=== PATIENT | male | born 1950 | race Caucasian/White ===

== ENCOUNTER 2020-12-22 14:47 | Outpatient (REF) | payer MEDICARE, SELFPAY ==
--- NOTE | 2020-12-22 15:03 | ECG_ITS ---
Test Reason : med monitering Blood Pressure : / mmHG Vent. Rate : 061 BPM Atrial Rate : 061 BPM P-R Int : 132 ms QRS Dur : 098 ms QT Int : 420 ms P-R-T Axes : 057 -36 060 degrees QTc Int : 422 ms Normal sinus rhythm Left anterior fascicular block Intra-ventricular conduction delay Abnormal ECG No previous EKG. Referred By: Ashley Lugo Electronically Signed By:NIDHI KRAUSE MD
[2020-12-22 15:32] LABS: Alanine Aminotransferase 26 U/L (0-40); Albumin Level 4.5 g/dL (3.5-5.0); Alkaline Phosphatase 81 U/L (39-117); Anion Gap 13 (12-20); Aspartate Amino Transferase 26 U/L (5-37); Bilirubin Total 1.2 mg/dL (0.0-1.0); Blood Urea Nitrogen 18 mg/dL (9-16); Calcium 9.7 mg/dL (8.4-10.2); Carbon Dioxide 19 mmol/L (22-29); Chloride 114 mmol/L (96-108); Estimated Glomerular Filt Rate > 60; Glucose Random 107 mg/dL (60-115); Potassium 3.9 mmol/L (3.3-5.1); Sodium 142 mmol/L (135-145); Total Protein 6.9 g/dL (6.5-8.0)
[2020-12-22 15:52] LABS: Free T4 (Free Thyroxine) 1.06 ng/dL (0.71-1.85); Thyroid Stimulating Hormone 1.31 uIU/mL (0.32-4.0)
== END 2020-12-22 14:48 | disposition home or self-care (01) ==
LOC: HO.LAB 14:47
PROVIDERS: Visit Provider Nurse Practitioner Psychiatric/Mental Health
DX: F41.1 Generalized anxiety disorder (principal); F33.2 Major depressive disorder, recurrent severe without psychotic features
CPT/HCPCS: 36415; 80053; 84439; 84443; 93005

== ENCOUNTER 2021-01-17 13:58 | Emergency (ER) | payer MEDICARE, SELFPAY ==
--- NOTE | ~2021-01-17 | XR_ITS ---
EXAMINATION: XR CHEST CLINICAL INFORMATION: Shortness of breath COMPARISON: None TECHNIQUE: 2 views of the chest were obtained. FINDINGS: No significant abnormality is noted involving the heart, lungs, mediastinum, bony thorax or soft tissues. XR/XR chest 2V IMPRESSION: Unremarkable examination.
[2021-01-17 14:45] VITALS: BP 116/52; PULSE 65; RESP 16; TEMP 36.7; O2SAT 99; BMI 27.8
--- NOTE | 2021-01-17 14:47 | ED_ITS ---
HPI - Psych General Chief Complaint: Psychiatric Symptoms Stated Complaint: crisis Time Seen by Provider: 01/17/21 14:46 Source: patient Mode of arrival: ambulatory Limitations: no limitations History of Present Illness HPI Narrative: 70-year-old male with a history of depression and anxiety currently on partial hospitalization program last seen today by Psychiatry presents to the ER for hope of getting inpatient level of care. He was recently started on olanzapine 5 mg b.i.d. for the last 1 week. He reports no improvement with this. No reviews that he was hyperventilating during interview with psych today. He is frustrated with lack of benefit on the new medication and he continues to feel tired and depressed with low motivation and hopelessness. 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 His neighbors ?put up a fight? 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 He states he is at home alone in a constant state of anxiety and panic. He says for the last 2 months he has woken up anxious and hyperventilating and his symptoms slowly improved throughout the day but he wakes up the next day feeling the exact same way. He is afraid of being a failed, alone old man with no success. He denies suicidal or homicidal thoughts. MD complaint: feels depressed and anxiety Onset (ago): unknown Duration: constant History of same: Yes Relieving factors: none Exacerbating factors: none Associated psychiatric symptoms: depression and racing thoughts Associated symptoms: denies other symptoms Treatments prior to arrival: none Related Data Home Medications Medication Instructions Recorded Confirmed aspirin 81 mg capsule 81 mg PO DAILY 12/21/20 01/17/21 atorvastatin 40 mg tablet 40 mg PO BEDTIME 12/21/20 01/17/21 cholecalciferol (vitamin D3) 50 50 mcg PO DAILY 12/21/20 01/17/21 mcg (2,000 unit) capsule (Vitamin D3) citalopram 20 mg tablet (Celexa) 30 mg PO DAILY 12/21/20 01/17/21 docusate sodium 100 mg capsule 100 mg PO BID 12/21/20 01/17/21 lorazepam 1 mg tablet 1 mg PO TID 12/21/20 01/17/21 mirtazapine 15 mg tablet (Remeron) 15 mg PO BEDTIME 12/21/20 01/17/21 betamethasone dipropionate 0.05 % 1 appl TOPICAL DAILY 01/17/21 01/17/21 topical cream gabapentin 300 mg capsule 300 mg PO BID 01/17/21 01/17/21 vitamin B complex 1 cap PO DAILY 01/17/21 01/17/21 Previous Rx's Medication Instructions Recorded olanzapine 5 mg tablet 5 mg PO BID #14 tab 01/10/21 Allergies Allergy/AdvReac Type Severity Reaction Status Date / Time No Known Allergies Allergy Verified 12/21/20 13:27 Review of Systems Review of Systems: Constitutional: No Fever, No Chills ENT/Mouth: No sore throat, No Rhinorrhea, No Swallowing Difficulty Cardiovascular: No Chest Pain, No SOB, No Orthopnea, No Edema Respiratory: No Cough, No Sputum, No Wheezing, No dyspnea Gastrointestinal: No Nausea, No Vomiting, No Diarrhea, No abdominal Pain Genitourinary: No Dysuria, No Urinary Frequency, No Hematuria Musculoskeletal: No joint pain, No Myalgias Skin: No Skin Lesions, No rash Neuro: No Weakness, No Numbness, No Dizziness, No Headache Psych: + Anxiety/Panic, + Depression, No SI, No HI Heme/Lymph: No Bruising, No Lymphadenopathy Endocrine: No Polyuria, No Polydipsia PMFSH Past Medical History Medical History History of prediabetes Hyperlipidemia Psoriasis Psoriatic arthritis Surgical History H/O cervical discectomy H/O inguinal hernia repair Social History Social History Household Members: None Patient Tobacco Use Status: Never used Tobacco Advance Directives: No Advance Directives Information Provided: No Physical Exam Vital Signs: Vital Signs: Last Vital Signs Temp 98.1 F 01/17/21 14:45 Pulse 65 01/17/21 14:45 Resp 16 01/17/21 14:45 BP 116/52 L 01/17/21 14:45 Pulse Ox 99 01/17/21 14:45 Body Mass Index 27.8 Appearance: Alert. Oriented X3. Anxious, hyperventilating, slightly disheveled. Eyes: Pupils equal, round and reactive to light. ENT: Pharynx normal. Neck: Normal inspection. Neck supple. CVS: Normal heart rate and rhythm. Pulses normal. Respiratory: No respiratory distress. Breath sounds normal. Abdomen: Soft and nontender. +BS x4 Skin: Skin warm and dry. Normal skin color. Normal skin turgor. No rashes. Extremities: No lower extremity edema. Neuro: Oriented X 3. No motor deficit. No sensory deficit. CN II-X11 intact. Anxious, well spoken with rapid speech. No SI/HI/AH/VH. Course Course Course Narrative: 70-year-old male with history of generalized anxiety disorder, major depressive disorder who is currently in the partial hospitalization program here presents to the ER for evaluation of ongoing worsening anxiety desp ite treatment with b.i.d. olanzapine. He is hyperventilating and having poor control over his anxiety attacks. He is hoping for inpatient level of care. He is not suicidal at this time. Will get labs and clear medically and have crisis team evaluate him. Reevaluation(s) Reevaluation #1: Lab workup is unremarkable. U tox is negative. Alcohol level is negative. COVID is negative. At this time is medically cleared and appropriate for N evaluation. Physician observation started at 5:21pm. Patient placed in physician observation because patient is awaiting N evaluation for the possible need of inpatient psych admission. At the time observation was started patient's vital signs were stable. Patient is alert and oriented. Neuro exam is non-focal. CV: RRR and lungs are clear with rapid resp rate intermittently. Will continue to monitor. Time: 17:22 [facility] - Psych Lab Data Result diagrams: 01/17/21 16:22 01/17/21 16:22 Labs: Lab Results 01/17/21 01/17/21 01/17/21 Range/Units 15:32 15:33 15:33 WBC (4.8-10.8) X10*3/uL RBC (4.60-5.80) X10*6/uL Hgb (14.0-18.0) g/dl Hct (42.0-52.0) % MCV (80.0-98.0) fL MCH (27.0-33.0) pg MCHC (31.0-36.0) g/dl RDW (11.0-16.0) % Plt Count (160-400) X10*3/uL MPV (9.4-12.4) fL Immature Gran % (Auto) (0.0-0.4) % Neut % (Auto) (45-73) % Lymph % (Auto) (20-40) % [place] % (Auto) (2-11) % Eos % (Auto) (0-4) % Baso % (Auto) (0-2) % Lymph # (Auto) (1.2-4.9) X10*3/uL [place] # (Auto) (0.1-1.2) X10*3/uL Eos # (Auto) (0.0-0.4) X10*3/uL Baso # (Auto) (0.0-0.2) X10*3/uL Abs Immat Gran (auto) (0.00-0.03) X10*3/uL Absolute Neuts (auto) (2.0-8.3) x10*3/uL Absolute Nucleated RBC (0.0-0.012) X10*3/uL Nucleated RBC % (auto) (0.0-0.2) /100WBC Sodium (135-145) mmol/L Potassium (3.3-5.1) mmol/L Chloride (96-108) mmol/L Carbon Dioxide (22-29) mmol/L Anion Gap (12-20) BUN (9-16) mg/dL Creatinine (0.5-1.4) mg/dL Estim Creat Clear Calc Estimated GFR Random Glucose (60-115) mg/dL Calcium (8.4-10.2) mg/dL Magnesium (1.6-2.6) mg/dL Total Bilirubin (0.0-1.0) mg/dL Direct Bilirubin (0.0-0.5) mg/dL AST (5-37) U/L ALT (0-40) U/L Alkaline Phosphatase (39-117) U/L Total Protein (6.5-8.0) g/dL Albumin (3.5-5.0) g/dL Urine Color YELLOW Urine Appearance CLEAR Urine pH 6.5 (5.0-8.0) Ur Specific [place] 1.010 (1.005-1.025) Urine Protein NEG (NEG-TRACE) MG/DL Urine Glucose (UA) NEG (NEG) MG/DL Urine Ketones NEG (NEG) MG/DL Urine Blood NEG (NEG) Urine Nitrite NEG (NEG) Ur Leukocyte Esterase NEG (NEG) Urine Opiates Screen Not Detected (Not Detect) Urine Fentanyl Screen Not Detected (Not Detect) Ur Barbiturates Screen Not Detected (Not Detect) Ur Phencyclidine Scrn Not Detected (Not Detect) Ur Amphetamines Screen Not Detected (Not Detect) U Benzodiazepines Scrn Not Detected (Not Detect) Urine Cocaine Screen Not Detected (Not Detect) U Marijuana (THC) Screen Not Detected (Not Detect) Ethyl Alcohol mg/dL COVID-19 (ANNIE) Negative (Negative) COVID-19 Clin Com See Note 01/17/21 01/17/21 01/17/21 Range/Units 16:22 16:22 16:22 WBC 9.0 (4.8-10.8) X10*3/uL RBC 4.11 L (4.60-5.80) X10*6/uL Hgb 13.2 L (14.0-18.0) g/dl Hct 38.8 L (42.0-52.0) % MCV 94.4 (80.0-98.0) fL MCH 32.1 (27.0-33.0) pg MCHC 34.0 (31.0-36.0) g/dl RDW 13.2 (11.0-16.0) % Plt Count 230 (160-400) X10*3/uL MPV 9.6 (9.4-12.4) fL Immature Gran % (Auto) 0.2 (0.0-0.4) % Neut % (Auto) 64.3 (45-73) % Lymph % (Auto) 27.3 (20-40) % [place] % (Auto) 6.5 (2-11) % Eos % (Auto) 1.4 (0-4) % Baso % (Auto) 0.3 (0-2) % Lymph # (Auto) 2.5 (1.2-4.9) X10*3/uL [place] # (Auto) 0.6 (0.1-1.2) X10*3/uL Eos # (Auto) 0.1 (0.0-0.4) X10*3/uL Baso # (Auto) 0.0 (0.0-0.2) X10*3/uL Abs Immat Gran (auto) 0.02 (0.00-0.03) X10*3/uL Absolute Neuts (auto) 5.8 (2.0-8.3) x10*3/uL Absolute Nucleated RBC 0.000 (0.0-0.012) X10*3/uL Nucleated RBC % (auto) 0.0 (0.0-0.2) /100WBC Sodium 142 (135-145) mmol/L Potassium 3.9 (3.3-5.1) mmol/L Chloride 112 H (96-108) mmol/L Carbon Dioxide 20 L (22-29) mmol/L Anion Gap 14 (12-20) BUN 16 (9-16) mg/dL Creatinine 0.94 (0.5-1.4) mg/dL Estim Creat Clear Calc 80.5 Estimated GFR > 60 Random Glucose 155 H D (60-115) mg/dL Calcium 9.3 (8.4-10.2) mg/dL Magnesium 2.0 (1.6-2.6) mg/dL Total Bilirubin 0.5 (0.0-1.0) mg/dL Direct Bilirubin 0.2 (0.0-0.5) mg/dL AST 27 (5-37) U/L ALT 21 (0-40) U/L Alkaline Phosphatase 70 (39-117) U/L Total Protein 6.6 (6.5-8.0) g/dL Albumin 4.1 (3.5-5.0) g/dL Urine Color Urine Appearance Urine pH (5.0-8.0) Ur Specific [place] (1.005-1.025) Urine Protein (NEG-TRACE) MG/DL Urine Glucose (UA) (NEG) MG/DL Urine Ketones (NEG) MG/DL Urine Blood (NEG) Urine Nitrite (NEG) Ur Leukocyte Esterase (NEG) Urine Opiates Screen (Not Detect) Urine Fentanyl Screen (Not Detect) Ur Barbiturates Screen (Not Detect) Ur Phencyclidine Scrn (Not Detect) Ur Amphetamines Screen (Not Detect) U Benzodiazepines Scrn (Not Detect) Urine Cocaine Screen (Not Detect) U Marijuana (THC) Screen (Not Detect) Ethyl Alcohol < 10 mg/dL COVID-19 (ANNIE) (Negative) COVID-19 Clin Com Discharge Plan Discharge Clinical Impression: SHAI (generalized anxiety disorder), Major depressive disorder, recurrent severe without psychotic features Prescriptions: No Action gabapentin 300 mg Capsule 300 mg PO BID RF: 0 vitamin B complex [B Complex] Capsule 1 cap PO DAILY RF: 0 betamethasone dipropionate 0.05 % Cream 1 appl TOPICAL DAILY RF: 0 atorvastatin 40 mg Tablet 40 mg PO BEDTIME RF: 0 citalopram [Celexa] 20 mg Tablet 30 mg PO DAILY RF: 0 docusate sodium 100 mg Capsule 100 mg PO BID RF: 0 mirtazapine [Remeron] 15 mg Tablet 15 mg PO BEDTIME RF: 0 lorazepam 1 mg Tablet 1 mg PO TID RF: 0 cholecalciferol (vitamin D3) [Vitamin D3] 50 mcg (2,000 unit) Capsule 50 mcg PO DAILY RF: 0 aspirin 81 mg Capsule 81 mg PO DAILY RF: 0 olanzapine 5 mg tablet 5 mg PO BID Qty: 14 RF: 0
--- NOTE | 2021-01-17 15:19 | PHA.MEDREC ---
MED REC COMPLETE, NO ISSUES Pharmacy Consult ? Medication Reconciliation Pharmacy has completed the medication reconciliation.
[2021-01-17 15:40] LABS: Appearance Urine CLEAR; Color Urine YELLOW; Glucose Urine UA NEG (NEG); Leukocyte Esterase Urine NEG (NEG); Nitrite Urine NEG (NEG); PH 6.5 (5.0-8.0); Urine Blood NEG (NEG); Urine Ketones NEG (NEG); Urine Protein NEG (NEG-TRACE)
[2021-01-17 15:54] LABS: Amphetamine Screen Urine Not Detected (Not Detect); Barbiturates, Urine Not Detected (Not Detect); Benzodiazepines Screen Urine Not Detected (Not Detect); Cannabinoid Screen Urine Not Detected (Not Detect); Cocaine Screen Urine Not Detected (Not Detect); Fentanyl, urine Not Detected (Not Detect); Opiate Screen Urine Not Detected (Not Detect); Phencyclidine Screen Urine Not Detected (Not Detect)
[2021-01-17 15:54] LABS: COVID-19 Test Negative (Negative)
[2021-01-17 16:27] LABS: MANUAL DIFF FLAG NO
[2021-01-17 16:28] LABS: Basophils Percent Auto 0.3 % (0-2); Eosinophils Absolute Auto 0.1 X10*3/uL (0.0-0.4); Eosinophils Percent Auto 1.4 % (0-4); Hematocrit 38.8 % (42.0-52.0); Hemoglobin 13.2 g/dl (14.0-18.0); Imm Gran Abs Auto 0.02 X10*3/uL (0.00-0.03); Imm Gran Pct Auto 0.2 % (0.0-0.4); Lymphocytes Absolute Auto 2.5 X10*3/uL (1.2-4.9); Lymphocytes Percent Auto 27.3 % (20-40); Mean Corpuscular Hemoglobin 32.1 pg (27.0-33.0); Mean Corpuscular Volume 94.4 fL (80.0-98.0); Mean Platelet Volume 9.6 fL (9.4-12.4); Monocytes Absolute Auto 0.6 X10*3/uL (0.1-1.2); Monocytes Percent Auto 6.5 % (2-11); Neutrophils Absolute Auto 5.8 x10*3/uL (2.0-8.3); Neutrophils Percent Auto 64.3 % (45-73); Platelet Count 230 X10*3/uL (160-400); Red Blood Count 4.11 X10*6/uL (4.60-5.80); Red Cell Distribution Width 13.2 % (11.0-16.0)
[2021-01-17 16:49] LABS: Ethanol < 10 mg/dL
[2021-01-17 16:51] LABS: Alanine Aminotransferase 21 U/L (0-40); Albumin Level 4.1 g/dL (3.5-5.0); Alkaline Phosphatase 70 U/L (39-117); Anion Gap 14 (12-20); Aspartate Amino Transferase 27 U/L (5-37); Bilirubin Direct 0.2 mg/dL (0.0-0.5); Bilirubin Total 0.5 mg/dL (0.0-1.0); Blood Urea Nitrogen 16 mg/dL (9-16); Calcium 9.3 mg/dL (8.4-10.2); Carbon Dioxide 20 mmol/L (22-29); Chloride 112 mmol/L (96-108); Creatinine Clr Calc Pharmacy 80.5; Estimated Glomerular Filt Rate > 60; Glucose Random 155 mg/dL (60-115); Potassium 3.9 mmol/L (3.3-5.1); Sodium 142 mmol/L (135-145); Total Protein 6.6 g/dL (6.5-8.0)
[2021-01-17] MEDS: LORazepam 1 MG TABLET PO (17:37)
== END 2021-01-17 18:54 | disposition home or self-care (01) ==
PROVIDERS: Physician Assistant; Emergency Provider Emergency Medicine Emergency Medical Services; PCP Internal Medicine
DX: F41.1 Generalized anxiety disorder (principal); F33.2 Major depressive disorder, recurrent severe without psychotic features; Z20.822 Contact with and (suspected) exposure to COVID-19; R45.851 Suicidal ideations; Z72.89 Other problems related to lifestyle; Z60.2 Problems related to living alone
CPT/HCPCS: 36415; 71046; 80048; 80076; 80307; 81003; 82077; 83735; 85025; 87635; 99283; 99284

== ENCOUNTER 2021-01-19 11:00 | Outpatient (RCR) | payer MEDICARE, OTHER, SELFPAY ==
[2020-12-21 13:05] VITALS: BMI 25.1
--- NOTE | 2020-12-21 13:21 | PC.ADMIT ---
Patient is a 70 year old male who was referred to [place] [facility] by his therapist d/t increased depression with passive SI, no plan or intent, and severe anxiety sxs. Patient reports he is not able to function as a result. 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 He stated there was a lot of unethical things done and many lies surrounding patient regarding the attempt of implementing a [employer] business. Patient reports when he found out he was not going to be able to have a AVOB business he initially was in a constant state of rage which presently changed to severe anxiety. During the admission assessment patient was visibly anxious as his breathing was increased and fast. Patient is alert and oriented x4. Presents with depressed mood, severe anxious affect with heavy breathing at a fast rate. Educated patient on calm breathing technique to reduce anxiety with good effect. Will email patient a written copy of calm breathing exercises. Patient reports passive SI having thoughts at times to take his seat belt off while driving and krystle into a tree. Stated he would not do it because of his family. Patient gave verbal permission to email him a copy of his safety plan. Medications reconciled with patient and patient's pharmacy. Patient reports taking medications as prescribed.
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
--- NOTE | 2020-12-22 10:44 | P.EN_ITS ---
Event Note Date of Service: 12/22/20 Event Note: Called client, was given verbal permission for release of info req uest for [facility]. Also informed client of lab and EKG order, to be completed at [facility].
--- NOTE | 2020-12-22 10:44 | PM.EVENT ---
Event Note Date of Service: 12/22/20 Event Note: Called client, was given verbal permission for release of info request for [facility]. Also informed client of lab and EKG order, [place] [facility]
--- NOTE | 2020-12-22 14:44 | PC.NURSE ---
Case opened in treatment team
--- NOTE | 2020-12-23 13:26 | P.PNPSP_ITS ---
Subjective Subjective Date of Service: 12/23/20 Reason For Visit: Anxiety, Depression Guardianship: No Medical Problems Affecting Mental Status: No Interim History: Robert continues with high and sense of anxiety, hyperventilating at times. He expressed concern that [facility] staff was not in communication with his outpatient providers. He was assured that we are. Medication Compliance: Yes Side effects from medications: No Attending Groups: Yes Review of Systems Acute medical concerns: No Medical Review of Systems: unchanged Review of Systems Review of Systems Yes all other systems are reviewed and are negative Constitutional: Reports no additional constitutional complaints Eyes: Reports no additional eye complaints Reports Normal hearing present Cardiovascular: Reports no additional cardiovascular complaints Respiratory: Reports no additional respiratory complaints Gastrointestinal: Reports no additional gastrointestinal complaints Genitourinary: Reports no additional male genitourinary complaints Musculoskeletal: Reports no additional musculoskeletal complaints Skin/Breast: Reports system reviewed and no additional complaints, except as docu Reports system reviewed and no additional complaints, except as documented and Reports Normal hearing present Psychiatric: Reports no additional psychiatric complaints Endocrine: Reports no additional endocrine complaints Hematologic/Lymphatic: Reports no additional hematologic/lymphatic complaints Allergic/Immunologic: Reports no additional allergic/immunologic complaints Mental Status Exam Mental Status Exam Narrative: Well-developed, well-nourished male, in NAD. Continues with extreme anxiety. Eye contact within normal limits. Alert and oriented x4. No involuntary movements noted, motor activity calm, posture within normal limits. [place] in behavior were anxious, cooperative. Speech was fluent, unimpaired. Attention and cognition grossly intact. Mood described as anxious, affect congruent. Thought process and associations goal directed. Thought content was normal, future oriented. No evidence of any type of delusional thoughts or hallucinations, did not appear to be responding to any type of internal stimuli. No reports of SI, HI. Appears to be reliable historian. Judgment and insight continue fair at this time. Ambulation not observed. Diagnostics Vital Signs (24Hr): Body Mass Index 25.1 Labs Labs: Labs reviewed from PCP and [facility]. EKG EKG: reviewed EKG Comment: EKGs from PCP office reviewed, and EKG obtained here at [facility] yesterday reviewed. Assessment & Plan Assessment & Plan (1) Major depressive disorder, recurrent severe without psychotic features: Status: Acute Code(s): F33.2 - Major depressive disorder, recurrent severe without psychotic features Assessment and Plan: Client continues with depressive symptoms, dysphoric mood. Denies any type of thought of harm to self or others, no safety concern at this time. (2) SHAI (generalized anxiety disorder): Status: Acute Code(s): F41.1 - Generalized anxiety disorder Assessment and Plan: Client continues with highly anxious state. Reviewed deep breathing, anxiety reduction techniques, practiced with client. Printed materials sent via e-mail. Discussed adding low-dose risperidone to help with agitation/anxiety. Discuss risks, benefits, side effects, alternatives. Client willing to try low-dose. Assessment and Plan: 1. Start risperidone 0.25 b.i.d. x7 days. To be revaluated next week. 2. Follow-up as per protocol. Patient educated on: diagnosis, medication risk/benefits and therapeutic strategies Informed Consent: understands Reason for contiued partial hosp. stay Substantial Risk for: inability to function, rapid decompensation and med/psych decompensation Certification I certify that partial hospital treatment is medically necessary due to the symptoms and problems resulting from the patient's mental illness and the martita lure to treat the patient at the partial hospital level of care would likely result in the patient requiring inpatient psychiatric care which could not be prevented at a less intensive level of care. I spent minutes with the patient and/or on the patient floor today, greater than?50% of which was spent counseling/coordinating care. Discharge Plan Discharge Attending provider: Donta Campbell Primary Care Provider: Calderon Parks Medications: New risperidone [Risperdal] 0.5 mg tablet 0.25 mg PO BID 7 Days Qty: 7 RF: 0 No Action atorvastatin 40 mg Tablet 40 mg PO BEDTIME RF: 0 citalopram [Celexa] 20 mg Tablet 30 mg PO DAILY RF: 0 docusate sodium 100 mg Capsule 100 mg PO DAILY RF: 0 mirtazapine [Remeron] 15 mg Tablet 15 mg PO BEDTIME RF: 0 lorazepam 1 mg Tablet 1 mg PO TID RF: 0 gabapentin 100 mg Tablet 100 mg PO TID RF: 0 gabapentin 300 mg Tablet 300 mg PO TID RF: 0 cholecalciferol (vitamin D3) [Vitamin D3] 50 mcg (2,000 unit) Capsule 50 mcg PO DAILY RF: 0 aspirin 81 mg Capsule 81 mg PO DAILY RF: 0 Referrals: Calderon Parks MD [Primary Care Provider] - 1 Week Telehealth Telehealth Location of provider rendering services: practice address Location of patient: address on file Patient Identification confirmed using: Name, : Yes Telehealth method: video Patient verbally consented to treatment: Yes Patient verbally consented to billing insurance company: Yes Patient informed of any privacy concerns related to visit: Yes Time spent with patient (mins): 15
--- NOTE | 2020-12-26 15:21 | HO.PHPPROGNO ---
Subjective Subjective Date of Service: 12/26/20 Reason For Visit: Anxiety, Depression Healthcare Proxy: Yes Guardianship: No Medical Problems Affecting Mental Status: No Interim History: Robert reports that he continues to feel ?pretty lousy ?. He reports that his breathing is still difficult at times and he finds himself hyperventilating. He does say that he has been utilizing the deep breathing exercises he received on Saturday. He states that when he does these exercises he feels less anxiety, but then sometimes he forgets to do them. Risperdal was started Saturday, he reports no real difference in his anxiety level at this time. He reports feeling weak at times, believes it is due to his increased dose of gabapentin. He also reports that he has been taking 2-300 mg of Colace daily due to difficulties with stools. 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 He then has an appointment with his outpatient therapist. He is ruminating on his day schedule tomorrow, and states he does not know if he will be able to function, and that he may need to stop mid day and go home. Medication Compliance: Yes Side effects from medications: No Review of Systems Acute medical concerns: No Medical Review of Systems: unchanged Review of Systems Review of Systems Client continues with anxiety,constipation, denies any other issues at this time. Yes all other systems are reviewed and are negative Mental Status Exam Mental Status Exam Narrative: Well-developed male, in NAD. Patient Appearance: Well Grooomed and Fatigued Patient Orientation: Person, Place and Time Level of Consciousness: Appropriate and Alert Patient Behavior: Appropriate, Cooperative, Anxious and Good Eye Contact Mood Description: Anxious Affect Description: Appropriate, Anxious and Nervous Patient Cognition Impaired: No Ability to Follow Directions: Excellent Speech Pattern: Clear, Appropriate, Spontaneous Speech and Coherent Memory Description: Intact Delusions: Not Present Thought Process: Rumination, Goal Oriented and Linear Thought Content: positive for Goal Oriented, positive for Perseveration and positive for Preoccupation Depressive Symptoms: Increased Anxiety and Diff. Making Decisions Judgement: Fair Diagnostics Vital Signs (24Hr): Body Mass Index 25.1 Assessment & Plan Assessment & Plan (1) SHAI (generalized anxiety disorder): Status: Acute Code(s): F41.1 - Generalized anxiety disorder Assessment and Plan: Client continues with excessive anxiety symptoms, including hyperventilation, rumination, excessive worry, difficulty relaxing, fatigue, restlessness. We reviewed deep breathing exercises, client was encouraged to utilize them. We reviewed his day tomorrow, and his projection that he will have too much anxiety and will need to go home. Reframing, plan for break during busy schedule tomorrow, to take a brisk walk and eat. He stated that he will try this. He does say that he does not notice a substantial difference with the Risperdal, but will give it a few more days to try. He requests refill of gabapentin 100 mg, 50 tabs, as he has 50 of the gabapentin 300s but is out of the 100s. (2) Major depressive disorder, recurrent severe without psychotic features: Status: Acute Code(s): F33.2 - Major depressive disorder, recurrent severe without psychotic features Assessment and Plan: 1. Refill of gabapentin 100 sent into pharmacy. 2. Continue medications as prescribed. 3. Follow-up as per protocol. Reason for contiued partial hosp. stay Substantial Risk for: inability to function and med/psych decompensation Certification I certify that partial hospital treatment is medically necessary due to the symptoms and problems resulting from the patient's mental illness and the failure to treat the patient at the partial hospital level of care would likely result in the patient requiring inpatient psychiatric care which could not be prevented at a less intensive level of care. I spent minutes with the patient and/or on the patient floor today, greater than?50% of which was spent counseling/coordinating care. Discharge Plan Discharge Attending provider: Donta Campbell Primary Care Provider: Calderon Parks Medications: New risperidone [Risperdal] 0.5 mg tablet 0.25 mg PO BID 7 Days Qty: 7 RF: 0 gabapentin 100 mg capsule 100 mg PO TID Qty: 50 RF: 0 Discontinued gabapentin 100 mg Tablet 100 mg PO TID RF: 0 No Action atorvastatin 40 mg Tablet 40 mg PO BEDTIME RF: 0 citalopram [Celexa] 20 mg Tablet 30 mg PO DAILY RF: 0 docusate sodium 100 mg Capsule 100 mg PO DAILY RF: 0 mirtazapine [Remeron] 15 mg Tablet 15 mg PO BEDTIME RF: 0 lorazepam 1 mg Tablet 1 mg PO TID RF: 0 gabapentin 300 mg Tablet 300 mg PO TID RF: 0 cholecalciferol (vitamin D3) [Vitamin D3] 50 mcg (2,000 unit) Capsule 50 mcg PO DAILY RF: 0 aspirin 81 mg Capsule 81 mg PO DAILY RF: 0 Referrals: Calderon Parks MD [Primary Care Provider] - 1 Week Telehealth Telehealth Location of provider rendering services: practice address Location of patient: address on file Patient Identification confirmed using: Name, : Yes Telehealth method: video Patient verbally consented to treatment: Yes Patient verbally consented to billing insurance company: Yes Patient informed of any privacy concerns related to visit: Yes Time spent with patient (mins): 15
--- NOTE | 2020-12-27 14:15 | PC.NURSE ---
Faxed abnormal lab and EKG results to Dr Parks's office patient's PCP on 12/26/20. Called and left message to f/u. Awaiting a call back.
--- NOTE | 2020-12-28 17:55 | HO.PHPPROGNO ---
Subjective Subjective Date of Service: 12/28/20 Reason For Visit: Anxiety, Depression Guardianship: No Medical Problems Affecting Mental Status: No Interim History: Robert reports feeling the same, states ?I feel like I am spinning my wheels ?. 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 He states that he saw his therapist yesterday, and that she informed him he needs to be assertive regarding his medical care and his medications. He states that he believes none of his providers, including this provider, are in contact with his medical providers and psychiatry providers. 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 He states he is periodically doing the deep breathing exercises and walking, but not consistently. He states that he feels he is not getting any relief. He states feeling weak. He denies any thoughts of harm to self or others, no SI, feels safe. No safety concern at this time. He states no relief from the Risperdal. He is questioning whether the 400 mg gabapentin q.i.d. is causing him to feel tired and weak. Medication Compliance: Yes Side effects from medications: No Attending Groups: Yes Review of Systems Acute medical concerns: No Medical Review of Systems: unchanged Mental Status Exam Mental Status Exam Narrative: Well-developed, well-nourished male, in NAD. Hyperventilating at times, extremely anxious mood and affect. No involuntary movements noted, motor activity calm. Posture within normal limits. Ambulation not observed. Patient Appearance: Well Grooomed, Fatigued and Appropriate Patient Orientation: Person, Place, Time and Situation Level of Consciousness: Awake, Appropriate and Alert Patient Behavior: Appropriate, Cooperative, Anxious and Good Eye Contact Mood Description: Appropriate and Anxious Affect Description: Anxious Patient Cognition Impaired: No Ability to Follow Directions: Excellent Speech Pattern: Clear, Perseverating, Spontaneous Speech and Coherent Memory Description: Intact Hallucinations: None Delusions: Not Present Thought Process: Intact and Rumination Thought Content: positive for Intact, positive for Obsessional Thoughts and positive for Preoccupation Depressive Symptoms: Increased Anxiety and Increased Fatigue Judgement: Fair Diagnostics Vital Signs (24Hr): Body Mass Index 25.1 Assessment & Plan Assessment & Plan (1) SHAI (generalized anxiety disorder): Status: Acute Code(s): F41.1 - Generalized anxiety disorder Assessment and Plan: Client continues with extremely anxious mood and affect, hyperventilating at times during encounter. States concerns that none of his providers are talking to each other. Discussed medications. Reports no help at all with gabapentin 400 t.i.d., and believes it is causing his symptoms to worsen, and causing fatigue. (2) Major depressive disorder, recurrent severe without psychotic features: Status: Acute Code(s): F33.2 - Major depressive disorder, recurrent severe without psychotic features Assessment and Plan: Client continues with dysphoric mood. No thoughts of harm to self or others, no safety concern at this time. Reports no positive affect with Risperdal. Discussed medication changes, also discussed possibility of evaluation for inpatient level of care. Client reports he would like to try decreasing gabapentin and stopping Risperdal 1st, and then will come in to ED for evaluation for inpatient level of care if continues with no improvement. Assessment and Plan: 1. Stop Risperdal. 2. Decrease gabapentin to 300 mg t.i.d.. 3. Client encouraged to continue deep breathing exercises, and walking for 10 minutes 2-3 times daily to help relieve stress. 4. Follow-up as per protocol. Patient educated on: diagnosis, medication risk/benefits and therapeutic strategies Informed Consent: understands Reason for contiued partial hosp. stay Substantial Risk for: inability to function, rapid decompensation and med/psych decompensation Certification I certify that partial hospital treatment is medically necessary due to the symptoms and problems resulting from the patient's mental illness and the failure to treat the patient at the partial hospital level of care would likely result in the patient requiring inpatient psychiatric care which could not be prevented at a less intensive level of care. I spent minutes with the patient and/or on the patient floor today, greater than?50% of which was spent counseling/coordinating care. Discharge Plan Discharge Attending provider: Donta Campbell Primary Care Provider: Calderon Parks Medications: Discontinued gabapentin 100 mg Tablet 100 mg PO TID RF: 0 No Action atorvastatin 40 mg Tablet 40 mg PO BEDTIME RF: 0 citalopram [Celexa] 20 mg Tablet 30 mg PO DAILY RF: 0 docusate sodium 100 mg Capsule 100 mg PO DAILY RF: 0 mirtazapine [Remeron] 15 mg Tablet 15 mg PO BEDTIME RF: 0 lorazepam 1 mg Tablet 1 mg PO TID RF: 0 gabapentin 300 mg Tablet 300 mg PO TID RF: 0 cholecalciferol (vitamin D3) [Vitamin D3] 50 mcg (2,000 unit) Capsule 50 mcg PO DAILY RF: 0 aspirin 81 mg Capsule 81 mg PO DAILY RF: 0 Referrals: Calderon Parks MD [Primary Care Provider] - 1 Week Telehealth Telehealth Location of provider rendering services: practice address Location of patient: address on file Patient Identification confirmed using: Name, : Yes Telehealth method: video Patient verbally consented to treatment: Yes Patient verbally consented to billing insurance company: Yes Patient informed of any privacy concerns related to visit: Yes Time spent with patient (mins): 15
--- NOTE | 2020-12-29 11:25 | PC.NURSE ---
Spoke to nurse Kareen at Dr Parks's office who stated that Dr Parks reviewed the Labs and EKG results that were faxed to his office on 12/26/20. Stated EKG was similar to last one that was done and labs are minor no need for urgent f/u. Kareen stated she spoke to the patient and the plan is for the patient to call Dr Parks's office once discharged from the program to make a f/u appointment.
--- NOTE | 2021-01-03 14:18 | HO.PHPPROGNO ---
Subjective Subjective Date of Service: 01/04/21 Reason For Visit: Anxiety, Depression Interim History: Patient seen and discussed with team. Patient evaluated this morning and upon interview he states the risperdal 0.25 mg didnt make any difference being on or off it and that he is still having trouble with constipation. Says he feels the same as I was when I started the program, feels quivering in my body, and he cant control my breathing. Pt said a non-professional friend of his suggested luvox or anafranil, however he would like to defer to providers for this decision. Says he is anxious and his appetite is diminished. Says he feels safe. Medication Compliance: Yes Side effects from medications: No Attending Groups: Yes Review of Systems Acute medical concerns: No Medical Review of Systems: unchanged Mental Status Exam Mental Status Exam Narrative: Well-developed, well-nourished male, in NAD.? Hyperventilating at times, extremely anxious mood and affect.? No involuntary movements noted, motor activity calm.? Posture within normal limits.? Ambulation not observed. Patient Appearance:?Well Grooomed, Fatigued and Appropriate Patient Orientation:?Person, Place, Time and Situation Level of Consciousness:?Awake, Appropriate and Alert Patient Behavior:?Appropriate, Cooperative, Anxious and Good Eye Contact Mood Description:?Appropriate and Anxious Affect Description:?Anxious Patient Cognition Impaired:?No Ability to Follow Directions:?Excellent Speech Pattern:?Clear, Perseverating, Spontaneous Speech and Coherent Memory Description:?Intact Hallucinations:?None Delusions:?Not Present Thought Process:?Intact and Rumination Thought Content:?positive for Intact, positive for Obsessional Thoughts and positive for Preoccupation Depressive Symptoms:?Increased Anxiety and Increased Fatigue Judgement:?Fair Diagnostics Vital Signs (24Hr): Body Mass Index 25.1 Assessment & Plan Assessment & Plan (1) Major depressive disorder, recurrent severe without psychotic features: Status: Acute Code(s): F33.2 - Major depressive disorder, recurrent severe without psychotic features Assessment and Plan: Client continues with dysphoric mood.? No thoughts of harm to self or others, no safety concern at this time.? Will re-trial Risperdal for mood stability. Discussed medication changes. Pt declined IPLOC and is not currently endorsing criteria that more restrictive level of care. (2) SHAI (generalized anxiety disorder): Status: Acute Code(s): F41.1 - Generalized anxiety disorder Assessment and Plan: Client continues with extremely anxious mood and affect, hyperventilating at times during encounter.? Discussed medications.? Denies benefit on current med regimen. Still feels fatigued even on lower gabapentin dose, however pt is also placing overall strain on himself with psychomotor agitation. Discussed optimizing dose of risperdal, as he did not have a proper trial on this medication and continues with perseverative, obsessive thoughts and intractable anxiety. Will trial 0.5 mg QAM and Qnoon, 1 mg QHS for 14 days. If this does not help, may recommend trial of luvox or anafranil in place of celexa to target obsessive thoughts and anxiety. Assessment and Plan: 1. Re-start Risperdal 0.5 mg QAM and Qnoon and 1 mg QHS. 2. Continue gabapentin 300 mg t.i.d.. 3. Client encouraged to continue deep breathing exercises, and walking for 10 minutes 2-3 times daily to help relieve stress. 4. Follow-up as per protocol. Patient educated on: medication risk/benefits and therapeutic strategies Certification I certify that partial hospital treatment is medically necessary due to the symptoms and problems resulting from the patient's mental illness and the failure to treat the patient at the partial hospital level of care would likely result in the patient requiring inpatient psychiatric care which could not be prevented at a less intensive level of care. I spent minutes with the patient and/or on the patient floor today, greater than?50% of which was spent counseling/coordinating care. Discharge Plan Discharge Attending provider: Donta Campbell Primary Care Provider: Calderon Parks Medications: New risperidone [Risperdal] 1 mg tablet See Rx Instructions .ROUTE .COMPLEX Qty: 14 RF: 0 Discontinued gabapentin 100 mg Tablet 100 mg PO TID RF: 0 No Action atorvastatin 40 mg Tablet 40 mg PO BEDTIME RF: 0 citalopram [Celexa] 20 mg Tablet 30 mg PO DAILY RF: 0 docusate sodium 100 mg Capsule 100 mg PO DAILY RF: 0 mirtazapine [Remeron] 15 mg Tablet 15 mg PO BEDTIME RF: 0 lorazepam 1 mg Tablet 1 mg PO TID RF: 0 gabapentin 300 mg Tablet 300 mg PO TID RF: 0 cholecalciferol (vitamin D3) [Vitamin D3] 50 mcg (2,000 unit) Capsule 50 mcg PO DAILY RF: 0 aspirin 81 mg Capsule 81 mg PO DAILY RF: 0 Referrals: Calderon Parks MD [Primary Care Provider] - 1 Week
--- NOTE | 2021-01-10 13:34 | P.PNPSP_ITS ---
Subjective Subjective Date of Service: 01/10/21 Reason For Visit: Anxiety, Depression Interim History: I evaluated the pt this morning and upon inquiry he reports he feels the same, continues to endorse sx of hyperarousal, anxiety, states im hyperventilating, says this starts in the morning, subsides later in the day. Reports Im fatigued. Denies benefit on increased risperdal, nothing seems to be working. Discussed accessing higher level of care but pt declines, as he has plans to visit a friend over the holidays. Discussed trial of zyprexa to target agitated anxiety and mood lability. Discussed self care/ life skills. Medication Compliance: Yes Side effects from medications: No Attending Groups: Yes Review of Systems Acute medical concerns: No Medical Review of Systems: unchanged Mental Status Exam Mental Status Exam Narrative: Well-developed, well-nourished male, in NAD.? Hyperventilating at times, extremely anxious mood and affect.? No involuntary movements noted, motor activity calm.? Posture within normal limits.? Ambulation not observed. Patient Appearance:?Well Grooomed, Fatigued and Appropriate Patient Orientation:?Person, Place, Time and Situation Level of Consciousness:?Awake, Appropriate and Alert Patient Behavior:?Appropriate, Cooperative, Anxious and Good Eye Contact Mood Description:?Appropriate and Anxious Affect Description:?Anxious Patient Cognition Impaired:?No Ability to Follow Directions:?Excellent Speech Pattern:?Clear, Perseverating, Spontaneous Speech and Coherent Memory Description:?Intact Hallucinations:?None Delusions:?Not Present Thought Process:?Intact and Rumination Thought Content:?positive for Intact, positive for Obsessional Thoughts and positive for Preoccupation Depressive Symptoms:?Increased Anxiety and Increased Fatigue Judgment:?Fair Diagnostics Vital Signs (24Hr): Body Mass Index 25.1 Assessment & Plan Assessment & Plan (1) Major depressive disorder, recurrent severe without psychotic features: Status: Acute Code(s): F33.2 - Major depressive disorder, recurrent severe without psychotic features Assessment and Plan: Client continues with dysphoric mood.? No thoughts of harm to self or others, no safety concern at this time.? Discussed switching to olanzapine, as this may be more helpful for mood sx and anxiety. Discussed medication changes. Pt declined IPLOC and is not currently endorsing criteria that more restrictive level of care. (2) SHAI (generalized anxiety disorder): Status: Acute Code(s): F41.1 - Generalized anxiety disorder Assessment and Plan: Client continues with extremely anxious mood and affect, hyperventilating at times during encounter.? Discussed medications.? Denies benefit on increased risperdal dose. Still feels fatigued, continues placing overall strain on himself with psychomotor agitation. Will discontinue risperdal. Consulted with medical and scientific illustrator, Dr. Cardenas, on the case. Will trial olanzapine 5 mg BID to target mood instability, anxious agitation. Reviewed risks and benefits. Assessment and Plan: 1. Discontinue Risperdal 0.5 mg QAM and Qnoon and 1 mg QHS. Start olanzapine 5 mg BID. 2. Continue gabapentin 300 mg t.i.d.. 3. Client encouraged to continue deep breathing exercises, and walking for 10 minutes 2-3 times daily to help relieve stress. 4. Follow-up as per protocol. Certification I certify that partial hospital treatment is medically necessary due to the symptoms and problems resulting from the patient's mental illness and the failure to treat the patient at the partial hospital level of care would likely result in the patient requiring inpatient psychiatric care which could not be prevented at a less intensive level of care. I spent minutes with the patient and/or on the patient floor today, greater than?50% of which was spent counseling/coordinating care. Discharge Plan Discharge Attending provider: Donta Campbell Primary Care Provider: Calderon Parks Medications: New olanzapine 5 mg tablet 5 mg PO BID Qty: 14 RF: 0 Discontinued gabapentin 100 mg Tablet 100 mg PO TID RF: 0 No Action atorvastatin 40 mg Tablet 40 mg PO BEDTIME RF: 0 citalopram [Celexa] 20 mg Tablet 30 mg PO DAILY RF: 0 docusate sodium 100 mg Capsule 100 mg PO DAILY RF: 0 mirtazapine [Remeron] 15 mg Tablet 15 mg PO BEDTIME RF: 0 lorazepam 1 mg Tablet 1 mg PO TID RF: 0 gabapentin 300 mg Tablet 300 mg PO TID RF: 0 cholecalciferol (vitamin D3) [Vitamin D3] 50 mcg (2,000 unit) Capsule 50 mcg PO DAILY RF: 0 aspirin 81 mg Capsule 81 mg PO DAILY RF: 0 Referrals: Calderon Parks MD [Primary Care Provider] - 1 Week
--- NOTE | 2021-01-17 11:49 | P.PNPSP_ITS ---
Subjective Subjective Date of Service: 01/16/21 Reason For Visit: Anxiety, Depression Interim History: Pt reports his Holiday was so, so, it was okay. He denies benefit on olanzapine 5 mg BID after taking it x 1 week, I feel the same way now, finished it today, it seemed to be the same. He is advocating for IPLOC, as he does not feel PHP has been helpful in stabilizing his anxiety, continues to hyperventilate during interview. Says he is frustrated with lack of benefit on medication trials and continues to feel fatigued, has sx of depression including low motivation and hopelessness. Denies SI/SIB/HI and says he feels safe. Medication Compliance: Yes Side effects from medications: No Attending Groups: Yes Review of Systems Acute medical concerns: No Medical Review of Systems: unchanged Mental Status Exam Mental Status Exam Narrative: Well-developed, well-nourished male, in NAD.? Hyperventilating at times, extremely anxious mood and affect.? No involuntary movements noted, motor activity calm.? Posture within normal limits.? Ambulation not observed. Patient Appearance:?Well Grooomed, Fatigued and Appropriate Patient Orientation:?Person, Place, Time and Situation Level of Consciousness:?Awake, Appropriate and Alert Patient Behavior:?Appropriate, Cooperative, Anxious and Good Eye Contact Mood Description:?Appropriate and Anxious Affect Description:?Anxious Patient Cognition Impaired:?No Ability to Follow Directions:?Excellent Speech Pattern:?Clear, Perseverating, Spontaneous Speech and Coherent Memory Description:?Intact Hallucinations:?None Delusions:?Not Present Thought Process:?Intact and Rumination Thought Content:?positive for Intact, positive for Obsessional Thoughts and positive for Preoccupation Depressive Symptoms:?Increased Anxiety and Increased Fatigue Judgment:?Fair Diagnostics Vital Signs (24Hr): Body Mass Index 25.1 Assessment & Plan Assessment & Plan (1) Major depressive disorder, recurrent severe without psychotic features: Status: Acute Code(s): F33.2 - Major depressive disorder, recurrent severe without psychotic features Assessment and Plan: Client continues with dysphoric mood.? No thoughts of harm to self or others, no safety concern at this time.? Pt trialed olanzapine and denies any benefit or improvement in mood or anxiety sx, he is now advocating for IPLOC as he does not feel that PHP level of care has met his needs. (2) SHAI (generalized anxiety disorder): Status: Acute Code(s): F41.1 - Generalized anxiety disorder Assessment and Plan: Client continues with extremely anxious mood and affect, hyperventilating at times during encounter.? He denied benefit on olanzapine 5 mg BID. Assessment and Plan: 1. Continue olanzapine 5 mg BID. Pt is going to [facility] to pursue IPLOC and will be assessed by crisis services. Reviewed process with him and called CARE team to inform them of pt's impending arrival. 2. Continue gabapentin 300 mg t.i.d.. 3. Follow-up as per protocol. Certification I certify that partial hospital treatment is medically necessary due to the symptoms and problems resulting from the patient's mental illness and the failure to treat the patient at the partial hospital level of care would likely result in the patient requiring inpatient psychiatric care which could not be prevented at a less intensive level of care. I spent minutes with the patient and/or on the patient floor today, greater than?50% of which was spent counseling/coordinating care. Discharge Plan Discharge Attending provider: Donta Campbell Primary Care Provider: Calderon Parks Medications: New olanzapine 5 mg tablet 5 mg PO BID Qty: 14 RF: 0 Discontinued gabapentin 100 mg Tablet 100 mg PO TID RF: 0 No Action atorvastatin 40 mg Tablet 40 mg PO BEDTIME RF: 0 citalopram [Celexa] 20 mg Tablet 30 mg PO DAILY RF: 0 docusate sodium 100 mg Capsule 100 mg PO DAILY RF: 0 mirtazapine [Remeron] 15 mg Tablet 15 mg PO BEDTIME RF: 0 lorazepam 1 mg Tablet 1 mg PO TID RF: 0 gabapentin 300 mg Tablet 300 mg PO TID RF: 0 cholecalciferol (vitamin D3) [Vitamin D3] 50 mcg (2,000 unit) Capsule 50 mcg PO DAILY RF: 0 aspirin 81 mg Capsule 81 mg PO DAILY RF: 0 Referrals: Calderon Parks MD [Primary Care Provider] - 1 Week
--- NOTE | 2021-01-17 14:54 | PC.NURSE ---
I spoke with the clients therapist Krystle Garcia about client level of distress and plan to go inpatient.
--- NOTE | 2021-01-19 12:31 | PC.NURSE ---
Patient reports no improvement of symptoms. Stated he is feeling hopeless, highly anxious, and not feeling well. Reports depression with SI stating he is having thoughts to drive his car into a tree or take all of his medications all at once. Patient denied plan or intent to follow through at this time. He is help seeking. Stated he could drive himself to the ER Safely. He is looking for inpatient level of care as he is struggling with depressive and anxiety sxs. Patient reports, This life is hardly worth living, what's the point, it never ends . Patient could benefit from inpatient level of care for safety and containment and stabilization of mental health sxs. Patient was evaluated in the ER 2 days ago and was told to come back if symptoms worsened. Spoke to Parrish from the care Team and reviewed aforementioned information. Nurse to Nurse done with Sendy MONAHAN. [facility] team is aware including Karina Trujillo Cheri L. and Gloria Bui. I called Robert at 12:08 to check in with him and he stated he was driving and is on his way to the hospital. Faxed above information to the Care Team.
--- NOTE | 2021-01-19 13:03 | PC.NURSE ---
I asked Robert to call me when he was in the Emergency room. Robert called me at 1:00 and notified me he is in the ER currently.
== END 2021-01-20 07:12 | disposition home or self-care (01) ==
LOC: HO.PHPA 11:00
PROVIDERS: PCP Internal Medicine; Visit Provider Psychiatry & Neurology Psychiatry
DX: F41.1 Generalized anxiety disorder (principal); F33.2 Major depressive disorder, recurrent severe without psychotic features; Z79.899 Other long term (current) drug therapy
CPT/HCPCS: 90791; 90853

== ENCOUNTER 2021-01-19 12:54 | Inpatient (IN) | payer MEDICARE, OTHER, SELFPAY ==
--- NOTE | 2021-01-19 | ECG_ITS ---
Test Reason : MED CLEARANCE Blood Pressure : / mmHG Vent. Rate : 057 BPM Atrial Rate : 057 BPM P-R Int : 158 ms QRS Dur : 102 ms QT Int : 438 ms P-R-T Axes : 080 -19 056 degrees QTc Int : 426 ms Artifact in tracing Sinus bradycardia Possible Left atrial enlargement Borderline ECG When compared with ECG of 22-DEC-2020 15:11, No significant change was found Referred By: Enmanuel Rhodes Electronically Signed By:TRINY PUENTES
--- NOTE | 2021-01-19 13:45 | ED_ITS ---
HPI - Psych General Chief Complaint: Psychiatric Symptoms Stated Complaint: crisis Time Seen by Provider: 01/19/21 13:45 Source: patient Mode of arrival: ambulatory Limitations: no limitations History of Present Illness HPI Narrative: 70-year-old male past medical history significant for anxiety, major depression presents to the emergency department with increasing anxiety, depression and suicidal ideation x2 months. Patient tells me that he has been having a lot of stresses in his life including some zoning fights with neighbors, he tells me he feels ?defeated ?, ?hopeless?. He also tells me that every time he becomes anxious he starts hyperventilating and this is really scaring him. He has been in a partial stay program for 1 month, however if he feels as though this is not helping. He tells me that the reason he is here today is because he made comments to somebody at the partial program, which had him come to the emergency department to be evaluated. He denies visual, auditory and tactile hallucinations. He denies drugs, alcohol, tobacco. He is currently followed by a psychiatrist Dr. Hoskins out of service [facility] and this therapist named Krystle Garcia. He tells me that he has been feeling suicidal with a plan of driving his car into a tree to . No recent med changes. He denies all medical complaints at this time no chest pain, shortness of breath, fevers, chills, nausea, vomiting, weakness, headache, dizziness MD complaint: suicidal ideation, feels depressed and anxiety Onset (ago): month(s) (2) Duration: constant History of same: Yes Relieving factors: none Exacerbating factors: none Associated psychiatric symptoms: depression and suicidal ideation Associated symptoms: denies other symptoms Treatments prior to arrival: none If self harm: admits thoughts of self harm and has plan (Drive car into a tree) Related Data Home Medications Medication Instructions Recorded Confirmed aspirin 81 mg capsule 81 mg PO DAILY 12/21/20 01/17/21 atorvastatin 40 mg tablet 40 mg PO BEDTIME 12/21/20 01/17/21 cholecalciferol (vitamin D3) 50 50 mcg PO DAILY 12/21/20 01/17/21 mcg (2,000 unit) capsule (Vitamin D3) citalopram 20 mg tablet (Celexa) 30 mg PO DAILY 12/21/20 01/17/21 docusate sodium 100 mg capsule 100 mg PO BID 12/21/20 01/17/21 lorazepam 1 mg tablet 1 mg PO TID 12/21/20 01/17/21 mirtazapine 15 mg tablet (Remeron) 15 mg PO BEDTIME 12/21/20 01/17/21 betamethasone dipropionate 0.05 % 1 appl TOPICAL DAILY 01/17/21 01/17/21 topical cream gabapentin 300 mg capsule 300 mg PO BID 01/17/21 01/17/21 vitamin B complex 1 cap PO DAILY 01/17/21 01/17/21 Previous Rx's Medication Instructions Recorded olanzapine 5 mg tablet 5 mg PO BID #14 tab 01/10/21 Allergies Allergy/AdvReac Type Severity Reaction Status Date / Time No Known Allergies Allergy Verified 12/21/20 13:27 Review of Systems Review of Systems: Constitutional : No Fever, No Chills ENT/Mouth : No Ear Pain, No Nasal Congestion, No sore throat Eyes: No Eye Pain, No Swelling, No Redness Cardiovascular : No Chest Pain, No SOB Respiratory : No Cough, No Sputum, No Dyspnea Gastrointestinal : No Nausea, No Vomiting, No Diarrhea, No Hematochezia, No Melena Genitourinary : No Dysuria, No Urinary Frequency, No Hematuria Musculoskeletal : No Myalgias Skin : No Skin Lesions, No rash Neuro : No Weakness, No Numbness, No Paresthesias, No Dizziness, No Headache Psych : positive Anxiety, positive Depression, positive SI, No HI All other systems reviewed and are negative PMFSH Past Medical History Attestation statement: The following information was validated with the patient. Source: old records reviewed and nursing notes reviewed Medical History History of prediabetes Hyperlipidemia Psoriasis Psoriatic arthritis Surgical History H/O cervical discectomy H/O inguinal hernia repair Social History Social History Household Members: None Patient Tobacco Use Status: Never used Tobacco Advance Directives: Yes Advance Directives Information Provided: Yes Advance Directives on File: No Physical Exam Vital Signs: Vital Signs: Last Vital Signs Temp 98.5 F 01/19/21 14:06 Pulse 68 01/19/21 14:06 Resp 16 01/19/21 14:06 BP 128/71 01/19/21 14:06 Pulse Ox 97 01/19/21 14:06 BMI result Body Mass Index 28.4 Appearance: Alert.? Oriented X3.? No acute distress.? Head: Normocephalic, atraumatic, no step-offs or deformities Eyes: Pupils equal, round and reactive to light.? ENT: Pharynx normal.? Neck: Normal inspection.? Neck supple.? CVS: Normal heart rate and rhythm.? Pulses normal.? Respiratory: No respiratory distress.? Breath sounds normal.? Abdomen: Soft and nontender.? Skin: Skin warm and dry.? Normal skin color.? Normal skin turgor.? Extremities: No lower extremity edema.? No calf ttp. 5/5 strength to bilateral upper and lower extremities Back: No midline tenderness, no C-spine tenderness, full range of motion, no CVA tenderness bilaterally Neuro: Oriented X 3.? No motor deficit.? No sensory deficit. CN 2-12 intact Course Reevaluation(s) Reevaluation #1: No leukocytosis, baseline anemia. BUN noted to be slightly elevated, however appears as though it is always elevated. No other electrolyte abnormalities noted. Urine toxicology negative ETOH negative. COVID negative. At this time patient will be placed in physician observation to allow more time to be evaluated by N, and determine the need for inpatient placement. Time that physician observation was initiated patient's vital signs were stable. Patient was, cooperative. Lungs are clear, S1-S2 appreciated free of murmurs. Abdomen soft nontender nondistended. Neuro exam intact. Time: 14:59 MDM - Psych MDM Narrative Medical decision making narrative: 2350 70-year-old male past medical history significant for anxiety, depression presenting to the emergency department with concerns of increasing anxiety, depression and suicidal ideation with plan to drive car into a tree x2 months progressively worsening. Patient is currently in a partial program and does not feel like this is helping. Based off of patient's history and physical examination I will have one of the doctors sign a Section 12. Upon physical examination patient appears well, no acute distress. Alert and oriented x3. S1-S2 appreciated free of murmurs. Lungs are clear. Abdomen soft nontender nondistended. Neuro exam nonfocal. Cranial nerves 2-12 intact. Plan at this time is to obtain basic labs, COVID, drug screen, ethanol, he will be placed on safety checks. An a N consult has been put in at this time Lab Data Result diagrams: 01/19/21 14:16 01/19/21 14:16 Labs: Lab Results 01/19/21 01/19/21 01/19/21 Range/Units 14:09 14:16 14:16 WBC 8.4 (4.8-10.8) X10*3/uL RBC 4.16 L (4.60-5.80) X10*6/uL Hgb 13.3 L (14.0-18.0) g/dl Hct 39.3 L (42.0-52.0) % MCV 94.5 (80.0-98.0) fL MCH 32.0 (27.0-33.0) pg MCHC 33.8 (31.0-36.0) g/dl RDW 13.0 (11.0-16.0) % Plt Count 217 (160-400) X10*3/uL MPV 9.1 L (9.4-12.4) fL Immature Gran % (Auto) 0.2 (0.0-0.4) % Neut % (Auto) 59.0 (45-73) % Lymph % (Auto) 30.7 (20-40) % [place] % (Auto) 8.8 (2-11) % Eos % (Auto) 1.1 (0-4) % Baso % (Auto) 0.2 (0-2) % Lymph # (Auto) 2.6 (1.2-4.9) X10*3/uL [place] # (Auto) 0.7 (0.1-1.2) X10*3/uL Eos # (Auto) 0.1 (0.0-0.4) X10*3/uL Baso # (Auto) 0.0 (0.0-0.2) X10*3/uL Abs Immat Gran (auto) 0.02 (0.00-0.03) X10*3/uL Absolute Neuts (auto) 5.0 (2.0-8.3) x10*3/uL Absolute Nucleated RBC 0.000 (0.0-0.012) X10*3/uL Nucleated RBC % (auto) 0.0 (0.0-0.2) /100WBC Sodium 141 (135-145) mmol/L Potassium 3.8 (3.3-5.1) mmol/L Chloride 111 H (96-108) mmol/L Carbon Dioxide 24 (22-29) mmol/L Anion Gap 10 L (12-20) BUN 19 H (9-16) mg/dL Creatinine 1.17 (0.5-1.4) mg/dL Estim Creat Clear Calc 65.3 Estimated GFR > 60 Random Glucose 125 H (60-115) mg/dL Calcium 9.4 (8.4-10.2) mg/dL Total Bilirubin 0.9 (0.0-1.0) mg/dL AST 26 (5-37) U/L ALT 21 (0-40) U/L Alkaline Phosphatase 70 (39-117) U/L Total Protein 6.5 (6.5-8.0) g/dL Albumin 4.1 (3.5-5.0) g/dL Urine Opiates Screen Not Detected (Not Detect) Urine Fentanyl Screen Not Detected (Not Detect) Ur Barbiturates Screen Not Detected (Not Detect) Ur Phencyclidine Scrn Not Detected (Not Detect) Ur Amphetamines Screen Not Detected (Not Detect) U Benzodiazepines Scrn Not Detected (Not Detect) Urine Cocaine Screen Not Detected (Not Detect) U Marijuana (THC) Screen Not Detected (Not Detect) Ethyl Alcohol mg/dL COVID-19 (ANNIE) (Negative) COVID-19 Clin Com 01/19/21 01/19/21 Range/Units 14:16 14:16 WBC (4.8-10.8) X10*3/uL RBC (4.60-5.80) X10*6/uL Hgb (14.0-18.0) g/dl Hct (42.0-52.0) % MCV (80.0-98.0) fL MCH (27.0-33.0) pg MCHC (31.0-36.0) g/dl RDW (11.0-16.0) % Plt Count (160-400) X10*3/uL MPV (9.4-12.4) fL Immature Gran % (Auto) (0.0-0.4) % Neut % (Auto) (45-73) % Lymph % (Auto) (20-40) % [place] % (Auto) (2-11) % Eos % (Auto) (0-4) % Baso % (Auto) (0-2) % Lymph # (Auto) (1.2-4.9) X10*3/uL [place] # (Auto) (0.1-1.2) X10*3/uL Eos # (Auto) (0.0-0.4) X10*3/uL Baso # (Auto) (0.0-0.2) X10*3/uL Abs Immat Gran (auto) (0.00-0.03) X10*3/uL Absolute Neuts (auto) (2.0-8.3) x10*3/uL Absolute Nucleated RBC (0.0-0.012) X10*3/uL Nucleated RBC % (auto) (0.0-0.2) /100WBC Sodium (135-145) mmol/L Potassium (3.3-5.1) mmol/L Chloride (96-108) mmol/L Carbon Dioxide (22-29) mmol/L Anion Gap (12-20) BUN (9-16) mg/dL Creatinine (0.5-1.4) mg/dL Estim Creat Clear Calc Estimated GFR Random Glucose (60-115) mg/dL Calcium (8.4-10.2) mg/dL Total Bilirubin (0.0-1.0) mg/dL AST (5-37) U/L ALT (0-40) U/L Alkaline Phosphatase (39-117) U/L Total Protein (6.5-8.0) g/dL Albumin (3.5-5.0) g/dL Urine Opiates Screen (Not Detect) Urine Fentanyl Screen (Not Detect) Ur Barbiturates Screen (Not Detect) Ur Phencyclidine Scrn (Not Detect) Ur Amphetamines Screen (Not Detect) U Benzodiazepines Scrn (Not Detect) Urine Cocaine Screen (Not Detect) U Marijuana (THC) Screen (Not Detect) Ethyl Alcohol < 10 mg/dL COVID-19 (ANNIE) Negative (Negative) COVID-19 Clin Com See Note Critical Care Time Critical Care Time Critical Care Time: No Discharge Plan Discharge Clinical Impression: Major depressive disorder, recurrent severe without psychotic features, SHAI (generalized anxiety disorder) Patient Disposition: Still a Patient Prescriptions: No Action gabapentin 300 mg Capsule 300 mg PO BID RF: 0 vitamin B complex [B Complex] Capsule 1 cap PO DAILY RF: 0 betamethasone dipropionate 0.05 % Cream 1 appl TOPICAL DAILY RF: 0 atorvastatin 40 mg Tablet 40 mg PO BEDTIME RF: 0 citalopram [Celexa] 20 mg Tablet 30 mg PO DAILY RF: 0 docusate sodium 100 mg Capsule 100 mg PO BID RF: 0 mirtazapine [Remeron] 15 mg Tablet 15 mg PO BEDTIME RF: 0 lorazepam 1 mg Tablet 1 mg PO TID RF: 0 cholecalciferol (vitamin D3) [Vitamin D3] 50 mcg (2,000 unit) Capsule 50 mcg PO DAILY RF: 0 aspirin 81 mg Capsule 81 mg PO DAILY RF: 0 olanzapine 5 mg tablet 5 mg PO BID Qty: 14 RF: 0
[2021-01-19 14:06] VITALS: BP 128/71; PULSE 68; RESP 16; TEMP 36.9; O2SAT 97; BMI 28.4
[2021-01-19] MEDS: LORazepam 0.5 MG TABLET PO (14:22)
[2021-01-19 14:23] LABS: Basophils Percent Auto 0.2 % (0-2); Eosinophils Absolute Auto 0.1 X10*3/uL (0.0-0.4); Eosinophils Percent Auto 1.1 % (0-4); Hematocrit 39.3 % (42.0-52.0); Hemoglobin 13.3 g/dl (14.0-18.0); Imm Gran Abs Auto 0.02 X10*3/uL (0.00-0.03); Imm Gran Pct Auto 0.2 % (0.0-0.4); Lymphocytes Absolute Auto 2.6 X10*3/uL (1.2-4.9); Lymphocytes Percent Auto 30.7 % (20-40); MANUAL DIFF FLAG NO; Mean Corpuscular HGB Conc 33.8 g/dl (31.0-36.0); Mean Corpuscular Volume 94.5 fL (80.0-98.0); Mean Platelet Volume 9.1 fL (9.4-12.4); Monocytes Absolute Auto 0.7 X10*3/uL (0.1-1.2); Monocytes Percent Auto 8.8 % (2-11); Platelet Count 217 X10*3/uL (160-400); Red Blood Count 4.16 X10*6/uL (4.60-5.80); White Blood Count 8.4 X10*3/uL (4.8-10.8)
[2021-01-19 14:39] LABS: Ethanol < 10 mg/dL
[2021-01-19 14:41] LABS: Amphetamine Screen Urine Not Detected (Not Detect); Barbiturates, Urine Not Detected (Not Detect); Benzodiazepines Screen Urine Not Detected (Not Detect); Cannabinoid Screen Urine Not Detected (Not Detect); Cocaine Screen Urine Not Detected (Not Detect); Fentanyl, urine Not Detected (Not Detect); Opiate Screen Urine Not Detected (Not Detect); Phencyclidine Screen Urine Not Detected (Not Detect)
[2021-01-19 14:42] LABS: Alanine Aminotransferase 21 U/L (0-40); Albumin Level 4.1 g/dL (3.5-5.0); Alkaline Phosphatase 70 U/L (39-117); Anion Gap 10 (12-20); Aspartate Amino Transferase 26 U/L (5-37); Bilirubin Total 0.9 mg/dL (0.0-1.0); Blood Urea Nitrogen 19 mg/dL (9-16); Calcium 9.4 mg/dL (8.4-10.2); Carbon Dioxide 24 mmol/L (22-29); Chloride 111 mmol/L (96-108); Creatinine Clr Calc Pharmacy 65.3; Estimated Glomerular Filt Rate > 60; Glucose Random 125 mg/dL (60-115); Potassium 3.8 mmol/L (3.3-5.1); Sodium 141 mmol/L (135-145); Total Protein 6.5 g/dL (6.5-8.0)
[2021-01-19 14:47] LABS: COVID-19 Test Negative (Negative)
[2021-01-19 15:23] VITALS: BP 107/62; PULSE 62; TEMP 36.8; O2SAT 97
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
[2021-01-19] MEDS: Melatonin 3 MG TABLET PO (22:00)
[2021-01-19] MEDS: OLANZapine 5 MG TABLET PO (22:00)
[2021-01-19] MEDS: LORazepam 1 MG TABLET PO (22:00)
[2021-01-19] MEDS: Mirtazapine 15 MG TABLET PO (22:00)
[2021-01-19] MEDS: Docusate Sodium 100 MG CAPSULE PO (22:00)
[2021-01-19] MEDS: Atorvastatin Calcium 40 MG TABLET PO (22:00)
--- NOTE | 2021-01-19 22:04 | PC.ADMIT ---
Pt is a single 70 year old male who presents to [place] [facility] at approx 2011 on a cv status. Pt is covid - Utox - Pt reported that his anxiety was a 3/10. Pt reported that he hyperventilates when his anxiety is high, usually during the morning hours. Pt did not rate his depression, denied SI/HI/AH/VH and pain. Pt was alert and oriented. Pt mentioned that he reported that he had SI with plan to drive into tree, or gobble up medications , but mentioned he did not have those thoughts during his admit. Pt reported that he sleeps with a Cpap machine at night. Respiratory therapy was notified and will make sure Cpap settings at accurate. Per pt chart, Pt was assessed by CARE Team at [facility], after self-presenting at the suggestion of his outpatient providers. Pt has been dealing with increased anxiety and depression for the past two months and was assessed several days ago with a disposition to continue treatment in [facility]. Provider called for orders and notified of admission. Pt on 5min safety checks. Start treatment plan and monitor for safety.
--- NOTE | 2021-01-20 00:39 | PC.RT ---
Home CPAP unit setup and in good condition. Sterile water provided for humidifier. Sitter in room, patient placed nasal mask on and unit is running.
[2021-01-20 06:05] VITALS: BP 128/68; PULSE 50; RESP 17; TEMP 36.1; O2SAT 99
[2021-01-20 08:23] LABS: Estimated Average Glucose 117 mg/dL; Hemoglobin A1c % 5.7 %
[2021-01-20 08:30] LABS: Cholesterol 140 mg/dL; HDL Cholesterol 48 mg/dL; LDL Cholesterol Calculated 63 mg/dl; Magnesium 2.1 mg/dL (1.6-2.6); Triglycerides 146 mg/dL
[2021-01-20] MEDS: Docusate Sodium 100 MG CAPSULE PO ×2 (08:37→20:17)
[2021-01-20] MEDS: LORazepam 1 MG TABLET PO ×3 (08:37→20:17)
[2021-01-20] MEDS: Gabapentin 100 MG CAPSULE PO ×2 (08:37→20:17)
[2021-01-20] MEDS: Multivitamin TABLET 1 TAB PO (08:38)
[2021-01-20] MEDS: OLANZapine 5 MG TABLET PO ×2 (08:38→20:17)
[2021-01-20] MEDS: Aspirin Enteric Coated 81 MG TABLET.DR PO (08:38)
[2021-01-20] MEDS: Cholecalciferol (Vitamin D3) 25 MCG TABLET 50 MCG PO (08:38)
[2021-01-20] MEDS: Escitalopram Oxalate 10 MG TABLET 15 MG PO (08:38)
[2021-01-20 08:52] LABS: Free T4 (Free Thyroxine) 0.87 ng/dL (0.71-1.85)
[2021-01-20 09:11] LABS: Folate 18.9 ng/mL (> or = 4.0); Vitamin B12 387 pg/mL (200-900)
[2021-01-20] MEDS: hydrOXYzine HCL 25 MG TABLET PO (11:45)
--- NOTE | 2021-01-20 17:48 | HO.PSYCHPN ---
Subjective Subjective Date of Service: 01/20/21 Reason For Visit: Depression, SI Subjective Notes: Conditional Voluntary Healthcare Proxy: No Guardianship: No Medical Problems Affecting Mental Status: No Interim History: Pt reviewed symptoms and precipitants to admission. 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 Review of medications and their purpose for target symptoms along with new medication initiation. Review of his work with [facility] team and just needing more at this time I guess . Medication Compliance: Yes Side effects from medications: No Attending Groups: Yes Review of Systems Acute medical concerns: No Medical Review of Systems: unchanged Review of Systems Reports behavioral changes Psychiatric: Reports anxiety, Reports behavioral changes, Reports depression, Reports difficulty concentrating, Reports hopelessness, Reports irritability, Reports anhedonia, Reports mood swings, Reports panic attacks and Reports suicidal ideation Mental Status Exam Mental Status Exam Patient Appearance: Appropriate Patient Orientation: Person, Place, Time and Situation Level of Consciousness: Alert Patient Behavior: Appropriate, Talkative, Cooperative, Anxious, Fatigued and Good Eye Contact Mood Description: Depressed and Anxious Affect Description: Flat Patient Cognition Impaired: No Ability to Follow Directions: Good Speech Pattern: Clear, Perseverating, Appropriate, Spontaneous Speech, Coherent and Soft-Spoken Memory Description: Intact Hallucinations: None Delusions: Not Present Perceptual Disturbances: Depersonalization and Derealization Thought Process: Rumination Thought Content: positive for Perseveration and positive for Suicidal Ideation Depressive Symptoms: Increased Anxiety, Difficulty Sleeping, Changes in Appetite, Loss of Int. in Activity, Hopelessness, Unhappiness, Thoughts of /Suicide, Loss of Energy and Difficulty Concentrating Judgement: Fair Diagnostics Vital Signs (24Hr): Vital Signs - 24 hr 01/20/21 06:05 Temperature 97 F Pulse Rate 50 Respiratory Rate 17 Blood Pressure 128/68 Pulse Oximetry 99 BMI result Body Mass Index 28.4 Labs Results: 01/19/21 14:16 01/19/21 14:16 Labs: Laboratory Results - last 48 hr 01/19/21 01/19/21 01/19/21 14:09 14:16 14:16 WBC 8.4 RBC 4.16 L Hgb 13.3 L Hct 39.3 L MCV 94.5 MCH 32.0 MCHC 33.8 RDW 13.0 Plt Count 217 MPV 9.1 L Immature Gran % (Auto) 0.2 Neut % (Auto) 59.0 Lymph % (Auto) 30.7 [place] % (Auto) 8.8 Eos % (Auto) 1.1 Baso % (Auto) 0.2 Lymph # (Auto) 2.6 [place] # (Auto) 0.7 Eos # (Auto) 0.1 Baso # (Auto) 0.0 Abs Immat Gran (auto) 0.02 Absolute Neuts (auto) 5.0 Absolute Nucleated RBC 0.000 Nucleated RBC % (auto) 0.0 Sodium 141 Potassium 3.8 Chloride 111 H Carbon Dioxide 24 Anion Gap 10 L BUN 19 H Creatinine 1.17 Estim Creat Clear Calc 65.3 Estimated GFR > 60 Random Glucose 125 H Estimat Average Glucose Hemoglobin A1c % Calcium 9.4 Magnesium Total Bilirubin 0.9 AST 26 ALT 21 Alkaline Phosphatase 70 Total Protein 6.5 Albumin 4.1 Triglycerides Cholesterol LDL Cholesterol, Calc HDL Cholesterol Vitamin B12 Folate TSH Free T4 Urine Opiates Screen Not Detected Urine Fentanyl Screen Not Detected Ur Barbiturates Screen Not Detected Ur Phencyclidine Scrn Not Detected Ur Amphetamines Screen Not Detected U Benzodiazepines Scrn Not Detected Urine Cocaine Screen Not Detected U Marijuana (THC) Screen Not Detected Ethyl Alcohol COVID-19 (ANNIE) [employer] 01/19/21 01/19/21 01/20/21 14:16 14:16 07:55 WBC RBC Hgb Hct MCV MCH MCHC RDW Plt Count MPV Immature Gran % (Auto) Neut % (Auto) Lymph % (Auto) [place] % (Auto) Eos % (Auto) Baso % (Auto) Lymph # (Auto) [place] # (Auto) Eos # (Auto) Baso # (Auto) Abs Immat Gran (auto) Absolute Neuts (auto) Absolute Nucleated RBC Nucleated RBC % (auto) Sodium Potassium Chloride Carbon Dioxide Anion Gap BUN Creatinine Estim Creat Clear Calc Estimated GFR Random Glucose Estimat Average Glucose 117 Hemoglobin A1c % 5.7 Calcium Magnesium Total Bilirubin AST ALT Alkaline Phosphatase Total Protein Albumin Triglycerides Cholesterol LDL Cholesterol, Calc HDL Cholesterol Vitamin B12 Folate TSH Free T4 Urine Opiates Screen Urine Fentanyl Screen Ur Barbiturates Screen Ur Phencyclidine Scrn Ur Amphetamines Screen U Benzodiazepines Scrn Urine Cocaine Screen U Marijuana (THC) Screen Ethyl Alcohol < 10 COVID-19 (ANNIE) Negative [employer] See Note 01/20/21 01/20/21 07:55 07:55 WBC RBC Hgb Hct MCV MCH MCHC RDW Plt Count MPV Immature Gran % (Auto) Neut % (Auto) Lymph % (Auto) [place] % (Auto) Eos % (Auto) Baso % (Auto) Lymph # (Auto) [place] # (Auto) Eos # (Auto) Baso # (Auto) Abs Immat Gran (auto) Absolute Neuts (auto) Absolute Nucleated RBC Nucleated RBC % (auto) Sodium Potassium Chloride Carbon Dioxide Anion Gap BUN Creatinine Estim Creat Clear Calc Estimated GFR Random Glucose Estimat Average Glucose Hemoglobin A1c % Calcium Magnesium 2.1 Total Bilirubin AST ALT Alkaline Phosphatase Total Protein Albumin Triglycerides 146 Cholesterol 140 LDL Cholesterol, Calc 63 HDL Cholesterol 48 Vitamin B12 387 Folate 18.9 TSH 1.50 Free T4 0.87 Urine Opiates Screen Urine Fentanyl Screen Ur Barbiturates Screen Ur Phencyclidine Scrn Ur Amphetamines Screen U Benzodiazepines Scrn Urine Cocaine Screen U Marijuana (THC) Screen Ethyl Alcohol COVID-19 (ANNIE) COVID-19 Clin Com Medications Medications Current Medications Acetaminophen (Acetaminophen 325 Mg Tablet) 650 mg PO Q6H PRN PRN Reason: Headache/Pain Mild Scale (1-3) Al Hydroxide/Mg Hydroxide (Magnesium Hydrox/Alum Hydrox 30 Ml Oral.Susp) 30 ml PO Q6H PRN PRN Reason: Heartburn/Nausea Aspirin (Aspirin Enteric Coated 81 Mg Tablet.) [address] [facility] Last Admin: 01/20/21 08:38 Dose: 81 mg Documented by: Atorvastatin Calcium (Atorvastatin Calcium 40 Mg Tablet) [address] [facility] Last Admin: 01/19/21 22:00 Dose: 40 mg Documented by: Docusate Sodium (Docusate Sodium 100 Mg Capsule) [address] [facility] Last Admin: 01/20/21 08:37 Dose: 100 mg Documented by: Escitalopram Oxalate (Escitalopram Oxalate 10 Mg Tablet) [address] [facility] Last Admin: 01/20/21 08:38 Dose: 15 mg Documented by: Gabapentin (Gabapentin 100 Mg Capsule) [address] [facility] Last Admin: 01/20/21 08:37 Dose: 100 mg Documented by: Hydroxyzine HCl (Hydroxyzine Hcl 25 Mg Tablet) 25 mg PO Q6H PRN PRN Reason: Anxiety Last Admin: 01/20/21 11:45 Dose: 25 mg Documented by: Lorazepam (Lorazepam 1 Mg Tablet) [address] [facility] Last Admin: 01/20/21 14:30 Dose: 1 mg Documented by: Lorazepam (Lorazepam 1 Mg Tablet) 1 mg PO DAILY PRN PRN Reason: severe anxiety Magnesium Hydroxide (Milk Of Magnesia 30 Ml Oral.Susp) 30 ml PO DAILY PRN PRN Reason: Constipation Melatonin (Melatonin 3 Mg Tablet) [address] [facility] Last Admin: 01/19/21 22:00 Dose: 3 mg Documented by: Mirtazapine (Mirtazapine 15 Mg Tablet) [address] [facility] Last Admin: 01/19/21 22:00 Dose: 15 mg Documented by: Multivitamins/Vitamin C (Multivitamin Tablet) [address] [facility] Last Admin: 01/20/21 08:38 Dose: 1 tab Documented by: Olanzapine (Olanzapine 5 Mg Tablet) [address] [facility] Last Admin: 01/20/21 08:38 Dose: 5 mg Documented by: Pseudoephedrine HCl (Pseudoephedrine Hcl 30 Mg Tablet) 30 mg PO Q6H PRN PRN Reason: Congestion Trazodone HCl (Trazodone Hcl 50 Mg Tablet) 50 mg PO BEDTIME PRN PRN Reason: Insomnia Triamcinolone Acetonide (Triamcinolone Acet 0.5 % Cream 15 Gm Tube) 1 appl TOPICAL DAILY PRN PRN Reason: AFTER SHOWERS Vitamin D (Cholecalciferol (Vitamin D3) 25 Mcg Tablet) [address] [facility] Last Admin: 01/20/21 08:38 Dose: 50 mcg Documented by: Allergies Allergies Allergy/AdvReac Type Severity Reaction Status Date / Time No Known Allergies Allergy Verified 12/21/20 13:27 Assessment & Plan Assessment & Plan (1) SHAI (generalized anxiety disorder): Status: Acute Code(s): F41.1 - Generalized anxiety disorder (2) Major depressive disorder, recurrent severe without psychotic features: Status: Acute Code(s): F33.2 - Major depressive disorder, recurrent severe without psychotic features (3) Panic disorder without agoraphobia: Status: Acute Code(s): F41.0 - Panic disorder [episodic paroxysmal anxiety] Assessment and Plan: Pt is high functioning and appears to be struggling with adjustment to current life circumstances, as he put a lot of time, energy, and finances into purchasing a house in order to open a [employer] and this 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 He has had sx of hyperarousal, hyperventilating, panic, and hopelessness. Sleep is mostly good. He struggles with feeling alone, prefers to be around people. Has friend supports and has OP psych services. Remote hx of [facility] for depression. Currently denies SI and says he feels safe. Plan: Will continue olanzapine 5 mg BID to target anxious distress and perseverative thoughts. Will continue to decrease gabapentin, as this was being titrated down at [facility] due to c/o fatigue. Will decrease from 300 mg BID to 100 mg BID (pharmacy did not have 150 mg on formulary). Will start melatonin 3 mg QHS due to reported difficulty falling asleep. Pt was put on lexapro 15 mg in the ED due to celexa not being on formulary. Had been on celexa 30 mg, recommended trialing lexapro as this may be more effective for sx of anxiety. Will continue on ativan 1 mg TID, which was started by OP psychiatrist for anxiety and panic sx. No other med changes. May benefit from therapeutic interventions such as biofeedback or EMDR due to somatic sx. Monitor response to medications. Monitor for safety in the milieu. Discharge on stabilization. Patient seen. Chart reviewed. Discussed with team. Obtain collateral contact info?as needed 01/20/21 Continue medication changes from 01/19. Lexapro may be more effective with current target sx than Citalopram. Pt tolerating this. Titrate if tolerance continues. Sudafed prn for congestion (pt uses this at home). Continue Gabapentin tapering, Melatonin, Lorazepam. I spent 40 minutes with the patient and/or on the patient floor today, greater than?50% of which was spent counseling/coordinating care. Patient educated on: medication risk/benefits and therapeutic strategies Informed Consent: understands and further education needed Reason for contiued inpatient stay Substantial Risk for: harm to self, inability to function and rapid decompensation
[2021-01-20 18:00] VITALS: BP 95/52; PULSE 56; TEMP 36.9
[2021-01-20] MEDS: Melatonin 3 MG TABLET PO (20:17)
[2021-01-20] MEDS: Mirtazapine 15 MG TABLET PO (20:17)
[2021-01-20] MEDS: Atorvastatin Calcium 40 MG TABLET PO (20:17)
[2021-01-21 06:00] VITALS: BP 153/84; PULSE 46; RESP 18; TEMP 36.3; O2SAT 99
[2021-01-21] MEDS: Escitalopram Oxalate 10 MG TABLET 15 MG PO (08:16)
[2021-01-21] MEDS: Multivitamin TABLET 1 TAB PO (08:16)
[2021-01-21] MEDS: Docusate Sodium 100 MG CAPSULE PO ×2 (08:16→21:05)
[2021-01-21] MEDS: Aspirin Enteric Coated 81 MG TABLET.DR PO (08:16)
[2021-01-21] MEDS: OLANZapine 5 MG TABLET PO (08:16)
[2021-01-21] MEDS: LORazepam 1 MG TABLET PO ×3 (08:16→21:06)
[2021-01-21] MEDS: Gabapentin 100 MG CAPSULE PO (08:16)
[2021-01-21] MEDS: Cholecalciferol (Vitamin D3) 25 MCG TABLET 50 MCG PO (08:16)
[2021-01-21] MEDS: OLANZapine 7.5 MG TABLET PO (21:06)
[2021-01-21] MEDS: Atorvastatin Calcium 40 MG TABLET PO (21:06)
[2021-01-21] MEDS: Melatonin 3 MG TABLET PO (21:06)
[2021-01-21] MEDS: Mirtazapine 15 MG TABLET PO (21:06)
[2021-01-21 21:19] VITALS: BP 121/62; PULSE 52; TEMP 36.3; O2SAT 96
[2021-01-22 06:00] VITALS: BP 131/67; PULSE 46; RESP 18; TEMP 37.2; O2SAT 99
[2021-01-22] MEDS: Docusate Sodium 100 MG CAPSULE PO ×2 (08:11→21:05)
[2021-01-22] MEDS: Cholecalciferol (Vitamin D3) 25 MCG TABLET 50 MCG PO (08:11)
[2021-01-22] MEDS: LORazepam 1 MG TABLET PO ×3 (08:11→21:05)
[2021-01-22] MEDS: OLANZapine 7.5 MG TABLET PO ×2 (08:11→21:05)
[2021-01-22] MEDS: Escitalopram Oxalate 20 MG TABLET PO (08:12)
[2021-01-22] MEDS: Multivitamin TABLET 1 TAB PO (08:12)
[2021-01-22] MEDS: Aspirin Enteric Coated 81 MG TABLET.DR PO (08:12)
--- NOTE | 2021-01-22 08:33 | P.PNPSI_ITS ---
Subjective Subjective Date of Service: 01/21/21 Reason For Visit: Depression, SI Interim History: Patient seen and discussed with team. Patient evaluated this morning and upon interview he reports I was okay for a while but then i got nervous again, attributes this to doing a jigsaw puzzle and it was too stressful. Says his sleep was poor due to roommate snoring, but upon room change he says I was okay. Continues to endorse anxiety, feels pretty antsy. Has had difficulty adjusting to the milieu, says he feels bored, unsure what to do with himself, has been ambulating in the hallway, reading. Denies adverse effects on lower gabapentin dose, will discontinue due to apparent lack of benefit. Appetite continues to be low. Says he feels in limbo as he does not want to be in the hospital but also does not want to be home. In the milieu, patient is safe and appropriate in behavior. Denies SI/SIB/HI upon inquiry. Denies irritability or assaultive ideation. Says he feels safe. Medication Compliance: Yes Side effects from medications: No Attending Groups: Yes Review of Systems Acute medical concerns: No Medical Review of Systems: unchanged Mental Status Exam Mental Status Exam Narrative: Patient Appearance:?Appropriate Patient Orientation:?Person, Place, Time and Situation Level of Consciousness:?Alert Patient Behavior:?Appropriate, Talkative, Cooperative, Anxious, Fatigued and Good Eye Contact Mood Description:?Depressed and Anxious Affect Description:?Flat Patient Cognition Impaired:?No Ability to Follow Directions:?Good Speech Pattern:?Clear, Perseverating, Appropriate, Spontaneous Speech, Coherent and Soft-Spoken Memory Description:?Intact Hallucinations:?None Delusions:?Not Present Perceptual Disturbances:?Depersonalization and Derealization Thought Process:?Rumination Thought Content:?positive for Perseveration and positive for Suicidal Ideation Depressive Symptoms:?Increased Anxiety, Difficulty Sleeping, Changes in Appetite, Loss of Int. in Activity, Hopelessness, Unhappiness, Thoughts of /Suicide, Loss of Energy and Difficulty Concentrating Judgement:?Fair Diagnostics Vital Signs (24Hr): Vital Signs - 24 hr 01/21/21 21:19 01/22/21 06:00 Temperature 97.4 F 98.9 F Pulse Rate 52 46 L Respiratory Rate 18 Blood Pressure 121/62 131/67 Pulse Oximetry 96 99 BMI result Body Mass Index 28.4 Labs Results: 01/19/21 14:16 01/19/21 14:16 Labs: Laboratory Results - last 48 hr 01/20/21 01/20/21 07:55 07:55 Vitamin B12 387 Folate 18.9 TSH 1.50 Free T4 0.87 Medications Medications Current Medications Acetaminophen (Acetaminophen 325 Mg Tablet) 650 mg PO Q6H PRN PRN Reason: Headache/Pain Mild Scale (1-3) Al Hydroxide/Mg Hydroxide (Magnesium Hydrox/Alum Hydrox 30 Ml Oral.Susp) 30 ml PO Q6H PRN PRN Reason: Heartburn/Nausea Aspirin (Aspirin Enteric Coated 81 Mg Tablet.) 81 mg PO DAILY [facility] Last Admin: 01/22/21 08:12 Dose: 81 mg Documented by: Atorvastatin Calcium (Atorvastatin Calcium 40 Mg Tablet) 40 mg PO BEDTIME [facility] Last Admin: 01/21/21 21:06 Dose: 40 mg Documented by: Docusate Sodium (Docusate Sodium 100 Mg Capsule) 100 mg PO BID [facility] Last Admin: 01/22/21 08:11 Dose: 100 mg Documented by: Escitalopram Oxalate (Escitalopram Oxalate 20 Mg Tablet) 20 mg PO DAILY [facility] Last Admin: 01/22/21 08:12 Dose: 20 mg Documented by: Hydroxyzine HCl (Hydroxyzine Hcl 25 Mg Tablet) 25 mg PO Q6H PRN PRN Reason: Anxiety Last Admin: 01/20/21 11:45 Dose: 25 mg Documented by: Lorazepam (Lorazepam 1 Mg Tablet) 1 mg PO TID [facility] Last Admin: 01/22/21 08:11 Dose: 1 mg Documented by: Lorazepam (Lorazepam 1 Mg Tablet) 1 mg PO DAILY PRN PRN Reason: severe anxiety Magnesium Hydroxide (Milk Of Magnesia 30 Ml Oral.Susp) 30 ml PO DAILY PRN PRN Reason: Constipation Melatonin (Melatonin 3 Mg Tablet) 3 mg PO BEDTIME [facility] Last Admin: 01/21/21 21:06 Dose: 3 mg Documented by: Mirtazapine (Mirtazapine 15 Mg Tablet) 15 mg PO BEDTIME [facility] Last Admin: 01/21/21 21:06 Dose: 15 mg Documented by: Multivitamins/Vitamin C (Multivitamin Tablet) 1 tab PO DAILY [facility] Last Admin: 01/22/21 08:12 Dose: 1 tab Documented by: Olanzapine (Olanzapine 7.5 Mg Tablet) 7.5 mg PO BID [facility] Last Admin: 01/22/21 08:11 Dose: 7.5 mg Documented by: Pseudoephedrine HCl (Pseudoephedrine Hcl 30 Mg Tablet) 30 mg PO Q6H PRN PRN Reason: Congestion Trazodone HCl (Trazodone Hcl 50 Mg Tablet) 50 mg PO BEDTIME PRN PRN Reason: Insomnia Triamcinolone Acetonide (Triamcinolone Acet 0.5 % Cream 15 Gm Tube) 1 appl TOPICAL DAILY PRN PRN Reason: AFTER SHOWERS Vitamin D (Cholecalciferol (Vitamin D3) 25 Mcg Tablet) 50 mcg PO DAILY [facility] Last Admin: 01/22/21 08:11 Dose: 50 mcg Documented by: Allergies Allergies Allergy/AdvReac Type Severity Reaction Status Date / Time No Known Allergies Allergy Verified 12/21/20 13:27 Assessment & Plan Assessment & Plan (1) SHAI (generalized anxiety disorder): Status: Acute Code(s): F41.1 - Generalized anxiety disorder (2) Major depressive disorder, recurrent severe without psychotic features: Status: Acute Code(s): F33.2 - Major depressive disorder, recurrent severe without psychotic features (3) Panic disorder without agoraphobia: Status: Acute Code(s): F41.0 - Panic disorder [episodic paroxysmal anxiety] Assessment and Plan: Pt is high functioning and appears to be struggling with adjustment to current life circumstances, as he put a lot of time, energy, and finances into 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 He has had sx of hyperarousal, hyperventilating, panic, and hopelessness. Sleep is mostly good. He struggles with feeling alone, prefers to be around people. Has friend supports and has OP psych services. Remote hx of [facility] for depression. Currently denies SI and says he feels safe. Plan: Will continue olanzapine 5 mg BID to target anxious distress and persever ative thoughts. Will continue to decrease gabapentin, as this was being titrated down at [facility] due to c/o fatigue. Will decrease from 300 mg BID to 100 mg BID (pharmacy did not have 150 mg on formulary). Will start melatonin 3 mg QHS due to reported difficulty falling asleep. Pt was put on lexapro 15 mg in the ED due to celexa not being on formulary. Had been on celexa 30 mg, recommended trialing lexapro as this may be more effective for sx of anxiety. Will continue on ativan 1 mg TID, which was started by OP psychiatrist for anxiety and panic sx. No other med changes. May benefit from therapeutic interventions such as biofeedback or EMDR due to somatic sx. Monitor response to medications. Monitor for safety in the milieu. Discharge on stabilization. Patient seen. Chart reviewed. Discussed with team. Obtain collateral contact info?as needed 01/20/21 Continue medication changes from 01/19. Lexapro may be more effective with current target sx than Citalopram. Pt tolerating this. Titrate if tolerance continues. Sudafed prn for congestion (pt uses this at home). Continue Gabapentin tapering, Melatonin, Lorazepam. Weekend coverage: 01/21- Will discontinue gabapentin due to apparent lack of benefit. Discussed optimizing doses of medication to target pt's refractory anxiety and distress, continues to have hyperventilating episodes in the morning, however not observed during interview and pt is redirectable. Will increase lexapro to 20 mg and increase olanzapine to 7.5 mg BID, as pt denies noticing benefit on medication thus far. Reviewed risks and benefits. Pt reports sleep is good and daytime energy is low, however this may be a function of pt's anxiety and hyperventilating episodes rather than med SE. I spent minutes with the patient and/or on the patient floor today, greater than?50% of which was spent counseling/coordinating care. Reason for contiued inpatient stay Substantial Risk for: med/psych decompensation
--- NOTE | 2021-01-22 14:36 | P.PNPSI_ITS ---
Subjective Subjective Date of Service: 01/22/21 Reason For Visit: Depression, SI Interim History: Patient seen and discussed with team. Patient evaluated this morning and upon interview he reports he does not feel worse but also feels the same. Says im hyperventilating, this is observed during interview, however lessens as interview goes on, redirectable. Pt reports Im stir crazy here. He has reached out to some friends and sister via phone, ambulates, and reads. Continues to endorse anxiety, says Im just so anxious because i dont wanna be here and i dont wanna go home, says he feels like [place]. Asks about a transfer to the [facility], explained that there are no beds currently. Slept well last night.?Energy and appetite continue to be low. In the milieu, patient is safe and appropriate in behavior. Denies SI/SIB/HI upon inquiry. Denies irritability or assaultive ideation. Says he feels safe. Medication Compliance: Yes Side effects from medications: No Attending Groups: Yes Review of Systems Acute medical concerns: No Medical Review of Systems: unchanged Mental Status Exam Mental Status Exam Narrative: Patient Appearance:?Appropriate Patient Orientation:?Person, Place, Time and Situation Level of Consciousness:?Alert Patient Behavior:?Appropriate, Talkative, Cooperative, Anxious, Fatigued and Good Eye Contact Mood Description:?Depressed and Anxious Affect Description:?Flat Patient Cognition Impaired:?No Ability to Follow Directions:?Good Speech Pattern:?Clear, Perseverating, Appropriate, Spontaneous Speech, Coherent and Soft-Spoken Memory Description:?Intact Hallucinations:?None Delusions:?Not Present Perceptual Disturbances:?Depersonalization and Derealization Thought Process:?Rumination Thought Content:?positive for Perseveration and positive for Suicidal Ideation Depressive Symptoms:?Increased Anxiety, Difficulty Sleeping, Changes in Appetite, Loss of Int. in Activity, Hopelessness, Unhappiness, Thoughts of /Suicide, Loss of Energy and Difficulty Concentrating Judgement:?Fair Diagnostics Vital Signs (24Hr): Vital Signs - 24 hr 01/21/21 21:19 01/22/21 06:00 Temperature 97.4 F 98.9 F Pulse Rate 52 46 L Respiratory Rate 18 Blood Pressure 121/62 131/67 Pulse Oximetry 96 99 BMI result Body Mass Index 28.4 Labs Results: 01/19/21 14:16 01/19/21 14:16 Medications Medications Current Medications Acetaminophen (Acetaminophen 325 Mg Tablet) 650 mg PO Q6H PRN PRN Reason: Headache/Pain Mild Scale (1-3) Al Hydroxide/Mg Hydroxide (Magnesium Hydrox/Alum Hydrox 30 Ml Oral.Susp) 30 ml PO Q6H PRN PRN Reason: Heartburn/Nausea Aspirin (Aspirin Enteric Coated 81 Mg Tablet.Dr) 81 mg PO DAILY [facility] Last Admin: 01/22/21 08:12 Dose: 81 mg Documented by: Atorvastatin Calcium (Atorvastatin Calcium 40 Mg Tablet) 40 mg PO BEDTIME [facility] Last Admin: 01/21/21 21:06 Dose: 40 mg Documented by: Docusate Sodium (Docusate Sodium 100 Mg Capsule) 100 mg PO BID [facility] Last Admin: 01/22/21 08:11 Dose: 100 mg Documented by: Escitalopram Oxalate (Escitalopram Oxalate 20 Mg Tablet) 20 mg PO DAILY [facility] Last Admin: 01/22/21 08:12 Dose: 20 mg Documented by: Hydroxyzine HCl (Hydroxyzine Hcl 25 Mg Tablet) 25 mg PO Q6H PRN PRN Reason: Anxiety Last Admin: 01/20/21 11:45 Dose: 25 mg Documented by: Lorazepam (Lorazepam 1 Mg Tablet) 1 mg PO TID [facility] Last Admin: 01/22/21 14:23 Dose: 1 mg Documented by: Lorazepam (Lorazepam 1 Mg Tablet) 1 mg PO DAILY PRN PRN Reason: severe anxiety Magnesium Hydroxide (Milk Of Magnesia 30 Ml Oral.Susp) 30 ml PO DAILY PRN PRN Reason: Constipation Melatonin (Melatonin 3 Mg Tablet) 3 mg PO BEDTIME [facility] Last Admin: 01/21/21 21:06 Dose: 3 mg Documented by: Mirtazapine (Mirtazapine 15 Mg Tablet) 15 mg PO BEDTIME [facility] Last Admin: 01/21/21 21:06 Dose: 15 mg Documented by: Multivitamins/Vitamin C (Multivitamin Tablet) 1 tab PO DAILY [facility] Last Admin: 01/22/21 08:12 Dose: 1 tab Documented by: Olanzapine (Olanzapine 7.5 Mg Tablet) 7.5 mg PO BID [facility] Last Admin: 01/22/21 08:11 Dose: 7.5 mg Documented by: Pseudoephedrine HCl (Pseudoephedrine Hcl 30 Mg Tablet) 30 mg PO Q6H PRN PRN Reason: Congestion Trazodone HCl (Trazodone Hcl 50 Mg Tablet) 50 mg PO BEDTIME PRN PRN Reason: Insomnia Triamcinolone Acetonide (Triamcinolone Acet 0.5 % Cream 15 Gm Tube) 1 appl TOPICAL DAILY PRN PRN Reason: AFTER SHOWERS Vitamin D (Cholecalciferol (Vitamin D3) 25 Mcg Tablet) 50 mcg PO DAILY [facility] Last Admin: 01/22/21 08:11 Dose: 50 mcg Documented by: Allergies Allergies Allergy/AdvReac Type Severity Reaction Status Date / Time No Known Allergies Allergy Verified 12/21/20 13:27 Assessment & Plan Assessment & Plan (1) SHAI (generalized anxiety disorder): Status: Acute Code(s): F41.1 - Generalized anxiety disorder (2) Major depressive disorder, recurrent severe without psychotic features: Status: Acute Code(s): F33.2 - Major depressive disorder, recurrent severe without psychotic features (3) Panic disorder without agoraphobia: Status: Acute Code(s): F41.0 - Panic disorder [episodic paroxysmal anxiety] Assessment and Plan: Pt is high functioning and appears to be struggling with adjustment to current life circumstances, as he put a lot of time, energy, and finances into 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 He has had sx of hyperarousal, hyperventilating, panic, and hopelessness. Sleep is mostly good. He struggles with feeling alone, prefers to be around people. Has friend supports and has OP psych services. Remote hx of [facility] for depression. Currently denies SI and says he feels safe. Plan: Will continue olanzapine 5 mg BID to target anxious distress and perseverative thoughts. Will continue to decrease gabapentin, as this was being titrated down at [facility] due to c/o fatigue. Will decrease from 300 mg BID to 100 mg BID (pharmacy did not have 150 mg on formulary). Will start melatonin 3 mg QHS due to reported difficulty falling asleep. Pt was put on lexapro 15 mg in the ED due to celexa not being on formulary. Had been on celexa 30 mg, recommended trialing lexapro as this may be more effective for sx of anxiety. Will continue on ativan 1 mg TID, which was started by OP psychiatrist for anxiety and panic sx. No other med changes. May benefit from therapeutic interventions such as biofeedback or EMDR due to somatic sx. Monitor response to medications. Monitor for safety in the milieu. Discharge on stabilization. Patient seen. Chart reviewed. Discussed with team. Obtain collateral contact info?as needed 01/20/21 Continue medication changes from 01/19. Lexapro may be more effective with current target sx than Citalopram. Pt tolerating this. Titrate if tolerance continues. Sudafed prn for congestion (pt uses this at home). Continue Gabapentin tapering, Melatonin, Lorazepam. Weekend coverage: 01/21- Will discontinue gabapentin due to apparent lack of benefit. Discussed optimizing doses of medication to target pt's refractory anxiety and distress, continues to have hyperventilating episodes in the m orning, however not observed during interview and pt is redirectable. Will increase lexapro to 20 mg and increase olanzapine to 7.5 mg BID, as pt denies noticing benefit on medication thus far. Reviewed risks and benefits. Pt reports sleep is good and daytime energy is low, however this may be a function of pt's anxiety and hyperventilating episodes rather than med SE. 01/22- will continue with olanzapine 7.5 mg BID and lexapro 20 mg QD to target sx of tx refractory anxiety. Pt has denied benefit from med management but will continue to monitor for benefit, as these were just increased on 01/21. No safety concerns. Pt's anxiety appears existential in nature, may be function of integrity vs despair stage of development. Would benefit on continued psychotherapy. I spent minutes with the patient and/or on the patient floor today, greater than?50% of which was spent counseling/coordinating care. Reason for contiued inpatient stay Substantial Risk for: med/psych decompensation
[2021-01-22] MEDS: hydrOXYzine HCL 25 MG TABLET PO (14:46)
[2021-01-22 18:00] VITALS: BP 110/56; PULSE 56; RESP 16; TEMP 36.3; O2SAT 96
[2021-01-22] MEDS: Melatonin 3 MG TABLET PO (21:05)
[2021-01-22] MEDS: Mirtazapine 15 MG TABLET PO (21:05)
[2021-01-22] MEDS: Atorvastatin Calcium 40 MG TABLET PO (21:05)
[2021-01-23] MEDS: Multivitamin TABLET 1 TAB PO (08:29)
[2021-01-23] MEDS: OLANZapine 7.5 MG TABLET PO ×2 (08:29→21:05)
[2021-01-23] MEDS: Escitalopram Oxalate 20 MG TABLET PO (08:29)
[2021-01-23] MEDS: Cholecalciferol (Vitamin D3) 25 MCG TABLET 50 MCG PO (08:29)
[2021-01-23] MEDS: Aspirin Enteric Coated 81 MG TABLET.DR PO (08:29)
[2021-01-23] MEDS: LORazepam 1 MG TABLET PO ×3 (08:29→21:05)
[2021-01-23] MEDS: Docusate Sodium 100 MG CAPSULE PO ×2 (08:29→21:05)
--- NOTE | 2021-01-23 17:24 | P.PNPSI_ITS ---
Subjective Subjective Date of Service: 01/23/21 Reason For Visit: Depression, SI Subjective Notes: Conditional Voluntary Healthcare Proxy: No Guardianship: No Medical Problems Affecting Mental Status: No Interim History: No, no change in symptoms. Pt reports tolerating Lexapro at 20 mg, gabapentin discontinuation and increase in olanzapine. Reports anxiety persists. Reports he is using walking, reading, puzzles to assist in sx mgt. He is not wanting to be in hospital, but not feeling ready to go home. Discussed worry about not being productive at work when he leaves hospital. Medication Compliance: Yes Side effects from medications: No Attending Groups: Intermittent Review of Systems Acute medical concerns: No Medical Review of Systems: unchanged Review of Systems Reports behavioral changes Psychiatric: Reports abnormal sleep pattern, Reports anxiety, Reports behavioral changes, Reports depression, Reports difficulty concentrating, Reports hopelessness, Reports anhedonia and Reports suicidal ideation (denies) Mental Status Exam Mental Status Exam Patient Appearance: Appropriate Patient Orientation: Person, Place, Time and Situation Level of Consciousness: Alert Patient Behavior: Appropriate, Talkative, Cooperative, Anxious and Good Eye Contact Mood Description: Depressed and Anxious Affect Description: Flat Patient Cognition Impaired: No Ability to Follow Directions: Good Speech Pattern: Perseverating and Spontaneous Speech Memory Description: Intact Hallucinations: None Delusions: Not Present Thought Process: Rumination Thought Content: positive for [place], positive for Circumstantial and positive for Perseveration Depressive Symptoms: Increased Anxiety, Diff. Making Decisions, Difficulty Sleeping, Loss of Int. in Activity, Feelings of Worthlessness, Hopelessness, Unhappiness, Increased Fatigue, Low Self Esteem, Loss of Energy and Difficulty Concentrating Abnormal Motor Activity Signs and Symptoms: Restlessness Judgement: Fair Diagnostics Vital Signs (24Hr): Vital Signs - 24 hr 01/22/21 18:00 Temperature 97.4 F Pulse Rate 56 Respiratory Rate 16 Blood Pressure 110/56 L Pulse Oximetry 96 BMI result Body Mass Index 28.4 Labs Results: 01/19/21 14:16 01/19/21 14:16 Labs: sl anemia EKG EKG: reviewed EKG Comment: No change since 12/22/20. QTc 426 Medications Medications Current Medications Acetaminophen (Acetaminophen 325 Mg Tablet) 650 mg PO Q6H PRN PRN Reason: Headache/Pain Mild Scale (1-3) Al Hydroxide/Mg Hydroxide (Magnesium Hydrox/Alum Hydrox 30 Ml Oral.Susp) 30 ml PO Q6H PRN PRN Reason: Heartburn/Nausea Aspirin (Aspirin Enteric Coated 81 Mg Tablet.) 81 mg PO DAILY [facility] Last Admin: 01/23/21 08:29 Dose: 81 mg Documented by: Atorvastatin Calcium (Atorvastatin Calcium 40 Mg Tablet) 40 mg PO BEDTIME [facility] Last Admin: 01/22/21 21:05 Dose: 40 mg Documented by: Docusate Sodium (Docusate Sodium 100 Mg Capsule) 100 mg PO BID [facility] Last Admin: 01/23/21 08:29 Dose: 100 mg Documented by: Escitalopram Oxalate (Escitalopram Oxalate 20 Mg Tablet) 20 mg PO DAILY [facility] Last Admin: 01/23/21 08:29 Dose: 20 mg Documented by: Hydroxyzine HCl (Hydroxyzine Hcl 25 Mg Tablet) 25 mg PO Q6H PRN PRN Reason: Anxiety Last Admin: 01/22/21 14:46 Dose: 25 mg Documented by: Lorazepam (Lorazepam 1 Mg Tablet) 1 mg PO TID [facility] Last Admin: 01/23/21 15:10 Dose: 1 mg Documented by: Lorazepam (Lorazepam 1 Mg Tablet) 1 mg PO DAILY PRN PRN Reason: severe anxiety Magnesium Hydroxide (Milk Of Magnesia 30 Ml Oral.Susp) 30 ml PO DAILY PRN PRN Reason: Constipation Melatonin (Melatonin 3 Mg Tablet) 3 mg PO BEDTIME [facility] Last Admin: 01/22/21 21:05 Dose: 3 mg Documented by: Mirtazapine (Mirtazapine 15 Mg Tablet) 15 mg PO BEDTIME [facility] Last Admin: 01/22/21 21:05 Dose: 15 mg Documented by: Multivitamins/Vitamin C (Multivitamin Tablet) 1 tab PO DAILY [facility] Last Admin: 01/23/21 08:29 Dose: 1 tab Documented by: Olanzapine (Olanzapine 7.5 Mg Tablet) 7.5 mg PO BID [facility] Last Admin: 01/23/21 08:29 Dose: 7.5 mg Documented by: Pseudoephedrine HCl (Pseudoephedrine Hcl 30 Mg Tablet) 30 mg PO Q6H PRN PRN Reason: Congestion Trazodone HCl (Trazodone Hcl 50 Mg Tablet) 50 mg PO BEDTIME PRN PRN Reason: Insomnia Triamcinolone Acetonide (Triamcinolone Acet 0.5 % Cream 15 Gm Tube) 1 appl TOPICAL DAILY PRN PRN Reason: AFTER SHOWERS Vitamin D (Cholecalciferol (Vitamin D3) 25 Mcg Tablet) 50 mcg PO DAILY [facility] Last Admin: 01/23/21 08:29 Dose: 50 mcg Documented by: Allergies Allergies Allergy/AdvReac Type Severity Reaction Status Date / Time No Known Allergies Allergy Verified 12/21/20 13:27 Assessment & Plan Assessment & Plan (1) SHAI (generalized anxiety disorder): Status: Acute Code(s): F41.1 - Generalized anxiety disorder (2) Major depressive disorder, recurrent severe without psychotic features: Status: Acute Code(s): F33.2 - Major depressive disorder, recurrent severe without psychotic features (3) Panic disorder without agoraphobia: Status: Acute Code(s): F41.0 - Panic disorder [episodic paroxysmal anxiety] Assessment and Plan: Pt is high functioning and appears to be struggling with adjustment to current life circumstances, as he put a lot of time, energy, and finances into 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 He has had sx of hyperarousal, hyperventilating, panic, and hopelessness. Sleep is mostly good. He struggles with feeling alone, prefers to be around people. Has friend supports and has OP psych services. Remote hx of [facility] for depression. Currently denies SI and says he feels safe. Plan: Will continue olanzapine 5 mg BID to target anxious distress and perseverative thoughts. Will continue to decrease gabapentin, as this was being titrated down at [facility] due to c/o fatigue. Will decrease from 300 mg BID to 100 mg BID (pharmacy did not have 150 mg on formulary). Will start melatonin 3 mg QHS due to reported difficulty falling asleep. Pt was put on lexapro 15 mg in the ED due to celexa not being on formulary. Had been on celexa 30 mg, recommended trialing lexapro as this may be more effective for sx of anxiety. Will continue on ativan 1 mg TID, which was started by OP psychiatrist for anxiety and panic sx. No other med changes. May benefit from therapeutic interventions such as biofeedback or EMDR due to somatic sx. Monitor response to medications. Monitor for safety in the milieu. Discharge on stabilization. Patient seen. Chart reviewed. Discussed with team. Obtain collateral contact info?as needed 01/20/21 Continue medication changes from 01/19. Lexapro may be more effective with current target sx than Citalopram. Pt tolerating this. Titrate if tolerance continues. Sudafed prn for congestion (pt uses this at home). Continue Gabapentin tapering, Melatonin, Lorazepam. Weekend coverage: 01/21- Will discontinue gabapentin due to apparent lack of benefit. Discussed optimizing doses of medication to target pt's refractory anxiety and distress, continues to have hyperventilating episodes in the m orning, however not observed during interview and pt is redirectable. Will increase lexapro to 20 mg and increase olanzapine to 7.5 mg BID, as pt denies noticing benefit on medication thus far. Reviewed risks and benefits. Pt reports sleep is good and daytime energy is low, however this may be a function of pt's anxiety and hyperventilating episodes rather than med SE. 01/22- will continue with olanzapine 7.5 mg BID and lexapro 20 mg QD to target sx of tx refractory anxiety. Pt has denied benefit from med management but will continue to monitor for benefit, as these were just increased on 01/21. No safety concerns. Pt's anxiety appears existential in nature, may be function of integrity vs despair stage of development. Would benefit on continued psychotherapy. 01/23/21: Lexapro, Olanzapine titration over the weekend tolerated. Gabapentin discontinued. Diagnostics reviewed, sl anemia which should will continue to follow. Informed by Dr. Cardenas that pt will need transfer to [facility] as his OP team has made a complaint while pt was in [facility] that he was not seen by [facility]. Consider possible low dose tricyclic trial if sx do not improve. I spent 25 minutes with the patient and/or on the patient floor today, greater than?50% of which was spent counseling/coordinating care. Patient educated on: medication risk/benefits and therapeutic strategies Informed Consent: further education needed Reason for contiued inpatient stay Substantial Risk for: inability to function and rapid decompensation
[2021-01-23 18:00] VITALS: BP 116/64; PULSE 58; TEMP 37; O2SAT 96
[2021-01-23] MEDS: Melatonin 3 MG TABLET PO (21:05)
[2021-01-23] MEDS: Mirtazapine 15 MG TABLET PO (21:05)
[2021-01-23] MEDS: Atorvastatin Calcium 40 MG TABLET PO (21:05)
[2021-01-24 05:58] VITALS: BP 132/67; PULSE 60; RESP 16; TEMP 36.4; O2SAT 96
[2021-01-24] MEDS: Docusate Sodium 100 MG CAPSULE PO ×2 (08:31→20:32)
[2021-01-24] MEDS: Pseudoephedrine HCL 30 MG TABLET PO (08:31)
[2021-01-24] MEDS: LORazepam 1 MG TABLET PO ×3 (08:31→20:32)
[2021-01-24] MEDS: OLANZapine 7.5 MG TABLET PO ×2 (08:31→20:32)
[2021-01-24] MEDS: Cholecalciferol (Vitamin D3) 25 MCG TABLET 50 MCG PO (08:31)
[2021-01-24] MEDS: Escitalopram Oxalate 20 MG TABLET PO (08:31)
[2021-01-24] MEDS: Aspirin Enteric Coated 81 MG TABLET.DR PO (08:31)
[2021-01-24] MEDS: Multivitamin TABLET 1 TAB PO (08:31)
[2021-01-24 19:21] VITALS: BP 117/64; PULSE 60; RESP 18; TEMP 36.9; O2SAT 97
[2021-01-24] MEDS: Mirtazapine 15 MG TABLET PO (20:32)
[2021-01-24] MEDS: Atorvastatin Calcium 40 MG TABLET PO (20:32)
[2021-01-24] MEDS: Melatonin 3 MG TABLET PO (20:32)
--- NOTE | 2021-01-24 21:00 | PC.NURSE ---
Pt. put in a three day notice on Saturday01/24/21, up on Saturday01/27/21
[2021-01-25] MEDS: Cholecalciferol (Vitamin D3) 25 MCG TABLET 50 MCG PO (08:39)
[2021-01-25] MEDS: Docusate Sodium 100 MG CAPSULE PO ×2 (08:39→20:21)
[2021-01-25] MEDS: Multivitamin TABLET 1 TAB PO (08:39)
[2021-01-25] MEDS: Aspirin Enteric Coated 81 MG TABLET.DR PO (08:39)
[2021-01-25] MEDS: Escitalopram Oxalate 20 MG TABLET PO (08:39)
[2021-01-25] MEDS: OLANZapine 7.5 MG TABLET PO ×2 (08:39→20:21)
[2021-01-25 09:00] VITALS: BP 133/70; PULSE 59; RESP 20; TEMP 36.2; O2SAT 99
[2021-01-25] MEDS: LORazepam 1 MG TABLET PO (09:07)
--- NOTE | 2021-01-25 10:26 | HO.PSYCHPN ---
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 He says between 2011 and 2015 he had a prolonged depressive episode, sometimes severe which he feels was primarily triggered rebound the struggles of owning a property that included business is and had challenging tenants. As the depression increased in severity he was psychiatrically hospitalized March 2015 for 2 weeks and then attended [facility]. Patient's older property and afterwards said he did fine for about 4 years. He was taking Celexa 30 mg and Wellbutrin. 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 Patient said he still had the back of his mind open up his own property. This past 2019 he purchased a property with the intention of opening up his own studio. However the neighbor strongly objected and a long legal crowe and pseudo over the next years resulting in disappointment for both sides. A few months ago patient received to the court ruling that he would only be allowed to have people and his studio by appointment. This restarted it depression but also triggered his anxiety. Patient reports that for the past 2 months he has been very anxious and operating at a near panic level for most of the day, hyperventilating, feeling shaky with palpitations. 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 Patient denies any SI. He said that he had some thoughts about killing himself but they were just thoughts and he denies any moment where he had intentions or plans; he denies any history of suicide attempts. Patient is angry at his neighbor's but denies any plans or intention to harm. 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 He said this connection has recently donned on him. Patient has an outpatient therapist Krystle Garcia whom he has been seen for 6 years however less than once a month. He agrees that this needs to be stepped up to once a week. Spot Billing Clerk discussed with patient that this seems to be an issue best worked out therapy as it involves processing his feelings about his parents, and whether he has had a meaningful life. Patient agrees Generativity vs. Stagnation. Mental Status Exam Mental Status Exam Narrative: Patient Appearance:?Appropriate Patient Orientation:?Person, Place, Time and Situation Level of Consciousness:?Alert Patient Behavior:?Appropriate, Talkative, Cooperative, Anxious and Good Eye Contact Mood Description:?Depressed and Anxious Affect Description:?anxious Patient Cognition Impaired:?No Ability to Follow Directions:?Good Speech Pattern: Spontaneous Speech Memory Description:?Intact Hallucinations:?None Delusions:?Not Present Thought Process:?linear, logical, goal oriented Thought Content:? Has he lead a meaningful life: Denies SI/HI Abnormal Motor Activity Signs and Symptoms:? None Judgement:?Fair Diagnostics Vital Signs (24Hr): Vital Signs - 24 hr 01/24/21 19:21 Temperature 98.4 F Pulse Rate 60 Respiratory Rate 18 Blood Pressure 117/64 Pulse Oximetry 97 BMI result Body Mass Index 28.4 Labs Results: 01/19/21 14:16 01/19/21 14:16 Medications Medications Current Medications Acetaminophen (Acetaminophen 325 Mg Tablet) 650 mg PO Q6H PRN PRN Reason: Headache/Pain Mild Scale (1-3) Al Hydroxide/Mg Hydroxide (Magnesium Hydrox/Alum Hydrox 30 Ml Oral.Susp) 30 ml PO Q6H PRN PRN Reason: Heartburn/Nausea Aspirin (Aspirin Enteric Coated 81 Mg Tablet.) 81 mg PO DAILY [facility] Last Admin: 01/25/21 08:39 Dose: 81 mg Documented by: Atorvastatin Calcium (Atorvastatin Calcium 40 Mg Tablet) 40 mg PO BEDTIME [facility] Last Admin: 01/24/21 20:32 Dose: 40 mg Documented by: Docusate Sodium (Docusate Sodium 100 Mg Capsule) 100 mg PO BID [facility] Last Admin: 01/25/21 08:39 Dose: 100 mg Documented by: Escitalopram Oxalate (Escitalopram Oxalate 20 Mg Tablet) 20 mg PO DAILY [facility] Last Admin: 01/25/21 08:39 Dose: 20 mg Documented by: Hydroxyzine HCl (Hydroxyzine Hcl 25 Mg Tablet) 25 mg PO Q6H PRN PRN Reason: Anxiety Last Admin: 01/22/21 14:46 Dose: 25 mg Documented by: Lorazepam (Lorazepam 1 Mg Tablet) 1 mg PO DAILY PRN PRN Reason: severe anxiety Last Admin: 01/25/21 09:07 Dose: 1 mg Documented by: Magnesium Hydroxide (Milk Of Magnesia 30 Ml Oral.Susp) 30 ml PO DAILY PRN PRN Reason: Constipation Melatonin (Melatonin 3 Mg Tablet) 3 mg PO BEDTIME [facility] Last Admin: 01/24/21 20:32 Dose: 3 mg Documented by: Mirtazapine (Mirtazapine 15 Mg Tablet) 15 mg PO BEDTIME [facility] Last Admin: 01/24/21 20:32 Dose: 15 mg Documented by: Multivitamins/Vitamin C (Multivitamin Tablet) 1 tab PO DAILY [facility] Last Admin: 01/25/21 08:39 Dose: 1 tab Documented by: Olanzapine (Olanzapine 7.5 Mg Tablet) 7.5 mg PO BID [facility] Last Admin: 01/25/21 08:39 Dose: 7.5 mg Documented by: Pseudoephedrine HCl (Pseudoephedrine Hcl 30 Mg Tablet) 30 mg PO Q6H PRN PRN Reason: Congestion Last Admin: 01/24/21 08:31 Dose: 30 mg Documented by: Trazodone HCl (Trazodone Hcl 50 Mg Tablet) 50 mg PO BEDTIME PRN PRN Reason: Insomnia Triamcinolone Acetonide (Triamcinolone Acet 0.5 % Cream 15 Gm Tube) 1 appl TOPICAL DAILY PRN PRN Reason: AFTER SHOWERS Vitamin D (Cholecalciferol (Vitamin D3) 25 Mcg Tablet) 50 mcg PO DAILY [facility] Last Admin: 01/25/21 08:39 Dose: 50 mcg Documented by: Allergies Allergies Allergy/AdvReac Type Severity Reaction Status Date / Time No Known Allergies Allergy Verified 12/21/20 13:27 Assessment & Plan Assessment & Plan (1) SHAI (generalized anxiety disorder): Status: Acute Code(s): F41.1 - Generalized anxiety disorder (2) Major depressive disorder, recurrent severe without psychotic features: Status: Acute Code(s): F33.2 - Major depressive disorder, recurrent severe without psychotic features (3) Panic disorder without agoraphobia: Status: Acute Code(s): F41.0 - Panic disorder [episodic paroxysmal anxiety] Assessment and Plan: 01/25 Spot Billing Clerk taking over case Patient denies any SI or HI. He remains anxious and ruminates on his life's choices, whether his life has held of meaning and what kind of decisions he should make going forward. A patient has done well on Celexa and Wellbutrin in the past. Currently, patients anxiety seems to be related to avoiding processing his feelings about his parents disapproval of his career choice and his own reflections on his life. He has a therapist and securities underwriter is wondering if this increase in anxiety would be best worked out in therapy rather than with medication management. So far none of the medications including Ativan have made much difference in reducing his anxiety. Will discuss case with former providers. IMPRESSION: Pt is high functioning and appears to be struggling with adjustment to current life circumstances, as he put a lot of time, energy, and finances into purchasing a house in order to open a [employer] studio and this 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 He has had sx of hyperarousal, hyperventilating, panic, and hopelessness. Sleep is mostly good. He struggles with feeling alone, prefers to be around people. Has friend supports and has OP psych services. Remote hx of [facility] for depression. Currently denies SI and says he feels safe. Plan: Will continue olanzapine 5 mg BID to target anxious distress and perseverative thoughts. Will continue to decrease gabapentin, as this was being titrated down at [facility] due to c/o fatigue. Will decrease from 300 mg BID to 100 mg BID (pharmacy did not have 150 mg on formulary). Will start melatonin 3 mg QHS due to reported difficulty falling asleep. Pt was put on lexapro 15 mg in the ED due to celexa not being on formulary. Had been on celexa 30 mg, recommended trialing lexapro as this may be more effective for sx of anxiety. Will continue on ativan 1 mg TID, which was started by OP psychiatrist for anxiety and panic sx. No other med changes. May benefit from therapeutic interventions such as biofeedback or EMDR due to somatic sx. Monitor response to medications. Monitor for safety in the milieu. Discharge on stabilization. Patient seen. Chart reviewed. Discussed with team. Obtain collateral contact info?as needed 01/20/21 Continue medication changes from 01/19. Lexapro may be more effective with current target sx than Citalopram. Pt tolerating this. Titrate if tolerance continues. Sudafed prn for congestion (pt uses this at home). Continue Gabapentin tapering, Melatonin, Lorazepam. Weekend coverage: 01/21- Will discontinue gabapentin due to apparent lack of benefit. Discussed optimizing doses of medication to target pt's refractory anxiety and distress, continues to have hyperventilating episodes in the morning, however not observed during interview and pt is redirectable. Will increase lexapro to 20 mg and increase olanzapine to 7.5 mg BID, as pt denies noticing benefit on medication thus far. Reviewed risks and benefits. Pt reports sleep is good and daytime energy is low, however this may be a function of pt's anxiety and hyperventilating episodes rather than med SE. 01/22- will continue with olanzapine 7.5 mg BID and lexapro 20 mg QD to target sx of tx refractory anxiety. Pt has denied benefit from med management but will continue to monitor for benefit, as these were just increased on 01/21. No safety concerns. Pt's anxiety appears existential in nature, may be function of integrity vs despair stage of development. Would benefit on continued psychotherapy. 01/23/21: Lexapro, Olanzapine titration over the weekend tolerated. Gabapentin discontinued. Diagnostics reviewed, sl anemia which should will continue to follow. Informed by Dr. Cardenas that pt will need transfer to MD as his OP team has made a complaint while pt was in PHP that he was not seen by [facility]. Consider possible low dose tricyclic trial if sx do not improve. I spent minutes with the patient and/or on the patient floor today, greater than?50% of which was spent counseling/coordinating care. Reason for contiued inpatient stay Substantial Risk for: stable for discharge
[2021-01-25] MEDS: hydrOXYzine HCL 25 MG TABLET PO (14:23)
[2021-01-25 17:51] VITALS: BP 118/67; PULSE 52; RESP 16; TEMP 36.5; O2SAT 98
[2021-01-25] MEDS: Melatonin 3 MG TABLET PO (20:21)
[2021-01-25] MEDS: Mirtazapine 15 MG TABLET PO (20:21)
[2021-01-25] MEDS: Atorvastatin Calcium 40 MG TABLET PO (20:21)
[2021-01-26 06:27] VITALS: BP 142/59; PULSE 44; RESP 17; TEMP 36.3; O2SAT 100
[2021-01-26 07:00] VITALS: BMI 26.3
[2021-01-26] MEDS: Escitalopram Oxalate 20 MG TABLET PO (08:27)
[2021-01-26] MEDS: Aspirin Enteric Coated 81 MG TABLET.DR PO (08:28)
[2021-01-26] MEDS: Docusate Sodium 100 MG CAPSULE PO ×2 (08:28→21:15)
[2021-01-26] MEDS: Multivitamin TABLET 1 TAB PO (08:28)
[2021-01-26] MEDS: Cholecalciferol (Vitamin D3) 25 MCG TABLET 50 MCG PO (08:28)
[2021-01-26] MEDS: OLANZapine 7.5 MG TABLET PO (08:29)
[2021-01-26] MEDS: Pseudoephedrine HCL 30 MG TABLET PO (09:28)
--- NOTE | 2021-01-26 10:15 | HO.PSYCHPN ---
Subjective Subjective Date of Service: 01/26/21 Reason For Visit: Depression, SI Interim History: Patient remains anxious but with some depression however he feels ready for discharge and ready to face [his] life. He says he is anxious to go home knowing that he will struggle with loneliness but says I need to resume my life. .. 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 He does not feel a need to remain on the unit any longer prefers to continue treatment with his outpatient providers with whom he has a good rapport. Patient denies SI or HI. Discussed patient's hyperventilation and he says that it has become a habit. He is able to stop it when he focuses on breathing in more control and says he will continue to do so. Installation Drafter reviewed medication history and current regimen. Patient agrees that olanzapine has not helped at all and he would like to discontinue it to which music writer fully agrees. He also agrees to increasing mirtazapine to 30 mg q.h.s.; otherwise he does not want any further medication management but will work with his outpatient provider post discharge. Patient expressed thanks for help received during this admission. He has an appointment next week with his therapist whom he has known for years. spring floor service worker discussed case with his sister who agrees the patient is not at risk for harm. Mental Status Exam Mental Status Exam Narrative: Patient Appearance:?Appropriate Patient Orientation:?Person, Place, Time and Situation Level of Consciousness:?Alert Patient Behavior:?Appropriate, Cooperative, Anxious and Good Eye Contact Mood Description:?Depressed and Anxious Affect Description:?anxious Patient Cognition Impaired:?No Ability to Follow Directions:?Good Speech Pattern: Spontaneous Speech Memory Description:?Intact Hallucinations:?None Delusions:?Not Present Thought Process:?linear, logical, goal oriented Thought Content:?his accomplishments vs regrets;? Denies SI/HI Abnormal Motor Activity Signs and Symptoms:? None Judgement:?Fair Diagnostics Vital Signs (24Hr): Vital Signs - 24 hr 01/25/21 17:51 01/26/21 06:27 Temperature 97.7 F 97.3 F Pulse Rate 52 44 L Respiratory Rate 16 17 Blood Pressure 118/67 142/59 H Pulse Oximetry 98 100 BMI result Body Mass Index 26.3 Labs Results: 01/19/21 14:16 01/19/21 14:16 Medications Medications Current Medications Acetaminophen (Acetaminophen 325 Mg Tablet) 650 mg PO Q6H PRN PRN Reason: Headache/Pain Mild Scale (1-3) Al Hydroxide/Mg Hydroxide (Magnesium Hydrox/Alum Hydrox 30 Ml Oral.Susp) 30 ml PO Q6H PRN PRN Reason: Heartburn/Nausea Aspirin (Aspirin Enteric Coated 81 Mg Tablet.Dr) 81 mg PO DAILY [facility] Last Admin: 01/26/21 08:28 Dose: 81 mg Documented by: Atorvastatin Calcium (Atorvastatin Calcium 40 Mg Tablet) 40 mg PO BEDTIME [facility] Last Admin: 01/25/21 20:21 Dose: 40 mg Documented by: Docusate Sodium (Docusate Sodium 100 Mg Capsule) 100 mg PO BID [facility] Last Admin: 01/26/21 08:28 Dose: 100 mg Documented by: Escitalopram Oxalate (Escitalopram Oxalate 20 Mg Tablet) 20 mg PO DAILY [facility] Last Admin: 01/26/21 08:27 Dose: 20 mg Documented by: Hydroxyzine HCl (Hydroxyzine Hcl 25 Mg Tablet) 25 mg PO Q6H PRN PRN Reason: Anxiety Last Admin: 01/25/21 14:23 Dose: 25 mg Documented by: Lorazepam (Lorazepam 1 Mg Tablet) 1 mg PO DAILY PRN PRN Reason: severe anxiety Last Admin: 01/25/21 09:07 Dose: 1 mg Documented by: Magnesium Hydroxide (Milk Of Magnesia 30 Ml Oral.Susp) 30 ml PO DAILY PRN PRN Reason: Constipation Melatonin (Melatonin 3 Mg Tablet) 3 mg PO BEDTIME [facility] Last Admin: 01/25/21 20:21 Dose: 3 mg Documented by: Mirtazapine (Mirtazapine 15 Mg Tablet) 15 mg PO BEDTIME [facility] Last Admin: 01/25/21 20:21 Dose: 15 mg Documented by: Multivitamins/Vitamin C (Multivitamin Tablet) 1 tab PO DAILY [facility] Last Admin: 01/26/21 08:28 Dose: 1 tab Documented by: Olanzapine (Olanzapine 7.5 Mg Tablet) 7.5 mg PO BID [facility] Last Admin: 01/26/21 08:29 Dose: 7.5 mg Documented by: Pseudoephedrine HCl (Pseudoephedrine Hcl 30 Mg Tablet) 30 mg PO Q6H PRN PRN Reason: Congestion Last Admin: 01/26/21 09:28 Dose: 30 mg Documented by: Trazodone HCl (Trazodone Hcl 50 Mg Tablet) 50 mg PO BEDTIME PRN PRN Reason: Insomnia Triamcinolone Acetonide (Triamcinolone Acet 0.5 % Cream 15 Gm Tube) 1 appl TOPICAL DAILY PRN PRN Reason: AFTER SHOWERS Vitamin D (Cholecalciferol (Vitamin D3) 25 Mcg Tablet) 50 mcg PO DAILY [facility] Last Admin: 01/26/21 08:28 Dose: 50 mcg Documented by: Allergies Allergies Allergy/AdvReac Type Severity Reaction Status Date / Time No Known Allergies Allergy Verified 12/21/20 13:27 Assessment & Plan Assessment & Plan (1) SHAI (generalized anxiety disorder): Status: Acute Code(s): F41.1 - Generalized anxiety disorder (2) Major depressive disorder, recurrent severe without psychotic features: Status: Acute Code(s): F33.2 - Major depressive disorder, recurrent severe without psychotic features (3) Panic disorder without agoraphobia: Status: Acute Code(s): F41.0 - Panic disorder [episodic paroxysmal anxiety] Assessment and Plan: IMPRESSION: Pt is high functioning and appears to be struggling with adjustment to current life circumstances, as he put a lot of time, energy, and finances into purchasing a house 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 He has had sx of hyperarousal, hyperventilating, panic, and hopelessness. Sleep is mostly good. He struggles with feeling alone, prefers to be around people. Has friend supports and has OP psych services. Remote hx of [facility] for depression. Currently denies SI and says he feels safe. 01/25 Installation Drafter taking over case Patient denies any SI or HI. He remains anxious and ruminates on his life's choices, whether his life has held of meaning and what kind of decisions he should make going forward. A patient has done well on Celexa and Wellbutrin in the past. Currently, patients anxiety seems to be related to avoiding processing his feelings about his parents disapproval of his career choice and his own reflections on his life. He has a therapist and music writer is wondering if this increase in anxiety would be best worked out in therapy rather than with medication management. So far none of the medications including Ativan have made much difference in reducing his anxiety. Will discuss case with former providers. 01/26 Patient remains anxious and depressed but feels safe and denies any SI or HI; he continues to intermittently hyperventilate however says it has become a habit and that he is able to stop it and breathe normally when he focuses on it which he said he has been increasingly able to do. Patient's 3 day notice is due on 01/27 and he would like to discharge, feeling that he does not need a locked inpatient unit and that he would like to continue treatment as an outpatient with both his prescriber and therapist with whom he has a strong rapport. Patient is working on being hopeful; he is future oriented with plans to re-engage with friends and with work. Patient is not in imminent risk for harm to self or others and his request for discharge honored. PLAN Discontinue olanzapine; leave is p.r.n. but patient does not want to take it anymore, reports it has not helped and does not like side effect profile Increase mirtazapine to 30 mg q.h.s. for continued anxiety Continue Lexapro; patient will resume Celexa upon discharge I spent minutes with the patient and/or on the patient floor today, greater than?50% of which was spent counseling/coordinating care. Reason for contiued inpatient stay Substantial Risk for: stable for discharge
[2021-01-26] MEDS: LORazepam 1 MG TABLET PO (10:30)
[2021-01-26 11:02] VITALS: BP 121/65; PULSE 62; RESP 24; O2SAT 97
[2021-01-26] MEDS: hydrOXYzine HCL 25 MG TABLET PO (17:20)
[2021-01-26 18:00] VITALS: BP 120/63; PULSE 69; TEMP 36.6
[2021-01-26] MEDS: Magnesium Hydrox/Alum Hydrox 30 ML ORAL.SUSP PO (19:45)
[2021-01-26] MEDS: Atorvastatin Calcium 40 MG TABLET PO (21:17)
[2021-01-26] MEDS: Mirtazapine 30 MG TABLET PO (21:17)
[2021-01-26] MEDS: Melatonin 3 MG TABLET PO (21:18)
[2021-01-27 08:27] VITALS: BP 115/70; PULSE 61; RESP 18; TEMP 36.3; O2SAT 98
[2021-01-27] MEDS: Cholecalciferol (Vitamin D3) 25 MCG TABLET 50 MCG PO (09:02)
[2021-01-27] MEDS: Escitalopram Oxalate 20 MG TABLET PO (09:02)
[2021-01-27] MEDS: LORazepam 1 MG TABLET PO (09:02)
[2021-01-27] MEDS: Docusate Sodium 100 MG CAPSULE PO (09:03)
[2021-01-27] MEDS: Aspirin Enteric Coated 81 MG TABLET.DR PO (09:03)
[2021-01-27] MEDS: Multivitamin TABLET 1 TAB PO (09:03)
--- NOTE | 2021-01-27 11:38 | P.DS_ITS ---
DS: Providers Provider Date of Service: 01/27/21 Date of admission: 01/19/21 19:53 Date of discharge: 01/27/21 Primary care physician: Calderon Parks MD Admitting clinician: Kate Vance Attending physician on discharge: Martín Ramirez DS: Diagnosis Discharge Diagnosis (1) SHAI (generalized anxiety disorder): Status: Acute (2) Major depressive disorder, recurrent severe without psychotic features: Status: Acute (3) Panic disorder without agoraphobia: Status: Acute DS: Medications Discharge Medications Home Medications: Home Medications Medication Instructions Recorded Confirmed aspirin 81 mg capsule 81 mg PO DAILY 12/21/20 01/19/21 cholecalciferol (vitamin D3) 50 50 mcg PO DAILY 12/21/20 01/19/21 mcg (2,000 unit) capsule (Vitamin D3) docusate sodium 100 mg capsule 100 mg PO BID 12/21/20 01/19/21 lorazepam 1 mg tablet 1 mg PO TID 12/21/20 01/19/21 betamethasone dipropionate 0.05 % 1 appl TOPICAL DAILY 01/17/21 01/19/21 topical cream vitamin B complex 1 cap PO DAILY 01/17/21 01/19/21 Previous Rx's Medication Instructions Recorded atorvastatin 40 mg tablet 40 mg PO BEDTIME 30 Days #30 tab 01/27/21 escitalopram oxalate 20 mg tablet 20 mg PO DAILY 30 Days #30 tab 01/27/21 melatonin 3 mg tablet 3 mg PO BEDTIME 30 Days #30 tab 01/27/21 mirtazapine 30 mg tablet 30 mg PO BEDTIME 30 Days #30 tab 01/27/21 Mental Status Exam Mental Status Exam Narrative: Patient Appearance:?Appropriate Patient Orientation:?Person, Place, Time and Situation Level of Consciousness:?Alert Patient Behavior:?Appropriate, Cooperative, Anxious and Good Eye Contact Mood Description:?Depressed and Anxious Affect Description:?anxious Patient Cognition Impaired:?No Ability to Follow Directions:?Good Speech Pattern: Spontaneous Speech Memory Description:?Intact Hallucinations:?None Delusions:?Not Present Thought Process:?linear, logical, goal oriented Thought Content:?his accomplishments vs regrets;? Denies SI/HI Abnormal Motor Activity Signs and Symptoms:? 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 He has had sx of hyperarousal, hyperventilating, panic, and hopelessness. Sleep is mostly good. He struggles with feeling alone, prefers to be around people. Has friend supports and has OP psych services. Remote hx of [facility] for depression. Currently denies SI and says he feels safe. on 01/25 [employer] took over case. Patient had signed a 3 day notice due 01/27. Initially he had been started on Risperdal which was discontinued and then started on Zyprexa 7.5 mg b.i.d. for an anxious depression however upon meeting with patient he reported that this medication has not helped at all and he was not fond of the side effect profile and wanted to discontinue it. [employer] agreed with this plan. Patient agreed to increase mirtazapine to 30 mg. He also said he would remain on Lexapro for now and then discuss whether not to switch back to Celexa with his outpatient provider. Although patient continued to feel anxiety, he said that he did not need to be on a locked unit and felt that being on the unit was more triggering then helpful and he preferred to resume his treatment as an outpatient. He continued to deny any SI or HI and was appropriate with peers and staff on the unit in good behavioral and impulse control. Patient was able to discuss his hyperventilating which he said had become a habit and that he was practicing slowing his breathing down which was effective he focused on it. He continued to ruminate on whether his life has held of meaning and what kind of decisions he should make going forward, he agreed that the majority of his progress will be obtained through therapy and that medication management can be continued as an outpatient. Patient had made the connection that his current anxiety and struggles with his neighbors are directly related to unprocessed feelings about his parents disapproval of his career choice. Patient's 3 day notice was coming due. [employer]er offered for patient to remain on the unit further for more medication management however patient continued to feel ready for discharge andreiterated in his desire to continue treatment as an outpatient with both his prescriber and therapist with whom he has a strong rapport.? Patient is working on being hopeful, focusing on positive aspects of of his life rather than the negative; is future oriented with plans to re-engage with friends and with work.? Patient is not in imminent risk for harm to self or others and his request for discharge honored. Time spent discussing smoking cessation with patient: 3 to 10 minutes Status at Discharge Functional status at discharge: independent ambulation Overall status at discharge: patient is progressing back to baseline Time Spent with Patient Time attestation: Total time spent providing and/or coordinating discharge services: Time spent: Less than 30 minutes Discharge Plan Discharge Patient Disposition: Home, Self-Care Discharge Diagnosis: MDD, recurrent, severe w/out psychotic features, in partial remission Referrals: Krystle Garcia [Other] - 02/01/21 4:50 am (Outpatient therapist Appointment in Office Appointment) Dr. Hoskins [Other] - 02/02/21 11:15 am (Outpatient psychiatry appointment following discharge from [facility] In person appointment at [facility]) Calderon Parks MD [Primary Care Provider] - 01/31/21 1:00 pm (in office) Discharge Medications: New mirtazapine 30 mg Tablet 30 mg PO BEDTIME 30 Days Qty: 30 RF: 0 escitalopram oxalate 20 mg Tablet 20 mg PO DAILY 30 Days Qty: 30 RF: 0 melatonin 3 mg Tablet 3 mg PO BEDTIME 30 Days Qty: 30 RF: 0 Continued vitamin B complex Capsule 1 cap PO DAILY RF: 0 betamethasone dipropionate 0.05 % Cream 1 appl TOPICAL DAILY RF: 0 atorvastatin 40 mg Tablet 40 mg PO BEDTIME 30 Days Qty: 30 RF: 0 docusate sodium 100 mg Capsule 100 mg PO BID RF: 0 lorazepam 1 mg Tablet 1 mg PO TID RF: 0 cholecalciferol (vitamin D3) [Vitamin D3] 50 mcg (2,000 unit) Capsule 50 mcg PO DAILY RF: 0 aspirin 81 mg Capsule 81 mg PO DAILY RF: 0 Discontinued gabapentin 300 mg Capsule 300 mg PO BID RF: 0 citalopram [Celexa] 20 mg Tablet 30 mg PO DAILY RF: 0 mirtazapine [Remeron] 15 mg Tablet 15 mg PO BEDTIME RF: 0 olanzapine 5 mg tablet 5 mg PO BID Qty: 14 RF: 0 Discharge Orders: Discharge Order (Routine); Ordered 01/27/21 Ordered By: Martín Ramirez Diet: regular diet Activity on Discharge: As tolerated Stand Alone Forms: Patient Portal Discharge page, Community Support Care Plan Goals: Maintain mood and safe behaviors Take medications as prescribed Practice coping skills Continue with outpatient providers and reach out to them as needed Health Concerns: Mood stability and behaviors Plan of Treatment: Follow up with your PCP, psychiatric provider and other outpatient providers regarding above concerns Take medications as prescribed Assessment: Risk assessment at time of discharge:? Patient was interviewed prior to discharge and found to be fully oriented and without any SI or HI. Patient has insight and demonstrates good judgment in terms of wanting to pursue treatment. Patient is not in imminent risk of harm to self or others and has a safety plan that includes presenting to the closest ER or calling 911 if feeling unsafe.? Patient has been observed closely by nursing and unit staff throughout admission; patient has not engaged in any behaviors that suggest dangerousness to self or others and has demonstrated appropriate behaviors and impulse control Discharge Date/Time: 01/27/21 13:55
[2021-01-27] MEDS: hydrOXYzine HCL 25 MG TABLET PO (11:39)
== END 2021-01-27 13:55 | disposition home or self-care (01) | DRG 885 ==
LOC: HO.ED 15:01 → HO.PM5 20:18
PROVIDERS: Physician Assistant; Admitting Provider Registered Nurse; Emergency Provider Emergency Medicine; PCP Internal Medicine; Visit Provider Psychiatry & Neurology Psychiatry
DX: F33.2 Major depressive disorder, recurrent severe without psychotic features (principal); R45.851 Suicidal ideations; F41.1 Generalized anxiety disorder; F41.0 Panic disorder [episodic paroxysmal anxiety]; E78.5 Hyperlipidemia, unspecified; Z20.822 Contact with and (suspected) exposure to COVID-19; Z79.82 Long term (current) use of aspirin; Z79.899 Other long term (current) drug therapy
CPT/HCPCS: 36415; 80053; 80061; 80307; 82077; 82607; 82746; 83036; 83735; 84439; 84443; 85025; 87635; 93005; 99285

== ENCOUNTER 2023-06-15 00:18 | Outpatient (BNV) | payer MEDICARE, SELFPAY | END 2023-06-17 13:30 | PROVIDERS: Admitting Provider Psychiatry & Neurology Psychiatry; Responsible Provider Registered Nurse; Visit Provider Internal Medicine | DX: I44.4 Left anterior fascicular block (principal) | CPT/HCPCS: 93010 ==

== ENCOUNTER 2023-06-15 00:18 | Inpatient (IN) | payer MEDICARE, SELFPAY ==
[2023-06-15 01:14] VITALS: BP 116/68; PULSE 58; RESP 18; TEMP 36.5; O2SAT 97; BMI 22.9
--- NOTE | 2023-06-15 01:47 | PC.ADMIT ---
Robert is admitted from [facility] on a CV for suicidal ideation without a plan. He denies any medical conditions other then psoriatic arthritis. he states feeling very overwhelmed and feels that his medications need to be adjusted. Robert is alert and oriented X's 4, pleasant and cooperative, with a flat andd guarded affect. He denies auditory/visual hallucinations and homicidal ideation, he endorses depression/anxiety and suicidal ideation without a plan. treatment plan initiated, monitor for safety
[2023-06-15 07:55] VITALS: BP 124/58; PULSE 51; RESP 14; TEMP 36.4; O2SAT 99
--- NOTE | 2023-06-15 09:23 | P.CONHOSP_ITS ---
History of Present Illness Data of Consult Service Date: 06/15/23 Requesting physician: Ed Morrison Primary Care Provider: Unknown Physician HPI Reason for consult: medical H&P 72-year-old male with history of BPH with LUTS, cervical stenosis, chronic low back pain, hypertension, irritable bowel syndrome, hyperlipidemia, psoriatic arthritis, prediabetes, MADELINE noncompliant with CPAP, and history of C diff admitted to adult Psychiatry with consult placed to hospitalist service for medical H&P. While at [facility] ED, hematology studies unremarkable. Renal function normal, electrolyte levels normal, glucose 103. EKG showed normal sinus rhythm, rate 63 with incomplete right bundle branch block but no acute ST/T-wave abnormalities. Vitals were noted to be stable. He has chronic psoriatic plaques on the elbows, knees and new lesions on the face and does not use any steroid creams. He is reporting loose stool occasionally but no watery diarrhea. Otherwise has no complaints. Review of Systems Review of Systems: General: No fevers, malaise, unintentional weight loss HEENT: No blurred vision, diplopia. No sore throat, nasal congestion, rhinorrhea, sinus pain, ear pain Cardiovascular: No chest pain, palpitations, or leg edema Respiratory: No shortness of breath, wheezing, cough GI: +loose stool. No abdominal pain, nausea, vomiting, watery diarrhea, constipation, melena, hematochezia : No dysuria, hematuria, increased urinary frequency, decreased urinary output MSK: No myalgia, back pain Neuro: No headaches, weakness, paresthesias Skin: No rashes or lesions [facility] Medical History IBS (irritable bowel syndrome) Hypertension Chronic low back pain BPH w urinary obs/LUTS Obstructive sleep apnea Cervical stenosis of spine Hyperlipidemia History of prediabetes Psoriatic arthritis Psoriasis Surgical History H/O cervical discectomy H/O inguinal hernia repair Social History Household Members: None Housing: Apartment Do you presently have visiting nurse or other home services: Yes (they come once a month) Patient Tobacco Use Status: Never used Tobacco Second Hand Smoke Exposure: Yes Use of substances other than those prescribed or required for medical reasons: No Have you been hit, kicked, punched, or otherwise hurt by someone within the past year? If so, by whom?: No Do you feel safe in your current relationship?: Yes Is there a partner from a previous relationship who is making you feel unsafe now?: No Are you made to feel afraid or neglected: No Advance Directives: No Advance Directives Information Provided: Yes Do you have a plan to hurt others: No Plan Recently lost weight without trying: No Nutrition Risks: No Nutritional Risk Poor oral hygiene: No service: No Sexual orientation: Straight/Heterosexual Meds Allergies Allergy/AdvReac Type Severity Reaction Status Date / Time No Known Allergies Allergy Verified 12/21/20 13:27 Active Medications: Current Medications Acetaminophen (Acetaminophen 325 Mg Tablet) 650 mg PO Q6H PRN PRN Reason: Headache/Pain Mild Scale (1-3) Al Hydroxide/Mg Hydroxide (Magnesium Hydrox/Alum Hydrox 30 Ml Oral.Susp) 30 ml PO Q6H PRN PRN Reason: Heartburn/Nausea Hydroxyzine HCl (Hydroxyzine Hcl 25 Mg Tablet) 25 mg PO Q6H PRN PRN Reason: Anxiety Magnesium Hydroxide (Milk Of Magnesia 30 Ml Oral.Susp) 30 ml PO DAILY PRN PRN Reason: Constipation Trazodone HCl (Trazodone Hcl 50 Mg Tablet) 50 mg PO BEDTIME MRX1 PRN PRN Reason: Insomnia Home Medications ?Medication ?Instructions ?Recorded ?Confirmed ?Last Taken ?Type aspirin 81 mg capsule 81 mg PO DAILY 12/21/20 01/19/21 01/19/21 08:00 History cholecalciferol (vitamin D3) 50 50 mcg PO DAILY 12/21/20 01/19/21 01/19/21 08:00 History mcg (2,000 unit) capsule (Vitamin D3) docusate sodium 100 mg capsule 100 mg PO BID 12/21/20 01/19/21 01/19/21 08:00 History lorazepam 1 mg tablet 1 mg PO TID 12/21/20 01/19/21 01/19/21 14:00 History betamethasone dipropionate 0.05 % 1 appl topical DAILY 01/17/21 01/19/21 01/18/21 20:00 History topical cream vitamin B complex 1 cap PO DAILY 01/17/21 01/19/2121 08:00 History Physical Exam Vital Signs and Narrative: Vital Signs: Last Vital Signs Temp 97.5 F 06/15/23 07:55 Pulse 51 06/15/23 07:55 Resp 14 06/15/23 07:55 BP 124/58 L 06/15/23 07:55 Pulse Ox 99 06/15/23 07:55 O2 Del Method Room Air 06/15/23 07:55 BMI result Body Mass Index 22.9 Constitutional - Awake and Alert, No apparent distress Eyes - PERRLA, EOMI Cardiovascular - S1S2, RRR, No edema Respiratory - Normal lung expansion, Normal respiratory effort, No respiratory distress, CTA bilaterally Gastrointestinal - NT / ND; +BS; No rebound or guarding Extremities - no calf tenderness bilaterally, no swelling Musculoskeletal - Normal inspection, normal ROM Skin - Warm/Dry. Dry flaking plaques elbows and knees bilaterally with faint erythematous base. Fainlyt erythematous maculopapular lesions forehead Neurological - Alert & oriented x3, CN II-XII in tact, 5/5 strength BUE and BLE Psychological - Appropriate affect Assessment and Plan (1) Routine medical exam: Status: Acute Plan 72-year-old male with history of BPH with LUTS, cervical stenosis, chronic low back pain, hypertension, irritable bowel syndrome, hyperlipidemia, psoriatic arthritis, prediabetes, MADELINE noncompliant with CPAP, and history of C diff admitted to adult Psychiatry with consult placed to hospitalist service for medical H&P. #Mood disorder -plan per psychiatry #Psoriasis/psoriatic arthritis -currently untreated -add triamcinolone oint bid to elbows and knees -Hydrocortisone 1% bid prn for facial lesions- avoid orbits -outpt follow up to consider suppressive therapy #IBS -reports loose stool most mornings -add metamucil # history of HTN -BP controlled, not on antihypertensives # history of prediabetes -glucose levels controlled # HLD -statin # MADELINE -noncompliant with CPAP, discussed the importance of CPAP use # BPH with LUTS -not overly bothered by symptoms. Would hold off on medications unless symptoms become bothersome Thank you for allowing me to participate in this consult. Signing off at this time. Please do not hesitate to call for further questions or for any acute medical issues
[2023-06-15] MEDS: Triamcinolone Acet 0.5 % Oint 15 GM TUBE 1 APPL TOPICAL (14:02)
[2023-06-15] MEDS: Hydrocortisone 1 % Cream 28.35 GM TUBE 1 APPL TOPICAL ×2 (14:07→22:07)
[2023-06-15] MEDS: hydrOXYzine HCL 25 MG TABLET PO (15:20)
[2023-06-15] MEDS: FLUoxetine HCl 20 MG CAPSULE PO (15:22)
--- NOTE | 2023-06-15 15:56 | PC.NURSE ---
RN spoke to Dr. Luis on this date regarding order for Liothyronine 5mcg PO BID. Pt takes this medication at home and was verified with both patient and [facility] by TW. Medication is not included in formulary for [facility]. After discussion with Dr. Luis, he believes that the patient takes said medication for depression, not due to thyroid disorder. Patient reported that he does not believe he has a friend or family able to bring the medication from home at this time. Patient encouraged to reach out to contacts to bring medication to hospital, if able.
[2023-06-15 20:00] VITALS: BP 127/74; PULSE 56; RESP 18; TEMP 36.5; O2SAT 99
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
[2023-06-15] MEDS: Psyllium seed 3.7 GM PACKET PO (22:04)
[2023-06-15] MEDS: Mirtazapine 30 MG TABLET PO (22:04)
[2023-06-15] MEDS: Atorvastatin Calcium 10 MG TABLET PO (22:05)
[2023-06-15] MEDS: clonazePAM 1 MG TABLET PO (22:05)
[2023-06-16 07:29] LABS: Estimated Average Glucose 111 mg/dL; Hemoglobin A1c % 5.5 % (<6.0)
[2023-06-16 07:43] LABS: Alanine Aminotransferase 21 U/L (0-40); Albumin Level 3.8 g/dL (3.5-5.0); Alkaline Phosphatase 73 U/L (39-117); Anion Gap 14 (12-20); Aspartate Amino Transferase 18 U/L (5-37); Bilirubin Total 0.5 mg/dL (0.0-1.0); Blood Urea Nitrogen 22 mg/dL (9-16); Calcium 9.5 mg/dL (8.4-10.2); Carbon Dioxide 26 mmol/L (22-29); Chloride 109 mmol/L (96-108); Cholesterol 188 mg/dL (<200); Creatinine Clr Calc Pharmacy 63.6; Estimated Glomerular Filt Rate > 60; Glucose Fasting 94 mg/dL (60-99); HDL Cholesterol 51 mg/dL (>40); LDL Cholesterol Calculated 120 mg/dL (<100); Potassium 4.5 mmol/L (3.3-5.1); Sodium 144 mmol/L (135-145); Total Protein 6.5 g/dL (6.5-8.0); Triglycerides 89 mg/dL (<150)
[2023-06-16 07:59] LABS: Thyroid Stimulating Hormone 1.44 uIU/mL (0.32-4.0)
[2023-06-16 08:12] LABS: Folate 6.4 ng/mL (> or = 4.0); Vitamin B12 300 pg/mL (200-900)
[2023-06-16 08:20] VITALS: BP 117/63; PULSE 44; RESP 14; TEMP 36.7; O2SAT 98
[2023-06-16 09:04] VITALS: BP 138/63; PULSE 58; RESP 16
[2023-06-16] MEDS: FLUoxetine HCl 20 MG CAPSULE 40 MG PO (09:05)
[2023-06-16] MEDS: FLUoxetine HCl 20 MG CAPSULE PO (09:05)
[2023-06-16] MEDS: Multivitamin TABLET 1 TAB PO (09:06)
[2023-06-16] MEDS: ARIPiprazole 5 MG TABLET PO (09:07)
[2023-06-16] MEDS: Tamsulosin HCL 0.4 MG CAPSULE PO (09:07)
[2023-06-16] MEDS: Aspirin Enteric Coated 81 MG TABLET.DR PO (09:07)
--- NOTE | 2023-06-16 09:26 | HO.PSYCHPN ---
Subjective Subjective Date of Service: 06/16/23 Reason For Visit: Unspecified anxiety, unspecified depression Interim History: Seen on the unit. He walks up and down the block. He reports ongoing anxiety. Says he was at PCP who recommended he go to the ED at [facility] and then inpatient was recommended. 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 His friend had suggested he get Ketamine treatment for his depression. Medication Compliance: Yes Review of Systems Review of Systems General: No fevers, malaise, unintentional weight loss HEENT: No blurred vision, diplopia. No sore throat, nasal congestion, rhinorrhea, sinus pain, ear pain Cardiovascular: No chest pain, palpitations, or leg edema Respiratory: No shortness of breath, wheezing, cough GI: +loose stool. No abdominal pain, nausea, vomiting, watery diarrhea, constipation, melena, hematochezia : No dysuria, hematuria, increased urinary frequency, decreased urinary output MSK: No myalgia, back pain Neuro: No headaches, weakness, paresthesias Skin: No rashes or lesions Mental Status Exam Mental Status Exam Patient Appearance: Fatigued and Appropriate Level of Consciousness: Awake Patient Behavior: Dependent, Timid, Restless, Anxious and Fearful Mood Description: Withdrawn, Fearful, Anxious, Sad and Nervous Affect Description: Anxious, Sad and Nervous Ability to Follow Directions: Good Speech Pattern: Clear, Spontaneous Speech and Soft-Spoken Memory Description: Intact Hallucinations: None Thought Process: Rumination Depressive Symptoms: Increased Anxiety, Diff. Making Decisions, Muscle Tension, Loss of Int. in Activity, Feelings of Worthlessness, Unhappiness and Thoughts of /Suicide Judgement: Good Diagnostics Vital Signs (24Hr): Vital Signs - 24 hr 06/15/23 20:00 06/16/23 08:20 06/16/23 09:04 Temperature 97.7 F 98.0 F Pulse Rate 56 44 L 58 Respiratory Rate 18 14 16 Blood Pressure 127/74 117/63 138/63 Pulse Oximetry 99 98 Oxygen Delivery Method Room Air Room Air BMI result Body Mass Index 22.9 Labs 06/16/23 07:04 Labs: Laboratory Results - last 48 hr 06/16/23 07:04 Sodium 144 Potassium 4.5 Chloride 109 H Carbon Dioxide 26 Anion Gap 14 BUN 22 H Creatinine 1.06 Estim Creat Clear Calc 63.6 Estimated GFR > 60 Fasting Glucose 94 Estimat Average Glucose 111 Hemoglobin A1c % 5.5 Calcium 9.5 Total Bilirubin 0.5 AST 18 ALT 21 Alkaline Phosphatase 73 Total Protein 6.5 Albumin 3.8 Triglycerides 89 Cholesterol 188 LDL Cholesterol, Calc 120 H HDL Cholesterol 51 Vitamin B12 300 Folate 6.4 TSH 1.44 Medications Medications Current Medications Acetaminophen (Acetaminophen 325 Mg Tablet) 650 mg PO Q6H PRN PRN Reason: Headache/Pain Mild Scale (1-3) Al Hydroxide/Mg Hydroxide (Magnesium Hydrox/Alum Hydrox 30 Ml Oral.Susp) 30 ml PO Q6H PRN PRN Reason: Heartburn/Nausea Aripiprazole (Aripiprazole 5 Mg Tablet) 5 mg PO DAILY [facility] Last Admin: 06/16/23 09:07 Dose: 5 mg Aspirin (Aspirin Enteric Coated 81 Mg Tablet.Dr) 81 mg PO DAILY [facility] Last Admin: 06/16/23 09:07 Dose: 81 mg Atorvastatin Calcium (Atorvastatin Calcium 10 Mg Tablet) 10 mg PO BEDTIME [facility] Last Admin: 06/15/23 22:05 Dose: 10 mg Clonazepam (Clonazepam 1 Mg Tablet) 1 mg PO BEDTIME [facility] Last Admin: 06/15/23 22:05 Dose: 1 mg Fluoxetine HCl (Fluoxetine Hcl 20 Mg Capsule) 20 mg PO DAILY [facility] Last Admin: 06/16/23 09:05 Dose: 20 mg Fluoxetine HCl (Fluoxetine Hcl 20 Mg Capsule) 40 mg PO DAILY [facility] Last Admin: 06/16/23 09:05 Dose: 40 mg Hydrocortisone (Hydrocortisone 1 % Cream 28.35 Gm Tube) 1 appl TOPICAL BID PRN; Protocol PRN Reason: facial psoriasis Last Admin: 06/15/23 22:07 Dose: 1 appl Hydroxyzine HCl (Hydroxyzine Hcl 25 Mg Tablet) 25 mg PO Q6H PRN PRN Reason: Anxiety Last Admin: 06/15/23 15:20 Dose: 25 mg Magnesium Hydroxide (Milk Of Magnesia 30 Ml Oral.Susp) 30 ml PO DAILY PRN PRN Reason: Constipation Mirtazapine (Mirtazapine 30 Mg Tablet) 30 mg PO BEDTIME [facility] Last Admin: 06/15/23 22:04 Dose: 30 mg Multivitamins/Vitamin C (Multivitamin Tablet) 1 tab PO DAILY [facility] Last Admin: 06/16/23 09:06 Dose: 1 tab Non-Formulary Medication (Liothyronine) 5 mcg PO BID [facility] Psyllium Hydrophilic Mucilloid (Psyllium Seed 3.7 Gm Packet) 3.7 gm PO BEDTIME [facility] Last Admin: 06/15/23 22:04 Dose: 3.7 gm Tamsulosin HCl (Tamsulosin Hcl 0.4 Mg Capsule) 0.4 mg PO DAILY [facility] Last Admin: 06/16/23 09:07 Dose: 0.4 mg Trazodone HCl (Trazodone Hcl 50 Mg Tablet) 50 mg PO BEDTIME MRX1 PRN PRN Reason: Insomnia Triamcinolone Acetonide (Triamcinolone Acet 0.5 % Oint 15 Gm Tube) 1 appl TOPICAL BID [facility] Last Admin: 06/15/23 22:07 Dose: Not Given Allergies Allergies Allergy/AdvReac Type Severity Reaction Status Date / Time No Known Allergies Allergy Verified 12/21/20 13:27 Assessment & Plan Assessment & Plan (1) Major depressive disorder, recurrent episode, severe with anxious distress: Status: Acute Code(s): F33.2 - Major depressive disorder, recurrent severe without psychotic features (2) Panic disorder without agoraphobia: Status: Acute Code(s): F41.0 - Panic disorder [episodic paroxysmal anxiety] (3) SHAI (generalized anxiety disorder): Status: Acute Code(s): F41.1 - Generalized anxiety disorder Assessment and Plan: - Admit to inpatient psychiatry - CV - Collateral information from family and providers. - Milieu treatment and group therapy. - Medications:continue same. Consider an ECT series. - Social work evaluation. - Disposition planning. 06/15: Consider an ECT series. Otherwise continue current management and treatment plan. Reason for continued inpatient stay Substantial Risk for: inability to function and rapid decompensation Time Spent With Patient Time: Total time managing care of this patient today ____ minutes.
--- NOTE | 2023-06-16 11:22 | HE.PHANOTE ---
SPOKE TO NURSE ON FLOOR ABOUT HOME LIOTHYRONINE. APPARENTLY THE PATIENT DOESN'T TAKE FOR THYROID BUT FOR ANTIDEPRESSANT AUGMENTATION. HE CANNOT GET IT BROUGHT FROM HOME AND PROVIDER IS AWARE THAT HE WON'T BE TAKING WHILE HERE.
[2023-06-16] MEDS: hydrOXYzine HCL 25 MG TABLET PO (13:34)
[2023-06-16 21:55] VITALS: BP 111/61; PULSE 64; RESP 16; TEMP 36.6; O2SAT 97
[2023-06-16] MEDS: Psyllium seed 3.7 GM PACKET PO (22:02)
[2023-06-16] MEDS: clonazePAM 1 MG TABLET PO (22:02)
[2023-06-16] MEDS: Atorvastatin Calcium 10 MG TABLET PO (22:02)
[2023-06-16] MEDS: Mirtazapine 30 MG TABLET PO (22:03)
[2023-06-16] MEDS: Triamcinolone Acet 0.5 % Oint 15 GM TUBE 1 APPL TOPICAL (22:05)
--- NOTE | 2023-06-17 | ECG_ITS ---
Test Reason : ect clearence Blood Pressure : / mmHG Vent. Rate : 062 BPM Atrial Rate : 062 BPM P-R Int : 140 ms QRS Dur : 104 ms QT Int : 420 ms P-R-T Axes : 053 -58 047 degrees QTc Int : 426 ms Normal sinus rhythm Left anterior fascicular block Abnormal ECG When compared with ECG of 19-JAN-2021 17:42, No significant change was found Referred By: Ed Morrison Electronically Signed By:TRINY PUENTES
[2023-06-17 07:46] VITALS: BP 107/56; PULSE 53; RESP 14; TEMP 36.6; O2SAT 98
[2023-06-17] MEDS: ARIPiprazole 5 MG TABLET PO (09:12)
[2023-06-17] MEDS: Multivitamin TABLET 1 TAB PO (09:12)
[2023-06-17] MEDS: Aspirin Enteric Coated 81 MG TABLET.DR PO (09:12)
[2023-06-17] MEDS: FLUoxetine HCl 20 MG CAPSULE 40 MG PO (09:12)
[2023-06-17] MEDS: Tamsulosin HCL 0.4 MG CAPSULE PO ×2 (09:12→22:03)
[2023-06-17] MEDS: FLUoxetine HCl 20 MG CAPSULE PO (09:12)
[2023-06-17] MEDS: Triamcinolone Acet 0.5 % Oint 15 GM TUBE 1 APPL TOPICAL ×2 (09:16→22:07)
[2023-06-17] MEDS: Hydrocortisone 1 % Cream 28.35 GM TUBE 1 APPL TOPICAL (09:19)
--- NOTE | 2023-06-17 11:38 | PM.EVENT ---
Event Note Date of Service: 06/17/23 Event Note: 72-year-old male with past medical history significant for BPH with LUTS, cervical stenosis, chronic low back pain, hypertension, irritable bowel syndrome hyperlipidemia, psoriatic arthritis, psoriasis, prediabetes, MADELINE noncompliant with CPAP and history of C diff admitted t o Psychiatry with consult placed hospitalist service for ECT risk stratification. The patient denies any known history of seizure disorder, chronic lung disease including COPD or asthma, CAD, CHF. He is able to ambulate distances and ascend stairs without develop any shortness of breath, palpitations, lightheadedness, chest pain. He is reporting occasional positional lightheadedness and reports he has not been drinking enough fluids but denies any syncope. EKG performed this morning shows normal sinus rhythm, rate [address]/T-wave abnormalities. Vital signs stable. Will check orthostatic vital signs given positional lightheadedness. However, at this time, there is no medical contraindication that should preclude patient from undergoing ECT Time Spent With Patient Time: Total time managing care of this patient today ____ minutes.
[2023-06-17] MEDS: LORazepam 1 MG TABLET PO (11:48)
--- NOTE | 2023-06-17 15:36 | HO.PSYCHPN ---
Subjective Subjective Date of Service: 06/17/23 Reason For Visit: Unspecified anxiety, unspecified depression Interim History: DFA, then stays asleep. discuss incr remeron versus flomax. states he gets dizzy on standing already, MD counsels against increasing flomax. also discuss increasing prozac for depression/anxiety, pt will consider. will discuss ECT and TMS with ian. per staff, passive SI. daily panic attacks. wants ECT. slept 6 hours overnight. calm, pleasant, cooperative. hydroxyzine partially effective. Mental Status Exam Mental Status Exam Narrative: Patient Appearance:?disheveled, josias Patient Orientation:?Person, Place, Time and Situation Level of Consciousness:?Alert Patient Behavior:?Appropriate, Cooperative, Anxious and Good Eye Contact Mood Description:?Depressed and Anxious Affect Description:?constricted, hyper-intense, non-labile Patient Cognition Impaired:?No Ability to Follow Directions:?Good Speech Pattern: Spontaneous Speech Memory Description:?Intact Hallucinations:?None Delusions:?Not Present Thought Process:?linear, logical, goal oriented Thought Content: no delusions or paranoia expressed Abnormal Motor Activity Signs and Symptoms:? None Judgement:?Fair Diagnostics Vital Signs (24Hr): Vital Signs - 24 hr 06/16/23 21:55 06/17/23 07:46 Temperature 97.8 F 97.9 F Pulse Rate 64 53 Respiratory Rate 16 14 Blood Pressure 111/61 107/56 L Pulse Oximetry 97 98 Oxygen Delivery Method Room Air Room Air BMI result Body Mass Index 22.9 Labs 06/16/23 07:04 Labs: Laboratory Results - last 48 hr 06/16/23 07:04 Sodium 144 Potassium 4.5 Chloride 109 H Carbon Dioxide 26 Anion Gap 14 BUN 22 H Creatinine 1.06 Estim Creat Clear Calc 63.6 Estimated GFR > 60 Fasting Glucose 94 Estimat Average Glucose 111 Hemoglobin A1c % 5.5 Calcium 9.5 Total Bilirubin 0.5 AST 18 ALT 21 Alkaline Phosphatase 73 Total Protein 6.5 Albumin 3.8 Triglycerides 89 Cholesterol 188 LDL Cholesterol, Calc 120 H HDL Cholesterol 51 Vitamin B12 300 Folate 6.4 TSH 1.44 Medications Medications Current Medications Acetaminophen (Acetaminophen 325 Mg Tablet) 650 mg PO Q6H PRN PRN Reason: Headache/Pain Mild Scale (1-3) Al Hydroxide/Mg Hydroxide (Magnesium Hydrox/Alum Hydrox 30 Ml Oral.Susp) 30 ml PO Q6H PRN PRN Reason: Heartburn/Nausea Aripiprazole (Aripiprazole 5 Mg Tablet) 5 mg PO DAILY [facility] Last Admin: 06/17/23 09:12 Dose: 5 mg Aspirin (Aspirin Enteric Coated 81 Mg Tablet.Dr) 81 mg PO DAILY [facility] Last Admin: 06/17/23 09:12 Dose: 81 mg Atorvastatin Calcium (Atorvastatin Calcium 10 Mg Tablet) 10 mg PO BEDTIME [facility] Last Admin: 06/16/23 22:02 Dose: 10 mg Clonazepam (Clonazepam 1 Mg Tablet) 1 mg PO BEDTIME [facility] Last Admin: 06/16/23 22:02 Dose: 1 mg Fluoxetine HCl (Fluoxetine Hcl 20 Mg Capsule) 20 mg PO DAILY [facility] Last Admin: 06/17/23 09:12 Dose: 20 mg Fluoxetine HCl (Fluoxetine Hcl 20 Mg Capsule) 40 mg PO DAILY [facility] Last Admin: 06/17/23 09:12 Dose: 40 mg Hydrocortisone (Hydrocortisone 1 % Cream 28.35 Gm Tube) 1 appl TOPICAL BID PRN; Protocol PRN Reason: facial psoriasis Last Admin: 06/17/23 09:19 Dose: 1 appl Hydroxyzine HCl (Hydroxyzine Hcl 25 Mg Tablet) 25 mg PO Q6H PRN PRN Reason: Anxiety Last Admin: 06/16/23 13:34 Dose: 25 mg Lorazepam (Lorazepam 1 Mg Tablet) 1 mg PO DAILY PRN PRN Reason: panic attack Last Admin: 06/17/23 11:48 Dose: 1 mg Magnesium Hydroxide (Milk Of Magnesia 30 Ml Oral.Susp) 30 ml PO DAILY PRN PRN Reason: Constipation Mirtazapine (Mirtazapine 30 Mg Tablet) 30 mg PO BEDTIME [facility] Last Admin: 06/16/23 22:03 Dose: 30 mg Multivitamins/Vitamin C (Multivitamin Tablet) 1 tab PO DAILY [facility] Last Admin: 06/17/23 09:12 Dose: 1 tab Psyllium Hydrophilic Mucilloid (Psyllium Seed 3.7 Gm Packet) 3.7 gm PO BEDTIME [facility] Last Admin: 06/16/23 22:02 Dose: 3.7 gm Tamsulosin HCl (Tamsulosin Hcl 0.4 Mg Capsule) 0.4 mg PO BEDTIME [facility] Trazodone HCl (Trazodone Hcl 50 Mg Tablet) 50 mg PO BEDTIME MRX1 PRN PRN Reason: Insomnia Triamcinolone Acetonide (Triamcinolone Acet 0.5 % Oint 15 Gm Tube) 1 appl TOPICAL BID [facility] Last Admin: 06/17/23 09:16 Dose: 1 appl Allergies Allergies Allergy/AdvReac Type Severity Reaction Status Date / Time No Known Allergies Allergy Verified 12/21/20 13:27 Assessment & Plan Assessment & Plan (1) Major depressive disorder, recurrent episode, severe with anxious distress: Status: Acute Code(s): F33.2 - Major depressive disorder, recurrent severe without psychotic features (2) Panic disorder without agoraphobia: Status: Acute Code(s): F41.0 - Panic disorder [episodic paroxysmal anxiety] (3) SHAI (generalized anxiety disorder): Status: Acute Code(s): F41.1 - Generalized anxiety disorder Assessment and Plan: - Admit to inpatient psychiatry - CV - Collateral information from family and providers. - Milieu treatment and group therapy. - Medications:continue same. Consider an ECT series. - Social work evaluation. - Disposition planning. 06/15: Consider an ECT series. Otherwise continue current management and treatment plan. 06/16: hospitalist consult for ECT risk stratification, EKG, ian consult for ECT. continue current mgmt otherwise, pt to abdiaizz over increasing prozac to 80 and/or increasing remeron to 45. case discussed with ian. Reason for continued inpatient stay Substantial Risk for: harm to self, inability to function and rapid decompensation Time Spent With Patient Time: Total time managing care of this patient today _35___ minutes.
[2023-06-17 20:00] VITALS: BP 123/60; PULSE 61; RESP 16; TEMP 36.6; O2SAT 99
[2023-06-17] MEDS: Mirtazapine 30 MG TABLET PO (22:02)
[2023-06-17] MEDS: Atorvastatin Calcium 10 MG TABLET PO (22:02)
[2023-06-17] MEDS: clonazePAM 1 MG TABLET PO (22:03)
[2023-06-17] MEDS: Psyllium seed 3.7 GM PACKET PO (22:04)
[2023-06-18 08:00] VITALS: BP 120/62; PULSE 48; RESP 18; TEMP 36.4; O2SAT 100
[2023-06-18] MEDS: FLUoxetine HCl 20 MG CAPSULE PO (08:39)
[2023-06-18] MEDS: FLUoxetine HCl 20 MG CAPSULE 40 MG PO (08:39)
[2023-06-18] MEDS: ARIPiprazole 5 MG TABLET PO (08:40)
[2023-06-18] MEDS: Aspirin Enteric Coated 81 MG TABLET.DR PO (08:40)
[2023-06-18] MEDS: Multivitamin TABLET 1 TAB PO (08:40)
[2023-06-18] MEDS: Triamcinolone Acet 0.5 % Oint 15 GM TUBE 1 APPL TOPICAL (08:43)
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
[2023-06-18] MEDS: LORazepam 1 MG TABLET PO (12:45)
--- NOTE | 2023-06-18 14:14 | HO.PSYCHPN ---
Subjective Subjective Date of Service: 06/18/23 Reason For Visit: Unspecified anxiety, unspecified depression Interim History: calm, cooperative, in bed. states he is having a panic attack. TANIYA Coombs notified and at end of interview arrived to provide pt with 1 mg ativan. pt stated he was feeling increased anxiety after speaking with Ronald Zhong about starting ECT. planning to start tomorrow. per staff, anxious, visible, taking meds. not attending groups. ativan PRN. meds clearance done. no SI/HI. slept 8 hours. Mental Status Exam Mental Status Exam Narrative: Patient Appearance:?adequately dressed and groomed Patient Orientation:?Person, Place, Time and Situation Level of Consciousness:?Alert Patient Behavior:?Appropriate, Cooperative, Anxious and Good Eye Contact Mood Description:?Depressed and Anxious Affect Description:?constricted, hyper-intense, non-labile Patient Cognition Impaired:?No Ability to Follow Directions:?Good Speech Pattern: Spontaneous Speech Memory Description:?Intact Hallucinations:?None Delusions:?Not Present Thought Process:?linear, logical, goal oriented Thought Content: no delusions or paranoia expressed Abnormal Motor Activity Signs and Symptoms:? None Judgement:?Fair Diagnostics Vital Signs (24Hr): Vital Signs - 24 hr 06/17/23 20:00 06/18/23 08:00 Temperature 98 F 97.6 F Pulse Rate 61 48 L Respiratory Rate 16 18 Blood Pressure 123/60 120/62 Pulse Oximetry 99 100 Oxygen Delivery Method Room Air Room Air BMI result Body Mass Index 22.9 Labs 06/16/23 07:04 Medications Medications Current Medications Acetaminophen (Acetaminophen 325 Mg Tablet) 650 mg PO Q6H PRN PRN Reason: Headache/Pain Mild Scale (1-3) Al Hydroxide/Mg Hydroxide (Magnesium Hydrox/Alum Hydrox 30 Ml Oral.Susp) 30 ml PO Q6H PRN PRN Reason: Heartburn/Nausea Aripiprazole (Aripiprazole 5 Mg Tablet) 5 mg PO DAILY [facility] Last Admin: 06/18/23 08:40 Dose: 5 mg Aspirin (Aspirin Enteric Coated 81 Mg Tablet.) 81 mg PO DAILY [facility] Last Admin: 06/18/23 08:40 Dose: 81 mg Atorvastatin Calcium (Atorvastatin Calcium 10 Mg Tablet) 10 mg PO BEDTIME [facility] Last Admin: 06/17/23 22:02 Dose: 10 mg Clonazepam (Clonazepam 1 Mg Tablet) 1 mg PO BEDTIME [facility] Last Admin: 06/17/23 22:03 Dose: 1 mg Fluoxetine HCl (Fluoxetine Hcl 20 Mg Capsule) 20 mg PO DAILY [facility] Last Admin: 06/18/23 08:39 Dose: 20 mg Fluoxetine HCl (Fluoxetine Hcl 20 Mg Capsule) 40 mg PO DAILY [facility] Last Admin: 06/18/23 08:39 Dose: 40 mg Hydrocortisone (Hydrocortisone 1 % Cream 28.35 Gm Tube) 1 appl TOPICAL BID PRN; Protocol PRN Reason: facial psoriasis Last Admin: 06/17/23 09:19 Dose: 1 appl Hydroxyzine HCl (Hydroxyzine Hcl 25 Mg Tablet) 25 mg PO Q6H PRN PRN Reason: Anxiety Last Admin: 06/16/23 13:34 Dose: 25 mg Lorazepam (Lorazepam 1 Mg Tablet) 1 mg PO DAILY PRN PRN Reason: panic attack Last Admin: 06/18/23 12:45 Dose: 1 mg Magnesium Hydroxide (Milk Of Magnesia 30 Ml Oral.Susp) 30 ml PO DAILY PRN PRN Reason: Constipation Mirtazapine (Mirtazapine 30 Mg Tablet) 30 mg PO BEDTIME [facility] Last Admin: 06/17/23 22:02 Dose: 30 mg Multivitamins/Vitamin C (Multivitamin Tablet) 1 tab PO DAILY [facility] Last Admin: 06/18/23 08:40 Dose: 1 tab Psyllium Hydrophilic Mucilloid (Psyllium Seed 3.7 Gm Packet) 3.7 gm PO BEDTIME [facility] Last Admin: 06/17/23 22:04 Dose: 3.7 gm Tamsulosin HCl (Tamsulosin Hcl 0.4 Mg Capsule) 0.4 mg PO BEDTIME [facility] Last Admin: 06/17/23 22:03 Dose: 0.4 mg Trazodone HCl (Trazodone Hcl 50 Mg Tablet) 50 mg PO BEDTIME MRX1 PRN PRN Reason: Insomnia Triamcinolone Acetonide (Triamcinolone Acet 0.5 % Oint 15 Gm Tube) 1 appl TOPICAL BID [facility] Last Admin: 06/18/23 08:43 Dose: 1 appl Allergies Allergies Allergy/AdvReac Type Severity Reaction Status Date / Time No Known Allergies Allergy Verified 12/21/20 13:27 Assessment & Plan Assessment & Plan (1) Major depressive disorder, recurrent episode, severe with anxious distress: Status: Acute Code(s): F33.2 - Major depressive disorder, recurrent severe without psychotic features (2) Panic disorder without agoraphobia: Status: Acute Code(s): F41.0 - Panic disorder [episodic paroxysmal anxiety] (3) SHAI (generalized anxiety disorder): Status: Acute Code(s): F41.1 - Generalized anxiety disorder Assessment and Plan: - Admit to inpatient psychiatry - CV - Collateral information from family and providers. - Milieu treatment and group therapy. - Medications:continue same. Consider an ECT series. - Social work evaluation. - Disposition planning. 06/15: Consider an ECT series. Otherwise continue current management and treatment plan. 06/16: hospitalist consult for ECT risk stratification, EKG, ronald consult for ECT. continue current mgmt otherwise, pt to abdiaziz over increasing prozac to 80 and/or increasing remeron to 45. case discussed with ronald. 06/17: seen by ronald. anxious, panic attack at time of interview, got ativan PRN. planning to start ECT tomorrow. medically cleared. Reason for continued inpatient stay Substantial Risk for: harm to self and inability to function Time Spent With Patient Time: Total time managing care of this patient today __35__ minutes.
[2023-06-18 20:00] VITALS: BP 102/64; PULSE 63; RESP 16; TEMP 36.8; O2SAT 98
[2023-06-18] MEDS: Atorvastatin Calcium 10 MG TABLET PO (22:02)
[2023-06-18] MEDS: Tamsulosin HCL 0.4 MG CAPSULE PO (22:03)
[2023-06-18] MEDS: clonazePAM 1 MG TABLET PO (22:03)
[2023-06-18] MEDS: Mirtazapine 30 MG TABLET PO (22:04)
[2023-06-18] MEDS: Psyllium seed 3.7 GM PACKET PO (22:04)
[2023-06-19] VITALS (14 sets, daily range): BP systolic 103–141; BP diastolic 46–66; PULSE 53–84; RESP 16–20; TEMP 36.1–36.7; O2SAT 95–100
--- NOTE | 2023-06-19 06:42 | P.CONAN_ITS ---
[facility] Active Problems Active Problems: All Active Problems Major depressive disorder, recurrent episode, severe with anxious distress (Acute) Routine medical exam (Acute) Panic disorder without agoraphobia (Acute) SHAI (generalized anxiety disorder) (Acute) Major depressive disorder, recurrent severe without psychotic features (Acute) Past Medical History Medical History IBS (irritable bowel syndrome) Hypertension Chronic low back pain BPH w urinary obs/LUTS Obstructive sleep apnea Cervical stenosis of spine Hyperlipidemia History of prediabetes Psoriatic arthritis Psoriasis Family History Family history of problems with anesthesia: No Surgical History Surgical History H/O cervical discectomy H/O inguinal hernia repair History of Problems with Anesthesia: No Social History Social History Household Members: None Housing: Apartment Do you presently have visiting nurse or other home services: Yes (they come once a month) Patient Tobacco Use Status: Never used Tobacco Second Hand Smoke Exposure: Yes Use of substances other than those prescribed or required for medical reasons: No Currently Displaying Signs/Symptoms of Drug Intoxication Withdrawal: No Have you been hit, kicked, punched, or otherwise hurt by someone within the past year? If so, by whom?: No Do you feel safe in your current relationship?: Yes Is there a partner from a previous relationship who is making you feel unsafe now?: No Are you made to feel afraid or neglected: No Advance Directives: No Advance Directives Information Provided: Yes Do you have thoughts of harming others: None Do you have a plan to hurt others: No Plan Recently lost weight without trying: No Nutrition Risks: No Nutritional Risk Poor oral hygiene: No service: No Sexual orientation: Straight/Heterosexual Meds Allergies Allergy/AdvReac Type Severity Reaction Status Date / Time No Known Allergies Allergy Verified 12/21/20 13:27 Active Medications: Current Medications Acetaminophen (Acetaminophen 325 Mg Tablet) 650 mg PO Q6H PRN PRN Reason: Headache/Pain Mild Scale (1-3) Al Hydroxide/Mg Hydroxide (Magnesium Hydrox/Alum Hydrox 30 Ml Oral.Susp) 30 ml PO Q6H PRN PRN Reason: Heartburn/Nausea Aripiprazole (Aripiprazole 5 Mg Tablet) 5 mg PO DAILY DC Last Admin: 06/18/23 08:40 Dose: 5 mg Aspirin (Aspirin Enteric Coated 81 Mg Tablet.Dr) 81 mg PO DAILY DC Last Admin: 06/18/23 08:40 Dose: 81 mg Atorvastatin Calcium (Atorvastatin Calcium 10 Mg Tablet) 10 mg PO BEDTIME DC Last Admin: 06/18/23 22:02 Dose: 10 mg Clonazepam (Clonazepam 1 Mg Tablet) 1 mg PO BEDTIME DC Last Admin: 06/18/23 22:03 Dose: 1 mg Fluoxetine HCl (Fluoxetine Hcl 20 Mg Capsule) 20 mg PO DAILY DC Last Admin: 06/18/23 08:39 Dose: 20 mg Fluoxetine HCl (Fluoxetine Hcl 20 Mg Capsule) 40 mg PO DAILY DC Last Admin: 06/18/23 08:39 Dose: 40 mg Hydrocortisone (Hydrocortisone 1 % Cream 28.35 Gm Tube) 1 appl TOPICAL BID PRN; Protocol PRN Reason: facial psoriasis Last Admin: 06/17/23 09:19 Dose: 1 appl Hydroxyzine HCl (Hydroxyzine Hcl 25 Mg Tablet) 25 mg PO Q6H PRN PRN Reason: Anxiety Last Admin: 06/16/23 13:34 Dose: 25 mg Lactated Ringer's (Lr) 1,000 mls @ 50 mls/hr IVCONT .Q20H DC Lorazepam (Lorazepam 1 Mg Tablet) 1 mg PO DAILY PRN PRN Reason: panic attack Last Admin: 06/18/23 12:45 Dose: 1 mg Magnesium Hydroxide (Milk Of Magnesia 30 Ml Oral.Susp) 30 ml PO DAILY PRN PRN Reason: Constipation Mirtazapine (Mirtazapine 30 Mg Tablet) 30 mg PO BEDTIME DC Last Admin: 06/18/23 22:04 Dose: 30 mg Multivitamins/Vitamin C (Multivitamin Tablet) 1 tab PO DAILY DC Last Admin: 06/18/23 08:40 Dose: 1 tab Psyllium Hydrophilic Mucilloid (Psyllium Seed 3.7 Gm Packet) 3.7 gm PO BEDTIME DC Last Admin: 06/18/23 22:04 Dose: 3.7 gm Tamsulosin HCl (Tamsulosin Hcl 0.4 Mg Capsule) 0.4 mg PO BEDTIME DC Last Admin: 06/18/23 22:03 Dose: 0.4 mg Trazodone HCl (Trazodone Hcl 50 Mg Tablet) 50 mg PO BEDTIME MRX1 PRN PRN Reason: Insomnia Triamcinolone Acetonide (Triamcinolone Acet 0.5 % Oint 15 Gm Tube) 1 appl TOPICAL BID DC Last Admin: 06/18/23 22:22 Dose: Not Given Home Medications ?Medication ?Instructions ?Recorded ?Confirmed ?Last Taken ?Type aspirin 81 mg capsule 81 mg PO DAILY 12/21/20 06/15/23 01/19/21 08:00 History vitamin B complex 1 cap PO DAILY 01/17/21 06/15/23 01/19/21 08:00 History aripiprazole 5 mg tablet 5 mg PO DAILY 06/15/23 06/15/23 Unknown History clonazepam 1 mg tablet 1 mg PO BEDTIME 06/15/23 06/15/23 Unknown History fluoxetine 20 mg capsule 20 mg PO QAM 06/15/23 06/15/23 Unknown History fluoxetine 40 mg capsule 40 mg PO DAILY 06/15/23 06/15/23 Unknown History liothyronine 5 mcg tablet 5 mcg PO BID 06/15/23 06/15/23 Unknown History simvastatin 10 mg tablet 10 mg PO BEDTIME 06/15/23 06/15/23 Unknown History tamsulosin 0.4 mg capsule 0.4 mg PO DAILY 06/15/23 06/15/23 Unknown History Exam Height,Weight and Vital Signs: Height 5 ft 10 in Weight 72.5 kg Last Vital Signs Temp 97 F 06/19/23 06:36 Pulse 55 06/19/23 06:36 Resp 16 06/19/23 06:36 BP 124/62 06/19/23 06:36 Pulse Ox 99 06/19/23 06:36 O2 Del Method Room Air 06/19/23 06:36 Pertinent Lab Results Pertinent Lab Results: Laboratory Tests 06/16/23 07:04 Sodium 144 Potassium 4.5 Chloride 109 H Carbon Dioxide 26 Anion Gap 14 BUN 22 H Creatinine 1.06 Estim Creat Clear Calc 63.6 Estimated GFR > 60 Fasting Glucose 94 Estimat Average Glucose 111 Hemoglobin A1c % 5.5 Calcium 9.5 Total Bilirubin 0.5 AST 18 ALT 21 Alkaline Phosphatase 73 Total Protein 6.5 Albumin 3.8 Triglycerides 89 Cholesterol 188 LDL Cholesterol, Calc 120 H HDL Cholesterol 51 Vitamin B12 300 Folate 6.4 TSH 1.44 Airway Mallampati Class: II TM Dist: >3cm Neck ROM: Full Heart: rrr Lungs: cta Assessment and Plan Assessment Anesthesia Assessment: Anesthesia Plan Discussed and Chart Reviewed Final Anesthetic Review Family History of Problems with Anesthesia: No History of Problems with Anesthesia: No NPO: Yes ASA Class: III Final Preanesthetic Review: No Changes in Pt Med Stat, Meds/Allgs Chart Reviewed and Consent Obtained/Reviewed Patient Risk: Intermediate Procedure Risk: Intermediate Anesthetic Plan Anesthetic Plan: GA Disposition: Standard PACU
[2023-06-19] MEDS: Lactated Ringers 1,000 ML 50 ML IVCONT (06:59)
--- NOTE | 2023-06-19 07:37 | P.HPSUR_ITS ---
Pre-Procedural Eval Section A - 24 Hr Update-Section A only Date of Service: 06/19/23 The patient is an INPATIENT: Yes Changes since office visit: No Cold of Flu in the past 2 weeks, No New Medical Problems, No Changes in Medication and No Patient answered all questions The patient has been examined within 24 hours of the surgical procedure. The History & Physical has been completed within 30 days and I have reviewed it.: Yes Section B - Complete if H&P > 30 days Chief Complaint: Unspecified anxiety, unspecified depression Details of Present Illness: Hx of depression that has not responded to medic ations, used to be on ECT with fair improvement. Relevant Family History (Specify if Yes): Yes Relevant Social History: None Present Medications: see Short Stay Collaborative assessment Medical History: No relevant PMH History of Previous Operations: No relevant previous surgery Allergies: Allergies Allergy/AdvReac Type Severity Reaction Status Date / Time No Known Allergies Allergy Verified 12/21/20 13:27 Review of Systems Sugical H&P ROS: Negative: Constitution, Cardiovascular, Respiratory, Neurological, Psychiatric, Hem-Onc, Allergic/Immunologic, Gastrointestinal, Genitourinary, Musculoskeletal, Integumentary, Endocrine and Eyes/Ears/Nose/Throat Exam Surgical H&P Exam: Normal: HEENT, Normal: Heart, Normal: Lungs, Normal: Extremities, Normal: Abdomen, Normal: Skin and Normal: Neurological Plan Diagnosis/Plan: Unchanged I have reviewed the history and physical and performed a pertinent physical examination on my patient. No changes have occurred unless specified. Time Spent With Patient Time: Total time managing care of this patient today __20__ minutes.
--- NOTE | 2023-06-19 07:53 | P.PCN_ITS ---
ECT Procedure Note Diagnosis/Treatment Date of Service: 06/19/23 Diagnosis: Major Depressive Disorder Current Treatment Number: 1 Treatment: Series Interval Clinical Notes: The patient was admitted for exacerbation of depression and anxiety, on exam he is severely dysphoric. Historically, he did well with ECT at [facility], he didn't follow up maintenance and he relapsed on depression. We don't have the previous parameters of ECT from [facility]. We discussed with the patient treatment options for ECT and he agreed to do Right Unilateral, on 0.25 at 100% due to his age. He had a long seizure that broke by itself. Woke up without any complications. We will recommend to lower the stimuli Time: Total time managing care of this patient today __30__ minutes. ECT Settings Device: THYMATRON DGx Electrode Placement: Right Unilateral Program/Pulse Width: 0.25 Energy Percent: 100 Seizure Duration By EEG (in seconds): 82 By Motor Observation (in seconds): 54 Medications Administration General Anesthetic: Etomidate (16) Muscle Relaxant: Succinylcholine (100) Ancillary Medications Analgesics: Torodol - Pre ECT Anti-emetics: Zofran - Pre ECT Airway Management Airway Management: Bag Mask Ventilation Treatment Recommendations Electrode Placement: Right Unilateral Program/Pulse Width: 0.25 Energy Percent: 90 Pt Tolerated Procedure w/o Issue: Yes
[2023-06-19] MEDS: Midazolam HCl/PF 2 MG/2 ML VIAL IVPUSH ×2 (08:30→08:35)
[2023-06-19] MEDS: Haloperidol Lactate 5 MG/ML VIAL 2 MG IVPUSH (08:45)
[2023-06-19] MEDS: Multivitamin TABLET 1 TAB PO (10:30)
[2023-06-19] MEDS: Aspirin Enteric Coated 81 MG TABLET.DR PO (10:30)
[2023-06-19] MEDS: FLUoxetine HCl 20 MG CAPSULE 40 MG PO (10:30)
[2023-06-19] MEDS: FLUoxetine HCl 20 MG CAPSULE PO (10:30)
[2023-06-19] MEDS: ARIPiprazole 5 MG TABLET PO (10:31)
[2023-06-19] MEDS: Hydrocortisone 1 % Cream 28.35 GM TUBE 1 APPL TOPICAL ×2 (10:32→22:24)
[2023-06-19] MEDS: Triamcinolone Acet 0.5 % Oint 15 GM TUBE 1 APPL TOPICAL ×2 (10:32→22:18)
--- NOTE | 2023-06-19 15:58 | P.PNPSI_ITS ---
Subjective Subjective Date of Service: 06/19/23 Reason For Visit: Unspecified anxiety, unspecified depression Interim History: calm, cooperative. no complaints. just had ECT. per staff, increased anxiety yesterday. had ECT this morning. taking meds. slept about 7 hours. Mental Status Exam Mental Status Exam Narrative: Patient Appearance:?adequately dressed and groomed Patient Orientation:?Person, Place, Time and Situation Level of Consciousness:?Alert Patient Behavior:?Appropriate, Cooperative, Anxious and Good Eye Contact Mood Description:?Depressed and Anxious Affect Description:?constricted, normo-intense, non-labile Patient Cognition Impaired:?No Ability to Follow Directions:?Good Speech Pattern: Spontaneous Speech Memory Description:?Intact Hallucinations:?None Delusions:?Not Present Thought Process:?linear, logical, goal oriented Thought Content: no delusions or paranoia expressed Abnormal Motor Activity Signs and Symptoms:? None Judgement:?Fair Diagnostics Vital Signs (24Hr): Vital Signs - 24 hr 06/18/23 20:00 06/19/23 05:52 06/19/23 06:36 Temperature 98.2 F 97 F 97 F Pulse Rate 63 55 55 Respiratory Rate 16 16 16 Blood Pressure 102/64 134/64 124/62 Pulse Oximetry 98 97 99 Oxygen Delivery Method Room Air Room Air Oxygen Flow Rate 06/19/23 08:23 06/19/23 08:28 06/19/23 08:33 Temperature 97.2 F Pulse Rate 84 78 74 Respiratory Rate 20 20 20 Blood Pressure 141/58 H 138/66 137/57 L Pulse Oximetry 99 100 100 Oxygen Delivery Method Nasal Cannula with ETCO2 Nasal Cannula with ETCO2 Nasal Cannula with ETCO2 Oxygen Flow Rate 2 2 2 06/19/23 08:38 06/19/23 08:48 06/19/23 09:02 Temperature Pulse Rate 68 78 67 Respiratory Rate 16 16 16 Blood Pressure 128/65 103/58 L Pulse Oximetry 100 100 95 Oxygen Delivery Method Nasal Cannula with ETCO2 Nasal Cannula with ETCO2 Room Air Oxygen Flow Rate 2 2 06/19/23 09:17 06/19/23 09:32 06/19/23 09:45 Temperature 97.1 F 97.2 F Pulse Rate 61 62 62 Respiratory Rate 16 16 16 Blood Pressure 123/46 L 115/52 L 122/54 L Pulse Oximetry 98 98 98 Oxygen Delivery Method Room Air Room Air Room Air Oxygen Flow Rate 06/19/23 10:00 06/19/23 10:30 Temperature 97.2 F 97.6 F Pulse Rate 65 53 Respiratory Rate 16 16 Blood Pressure 123/58 L 113/57 L Pulse Oximetry 99 98 Oxygen Delivery Method Room Air Room Air Oxygen Flow Rate BMI result Body Mass Index 22.9 Labs 06/16/23 07:04 Medications Medications Current Medications Acetaminophen (Acetaminophen 325 Mg Tablet) 650 mg PO Q6H PRN PRN Reason: Headache/Pain Mild Scale (1-3) Al Hydroxide/Mg Hydroxide (Magnesium Hydrox/Alum Hydrox 30 Ml Oral.Susp) 30 ml PO Q6H PRN PRN Reason: Heartburn/Nausea Aripiprazole (Aripiprazole 5 Mg Tablet) 5 mg PO DAILY [facility] Last Admin: 06/19/23 10:31 Dose: 5 mg Aspirin (Aspirin Enteric Coated 81 Mg Tablet.Dr) 81 mg PO DAILY [facility] Last Admin: 06/19/23 10:30 Dose: 81 mg Atorvastatin Calcium (Atorvastatin Calcium 10 Mg Tablet) 10 mg PO BEDTIME [facility] Last Admin: 06/18/23 22:02 Dose: 10 mg Clonazepam (Clonazepam 1 Mg Tablet) 1 mg PO BEDTIME DC Last Admin: 06/18/23 22:03 Dose: 1 mg Fluoxetine HCl (Fluoxetine Hcl 20 Mg Capsule) 20 mg PO DAILY [facility] Last Admin: 06/19/23 10:30 Dose: 20 mg Fluoxetine HCl (Fluoxetine Hcl 20 Mg Capsule) 40 mg PO DAILY [facility] Last Admin: 06/19/23 10:30 Dose: 40 mg Hydrocortisone (Hydrocortisone 1 % Cream 28.35 Gm Tube) 1 appl TOPICAL BID PRN; Protocol PRN Reason: facial psoriasis Last Admin: 06/19/23 10:32 Dose: 1 appl Hydroxyzine HCl (Hydroxyzine Hcl 25 Mg Tablet) 25 mg PO Q6H PRN PRN Reason: Anxiety Last Admin: 06/16/23 13:34 Dose: 25 mg Lorazepam (Lorazepam 1 Mg Tablet) 1 mg PO DAILY PRN PRN Reason: panic attack Last Admin: 06/18/23 12:45 Dose: 1 mg Magnesium Hydroxide (Milk Of Magnesia 30 Ml Oral.Susp) 30 ml PO DAILY PRN PRN Reason: Constipation Mirtazapine (Mirtazapine 30 Mg Tablet) 30 mg PO BEDTIME [facility] Last Admin: 06/18/23 22:04 Dose: 30 mg Multivitamins/Vitamin C (Multivitamin Tablet) 1 tab PO DAILY DC Last Admin: 06/19/23 10:30 Dose: 1 tab Psyllium Hydrophilic Mucilloid (Psyllium Seed 3.7 Gm Packet) 3.7 gm PO BEDTIME DC Last Admin: 06/18/23 22:04 Dose: 3.7 gm Tamsulosin HCl (Tamsulosin Hcl 0.4 Mg Capsule) 0.4 mg PO BEDTIME DC Last Admin: 06/18/23 22:03 Dose: 0.4 mg Trazodone HCl (Trazodone Hcl 50 Mg Tablet) 50 mg PO BEDTIME MRX1 PRN PRN Reason: Insomnia Triamcinolone Acetonide (Triamcinolone Acet 0.5 % Oint 15 Gm Tube) 1 appl TOPICAL BID [facility] Last Admin: 06/19/23 10:32 Dose: 1 appl Allergies Allergies Allergy/AdvReac Type Severity Reaction Status Date / Time No Known Allergies Allergy Verified 12/21/20 13:27 Assessment & Plan Assessment & Plan (1) Major depressive disorder, recurrent episode, severe with anxious distress: Status: Acute Code(s): F33.2 - Major depressive disorder, recurrent severe without psychotic features Assessment and Plan: Patient with long history very difficult to treat recurrent depression and anxiety. He has had past trials mirtazapine Wellbutrin olanzapine Currently on fluoxetine Abilify clonazepam at bedtime. Patient is requesting ECT said it had been helpful for him last year encourage to see if he could figure out how to hopefully do maintenance treatment as an outpatient. 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 Risks benefits alternatives reviewed with patient declined literature or video (2) Panic disorder without agoraphobia: Status: Acute Code(s): F41.0 - Panic disorder [episodic paroxysmal anxiety] (3) SHAI (generalized anxiety disorder): Status: Acute Code(s): F41.1 - Generalized anxiety disorder Plan - Admit to inpatient psychiatry - CV - Collateral information from family and providers. - Milieu treatment and group therapy. - Medications:continue same. Consider an ECT series. - Social work evaluation. - Disposition planning. 06/15: Consider an ECT series. Otherwise continue current management and treatment plan. 06/16: hospitalist consult for ECT risk stratification, EKG, ian consult for ECT. continue current mgmt otherwise, pt to abdiaziz over increasing prozac to 80 and/or increasing remeron to 45. case discussed with ian. 06/17: seen by ian. anxious, panic attack at time of interview, got ativan PRN. planning to start ECT tomorrow. medically cleared. 06/18: ECT #1 completed without complication. continue current mgmt. Reason for continued inpatient stay Substantial Risk for: inability to function and rapid decompensation Time Spent With Patient Time: Total time managing care of this patient today _25___ minutes.
[2023-06-19] MEDS: Tamsulosin HCL 0.4 MG CAPSULE PO (22:17)
[2023-06-19] MEDS: clonazePAM 1 MG TABLET PO (22:17)
[2023-06-19] MEDS: Mirtazapine 30 MG TABLET PO (22:17)
[2023-06-19] MEDS: Psyllium seed 3.7 GM PACKET PO (22:17)
[2023-06-19] MEDS: Atorvastatin Calcium 10 MG TABLET PO (22:17)
[2023-06-20 07:00] VITALS: BMI 24.6
[2023-06-20 07:20] VITALS: BP 101/59; PULSE 78; RESP 14; TEMP 37.1; O2SAT 97
--- NOTE | 2023-06-20 08:01 | HO.POSTANES ---
Post Anesthesia Evaluation Post Anesthesia Evaluation Date of Service: 06/20/23 Anesthesia: General Mental Status: Awake Pain Control: Satisfactory Nausea/Vomiting: None Hydration: Adequate Anesthesia-Related Issues: No Anes. Related Issues
[2023-06-20] MEDS: FLUoxetine HCl 20 MG CAPSULE PO (09:30)
[2023-06-20] MEDS: FLUoxetine HCl 20 MG CAPSULE 40 MG PO (09:31)
[2023-06-20] MEDS: Aspirin Enteric Coated 81 MG TABLET.DR PO (09:31)
[2023-06-20] MEDS: Multivitamin TABLET 1 TAB PO (09:31)
[2023-06-20] MEDS: ARIPiprazole 5 MG TABLET PO (09:31)
--- NOTE | 2023-06-20 14:42 | P.PNPSI_ITS ---
Subjective Subjective Date of Service: 06/20/23 Reason For Visit: Unspecified anxiety, unspecified depression Interim History: calm, cooperative. anxiety has dissipated since ECT yesterday. no questions or concerns. per staff, taking meds, no issues. reading. Mental Status Exam Mental Status Exam Narrative: Patient Appearance:?adequately dressed and groomed Patient Orientation:?Person, Place, Time and Situation Level of Consciousness:?Alert Patient Behavior:?Appropriate, Cooperative, Anxious and Good Eye Contact Mood Description:?Depressed and Anxious Affect Description:?constricted, normo-intense, non-labile Patient Cognition Impaired:?No Ability to Follow Directions:?Good Speech Pattern: Spontaneous Speech Memory Description:?Intact Hallucinations:?None Delusions:?Not Present Thought Process:?linear, logical, goal oriented Thought Content: no delusions or paranoia expressed Abnormal Motor Activity Signs and Symptoms:? None Judgement:?Fair Diagnostics Vital Signs (24Hr): Vital Signs - 24 hr 06/19/23 19:30 06/20/23 07:20 Temperature 98.1 F 98.8 F Pulse Rate 65 78 Respiratory Rate 16 14 Blood Pressure 109/60 101/59 L Pulse Oximetry 97 97 Oxygen Delivery Method Room Air Room Air BMI result Body Mass Index 24.6 Labs 06/16/23 07:04 Medications Medications Current Medications Acetaminophen (Acetaminophen 325 Mg Tablet) 650 mg PO Q6H PRN PRN Reason: Headache/Pain Mild Scale (1-3) Al Hydroxide/Mg Hydroxide (Magnesium Hydrox/Alum Hydrox 30 Ml Oral.Susp) 30 ml PO Q6H PRN PRN Reason: Heartburn/Nausea Aripiprazole (Aripiprazole 5 Mg Tablet) 5 mg PO DAILY [facility] Last Admin: 06/20/23 09:31 Dose: 5 mg Aspirin (Aspirin Enteric Coated 81 Mg Tablet.) 81 mg PO DAILY [facility] Last Admin: 06/20/23 09:31 Dose: 81 mg Atorvastatin Calcium (Atorvastatin Calcium 10 Mg Tablet) 10 mg PO BEDTIME [facility] Last Admin: 06/19/23 22:17 Dose: 10 mg Clonazepam (Clonazepam 1 Mg Tablet) 1 mg PO BEDTIME [facility] Last Admin: 06/19/23 22:17 Dose: 1 mg Fluoxetine HCl (Fluoxetine Hcl 20 Mg Capsule) 20 mg PO DAILY [facility] Last Admin: 06/20/23 09:30 Dose: 20 mg Fluoxetine HCl (Fluoxetine Hcl 20 Mg Capsule) 40 mg PO DAILY [facility] Last Admin: 06/20/23 09:31 Dose: 40 mg Hydrocortisone (Hydrocortisone 1 % Cream 28.35 Gm Tube) 1 appl TOPICAL BID PRN; Protocol PRN Reason: facial psoriasis Last Admin: 06/19/23 22:24 Dose: 1 appl Hydroxyzine HCl (Hydroxyzine Hcl 25 Mg Tablet) 25 mg PO Q6H PRN PRN Reason: Anxiety Last Admin: 06/16/23 13:34 Dose: 25 mg Lorazepam (Lorazepam 1 Mg Tablet) 1 mg PO DAILY PRN PRN Reason: panic attack Last Admin: 06/18/23 12:45 Dose: 1 mg Magnesium Hydroxide (Milk Of Magnesia 30 Ml Oral.Susp) 30 ml PO DAILY PRN PRN Reason: Constipation Mirtazapine (Mirtazapine 30 Mg Tablet) 30 mg PO BEDTIME [facility] Last Admin: 06/19/23 22:17 Dose: 30 mg Multivitamins/Vitamin C (Multivitamin Tablet) 1 tab PO DAILY [facility] Last Admin: 06/20/23 09:31 Dose: 1 tab Psyllium Hydrophilic Mucilloid (Psyllium Seed 3.7 Gm Packet) 3.7 gm PO BEDTIME [facility] Last Admin: 06/19/23 22:17 Dose: 3.7 gm Tamsulosin HCl (Tamsulosin Hcl 0.4 Mg Capsule) 0.4 mg PO BEDTIME [facility] Last Admin: 06/19/23 22:17 Dose: 0.4 mg Trazodone HCl (Trazodone Hcl 50 Mg Tablet) 50 mg PO BEDTIME MRX1 PRN PRN Reason: Insomnia Triamcinolone Acetonide (Triamcinolone Acet 0.5 % Oint 15 Gm Tube) 1 appl TOPICAL BID [facility] Last Admin: 06/20/23 09:32 Dose: Not Given Allergies Allergies Allergy/AdvReac Type Severity Reaction Status Date / Time No Known Allergies Allergy Verified 12/21/20 13:27 Assessment & Plan Assessment & Plan (1) Major depressive disorder, recurrent episode, severe with anxious distress: Status: Acute Code(s): F33.2 - Major depressive disorder, recurrent severe without psychotic features Assessment and Plan: Patient with long history very difficult to treat recurrent depression and anxiety. He has had past trials mirtazapine Wellbutrin olanzapine Currently on fluoxetine Abilify clonazepam at bedtime. Patient is requesting ECT said it had been helpful for him last year encourage to see if he could figure out how to hopefully do maintenance treatment as an outpatient. 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 Risks benefits alternatives reviewed with patient declined literature or video (2) Panic disorder without agoraphobia: Status: Acute Code(s): F41.0 - Panic disorder [episodic paroxysmal anxiety] (3) SHAI (generalized anxiety disorder): Status: Acute Code(s): F41.1 - Generalized anxiety disorder Plan - Admit to inpatient psychiatry - CV - Collateral information from family and providers. - Milieu treatment and group therapy. - Medications:continue same. Consider an ECT series. - Social work evaluation. - Disposition planning. 06/15: Consider an ECT series. Otherwise continue current management and treatment plan. 06/16: hospitalist consult for ECT risk stratification, EKG, ian consult for ECT. continue current mgmt otherwise, pt to abdiaziz over increasing prozac to 80 and/or increasing remeron to 45. case discussed with ian. 06/17: seen by ian. anxious, panic attack at time of interview, got ativan PRN. planning to start ECT tomorrow. medically cleared. 06/18: ECT #1 completed without complication. continue current mgmt. 06/19: anxiety has resolved since first ECT Tx. Tx #2 tomorrow. no complications at present. Reason for continued inpatient stay Substantial Risk for: harm to self, inability to function and rapid decompensation Time Spent With Patient Time: Total time managing care of this patient today __25__ minutes.
[2023-06-20 19:30] VITALS: BP 117/59; PULSE 68; RESP 16; TEMP 36.7; O2SAT 95
[2023-06-20] MEDS: Mirtazapine 30 MG TABLET PO (22:13)
[2023-06-20] MEDS: Atorvastatin Calcium 10 MG TABLET PO (22:13)
[2023-06-20] MEDS: Tamsulosin HCL 0.4 MG CAPSULE PO (22:13)
[2023-06-20] MEDS: Psyllium seed 3.7 GM PACKET PO (22:13)
[2023-06-20] MEDS: Hydrocortisone 1 % Cream 28.35 GM TUBE 1 APPL TOPICAL (22:16)
[2023-06-20] MEDS: Triamcinolone Acet 0.5 % Oint 15 GM TUBE 1 APPL TOPICAL (22:16)
[2023-06-21] VITALS (12 sets, daily range): BP systolic 107–130; BP diastolic 49–74; PULSE 56–88; RESP 16–22; TEMP 35.7–36.9; O2SAT 94–100
--- NOTE | 2023-06-21 06:56 | P.CONAN_ITS ---
[facility] Active Problems Active Problems: All Active Problems Major depressive disorder, recurrent episode, severe with anxious distress (Acute) Routine medical exam (Acute) Panic disorder without agoraphobia (Acute) SHAI (generalized anxiety disorder) (Acute) Major depressive disorder, recurrent severe without psychotic features (Acute) Past Medical History Medical History IBS (irritable bowel syndrome) Hypertension Chronic low back pain BPH w urinary obs/LUTS Obstructive sleep apnea Cervical stenosis of spine Hyperlipidemia History of prediabetes Psoriatic arthritis Psoriasis Family History Family history of problems with anesthesia: No Surgical History Surgical History H/O cervical discectomy H/O inguinal hernia repair History of Problems with Anesthesia: No Social History Social History Household Members: None Housing: Apartment Do you presently have visiting nurse or other home services: Yes (they come once a month) Patient Tobacco Use Status: Never used Tobacco Second Hand Smoke Exposure: Yes Use of substances other than those prescribed or required for medical reasons: No Currently Displaying Signs/Symptoms of Drug Intoxication Withdrawal: No Have you been hit, kicked, punched, or otherwise hurt by someone within the past year? If so, by whom?: No Do you feel safe in your current relationship?: Yes Is there a partner from a previous relationship who is making you feel unsafe now?: No Are you made to feel afraid or neglected: No Advance Directives: No Advance Directives Information Provided: Yes Do you have thoughts of harming others: None Do you have a plan to hurt others: No Plan Recently lost weight without trying: No Nutrition Risks: No Nutritional Risk Poor oral hygiene: No service: No Sexual orientation: Straight/Heterosexual Meds Allergies Allergy/AdvReac Type Severity Reaction Status Date / Time No Known Allergies Allergy Verified 12/21/20 13:27 Active Medications: Current Medications Acetaminophen (Acetaminophen 325 Mg Tablet) 650 mg PO Q6H PRN PRN Reason: Headache/Pain Mild Scale (1-3) Al Hydroxide/Mg Hydroxide (Magnesium Hydrox/Alum Hydrox 30 Ml Oral.Susp) 30 ml PO Q6H PRN PRN Reason: Heartburn/Nausea Aripiprazole (Aripiprazole 5 Mg Tablet) 5 mg PO DAILY [facility] Last Admin: 06/20/23 09:31 Dose: 5 mg Aspirin (Aspirin Enteric Coated 81 Mg Tablet.Dr) 81 mg PO DAILY [facility] Last Admin: 06/20/23 09:31 Dose: 81 mg Atorvastatin Calcium (Atorvastatin Calcium 10 Mg Tablet) 10 mg PO BEDTIME [facility] Last Admin: 06/20/23 22:13 Dose: 10 mg Clonazepam (Clonazepam 1 Mg Tablet) 1 mg PO BEDTIME [facility] Last Admin: 06/20/23 20:33 Dose: Not Given Fluoxetine HCl (Fluoxetine Hcl 20 Mg Capsule) 20 mg PO DAILY [facility] Last Admin: 06/20/23 09:30 Dose: 20 mg Fluoxetine HCl (Fluoxetine Hcl 20 Mg Capsule) 40 mg PO DAILY [facility] Last Admin: 06/20/23 09:31 Dose: 40 mg Hydrocortisone (Hydrocortisone 1 % Cream 28.35 Gm Tube) 1 appl TOPICAL BID PRN; Protocol PRN Reason: facial psoriasis Last Admin: 06/20/23 22:16 Dose: 1 appl Hydroxyzine HCl (Hydroxyzine Hcl 25 Mg Tablet) 25 mg PO Q6H PRN PRN Reason: Anxiety Last Admin: 06/16/23 13:34 Dose: 25 mg Lorazepam (Lorazepam 1 Mg Tablet) 1 mg PO DAILY PRN PRN Reason: panic attack Last Admin: 06/18/23 12:45 Dose: 1 mg Magnesium Hydroxide (Milk Of Magnesia 30 Ml Oral.Susp) 30 ml PO DAILY PRN PRN Reason: Constipation Mirtazapine (Mirtazapine 30 Mg Tablet) 30 mg PO BEDTIME [facility] Last Admin: 06/20/23 22:13 Dose: 30 mg Multivitamins/Vitamin C (Multivitamin Tablet) 1 tab PO DAILY [facility] Last Admin: 06/20/23 09:31 Dose: 1 tab Psyllium Hydrophilic Mucilloid (Psyllium Seed 3.7 Gm Packet) 3.7 gm PO BEDTIME [facility] Last Admin: 06/20/23 22:13 Dose: 3.7 gm Tamsulosin HCl (Tamsulosin Hcl 0.4 Mg Capsule) 0.4 mg PO BEDTIME [facility] Last Admin: 06/20/23 22:13 Dose: 0.4 mg Trazodone HCl (Trazodone Hcl 50 Mg Tablet) 50 mg PO BEDTIME MRX1 PRN PRN Reason: Insomnia Triamcinolone Acetonide (Triamcinolone Acet 0.5 % Oint 15 Gm Tube) 1 appl TOPICAL BID [facility] Last Admin: 06/20/23 22:16 Dose: 1 appl Home Medications ?Medication ?Instructions ?Recorded ?Confirmed ?Last Taken ?Type aspirin 81 mg capsule 81 mg PO DAILY 12/21/20 06/15/23 01/19/21 08:00 History vitamin B complex 1 cap PO DAILY 01/17/21 06/15/23 01/19/21 08:00 History aripiprazole 5 mg tablet 5 mg PO DAILY 06/15/23 06/15/23 Unknown History clonazepam 1 mg tablet 1 mg PO BEDTIME 06/15/23 06/15/23 Unknown History fluoxetine 20 mg capsule 20 mg PO QAM 06/15/23 06/15/23 Unknown History fluoxetine 40 mg capsule 40 mg PO DAILY 06/15/23 06/15/23 Unknown History liothyronine 5 mcg tablet 5 mcg PO BID 06/15/23 06/15/23 Unknown History simvastatin 10 mg tablet 10 mg PO BEDTIME 06/15/23 06/15/23 Unknown History tamsulosin 0.4 mg capsule 0.4 mg PO DAILY 06/15/23 06/15/23 Unknown History Exam Height,Weight and Vital Signs: Height 5 ft 10 in Weight 77.655 kg Last Vital Signs Temp 96.3 F L 06/21/23 06:22 Pulse 56 06/21/23 06:22 Resp 16 06/21/23 06:22 BP 130/66 06/21/23 06:22 Pulse Ox 97 06/21/23 06:22 O2 Del Method Room Air 06/21/23 06:22 O2 Flow Rate 2 06/19/23 08:48 Pertinent Lab Results Pertinent Lab Results: Laboratory Tests 06/16/23 07:04 Sodium 144 Potassium 4.5 Chloride 109 H Carbon Dioxide 26 Anion Gap 14 BUN 22 H Creatinine 1.06 Estim Creat Clear Calc 63.6 Estimated GFR > 60 Fasting Glucose 94 Estimat Average Glucose 111 Hemoglobin A1c % 5.5 Calcium 9.5 Total Bilirubin 0.5 AST 18 ALT 21 Alkaline Phosphatase 73 Total Protein 6.5 Albumin 3.8 Triglycerides 89 Cholesterol 188 LDL Cholesterol, Calc 120 H HDL Cholesterol 51 Vitamin B12 300 Folate 6.4 TSH 1.44 Airway Mallampati Class: II (caps unclear of location) TM Dist: >3cm Neck ROM: Full Heart: rrr Lungs: cta Assessment and Plan Assessment Anesthesia Assessment: Anesthesia Plan Discussed and Chart Reviewed Final Anesthetic Review Family History of Problems with Anesthesia: No History of Problems with Anesthesia: No NPO: Yes ASA Class: III Final Preanesthetic Review: No Changes in Pt Med Stat, Meds/Allgs Chart Reviewed and Consent Obtained/Reviewed Patient Risk: Intermediate Procedure Risk: Intermediate Anesthetic Plan Anesthetic Plan: GA Disposition: Standard PACU
--- NOTE | 2023-06-21 07:34 | P.HPSUR_ITS ---
Pre-Procedural Eval Section A - 24 Hr Update-Section A only Date of Service: 06/21/23 The patient is an INPATIENT: Yes Changes since office visit: No Cold of Flu in the past 2 weeks, No New Medical Problems, No Changes in Medication and No Patient answered all questions The patient has been examined within 24 hours of the surgical procedure. The History & Physical has been completed within 30 days and I have reviewed it.: Yes Section B - Complete if H&P > 30 days Chief Complaint: Unspecified anxiety, unspecified depression Details of Present Illness: Hx of depression that has not responded to medic ations, used to be on ECT with fair improvement. Relevant Family History (Specify if Yes): Yes Relevant Social History: None Present Medications: see Short Stay Collaborative assessment Medical History: No relevant PMH History of Previous Operations: No relevant previous surgery Allergies: Allergies Allergy/AdvReac Type Severity Reaction Status Date / Time No Known Allergies Allergy Verified 12/21/20 13:27 Review of Systems Sugical H&P ROS: Negative: Constitution, Cardiovascular, Respiratory, Neurological, Psychiatric, Hem-Onc, Allergic/Immunologic, Gastrointestinal, Genitourinary, Musculoskeletal, Integumentary, Endocrine and Eyes/Ears/Nose/Throat Exam Surgical H&P Exam: Normal: HEENT, Normal: Heart, Normal: Lungs, Normal: Extremities, Normal: Abdomen, Normal: Skin and Normal: Neurological Plan Diagnosis/Plan: Unchanged I have reviewed the history and physical and performed a pertinent physical examination on my patient. No changes have occurred unless specified. Time Spent With Patient Time: Total time managing care of this patient today ____ minutes.
--- NOTE | 2023-06-21 07:35 | P.PCN_ITS ---
ECT Procedure Note Diagnosis/Treatment Date of Service: 06/22/23 Diagnosis: Major Depressive Disorder Current Treatment Number: 2 Treatment: Series Interval Clinical Notes: Records reviewed from [facility] regarding past ECT. Patient had a total of 12 ECT no clear response with unilateral and had been changed to bitemporal and had 5 or 6 bitemporal treatments should be noted that post treatment the patient required propofol up to 60 mg and often the addition of Haldol IV. Versed was not effective. Patient did eventually have a good response. Current treatment right temporal left frontal 0.25 pulse with was changed to Brevital required propofol and Haldol post Time: Total time managing care of this patient today ____ minutes. ECT Settings Device: THYMATRON DGx Electrode Placement: Rt temporal/ Lt frontal Program/Pulse Width: 0.25 Seizure Duration By EEG (in seconds): 50 Medications Administration General Anesthetic: Methohexital (120) Muscle Relaxant: Succinylcholine (140) Ancillary Medications Analgesics: Torodol - Pre ECT Miscillaneous Medications: Propofol and Haldol (1) Treatment Recommendations No Changes Recommended: No change Notes: Patient did have post ECT agitation complaints of nausea this was typical from his treatment at [facility] question some improvement Brevital instead of etomidate
[2023-06-21] MEDS: Haloperidol Lactate 5 MG/ML VIAL 1 MG IVPUSH (08:27)
[2023-06-21] MEDS: LORazepam 2 MG/ML VIAL 1 MG IVPUSH (08:39)
[2023-06-21] MEDS: FLUoxetine HCl 20 MG CAPSULE PO (10:33)
[2023-06-21] MEDS: ARIPiprazole 5 MG TABLET PO (10:33)
[2023-06-21] MEDS: FLUoxetine HCl 20 MG CAPSULE 40 MG PO (10:33)
[2023-06-21] MEDS: Multivitamin TABLET 1 TAB PO (10:33)
[2023-06-21] MEDS: Aspirin Enteric Coated 81 MG TABLET.DR PO (10:33)
--- NOTE | 2023-06-21 12:34 | HO.PSYCHPN ---
Subjective Subjective Date of Service: 06/21/23 Reason For Visit: Unspecified anxiety, unspecified depression Interim History: calm, cooperative, reading in milieu. s/p ECT #2 today, states he felt a bit nauseated coming out of the anesthesia, but that passed quickly. no other complaints or requests. depression remains, but anxiety is gone. per staff, slept well, taking meds. Mental Status Exam Mental Status Exam Narrative: Patient Appearance:?adequately dressed and groomed Patient Orientation:?Person, Place, Time and Situation Level of Consciousness:?Alert Patient Behavior:?Appropriate, Cooperative, Good Eye Contact Mood Description:?Depressed Affect Description:?constricted, normo-intense, non-labile Patient Cognition Impaired:?No Ability to Follow Directions:?Good Speech Pattern: Spontaneous Speech Memory Description:?Intact Hallucinations:?None Delusions:?Not Present Thought Process:?linear, logical, goal oriented Thought Content: no delusions or paranoia expressed Abnormal Motor Activity Signs and Symptoms:? None Judgement:?Fair Diagnostics Vital Signs (24Hr): Vital Signs - 24 hr 06/20/23 19:30 06/21/23 06:22 06/21/23 08:09 Temperature 98.1 F 96.3 F L 97.4 F Pulse Rate 68 56 87 Respiratory Rate 16 16 22 H Blood Pressure 117/59 L 130/66 117/66 Pulse Oximetry 95 97 100 Oxygen Delivery Method Room Air Room Air Nasal Cannula with ETCO2 Oxygen Flow Rate 2 06/21/23 08:14 06/21/23 08:19 06/21/23 08:24 Temperature Pulse Rate 88 86 79 Respiratory Rate 22 H 18 22 H Blood Pressure 130/74 130/55 L 119/50 L Pulse Oximetry 100 100 99 Oxygen Delivery Method Room Air Room Air Room Air Oxygen Flow Rate 06/21/23 08:39 06/21/23 08:54 06/21/23 09:09 Temperature Pulse Rate 60 65 63 Respiratory Rate 16 16 16 Blood Pressure 123/60 118/55 L 123/53 L Pulse Oximetry 94 94 95 Oxygen Delivery Method Room Air Room Air Room Air Oxygen Flow Rate 06/21/23 09:24 06/21/23 09:50 06/21/23 09:52 Temperature 97.4 F 98.1 F 98.1 F Pulse Rate 63 79 79 Respiratory Rate 16 16 16 Blood Pressure 115/49 L 126/60 126/60 Pulse Oximetry 96 97 97 Oxygen Delivery Method Room Air Room Air Oxygen Flow Rate BMI result Body Mass Index 24.6 Labs 06/16/23 07:04 Medications Medications Current Medications Acetaminophen (Acetaminophen 325 Mg Tablet) 650 mg PO Q6H PRN PRN Reason: Headache/Pain Mild Scale (1-3) Al Hydroxide/Mg Hydroxide (Magnesium Hydrox/Alum Hydrox 30 Ml Oral.Susp) 30 ml PO Q6H PRN PRN Reason: Heartburn/Nausea Aripiprazole (Aripiprazole 5 Mg Tablet) 5 mg PO DAILY [facility] Last Admin: 06/21/23 10:33 Dose: 5 mg Aspirin (Aspirin Enteric Coated 81 Mg Tablet.Dr) 81 mg PO DAILY [facility] Last Admin: 06/21/23 10:33 Dose: 81 mg Atorvastatin Calcium (Atorvastatin Calcium 10 Mg Tablet) 10 mg PO BEDTIME [facility] Last Admin: 06/20/23 22:13 Dose: 10 mg Clonazepam (Clonazepam 1 Mg Tablet) 1 mg PO BEDTIME [facility] Last Admin: 06/20/23 20:33 Dose: Not Given Fluoxetine HCl (Fluoxetine Hcl 20 Mg Capsule) 20 mg PO DAILY [facility] Last Admin: 06/21/23 10:33 Dose: 20 mg Fluoxetine HCl (Fluoxetine Hcl 20 Mg Capsule) 40 mg PO DAILY [facility] Last Admin: 06/21/23 10:33 Dose: 40 mg Hydrocortisone (Hydrocortisone 1 % Cream 28.35 Gm Tube) 1 appl TOPICAL BID PRN; Protocol PRN Reason: facial psoriasis Last Admin: 06/20/23 22:16 Dose: 1 appl Hydroxyzine HCl (Hydroxyzine Hcl 25 Mg Tablet) 25 mg PO Q6H PRN PRN Reason: Anxiety Last Admin: 06/16/23 13:34 Dose: 25 mg Lorazepam (Lorazepam 1 Mg Tablet) 1 mg PO DAILY PRN PRN Reason: panic attack Last Admin: 06/18/23 12:45 Dose: 1 mg Magnesium Hydroxide (Milk Of Magnesia 30 Ml Oral.Susp) 30 ml PO DAILY PRN PRN Reason: Constipation Mirtazapine (Mirtazapine 30 Mg Tablet) 30 mg PO BEDTIME [facility] Last Admin: 06/20/23 22:13 Dose: 30 mg Multivitamins/Vitamin C (Multivitamin Tablet) 1 tab PO DAILY [facility] Last Admin: 06/21/23 10:33 Dose: 1 tab Psyllium Hydrophilic Mucilloid (Psyllium Seed 3.7 Gm Packet) 3.7 gm PO BEDTIME [facility] Last Admin: 06/20/23 22:13 Dose: 3.7 gm Tamsulosin HCl (Tamsulosin Hcl 0.4 Mg Capsule) 0.4 mg PO BEDTIME [facility] Last Admin: 06/20/23 22:13 Dose: 0.4 mg Trazodone HCl (Trazodone Hcl 50 Mg Tablet) 50 mg PO BEDTIME MRX1 PRN PRN Reason: Insomnia Triamcinolone Acetonide (Triamcinolone Acet 0.5 % Oint 15 Gm Tube) 1 appl TOPICAL BID [facility] Last Admin: 06/21/23 10:47 Dose: Not Given Allergies Allergies Allergy/AdvReac Type Severity Reaction Status Date / Time No Known Allergies Allergy Verified 12/21/20 13:27 Assessment & Plan Assessment & Plan (1) Major depressive disorder, recurrent episode, severe with anxious distress: Status: Acute Code(s): F33.2 - Major depressive disorder, recurrent severe without psychotic features Assessment and Plan: Patient with long history very difficult to treat recurrent depression and anxiety. He has had past trials mirtazapine Wellbutrin olanzapine Currently on fluoxetine Abilify clonazepam at bedtime. Patient is requesting ECT said it had been helpful for him last year encourage to see if he could figure out how to hopefully do maintenance treatment as an outpatient. 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 his pulse appears to Chronically run somewhat low might benefit from glycopyrrolate pretreatment. Risks benefits alternatives reviewed with patient declined literature or video (2) Panic disorder without agoraphobia: Status: Acute Code(s): F41.0 - Panic disorder [episodic paroxysmal anxiety] (3) SHAI (generalized anxiety disorder): Status: Acute Code(s): F41.1 - Generalized anxiety disorder Plan - Admit to inpatient psychiatry - CV - Collateral information from family and providers. - Milieu treatment and group therapy. - Medications:continue same. Consider an ECT series. - Social work evaluation. - Disposition planning. 06/15: Consider an ECT series. Otherwise continue current management and treatment plan. 06/16: hospitalist consult for ECT risk stratification, EKG, ian consult for ECT. continue current mgmt otherwise, pt to abdiaziz over increasing prozac to 80 and/or increasing remeron to 45. case discussed with ian. 06/17: seen by ian. anxious, panic attack at time of interview, got ativan PRN. planning to start ECT tomorrow. medically cleared. 06/18: ECT #1 completed without complication. continue current mgmt. 06/19: anxiety has resolved since first ECT Tx. Tx #2 tomorrow. no complications at present. 06/20: ECT #2 today. no complications. depression persists, anxiety has dissipated. ECT #3 for saturday. Reason for continued inpatient stay Substantial Risk for: harm to self, inability to function and rapid decompensation Time Spent With Patient Time: Total time managing care of this patient today __25__ minutes.
[2023-06-21] MEDS: Mirtazapine 30 MG TABLET PO (22:04)
[2023-06-21] MEDS: Tamsulosin HCL 0.4 MG CAPSULE PO (22:04)
[2023-06-21] MEDS: clonazePAM 1 MG TABLET PO (22:05)
[2023-06-21] MEDS: Psyllium seed 3.7 GM PACKET PO (22:05)
[2023-06-21] MEDS: Atorvastatin Calcium 10 MG TABLET PO (22:05)
[2023-06-21] MEDS: Triamcinolone Acet 0.5 % Oint 15 GM TUBE 1 APPL TOPICAL (22:10)
[2023-06-22 07:42] VITALS: BP 113/65; PULSE 84; RESP 16; TEMP 36.9; O2SAT 97
[2023-06-22] MEDS: ARIPiprazole 5 MG TABLET PO (08:31)
[2023-06-22] MEDS: FLUoxetine HCl 20 MG CAPSULE 40 MG PO (08:32)
[2023-06-22] MEDS: Aspirin Enteric Coated 81 MG TABLET.DR PO (08:32)
[2023-06-22] MEDS: Multivitamin TABLET 1 TAB PO (08:32)
[2023-06-22] MEDS: Triamcinolone Acet 0.5 % Oint 15 GM TUBE 1 APPL TOPICAL ×2 (08:33→22:26)
[2023-06-22] MEDS: Hydrocortisone 1 % Cream 28.35 GM TUBE 1 APPL TOPICAL (08:33)
[2023-06-22] MEDS: FLUoxetine HCl 20 MG CAPSULE PO (08:33)
--- NOTE | 2023-06-22 11:28 | P.PNPSI_ITS ---
Subjective Subjective Date of Service: 06/22/23 Reason For Visit: Unspecified anxiety, unspecified depression Subjective Notes: Conditional Voluntary Interim History: The nursing staff reported the patient had ECT yesterday and he was much better. He denies use issues he had been seen common cooperative and slept well last night. On interview the patient reports that he is feeling much better his mood is less dysphoric and his affect is brighter since I met him last Saturday when he had his 1st ECT. We will continue with ECT as per protocol improving. Mental Status Exam Mental Status Exam Patient Appearance: Well Grooomed and Appropriate Patient Orientation: Person and Situation Level of Consciousness: Awake and Appropriate Patient Behavior: Guarded and Passive Mood Description: Withdrawn Affect Description: Constricted Patient Cognition Impaired: Yes Ability to Follow Directions: Good Speech Pattern: Clear Hallucinations: None Delusions: Not Present Thought Process: Distracted Thought Content: positive for [place] and positive for Circumstantial Judgement: Fair Diagnostics Vital Signs (24Hr): Vital Signs - 24 hr 06/21/23 20:00 06/22/23 07:42 Temperature 98.5 F 98.4 F Pulse Rate 61 84 Respiratory Rate 16 16 Blood Pressure 107/56 L 113/65 Pulse Oximetry 97 97 Oxygen Delivery Method Room Air Room Air BMI result Body Mass Index 24.6 Labs 06/16/23 07:04 Medications Medications Current Medications Acetaminophen (Acetaminophen 325 Mg Tablet) 650 mg PO Q6H PRN PRN Reason: Headache/Pain Mild Scale (1-3) Al Hydroxide/Mg Hydroxide (Magnesium Hydrox/Alum Hydrox 30 Ml Oral.Susp) 30 ml PO Q6H PRN PRN Reason: Heartburn/Nausea Aripiprazole (Aripiprazole 5 Mg Tablet) 5 mg PO DAILY [facility] Last Admin: 06/22/23 08:31 Dose: 5 mg Aspirin (Aspirin Enteric Coated 81 Mg Tablet.) 81 mg PO DAILY [facility] Last Admin: 06/22/23 08:32 Dose: 81 mg Atorvastatin Calcium (Atorvastatin Calcium 10 Mg Tablet) 10 mg PO BEDTIME [facility] Last Admin: 06/21/23 22:05 Dose: 10 mg Clonazepam (Clonazepam 1 Mg Tablet) 1 mg PO BEDTIME [facility] Last Admin: 06/21/23 22:05 Dose: 1 mg Fluoxetine HCl (Fluoxetine Hcl 20 Mg Capsule) 20 mg PO DAILY [facility] Last Admin: 06/22/23 08:33 Dose: 20 mg Fluoxetine HCl (Fluoxetine Hcl 20 Mg Capsule) 40 mg PO DAILY [facility] Last Admin: 06/22/23 08:32 Dose: 40 mg Hydrocortisone (Hydrocortisone 1 % Cream 28.35 Gm Tube) 1 appl TOPICAL BID PRN; Protocol PRN Reason: facial psoriasis Last Admin: 06/22/23 08:33 Dose: 1 appl Hydroxyzine HCl (Hydroxyzine Hcl 25 Mg Tablet) 25 mg PO Q6H PRN PRN Reason: Anxiety Last Admin: 06/16/23 13:34 Dose: 25 mg Lorazepam (Lorazepam 1 Mg Tablet) 1 mg PO DAILY PRN PRN Reason: panic attack Last Admin: 06/18/23 12:45 Dose: 1 mg Magnesium Hydroxide (Milk Of Magnesia 30 Ml Oral.Susp) 30 ml PO DAILY PRN PRN Reason: Constipation Mirtazapine (Mirtazapine 30 Mg Tablet) 30 mg PO BEDTIME [facility] Last Admin: 06/21/23 22:04 Dose: 30 mg Multivitamins/Vitamin C (Multivitamin Tablet) 1 tab PO DAILY [facility] Last Admin: 06/22/23 08:32 Dose: 1 tab Psyllium Hydrophilic Mucilloid (Psyllium Seed 3.7 Gm Packet) 3.7 gm PO BEDTIME DC Last Admin: 06/21/23 22:05 Dose: 3.7 gm Tamsulosin HCl (Tamsulosin Hcl 0.4 Mg Capsule) 0.4 mg PO BEDTIME DC Last Admin: 06/21/23 22:04 Dose: 0.4 mg Trazodone HCl (Trazodone Hcl 50 Mg Tablet) 50 mg PO BEDTIME MRX1 PRN PRN Reason: Insomnia Triamcinolone Acetonide (Triamcinolone Acet 0.5 % Oint 15 Gm Tube) 1 appl TOPICAL BID [facility] Last Admin: 06/22/23 08:33 Dose: 1 appl Allergies Allergies Allergy/AdvReac Type Severity Reaction Status Date / Time No Known Allergies Allergy Verified 12/21/20 13:27 Assessment & Plan Assessment & Plan (1) Major depressive disorder, recurrent episode, severe with anxious distress: Status: Acute Code(s): F33.2 - Major depressive disorder, recurrent severe without psychotic features Assessment and Plan: Patient with long history very difficult to treat recurrent depression and anxiety. He has had past trials mirtazapine Wellbutrin olanzapine Currently on fluoxetine Abilify clonazepam at bedtime. Patient is requesting ECT said it had been helpful for him last year encourage to see if he could figure out how to hopefully do maintenance treatment as an outpatient. 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 Risks benefits alternatives reviewed with patient declined literature or video (2) Panic disorder without agoraphobia: Status: Acute Code(s): F41.0 - Panic disorder [episodic paroxysmal anxiety] (3) SHAI (generalized anxiety disorder): Status: Acute Code(s): F41.1 - Generalized anxiety disorder Plan - Admit to inpatient psychiatry - CV - Collateral information from family and providers. - Milieu treatment and group therapy. - Medications:continue same. Consider an ECT series. - Social work evaluation. - Disposition planning. 06/15: Consider an ECT series. Otherwise continue current management and treatment plan. 06/16: hospitalist consult for ECT risk stratification, EKG, ian consult for ECT. continue current mgmt otherwise, pt to abdiaziz over increasing prozac to 80 and/or increasing remeron to 45. case discussed with ian. 06/17: seen by ian. anxious, panic attack at time of interview, got ativan PRN. planning to start ECT tomorrow. medically cleared. 06/18: ECT #1 completed without complication. continue current mgmt. 06/19: anxiety has resolved since first ECT Tx. Tx #2 tomorrow. no complications at present. 06/20: ECT #2 today. no complications. depression persists, anxiety has dissipated. ECT #3 for saturday. 06/21 continue same treatment Reason for continued inpatient stay Substantial Risk for: inability to function, rapid decompensation and med/psych decompensation Time Spent With Patient Time: Total time managing care of this patient today __20__ minutes.
[2023-06-22 20:00] VITALS: BP 113/60; PULSE 60; RESP 16; TEMP 36.6; O2SAT 97
[2023-06-22] MEDS: clonazePAM 1 MG TABLET PO (22:08)
[2023-06-22] MEDS: Atorvastatin Calcium 10 MG TABLET PO (22:08)
[2023-06-22] MEDS: Mirtazapine 30 MG TABLET PO (22:09)
[2023-06-22] MEDS: Tamsulosin HCL 0.4 MG CAPSULE PO (22:09)
[2023-06-22] MEDS: Psyllium seed 3.7 GM PACKET PO (22:09)
[2023-06-23 08:30] VITALS: BP 111/54; PULSE 55; RESP 16; TEMP 36.8; O2SAT 97
[2023-06-23] MEDS: FLUoxetine HCl 20 MG CAPSULE 40 MG PO (08:52)
[2023-06-23] MEDS: ARIPiprazole 5 MG TABLET PO (08:53)
[2023-06-23] MEDS: Multivitamin TABLET 1 TAB PO (08:53)
[2023-06-23] MEDS: Aspirin Enteric Coated 81 MG TABLET.DR PO (08:53)
[2023-06-23] MEDS: FLUoxetine HCl 20 MG CAPSULE PO (08:59)
--- NOTE | 2023-06-23 12:39 | HO.PSYCHPN ---
Subjective Subjective Date of Service: 06/23/23 Reason For Visit: Unspecified anxiety, unspecified depression Subjective Notes: Conditional Voluntary Interim History: The nursing staff reported the patient has shown a brighter affect since ECT was started. Fully compliant with treatment, slept well. On interview the patient reports that she is doing well, still looks dysphoric but much better with a brighter affect. Mental Status Exam Mental Status Exam Patient Appearance: Appropriate Patient Orientation: Person and Situation Level of Consciousness: Awake and Appropriate Patient Behavior: Guarded and Passive Mood Description: Withdrawn Affect Description: Constricted Patient Cognition Impaired: Yes Ability to Follow Directions: Good Speech Pattern: Clear Hallucinations: None Delusions: Not Present Thought Process: Distracted and Slowed Thinking Thought Content: positive for [place] and positive for [place] of Content Judgement: Fair Diagnostics Vital Signs (24Hr): Vital Signs - 24 hr 06/22/23 20:00 06/23/23 08:30 Temperature 97.8 F 98.3 F Pulse Rate 60 55 Respiratory Rate 16 16 Blood Pressure 113/60 111/54 L Pulse Oximetry 97 97 Oxygen Delivery Method Room Air Room Air BMI result Body Mass Index 24.6 Labs 06/16/23 07:04 Medications Medications Current Medications Acetaminophen (Acetaminophen 325 Mg Tablet) 650 mg PO Q6H PRN PRN Reason: Headache/Pain Mild Scale (1-3) Al Hydroxide/Mg Hydroxide (Magnesium Hydrox/Alum Hydrox 30 Ml Oral.Susp) 30 ml PO Q6H PRN PRN Reason: Heartburn/Nausea Aripiprazole (Aripiprazole 5 Mg Tablet) 5 mg PO DAILY [facility] Last Admin: 06/23/23 08:53 Dose: 5 mg Aspirin (Aspirin Enteric Coated 81 Mg Tablet.) 81 mg PO DAILY [facility] Last Admin: 06/23/23 08:53 Dose: 81 mg Atorvastatin Calcium (Atorvastatin Calcium 10 Mg Tablet) 10 mg PO BEDTIME [facility] Last Admin: 06/22/23 22:08 Dose: 10 mg Clonazepam (Clonazepam 1 Mg Tablet) 1 mg PO BEDTIME [facility] Last Admin: 06/22/23 22:08 Dose: 1 mg Fluoxetine HCl (Fluoxetine Hcl 20 Mg Capsule) 20 mg PO DAILY [facility] Last Admin: 06/23/23 08:59 Dose: 20 mg Fluoxetine HCl (Fluoxetine Hcl 20 Mg Capsule) 40 mg PO DAILY [facility] Last Admin: 06/23/23 08:52 Dose: 40 mg Hydrocortisone (Hydrocortisone 1 % Cream 28.35 Gm Tube) 1 appl TOPICAL BID PRN; Protocol PRN Reason: facial psoriasis Last Admin: 06/22/23 08:33 Dose: 1 appl Hydroxyzine HCl (Hydroxyzine Hcl 25 Mg Tablet) 25 mg PO Q6H PRN PRN Reason: Anxiety Last Admin: 06/16/23 13:34 Dose: 25 mg Lorazepam (Lorazepam 1 Mg Tablet) 1 mg PO DAILY PRN PRN Reason: panic attack Last Admin: 06/18/23 12:45 Dose: 1 mg Magnesium Hydroxide (Milk Of Magnesia 30 Ml Oral.Susp) 30 ml PO DAILY PRN PRN Reason: Constipation Mirtazapine (Mirtazapine 30 Mg Tablet) 30 mg PO BEDTIME [facility] Last Admin: 06/22/23 22:09 Dose: 30 mg Multivitamins/Vitamin C (Multivitamin Tablet) 1 tab PO DAILY [facility] Last Admin: 06/23/23 08:53 Dose: 1 tab Psyllium Hydrophilic Mucilloid (Psyllium Seed 3.7 Gm Packet) 3.7 gm PO BEDTIME [facility] Last Admin: 06/22/23 22:09 Dose: 3.7 gm Tamsulosin HCl (Tamsulosin Hcl 0.4 Mg Capsule) 0.4 mg PO BEDTIME [facility] Last Admin: 06/22/23 22:09 Dose: 0.4 mg Trazodone HCl (Trazodone Hcl 50 Mg Tablet) 50 mg PO BEDTIME MRX1 PRN PRN Reason: Insomnia Triamcinolone Acetonide (Triamcinolone Acet 0.5 % Oint 15 Gm Tube) 1 appl TOPICAL BID [facility] Last Admin: 06/23/23 08:53 Dose: Not Given Allergies Allergies Allergy/AdvReac Type Severity Reaction Status Date / Time No Known Allergies Allergy Verified 12/21/20 13:27 Assessment & Plan Assessment & Plan (1) Major depressive disorder, recurrent episode, severe with anxious distress: Status: Acute Code(s): F33.2 - Major depressive disorder, recurrent severe without psychotic features Assessment and Plan: Patient with long history very difficult to treat recurrent depression and anxiety. He has had past trials mirtazapine Wellbutrin olanzapine Currently on fluoxetine Abilify clonazepam at bedtime. Patient is requesting ECT said it had been helpful for him last year encourage to see if he could figure out how to hopefully do maintenance treatment as an outpatient. There are no medical contraindications EKG shows left anterior fascicular block which appears to be a chronic finding history of BPH ECT reportedly well tolerated last year at [facility] his pulse appears to Chronically run somewhat low might benefit from glycopyrrolate pretreatment. Risks benefits alternatives reviewed with patient declined literature or video (2) Panic disorder without agoraphobia: Status: Acute Code(s): F41.0 - Panic disorder [episodic paroxysmal anxiety] (3) SHAI (generalized anxiety disorder): Status: Acute Code(s): F41.1 - Generalized anxiety disorder Plan - Admit to inpatient psychiatry - CV - Collateral information from family and providers. - Milieu treatment and group therapy. - Medications:continue same. Consider an ECT series. - Social work evaluation. - Disposition planning. 06/15: Consider an ECT series. Otherwise continue current management and treatment plan. 06/16: hospitalist consult for ECT risk stratification, EKG, ian consult for ECT. continue current mgmt otherwise, pt to abdiaziz over increasing prozac to 80 and/or increasing remeron to 45. case discussed with ian. 06/17: seen by ian. anxious, panic attack at time of interview, got ativan PRN. planning to start ECT tomorrow. medically cleared. 06/18: ECT #1 completed without complication. continue current mgmt. 06/19: anxiety has resolved since first ECT Tx. Tx #2 tomorrow. no complications at present. 06/20: ECT #2 today. no complications. depression persists, anxiety has dissipated. ECT #3 for saturday. 06/21 continue same treatment. 06/22 continue same treatment, tomorrow ECT Reason for continued inpatient stay Substantial Risk for: inability to function, rapid decompensation and med/psych decompensation Time Spent With Patient Time: Total time managing care of this patient today __20__ minutes.
[2023-06-23 19:27] VITALS: BP 115/59; PULSE 61; RESP 16; TEMP 36.8; O2SAT 98
[2023-06-23] MEDS: Psyllium seed 3.7 GM PACKET PO (22:11)
[2023-06-23] MEDS: Tamsulosin HCL 0.4 MG CAPSULE PO (22:12)
[2023-06-23] MEDS: Atorvastatin Calcium 10 MG TABLET PO (22:12)
[2023-06-23] MEDS: Mirtazapine 30 MG TABLET PO (22:12)
[2023-06-23] MEDS: Hydrocortisone 1 % Cream 28.35 GM TUBE 1 APPL TOPICAL (22:13)
[2023-06-23] MEDS: Triamcinolone Acet 0.5 % Oint 15 GM TUBE 1 APPL TOPICAL (22:13)
[2023-06-24] VITALS (12 sets, daily range): BP systolic 114–137; BP diastolic 54–86; PULSE 62–98; RESP 14–20; TEMP 35.7–36.9; O2SAT 96–100
--- NOTE | 2023-06-24 06:46 | P.CONAN_ITS ---
ON LICENSE OF [facility] Active Problems Active Problems: All Active Problems Major depressive disorder, recurrent episode, severe with anxious distress (Acute) Routine medical exam (Acute) Panic disorder without agoraphobia (Acute) SHAI (generalized anxiety disorder) (Acute) Major depressive disorder, recurrent severe without psychotic features (Acute) Past Medical History Medical History IBS (irritable bowel syndrome) Hypertension Chronic low back pain BPH w urinary obs/LUTS Obstructive sleep apnea Cervical stenosis of spine Hyperlipidemia History of prediabetes Psoriatic arthritis Psoriasis Family History Family history of problems with anesthesia: No Surgical History Surgical History H/O cervical discectomy H/O inguinal hernia repair History of Problems with Anesthesia: No Social History Social History Household Members: None Housing: Apartment Do you presently have visiting nurse or other home services: Yes (they come once a month) Patient Tobacco Use Status: Never used Tobacco Second Hand Smoke Exposure: Yes Use of substances other than those prescribed or required for medical reasons: No Currently Displaying Signs/Symptoms of Drug Intoxication Withdrawal: No Have you been hit, kicked, punched, or otherwise hurt by someone within the past year? If so, by whom?: No Do you feel safe in your current relationship?: Yes Is there a partner from a previous relationship who is making you feel unsafe now?: No Are you made to feel afraid or neglected: No Advance Directives: No Advance Directives Information Provided: Yes Do you have thoughts of harming others: None Do you have a plan to hurt others: No Plan Recently lost weight without trying: No Nutrition Risks: No Nutritional Risk Poor oral hygiene: No service: No Sexual orientation: Straight/Heterosexual Meds Allergies Allergy/AdvReac Type Severity Reaction Status Date / Time No Known Allergies Allergy Verified 12/21/20 13:27 Active Medications: Current Medications Acetaminophen (Acetaminophen 325 Mg Tablet) 650 mg PO Q6H PRN PRN Reason: Headache/Pain Mild Scale (1-3) Al Hydroxide/Mg Hydroxide (Magnesium Hydrox/Alum Hydrox 30 Ml Oral.Susp) 30 ml PO Q6H PRN PRN Reason: Heartburn/Nausea Aripiprazole (Aripiprazole 5 Mg Tablet) 5 mg PO DAILY [facility] Last Admin: 06/23/23 08:53 Dose: 5 mg Aspirin (Aspirin Enteric Coated 81 Mg Tablet.Dr) 81 mg PO DAILY [facility] Last Admin: 06/23/23 08:53 Dose: 81 mg Atorvastatin Calcium (Atorvastatin Calcium 10 Mg Tablet) 10 mg PO BEDTIME [facility] Last Admin: 06/23/23 22:12 Dose: 10 mg Clonazepam (Clonazepam 1 Mg Tablet) 1 mg PO BEDTIME [facility] Last Admin: 06/23/23 20:06 Dose: Not Given Fluoxetine HCl (Fluoxetine Hcl 20 Mg Capsule) 20 mg PO DAILY [facility] Last Admin: 06/23/23 08:59 Dose: 20 mg Fluoxetine HCl (Fluoxetine Hcl 20 Mg Capsule) 40 mg PO DAILY [facility] Last Admin: 06/23/23 08:52 Dose: 40 mg Hydrocortisone (Hydrocortisone 1 % Cream 28.35 Gm Tube) 1 appl TOPICAL BID PRN; Protocol PRN Reason: facial psoriasis Last Admin: 06/23/23 22:13 Dose: 1 appl Hydroxyzine HCl (Hydroxyzine Hcl 25 Mg Tablet) 25 mg PO Q6H PRN PRN Reason: Anxiety Last Admin: 06/16/23 13:34 Dose: 25 mg Lactated Ringer's (Lr) 1,000 mls @ 50 mls/hr IVCONT .Q20H DC Lorazepam (Lorazepam 1 Mg Tablet) 1 mg PO DAILY PRN PRN Reason: panic attack Last Admin: 06/18/23 12:45 Dose: 1 mg Magnesium Hydroxide (Milk Of Magnesia 30 Ml Oral.Susp) 30 ml PO DAILY PRN PRN Reason: Constipation Mirtazapine (Mirtazapine 30 Mg Tablet) 30 mg PO BEDTIME [facility] Last Admin: 06/23/23 22:12 Dose: 30 mg Multivitamins/Vitamin C (Multivitamin Tablet) 1 tab PO DAILY [facility] Last Admin: 06/23/23 08:53 Dose: 1 tab Psyllium Hydrophilic Mucilloid (Psyllium Seed 3.7 Gm Packet) 3.7 gm PO BEDTIME [facility] Last Admin: 06/23/23 22:11 Dose: 3.7 gm Tamsulosin HCl (Tamsulosin Hcl 0.4 Mg Capsule) 0.4 mg PO BEDTIME [facility] Last Admin: 06/23/23 22:12 Dose: 0.4 mg Trazodone HCl (Trazodone Hcl 50 Mg Tablet) 50 mg PO BEDTIME MRX1 PRN PRN Reason: Insomnia Triamcinolone Acetonide (Triamcinolone Acet 0.5 % Oint 15 Gm Tube) 1 appl TOPICAL BID [facility] Last Admin: 06/23/23 22:13 Dose: 1 appl Home Medications ?Medication ?Instructions ?Recorded ?Confirmed ?Last Taken ?Type aspirin 81 mg capsule 81 mg PO DAILY 12/21/20 06/15/23 01/19/21 08:00 History vitamin B complex 1 cap PO DAILY 01/17/21 06/15/23 01/19/21 08:00 History aripiprazole 5 mg tablet 5 mg PO DAILY 06/15/23 06/15/23 Unknown History clonazepam 1 mg tablet 1 mg PO BEDTIME 06/15/23 06/15/23 Unknown History fluoxetine 20 mg capsule 20 mg PO QAM 06/15/23 06/15/23 Unknown History fluoxetine 40 mg capsule 40 mg PO DAILY 06/15/23 06/15/23 Unknown History liothyronine 5 mcg tablet 5 mcg PO BID 06/15/23 06/15/23 Unknown History simvastatin 10 mg tablet 10 mg PO BEDTIME 06/15/23 06/15/23 Unknown History tamsulosin 0.4 mg capsule 0.4 mg PO DAILY 06/15/23 06/15/23 Unknown History Exam Height,Weight and Vital Signs: Height 5 ft 10 in Weight 77.655 kg Last Vital Signs Temp 97.5 F 06/24/23 06:19 Pulse 64 06/24/23 06:19 Resp 16 06/24/23 06:19 BP 120/68 06/24/23 06:19 Pulse Ox 97 06/24/23 06:19 O2 Del Method Room Air 06/24/23 06:19 O2 Flow Rate 2 06/21/23 08:09 Pertinent Lab Results Pertinent Lab Results: Laboratory Tests 06/16/23 07:04 Sodium 144 Potassium 4.5 Chloride 109 H Carbon Dioxide 26 Anion Gap 14 BUN 22 H Creatinine 1.06 Estim Creat Clear Calc 63.6 Estimated GFR > 60 Fasting Glucose 94 Estimat Average Glucose 111 Hemoglobin A1c % 5.5 Calcium 9.5 Total Bilirubin 0.5 AST 18 ALT 21 Alkaline Phosphatase 73 Total Protein 6.5 Albumin 3.8 Triglycerides 89 Cholesterol 188 LDL Cholesterol, Calc 120 H HDL Cholesterol 51 Vitamin B12 300 Folate 6.4 TSH 1.44 Airway Mallampati Class: II (crowns through out) TM Dist: >3cm Neck ROM: Full Heart: rrr Lungs: cts Assessment and Plan Final Anesthetic Review Family History of Problems with Anesthesia: No History of Problems with Anesthesia: No NPO: Yes ASA Class: III Final Preanesthetic Review: No Changes in Pt Med Stat, Meds/Allgs Chart Reviewed and Consent Obtained/Reviewed Patient Risk: Intermediate Procedure Risk: Intermediate Anesthetic Plan Anesthetic Plan: GA Disposition: Standard PACU
--- NOTE | 2023-06-24 07:37 | MHC.SHP ---
Pre-Procedural Eval Section A - 24 Hr Update-Section A only Date of Service: 06/24/23 The patient is an INPATIENT: Yes Changes since office visit: No Cold of Flu in the past 2 weeks, No New Medical Problems, No Changes in Medication and No Patient answered all questions The patient has been examined within 24 hours of the surgical procedure. The History & Physical has been completed within 30 days and I have reviewed it.: Yes Section B - Complete if H&P > 30 days Chief Complaint: Unspecified anxiety, unspecified depression Allergies: Allergies Allergy/AdvReac Type Severity Reaction Status Date / Time No Known Allergies Allergy Verified 12/21/20 13:27 Plan I have reviewed the history and physical and performed a pertinent physical examination on my patient. No changes have occurred unless specified. Time Spent With Patient Time: Total time managing care of this patient today ____ minutes.
[2023-06-24] MEDS: LORazepam 2 MG/ML VIAL 1 MG IVPUSH ×2 (07:38→08:16)
--- NOTE | 2023-06-24 07:56 | HO.ECTPROC ---
ECT Procedure Note Diagnosis/Treatment Date of Service: 06/24/23 Diagnosis: Major Depressive Disorder Previous ECT Date: 06/21/23 Current Treatment Number: 3 Treatment: Series Interval Clinical Notes: pt quite anxious preop given 1 mg lorazepam iv secondary to panic will preop po seroquel or zyprexa prior to next tx lorazepam 1 mg pre and poat haldol 2 mg post Time: Total time managing care of this patient today ____ minutes. ECT Settings Device: THYMATRON DGx Electrode Placement: Rt temporal/ Lt frontal Program/Pulse Width: 0.25 Energy Percent: 65 Seizure Duration By EEG (in seconds): 51 Medications Administration General Anesthetic: Methohexital (120) Muscle Relaxant: Succinylcholine (140) Ancillary Medications Analgesics: Torodol - Pre ECT Anti-emetics: Zofran - Pre ECT Airway Management Airway Management: Bag Mask Ventilation Treatment Recommendations Notes: got lorazepam total 3 mg haldol 2 mg would give propofol first next tx then lorazepam post if needed could try changing to bf
--- NOTE | 2023-06-24 07:59 | P.CONAN_ITS ---
[facility] Active Problems Active Problems: All Active Problems Major depressive disorder, recurrent episode, severe with anxious distress (Acute) Routine medical exam (Acute) Panic disorder without agoraphobia (Acute) SHAI (generalized anxiety disorder) (Acute) Major depressive disorder, recurrent severe without psychotic features (Acute) Past Medical History Medical History IBS (irritable bowel syndrome) Hypertension Chronic low back pain BPH w urinary obs/LUTS Obstructive sleep apnea Cervical stenosis of spine Hyperlipidemia History of prediabetes Psoriatic arthritis Psoriasis Family History Family history of problems with anesthesia: No Surgical History Surgical History H/O cervical discectomy H/O inguinal hernia repair History of Problems with Anesthesia: No Social History Social History Household Members: None Housing: Apartment Do you presently have visiting nurse or other home services: Yes (they come once a month) Patient Tobacco Use Status: Never used Tobacco Second Hand Smoke Exposure: Yes Use of substances other than those prescribed or required for medical reasons: No Currently Displaying Signs/Symptoms of Drug Intoxication Withdrawal: No Have you been hit, kicked, punched, or otherwise hurt by someone within the past year? If so, by whom?: No Do you feel safe in your current relationship?: Yes Is there a partner from a previous relationship who is making you feel unsafe now?: No Are you made to feel afraid or neglected: No Advance Directives: No Advance Directives Information Provided: Yes Do you have thoughts of harming others: None Do you have a plan to hurt others: No Plan Recently lost weight without trying: No Nutrition Risks: No Nutritional Risk Poor oral hygiene: No service: No Sexual orientation: Straight/Heterosexual Meds Allergies Allergy/AdvReac Type Severity Reaction Status Date / Time No Known Allergies Allergy Verified 12/21/20 13:27 Active Medications: Current Medications Acetaminophen (Acetaminophen 325 Mg Tablet) 650 mg PO Q6H PRN PRN Reason: Headache/Pain Mild Scale (1-3) Al Hydroxide/Mg Hydroxide (Magnesium Hydrox/Alum Hydrox 30 Ml Oral.Susp) 30 ml PO Q6H PRN PRN Reason: Heartburn/Nausea Aripiprazole (Aripiprazole 5 Mg Tablet) 5 mg PO DAILY DC Last Admin: 06/23/23 08:53 Dose: 5 mg Aspirin (Aspirin Enteric Coated 81 Mg Tablet.Dr) 81 mg PO DAILY [facility] Last Admin: 06/23/23 08:53 Dose: 81 mg Atorvastatin Calcium (Atorvastatin Calcium 10 Mg Tablet) 10 mg PO BEDTIME DC Last Admin: 06/23/23 22:12 Dose: 10 mg Clonazepam (Clonazepam 1 Mg Tablet) 1 mg PO BEDTIME DC Last Admin: 06/23/23 20:06 Dose: Not Given Fluoxetine HCl (Fluoxetine Hcl 20 Mg Capsule) 20 mg PO DAILY DC Last Admin: 06/23/23 08:59 Dose: 20 mg Fluoxetine HCl (Fluoxetine Hcl 20 Mg Capsule) 40 mg PO DAILY [facility] Last Admin: 06/23/23 08:52 Dose: 40 mg Hydrocortisone (Hydrocortisone 1 % Cream 28.35 Gm Tube) 1 appl TOPICAL BID PRN; Protocol PRN Reason: facial psoriasis Last Admin: 06/23/23 22:13 Dose: 1 appl Hydroxyzine HCl (Hydroxyzine Hcl 25 Mg Tablet) 25 mg PO Q6H PRN PRN Reason: Anxiety Last Admin: 06/16/23 13:34 Dose: 25 mg Lactated Ringer's (Lr) 1,000 mls @ 50 mls/hr IVCONT .Q20H DC Lorazepam (Lorazepam 1 Mg Tablet) 1 mg PO DAILY PRN PRN Reason: panic attack Last Admin: 06/18/23 12:45 Dose: 1 mg Magnesium Hydroxide (Milk Of Magnesia 30 Ml Oral.Susp) 30 ml PO DAILY PRN PRN Reason: Constipation Mirtazapine (Mirtazapine 30 Mg Tablet) 30 mg PO BEDTIME DC Last Admin: 06/23/23 22:12 Dose: 30 mg Multivitamins/Vitamin C (Multivitamin Tablet) 1 tab PO DAILY DC Last Admin: 06/23/23 08:53 Dose: 1 tab Psyllium Hydrophilic Mucilloid (Psyllium Seed 3.7 Gm Packet) 3.7 gm PO BEDTIME DC Last Admin: 06/23/23 22:11 Dose: 3.7 gm Tamsulosin HCl (Tamsulosin Hcl 0.4 Mg Capsule) 0.4 mg PO BEDTIME [facility] Last Admin: 06/23/23 22:12 Dose: 0.4 mg Trazodone HCl (Trazodone Hcl 50 Mg Tablet) 50 mg PO BEDTIME MRX1 PRN PRN Reason: Insomnia Triamcinolone Acetonide (Triamcinolone Acet 0.5 % Oint 15 Gm Tube) 1 appl TOPICAL BID DC Last Admin: 06/23/23 22:13 Dose: 1 appl Home Medications ?Medication ?Instructions ?Recorded ?Confirmed ?Last Taken ?Type aspirin 81 mg capsule 81 mg PO DAILY 12/21/20 06/15/23 01/19/21 08:00 History vitamin B complex 1 cap PO DAILY 01/17/21 06/15/23 01/19/21 08:00 History aripiprazole 5 mg tablet 5 mg PO DAILY 06/15/23 06/15/23 Unknown History clonazepam 1 mg tablet 1 mg PO BEDTIME 06/15/23 06/15/23 Unknown History fluoxetine 20 mg capsule 20 mg PO QAM 06/15/23 06/15/23 Unknown History fluoxetine 40 mg capsule 40 mg PO DAILY 06/15/23 06/15/23 Unknown History liothyronine 5 mcg tablet 5 mcg PO BID 06/15/23 06/15/23 Unknown History simvastatin 10 mg tablet 10 mg PO BEDTIME 06/15/23 06/15/23 Unknown History tamsulosin 0.4 mg capsule 0.4 mg PO DAILY 06/15/23 06/15/23 Unknown History Exam Height,Weight and Vital Signs: Height 5 ft 10 in Weight 77.655 kg Last Vital Signs Temp 97.5 F 06/24/23 06:19 Pulse 64 06/24/23 06:19 Resp 16 06/24/23 06:19 BP 120/68 06/24/23 06:19 Pulse Ox 97 06/24/23 06:19 O2 Del Method Room Air 06/24/23 06:19 O2 Flow Rate 2 06/21/23 08:09 Pertinent Lab Results Pertinent Lab Results: Laboratory Tests 06/16/23 07:04 Sodium 144 Potassium 4.5 Chloride 109 H Carbon Dioxide 26 Anion Gap 14 BUN 22 H Creatinine 1.06 Estim Creat Clear Calc 63.6 Estimated GFR > 60 Fasting Glucose 94 Estimat Average Glucose 111 Hemoglobin A1c % 5.5 Calcium 9.5 Total Bilirubin 0.5 AST 18 ALT 21 Alkaline Phosphatase 73 Total Protein 6.5 Albumin 3.8 Triglycerides 89 Cholesterol 188 LDL Cholesterol, Calc 120 H HDL Cholesterol 51 Vitamin B12 300 Folate 6.4 TSH 1.44 Airway Mallampati Class: II TM Dist: >3cm Neck ROM: Full Heart: rrr Lungs: cta Assessment and Plan Assessment Anesthesia Assessment: Anesthesia Plan Discussed and Chart Reviewed Final Anesthetic Review Family History of Problems with Anesthesia: No History of Problems with Anesthesia: No NPO: Yes ASA Class: III Final Preanesthetic Review: No Changes in Pt Med Stat, Meds/Allgs Chart Reviewed and Consent Obtained/Reviewed Patient Risk: Intermediate Procedure Risk: Intermediate Anesthetic Plan Anesthetic Plan: GA Disposition: Standard PACU
[2023-06-24] MEDS: OLANZapine ODT 10 MG TAB.RAPDIS 5 MG TRANSLINGU (08:33)
[2023-06-24] MEDS: FLUoxetine HCl 20 MG CAPSULE 40 MG PO (09:25)
[2023-06-24] MEDS: ARIPiprazole 5 MG TABLET PO (09:25)
[2023-06-24] MEDS: FLUoxetine HCl 20 MG CAPSULE PO (09:25)
[2023-06-24] MEDS: Aspirin Enteric Coated 81 MG TABLET.DR PO (09:25)
[2023-06-24] MEDS: Multivitamin TABLET 1 TAB PO (09:25)
--- NOTE | 2023-06-24 11:14 | P.PNPSI_ITS ---
Subjective Subjective Date of Service: 06/24/23 Reason For Visit: Unspecified anxiety, unspecified depression Subjective Notes: Conditional Voluntary Interim History: ect completed anxiety noted will pretx on unit preop next tx Mental Status Exam Mental Status Exam Patient Appearance: Appropriate Patient Orientation: Person and Situation Level of Consciousness: Awake and Appropriate Patient Behavior: Guarded and Passive Mood Description: Withdrawn Affect Description: Constricted Patient Cognition Impaired: Yes Ability to Follow Directions: Good Speech Pattern: Clear Hallucinations: None Delusions: Not Present Thought Process: Distracted and Slowed Thinking Thought Content: positive for [place] and positive for Poverty of Content Judgement: Fair Diagnostics Vital Signs (24Hr): Vital Signs - 24 hr 06/23/23 19:27 06/24/23 06:11 06/24/23 06:19 Temperature 98.2 F 96.2 F L 97.5 F Pulse Rate 61 64 64 Respiratory Rate 16 16 16 Blood Pressure 115/59 L 132/65 120/68 Pulse Oximetry 98 98 97 Oxygen Delivery Method Room Air Room Air Oxygen Flow Rate 06/24/23 07:57 06/24/23 08:02 06/24/23 08:07 Temperature 98 F Pulse Rate 93 98 96 Respiratory Rate 16 20 20 Blood Pressure 131/73 134/86 115/82 Pulse Oximetry 96 100 100 Oxygen Delivery Method Nasal Cannula with ETCO2 Room Air Room Air Oxygen Flow Rate 2 06/24/23 08:12 06/24/23 08:27 06/24/23 08:42 Temperature Pulse Rate 94 69 63 Respiratory Rate 20 20 20 Blood Pressure 137/80 120/58 L 125/56 L Pulse Oximetry 100 100 100 Oxygen Delivery Method Room Air Room Air Room Air Oxygen Flow Rate 06/24/23 08:57 06/24/23 09:00 06/24/23 09:38 Temperature 98 F 98.5 F 98.5 F Pulse Rate 62 62 62 Respiratory Rate 16 14 14 Blood Pressure 114/54 L 118/59 L 118/59 L Pulse Oximetry 100 97 Oxygen Delivery Method Room Air Room Air Oxygen Flow Rate BMI result Body Mass Index 24.6 Labs 06/16/23 07:04 Medications Medications Current Medications Acetaminophen (Acetaminophen 325 Mg Tablet) 650 mg PO Q6H PRN PRN Reason: Headache/Pain Mild Scale (1-3) Al Hydroxide/Mg Hydroxide (Magnesium Hydrox/Alum Hydrox 30 Ml Oral.Susp) 30 ml PO Q6H PRN PRN Reason: Heartburn/Nausea Aripiprazole (Aripiprazole 5 Mg Tablet) 5 mg PO DAILY [facility] Last Admin: 06/24/23 09:25 Dose: 5 mg Aspirin (Aspirin Enteric Coated 81 Mg Tablet.Dr) 81 mg PO DAILY [facility] Last Admin: 06/24/23 09:25 Dose: 81 mg Atorvastatin Calcium (Atorvastatin Calcium 10 Mg Tablet) 10 mg PO BEDTIME DC Last Admin: 06/23/23 22:12 Dose: 10 mg Clonazepam (Clonazepam 1 Mg Tablet) 1 mg PO BEDTIME DC Last Admin: 06/23/23 20:06 Dose: Not Given Fluoxetine HCl (Fluoxetine Hcl 20 Mg Capsule) 20 mg PO DAILY [facility] Last Admin: 06/24/23 09:25 Dose: 20 mg Fluoxetine HCl (Fluoxetine Hcl 20 Mg Capsule) 40 mg PO DAILY [facility] Last Admin: 06/24/23 09:25 Dose: 40 mg Hydrocortisone (Hydrocortisone 1 % Cream 28.35 Gm Tube) 1 appl TOPICAL BID PRN; Protocol PRN Reason: facial psoriasis Last Admin: 06/23/23 22:13 Dose: 1 appl Hydroxyzine HCl (Hydroxyzine Hcl 25 Mg Tablet) 25 mg PO Q6H PRN PRN Reason: Anxiety Last Admin: 06/16/23 13:34 Dose: 25 mg Lorazepam (Lorazepam 1 Mg Tablet) 1 mg PO DAILY PRN PRN Reason: panic attack Last Admin: 06/18/23 12:45 Dose: 1 mg Magnesium Hydroxide (Milk Of Magnesia 30 Ml Oral.Susp) 30 ml PO DAILY PRN PRN Reason: Constipation Mirtazapine (Mirtazapine 30 Mg Tablet) 30 mg PO BEDTIME [facility] Last Admin: 06/23/23 22:12 Dose: 30 mg Multivitamins/Vitamin C (Multivitamin Tablet) 1 tab PO DAILY DC Last Admin: 06/24/23 09:25 Dose: 1 tab Psyllium Hydrophilic Mucilloid (Psyllium Seed 3.7 Gm Packet) 3.7 gm PO BEDTIME DC Last Admin: 06/23/23 22:11 Dose: 3.7 gm Tamsulosin HCl (Tamsulosin Hcl 0.4 Mg Capsule) 0.4 mg PO BEDTIME [facility] Last Admin: 06/23/23 22:12 Dose: 0.4 mg Trazodone HCl (Trazodone Hcl 50 Mg Tablet) 50 mg PO BEDTIME MRX1 PRN PRN Reason: Insomnia Triamcinolone Acetonide (Triamcinolone Acet 0.5 % Oint 15 Gm Tube) 1 appl TOPICAL BID DC Last Admin: 06/24/23 09:37 Dose: Not Given Allergies Allergies Allergy/AdvReac Type Severity Reaction Status Date / Time No Known Allergies Allergy Verified 12/21/20 13:27 Assessment & Plan Assessment & Plan (1) Major depressive disorder, recurrent episode, severe with anxious distress: Status: Acute Code(s): F33.2 - Major depressive disorder, recurrent severe without psychotic features Assessment and Plan: Patient with long history very difficult to treat recurrent depression and anxiety. He has had past trials mirtazapine Wellbutrin olanzapine Currently on fluoxetine Abilify clonazepam at bedtime. Patient is requesting ECT said it had been helpful for him last year encourage to see if he could figure out how to hopefully do maintenance treatment as an outpatient. There are no medical contraindications EKG shows left anterior fascicular block which appears to be a chronic finding history of BPH ECT reportedly well tolerated last year at [facility] his pulse appears to Chronically run somewhat low might benefit from glycopyrrolate pretreatment. Risks benefits alternatives reviewed with patient declined literature or video (2) Panic disorder without agoraphobia: Status: Acute Code(s): F41.0 - Panic disorder [episodic paroxysmal anxiety] (3) SHAI (generalized anxiety disorder): Status: Acute Code(s): F41.1 - Generalized anxiety disorder Plan - Admit to inpatient psychiatry - CV - Collateral information from family and providers. - Milieu treatment and group therapy. - Medications:continue same. Consider an ECT series. - Social work evaluation. - Disposition planning. 06/15: Consider an ECT series. Otherwise continue current management and treatment plan. 06/16: hospitalist consult for ECT risk stratification, EKG, ian consult for ECT. continue current mgmt otherwise, pt to abdiaziz over increasing prozac to 80 and/or increasing remeron to 45. case discussed with ian. 06/17: seen by ian. anxious, panic attack at time of interview, got ativan PRN. planning to start ECT tomorrow. medically cleared. 06/18: ECT #1 completed without complication. continue current mgmt. 06/19: anxiety has resolved since first ECT Tx. Tx #2 tomorrow. no complications at present. 06/20: ECT #2 today. no complications. depression persists, anxiety has dissipated. ECT #3 for saturday. 06/21 continue same treatment. 06/22 continue same treatment, tomorrow ECT 06/24/23 Cont plan of care ect Reason for continued inpatient stay Substantial Risk for: harm to self, inability to function and rapid decompensation Time Spent With Patient Time: Total time managing care of this patient today ____ minutes.
[2023-06-24] MEDS: Atorvastatin Calcium 10 MG TABLET PO (21:39)
[2023-06-24] MEDS: Triamcinolone Acet 0.5 % Oint 15 GM TUBE 1 APPL TOPICAL (21:39)
[2023-06-24] MEDS: Mirtazapine 30 MG TABLET PO (21:40)
[2023-06-24] MEDS: Tamsulosin HCL 0.4 MG CAPSULE PO (21:40)
[2023-06-24] MEDS: clonazePAM 1 MG TABLET PO (21:40)
[2023-06-24] MEDS: Psyllium seed 3.7 GM PACKET PO (21:41)
[2023-06-25 07:37] VITALS: BP 129/60; PULSE 66; RESP 14; TEMP 36.2; O2SAT 97
[2023-06-25] MEDS: FLUoxetine HCl 20 MG CAPSULE 40 MG PO (09:00)
[2023-06-25] MEDS: Aspirin Enteric Coated 81 MG TABLET.DR PO (09:01)
[2023-06-25] MEDS: ARIPiprazole 5 MG TABLET PO (09:01)
[2023-06-25] MEDS: FLUoxetine HCl 20 MG CAPSULE PO (09:01)
[2023-06-25] MEDS: Thiamine HCL 100 MG TABLET PO (09:01)
[2023-06-25] MEDS: Multivitamin TABLET 1 TAB PO (09:02)
--- NOTE | 2023-06-25 10:40 | HO.POSTANES ---
Post Anesthesia Evaluation Post Anesthesia Evaluation Date of Service: 06/24/23 Vital Signs: Vital Signs Temp Pulse Resp BP Pulse Ox O2 Del Method 06/25/23 07:37 97.1 F 66 14 129/60 97 Room Air Anesthesia: General Mental Status: Awake Pain Control: Satisfactory Nausea/Vomiting: None Hydration: Adequate Anesthesia-Related Issues: No Anes. Related Issues
[2023-06-25 20:00] VITALS: BP 111/62; PULSE 60; RESP 16; TEMP 36.6; O2SAT 98
[2023-06-25] MEDS: Atorvastatin Calcium 10 MG TABLET PO (22:03)
[2023-06-25] MEDS: Psyllium seed 3.7 GM PACKET PO (22:04)
[2023-06-25] MEDS: Tamsulosin HCL 0.4 MG CAPSULE PO (22:04)
[2023-06-25] MEDS: Mirtazapine 30 MG TABLET PO (22:04)
[2023-06-26] VITALS (10 sets, daily range): BP systolic 113–164; BP diastolic 60–96; PULSE 54–103; RESP 16–20; TEMP 36.1–37.5; O2SAT 96–99
[2023-06-26] MEDS: OLANZapine 5 MG TABLET PO (05:39)
--- NOTE | 2023-06-26 07:02 | MHC.SHP ---
Pre-Procedural Eval Section A - 24 Hr Update-Section A only Date of Service: 06/26/23 The patient is an INPATIENT: Yes Changes since office visit: No Cold of Flu in the past 2 weeks, No New Medical Problems, No Changes in Medication and No Patient answered all questions The patient has been examined within 24 hours of the surgical procedure. The History & Physical has been completed within 30 days and I have reviewed it.: Yes Section B - Complete if H&P > 30 days Chief Complaint: Unspecified anxiety, unspecified depression Allergies: Allergies Allergy/AdvReac Type Severity Reaction Status Date / Time No Known Allergies Allergy Verified 12/21/20 13:27 Plan I have reviewed the history and physical and performed a pertinent physical examination on my patient. No changes have occurred unless specified. Time Spent With Patient Time: Total time managing care of this patient today ____ minutes.
--- NOTE | 2023-06-26 07:36 | HO.ECTPROC ---
ECT Procedure Note Diagnosis/Treatment Date of Service: 06/26/23 Diagnosis: Major Depressive Disorder Previous ECT Date: 06/24/23 Current Treatment Number: 4 Treatment: Series Interval Clinical Notes: The patient's mood has improved, still very anxious. He received a dose of Ativan PO before coming to PACU. He reported anxiety while he was on PACU, but easily redirectable. He reported some oversedation after the last procedure, he didn't remember that he was agitated after the last ECT. The last ECT, he received Haldol 2 mg and Ativan 3 mg with Propofol. ECT done as usual, no changes on the parameters or technique. He had a good seizure that stopped by itself. We gave him Ativan 1m and Haldol 2 mg post ECT IV, no Propofol Mild restlessness, not as agitated as before but still delirious post ECT. Later on, he awoke well. He will benefit of Haldol 5 after the procedure instead of 2 mg with Ativan as usual. Time: Total time managing care of this patient today __30__ minutes. ECT Settings Device: THYMATRON DGx Electrode Placement: Rt temporal/ Lt frontal Program/Pulse Width: 0.25 Energy Percent: 65 Seizure Duration By EEG (in seconds): 69 By Motor Observation (in seconds): 42 Medications Administration General Anesthetic: Methohexital (120) Muscle Relaxant: Succinylcholine (140) Ancillary Medications Analgesics: Torodol - Pre ECT Anti-emetics: Zofran - Pre ECT Miscillaneous Medications: Haldol (2 mg after ECT) and Other (Ativan 1MG IVP post ECT) Airway Management Airway Management: Bag Mask Ventilation Treatment Recommendations No Changes Recommended: No change Notes: Next ECT, give him Haldol 5 mg instead of Haldol 2 mg. Restless but not as agitated as the first ECT. Pt Tolerated Procedure w/o Issue: Yes
[2023-06-26] MEDS: Haloperidol Lactate 5 MG/ML VIAL 2 MG IVPUSH (08:01)
[2023-06-26] MEDS: LORazepam 2 MG/ML VIAL 1 MG IVPUSH (08:01)
[2023-06-26] MEDS: FLUoxetine HCl 20 MG CAPSULE 40 MG PO (08:48)
[2023-06-26] MEDS: FLUoxetine HCl 20 MG CAPSULE PO (08:48)
[2023-06-26] MEDS: Thiamine HCL 100 MG TABLET PO (08:49)
[2023-06-26] MEDS: ARIPiprazole 5 MG TABLET PO (08:49)
[2023-06-26] MEDS: Multivitamin TABLET 1 TAB PO (08:49)
[2023-06-26] MEDS: Aspirin Enteric Coated 81 MG TABLET.DR PO (08:49)
--- NOTE | 2023-06-26 16:09 | HO.PSYCHPN ---
Subjective Subjective Date of Service: 06/26/23 Reason For Visit: Unspecified anxiety, unspecified depression Subjective Notes: Conditional Voluntary Healthcare Proxy: No Interim History: pt tolerated ect today with good effect less confused improved see ect note Medication Compliance: Yes Mental Status Exam Mental Status Exam Patient Appearance: Appropriate Patient Orientation: Person and Situation Level of Consciousness: Awake and Appropriate Patient Behavior: Passive Mood Description: Withdrawn, Constricted and Anxious Affect Description: Constricted Patient Cognition Impaired: Yes Ability to Follow Directions: Good Speech Pattern: Clear Hallucinations: None Delusions: Not Present Thought Process: Distracted and Slowed Thinking Thought Content: positive for [place] and positive for Poverty of Content Judgement: Fair Diagnostics Vital Signs (24Hr): Vital Signs - 24 hr 06/25/23 20:00 06/26/23 05:52 06/26/23 06:16 Temperature 97.9 F 97.7 F 97 F Pulse Rate 60 62 66 Respiratory Rate 16 16 16 Blood Pressure 111/62 137/63 147/60 H Pulse Oximetry 98 98 97 Oxygen Delivery Method Room Air Room Air Oxygen Flow Rate 06/26/23 07:45 06/26/23 07:50 06/26/23 08:00 Temperature 99.5 F Pulse Rate 103 H 100 93 Respiratory Rate 16 20 20 Blood Pressure 158/89 H 164/96 H 162/91 H Pulse Oximetry 97 96 96 Oxygen Delivery Method Nasal Cannula with ETCO2 Nasal Cannula with ETCO2 Nasal Cannula with ETCO2 Oxygen Flow Rate 2 2 2 06/26/23 08:15 06/26/23 08:34 06/26/23 08:36 Temperature 97.7 F 98.5 F Pulse Rate 62 64 59 Respiratory Rate 16 16 17 Blood Pressure 118/91 H 132/67 140/70 H Pulse Oximetry 99 98 97 Oxygen Delivery Method Nasal Cannula with ETCO2 Room Air Oxygen Flow Rate 2 06/26/23 08:42 Temperature 97.7 F Pulse Rate 64 Respiratory Rate 16 Blood Pressure 132/67 Pulse Oximetry 98 Oxygen Delivery Method Room Air Oxygen Flow Rate BMI result Body Mass Index 24.6 Labs 06/16/23 07:04 Medications Medications Current Medications Acetaminophen (Acetaminophen 325 Mg Tablet) 650 mg PO Q6H PRN PRN Reason: Headache/Pain Mild Scale (1-3) Al Hydroxide/Mg Hydroxide (Magnesium Hydrox/Alum Hydrox 30 Ml Oral.Susp) 30 ml PO Q6H PRN PRN Reason: Heartburn/Nausea Aripiprazole (Aripiprazole 5 Mg Tablet) 5 mg PO DAILY [facility] Last Admin: 06/26/23 08:49 Dose: 5 mg Aspirin (Aspirin Enteric Coated 81 Mg Tablet.Dr) 81 mg PO DAILY [facility] Last Admin: 06/26/23 08:49 Dose: 81 mg Atorvastatin Calcium (Atorvastatin Calcium 10 Mg Tablet) 10 mg PO BEDTIME [facility] Last Admin: 06/25/23 22:03 Dose: 10 mg Fluoxetine HCl (Fluoxetine Hcl 20 Mg Capsule) 20 mg PO DAILY [facility] Last Admin: 06/26/23 08:48 Dose: 20 mg Fluoxetine HCl (Fluoxetine Hcl 20 Mg Capsule) 40 mg PO DAILY [facility] Last Admin: 06/26/23 08:48 Dose: 40 mg Hydrocortisone (Hydrocortisone 1 % Cream 28.35 Gm Tube) 1 appl TOPICAL BID PRN; Protocol PRN Reason: facial psoriasis Last Admin: 06/23/23 22:13 Dose: 1 appl Hydroxyzine HCl (Hydroxyzine Hcl 25 Mg Tablet) 25 mg PO Q6H PRN PRN Reason: Anxiety Last Admin: 06/16/23 13:34 Dose: 25 mg Magnesium Hydroxide (Milk Of Magnesia 30 Ml Oral.Susp) 30 ml PO DAILY PRN PRN Reason: Constipation Mirtazapine (Mirtazapine 30 Mg Tablet) 30 mg PO BEDTIME [facility] Last Admin: 06/25/23 22:04 Dose: 30 mg Multivitamins/Vitamin C (Multivitamin Tablet) 1 tab PO DAILY [facility] Last Admin: 06/26/23 08:49 Dose: 1 tab Olanzapine (Olanzapine 5 Mg Tablet) [facility] Psyllium Hydrophilic Mucilloid (Psyllium Seed 3.7 Gm Packet) 3.7 gm PO BEDTIME [facility] Last Admin: 06/25/23 22:04 Dose: 3.7 gm Tamsulosin HCl (Tamsulosin Hcl 0.4 Mg Capsule) 0.4 mg PO BEDTIME [facility] Last Admin: 06/25/23 22:04 Dose: 0.4 mg Thiamine HCl (Thiamine Hcl 100 Mg Tablet) 100 mg PO DAILY [facility] Last Admin: 06/26/23 08:49 Dose: 100 mg Trazodone HCl (Trazodone Hcl 50 Mg Tablet) 50 mg PO BEDTIME MRX1 PRN PRN Reason: Insomnia Triamcinolone Acetonide (Triamcinolone Acet 0.5 % Oint 15 Gm Tube) 1 appl TOPICAL BID [facility] Last Admin: 06/26/23 09:04 Dose: Not Given Allergies Allergies Allergy/AdvReac Type Severity Reaction Status Date / Time No Known Allergies Allergy Verified 12/21/20 13:27 Assessment & Plan Assessment & Plan (1) Major depressive disorder, recurrent episode, severe with anxious distress: Status: Acute Code(s): F33.2 - Major depressive disorder, recurrent severe without psychotic features Assessment and Plan: Patient with long history very difficult to treat recurrent depression and anxiety. He has had past trials mirtazapine Wellbutrin olanzapine Currently on fluoxetine Abilify clonazepam at bedtime. Patient is requesting ECT said it had been helpful for him last year encourage to see if he could figure out how to hopefully do maintenance treatment as an outpatient. 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 Risks benefits alternatives reviewed with patient declined literature or video (2) Panic disorder without agoraphobia: Status: Acute Code(s): F41.0 - Panic disorder [episodic paroxysmal anxiety] (3) SHAI (generalized anxiety disorder): Status: Acute Code(s): F41.1 - Generalized anxiety disorder Plan - Admit to inpatient psychiatry - CV - Collateral information from family and providers. - Milieu treatment and group therapy. - Medications:continue same. Consider an ECT series. - Social work evaluation. - Disposition planning. 06/15: Consider an ECT series. Otherwise continue current management and treatment plan. 06/16: hospitalist consult for ECT risk stratification, EKG, ian consult for ECT. continue current mgmt otherwise, pt to abdiaziz over increasing prozac to 80 and/or increasing remeron to 45. case discussed with ian. 06/17: seen by ian. anxious, panic attack at time of interview, got ativan PRN. planning to start ECT tomorrow. medically cleared. 06/18: ECT #1 completed without complication. continue current mgmt. 06/19: anxiety has resolved since first ECT Tx. Tx #2 tomorrow. no complications at present. 06/20: ECT #2 today. no complications. depression persists, anxiety has dissipated. ECT #3 for saturday. 06/21 continue same treatment. 06/22 continue same treatment, tomorrow ECT 06/24/23 Cont plan of care ect 06/25/23 cont plan of care no gross confusion some confusion post ect that clears 06/26/23 Pt improved tolerated todays ect and improved mood Reason for continued inpatient stay Substantial Risk for: harm to self, inability to function and rapid decompensation Time Spent With Patient Time: Total time managing care of this patient today ____ minutes.
[2023-06-26] MEDS: Mirtazapine 30 MG TABLET PO (21:55)
[2023-06-26] MEDS: Atorvastatin Calcium 10 MG TABLET PO (21:55)
[2023-06-26] MEDS: Psyllium seed 3.7 GM PACKET PO (21:55)
[2023-06-26] MEDS: Tamsulosin HCL 0.4 MG CAPSULE PO (21:55)
[2023-06-27 07:00] VITALS: BMI 25.1
[2023-06-27 07:10] VITALS: BP 151/67; PULSE 63; RESP 18; TEMP 36.8; O2SAT 98
[2023-06-27] MEDS: ARIPiprazole 5 MG TABLET PO (08:39)
[2023-06-27] MEDS: FLUoxetine HCl 20 MG CAPSULE 40 MG PO (08:39)
[2023-06-27] MEDS: Thiamine HCL 100 MG TABLET PO (08:39)
[2023-06-27] MEDS: Multivitamin TABLET 1 TAB PO (08:40)
[2023-06-27] MEDS: Aspirin Enteric Coated 81 MG TABLET.DR PO (08:40)
[2023-06-27] MEDS: FLUoxetine HCl 20 MG CAPSULE PO (08:40)
--- NOTE | 2023-06-27 14:05 | HO.POSTANES ---
Post Anesthesia Evaluation Post Anesthesia Evaluation Date of Service: 06/26/23 Vital Signs: Vital Signs Temp Pulse Resp BP Pulse Ox O2 Del Method 06/27/23 07:10 98.3 F 63 18 151/67 H 98 Room Air Anesthesia: General Mental Status: Awake Pain Control: Satisfactory Nausea/Vomiting: None Hydration: Adequate Anesthesia-Related Issues: No Anes. Related Issues
--- NOTE | 2023-06-27 15:21 | P.PNPSI_ITS ---
Subjective Subjective Date of Service: 06/27/23 Reason For Visit: Unspecified anxiety, unspecified depression Interim History: calm, cooperative. flat but pleasant. reports feeling improved from ECT. review possibility of finishing ECT from outpt. states he had the beginnings of a panic attack this morning but it went away. ativan reinstated. next ECT tomorrow. per staff, dep/anx 5. subdued. ECT went well yesterday. attending groups, taking meds. slept about 8 hours. Mental Status Exam Mental Status Exam Narrative: Patient Appearance:?adequately dressed and groomed Patient Orientation:?Person, Place, Time and Situation Level of Consciousness:?Alert Patient Behavior:?Appropriate, Cooperative, Good Eye Contact Mood Description:?less depressed Affect Description:?constricted, hypo-intense, non-labile Patient Cognition Impaired:?No Ability to Follow Directions:?Good Speech Pattern: Spontaneous Speech Memory Description:?Intact Hallucinations:?None Delusions:?Not Present Thought Process:?linear, logical, goal oriented Thought Content: no delusions or paranoia expressed Abnormal Motor Activity Signs and Symptoms:? None Judgement:?Fair Diagnostics Vital Signs (24Hr): Vital Signs - 24 hr 06/26/23 20:00 06/27/23 07:10 Temperature 97.8 F 98.3 F Pulse Rate 54 63 Respiratory Rate 16 18 Blood Pressure 113/60 151/67 H Pulse Oximetry 97 98 Oxygen Delivery Method Room Air Room Air BMI result Body Mass Index 25.1 Labs 06/16/23 07:04 Medications Medications Current Medications Acetaminophen (Acetaminophen 325 Mg Tablet) 650 mg PO Q6H PRN PRN Reason: Headache/Pain Mild Scale (1-3) Al Hydroxide/Mg Hydroxide (Magnesium Hydrox/Alum Hydrox 30 Ml Oral.Susp) 30 ml PO Q6H PRN PRN Reason: Heartburn/Nausea Aripiprazole (Aripiprazole 5 Mg Tablet) 5 mg PO DAILY [facility] Last Admin: 06/27/23 08:39 Dose: 5 mg Aspirin (Aspirin Enteric Coated 81 Mg Tablet.) 81 mg PO DAILY [facility] Last Admin: 06/27/23 08:40 Dose: 81 mg Atorvastatin Calcium (Atorvastatin Calcium 10 Mg Tablet) 10 mg PO BEDTIME [facility] Last Admin: 06/26/23 21:55 Dose: 10 mg Fluoxetine HCl (Fluoxetine Hcl 20 Mg Capsule) 20 mg PO DAILY [facility] Last Admin: 06/27/23 08:40 Dose: 20 mg Fluoxetine HCl (Fluoxetine Hcl 20 Mg Capsule) 40 mg PO DAILY [facility] Last Admin: 06/27/23 08:39 Dose: 40 mg Hydrocortisone (Hydrocortisone 1 % Cream 28.35 Gm Tube) 1 appl TOPICAL BID PRN; Protocol PRN Reason: facial psoriasis Last Admin: 06/23/23 22:13 Dose: 1 appl Hydroxyzine HCl (Hydroxyzine Hcl 25 Mg Tablet) 25 mg PO Q6H PRN PRN Reason: Anxiety Last Admin: 06/16/23 13:34 Dose: 25 mg Lorazepam (Lorazepam 1 Mg Tablet) 1 mg PO DAILY PRN PRN Reason: panic attack Magnesium Hydroxide (Milk Of Magnesia 30 Ml Oral.Susp) 30 ml PO DAILY PRN PRN Reason: Constipation Mirtazapine (Mirtazapine 30 Mg Tablet) 30 mg PO BEDTIME [facility] Last Admin: 06/26/23 21:55 Dose: 30 mg Multivitamins/Vitamin C (Multivitamin Tablet) 1 tab PO DAILY [facility] Last Admin: 06/27/23 08:40 Dose: 1 tab Olanzapine (Olanzapine 5 Mg Tablet) 5 mg PO MoWeFr [facility] Psyllium Hydrophilic Mucilloid (Psyllium Seed 3.7 Gm Packet) 3.7 gm PO BEDTIME [facility] Last Admin: 06/26/23 21:55 Dose: 3.7 gm Tamsulosin HCl (Tamsulosin Hcl 0.4 Mg Capsule) 0.4 mg PO BEDTIME [facility] Last Admin: 06/26/23 21:55 Dose: 0.4 mg Thiamine HCl (Thiamine Hcl 100 Mg Tablet) 100 mg PO DAILY [facility] Last Admin: 06/27/23 08:39 Dose: 100 mg Trazodone HCl (Trazodone Hcl 50 Mg Tablet) 50 mg PO BEDTIME MRX1 PRN PRN Reason: Insomnia Triamcinolone Acetonide (Triamcinolone Acet 0.5 % Oint 15 Gm Tube) 1 appl TOPICAL BID [facility] Last Admin: 06/27/23 08:40 Dose: Not Given Allergies Allergies Allergy/AdvReac Type Severity Reaction Status Date / Time No Known Allergies Allergy Verified 12/21/20 13:27 Assessment & Plan Assessment & Plan (1) Major depressive disorder, recurrent episode, severe with anxious distress: Status: Acute Code(s): F33.2 - Major depressive disorder, recurrent severe without psychotic features Assessment and Plan: Patient with long history very difficult to treat recurrent depression and anxiety. He has had past trials mirtazapine Wellbutrin olanzapine Currently on fluoxetine Abilify clonazepam at bedtime. Patient is requesting ECT said it had been helpful for him last year encourage to see if he could figure out how to hopefully do maintenance treatment as an outpatient. 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 Risks benefits alternatives reviewed with patient declined literature or video (2) Panic disorder without agoraphobia: Status: Acute Code(s): F41.0 - Panic disorder [episodic paroxysmal anxiety] (3) SHAI (generalized anxiety disorder): Status: Acute Code(s): F41.1 - Generalized anxiety disorder Plan - Admit to inpatient psychiatry - CV - Collateral information from family and providers. - Milieu treatment and group therapy. - Medications:continue same. Consider an ECT series. - Social work evaluation. - Disposition planning. 06/15: Consider an ECT series. Otherwise continue current management and treatment plan. 06/16: hospitalist consult for ECT risk stratification, EKG, ian consult for ECT. continue current mgmt otherwise, pt to abdiaziz over increasing prozac to 80 and/or increasing remeron to 45. case discussed with ian. 06/17: seen by ian. anxious, panic attack at time of interview, got ativan PRN. planning to start ECT tomorrow. medically cleared. 06/18: ECT #1 completed without complication. continue current mgmt. 06/19: anxiety has resolved since first ECT Tx. Tx #2 tomorrow. no complications at present. 06/20: ECT #2 today. no complications. depression persists, anxiety has dissipated. ECT #3 for saturday. 06/21 continue same treatment. 06/22 continue same treatment, tomorrow ECT 06/24/23 Cont plan of care ect 06/25/23 cont plan of care no gross confusion some confusion post ect that clears 06/26/23 Pt improved tolerated todays ect and improved mood 06/26: ECT #5 for tomorrow. slow but steady improvement. reinstate ativan 1 mg daily PRN panic. Reason for continued inpatient stay Substantial Risk for: harm to self, inability to function and rapid decompensation Time Spent With Patient Time: Total time managing care of this patient today __25__ minutes.
[2023-06-27 19:45] VITALS: BP 125/73; PULSE 61; RESP 16; TEMP 36.1; O2SAT 98
[2023-06-27] MEDS: Atorvastatin Calcium 10 MG TABLET PO (22:08)
[2023-06-27] MEDS: Mirtazapine 30 MG TABLET PO (22:08)
[2023-06-27] MEDS: Tamsulosin HCL 0.4 MG CAPSULE PO (22:08)
[2023-06-27] MEDS: Psyllium seed 3.7 GM PACKET PO (22:08)
[2023-06-27] MEDS: Triamcinolone Acet 0.5 % Oint 15 GM TUBE 1 APPL TOPICAL (22:13)
[2023-06-28] VITALS (8 sets, daily range): BP systolic 127–183; BP diastolic 63–99; PULSE 55–100; RESP 16–18; TEMP 35.9–36.8; O2SAT 93–100
[2023-06-28] MEDS: OLANZapine 5 MG TABLET PO (05:35)
--- NOTE | 2023-06-28 06:48 | P.CONAN_ITS ---
[facility] Active Problems Active Problems: All Active Problems Major depressive disorder, recurrent episode, severe with anxious distress (Acute) Routine medical exam (Acute) Panic disorder without agoraphobia (Acute) SHAI (generalized anxiety disorder) (Acute) Major depressive disorder, recurrent severe without psychotic features (Acute) Past Medical History Medical History IBS (irritable bowel syndrome) Hypertension Chronic low back pain BPH w urinary obs/LUTS Obstructive sleep apnea Cervical stenosis of spine Hyperlipidemia History of prediabetes Psoriatic arthritis Psoriasis Family History Family history of problems with anesthesia: No Surgical History Surgical History H/O cervical discectomy H/O inguinal hernia repair History of Problems with Anesthesia: No Social History Social History Household Members: None Housing: Apartment Do you presently have visiting nurse or other home services: Yes (they come once a month) Patient Tobacco Use Status: Never used Tobacco Second Hand Smoke Exposure: Yes Use of substances other than those prescribed or required for medical reasons: No Currently Displaying Signs/Symptoms of Drug Intoxication Withdrawal: No Have you been hit, kicked, punched, or otherwise hurt by someone within the past year? If so, by whom?: No Do you feel safe in your current relationship?: Yes Is there a partner from a previous relationship who is making you feel unsafe now?: No Are you made to feel afraid or neglected: No Advance Directives: No Advance Directives Information Provided: Yes Do you have thoughts of harming others: None Do you have a plan to hurt others: No Plan Recently lost weight without trying: No Nutrition Risks: No Nutritional Risk Poor oral hygiene: No service: No Sexual orientation: Straight/Heterosexual Meds Allergies Allergy/AdvReac Type Severity Reaction Status Date / Time No Known Allergies Allergy Verified 12/21/20 13:27 Active Medications: Current Medications Acetaminophen (Acetaminophen 325 Mg Tablet) 650 mg PO Q6H PRN PRN Reason: Headache/Pain Mild Scale (1-3) Al Hydroxide/Mg Hydroxide (Magnesium Hydrox/Alum Hydrox 30 Ml Oral.Susp) 30 ml PO Q6H PRN PRN Reason: Heartburn/Nausea Aripiprazole (Aripiprazole 5 Mg Tablet) 5 mg PO DAILY [facility] Last Admin: 06/27/23 08:39 Dose: 5 mg Aspirin (Aspirin Enteric Coated 81 Mg Tablet.Dr) 81 mg PO DAILY [facility] Last Admin: 06/27/23 08:40 Dose: 81 mg Atorvastatin Calcium (Atorvastatin Calcium 10 Mg Tablet) 10 mg PO BEDTIME [facility] Last Admin: 06/27/23 22:08 Dose: 10 mg Fluoxetine HCl (Fluoxetine Hcl 20 Mg Capsule) 20 mg PO DAILY [facility] Last Admin: 06/27/23 08:40 Dose: 20 mg Fluoxetine HCl (Fluoxetine Hcl 20 Mg Capsule) 40 mg PO DAILY [facility] Last Admin: 06/27/23 08:39 Dose: 40 mg Hydrocortisone (Hydrocortisone 1 % Cream 28.35 Gm Tube) 1 appl TOPICAL BID PRN; Protocol PRN Reason: facial psoriasis Last Admin: 06/23/23 22:13 Dose: 1 appl Hydroxyzine HCl (Hydroxyzine Hcl 25 Mg Tablet) 25 mg PO Q6H PRN PRN Reason: Anxiety Last Admin: 06/16/23 13:34 Dose: 25 mg Lactated Ringer's (Lr) 1,000 mls @ 50 mls/hr IVCONT .Q20H [facility] Lorazepam (Lorazepam 1 Mg Tablet) 1 mg PO DAILY PRN PRN Reason: panic attack Magnesium Hydroxide (Milk Of Magnesia 30 Ml Oral.Susp) 30 ml PO DAILY PRN PRN Reason: Constipation Mirtazapine (Mirtazapine 30 Mg Tablet) 30 mg PO BEDTIME [facility] Last Admin: 06/27/23 22:08 Dose: 30 mg Multivitamins/Vitamin C (Multivitamin Tablet) 1 tab PO DAILY [facility] Last Admin: 06/27/23 08:40 Dose: 1 tab Olanzapine (Olanzapine 5 Mg Tablet) 5 mg PO MoWeFr [facility] Last Admin: 06/28/23 05:35 Dose: 5 mg Psyllium Hydrophilic Mucilloid (Psyllium Seed 3.7 Gm Packet) 3.7 gm PO BEDTIME [facility] Last Admin: 06/27/23 22:08 Dose: 3.7 gm Tamsulosin HCl (Tamsulosin Hcl 0.4 Mg Capsule) 0.4 mg PO BEDTIME [facility] Last Admin: 06/27/23 22:08 Dose: 0.4 mg Thiamine HCl (Thiamine Hcl 100 Mg Tablet) 100 mg PO DAILY [facility] Last Admin: 06/27/23 08:39 Dose: 100 mg Trazodone HCl (Trazodone Hcl 50 Mg Tablet) 50 mg PO BEDTIME MRX1 PRN PRN Reason: Insomnia Triamcinolone Acetonide (Triamcinolone Acet 0.5 % Oint 15 Gm Tube) 1 appl TOPICAL BID [facility] Last Admin: 06/27/23 22:13 Dose: 1 appl Home Medications ?Medication ?Instructions ?Recorded ?Confirmed ?Last Taken ?Type aspirin 81 mg capsule 81 mg PO DAILY 12/21/20 06/15/23 01/19/21 08:00 History vitamin B complex 1 cap PO DAILY 01/17/21 06/15/23 01/19/21 08:00 History aripiprazole 5 mg tablet 5 mg PO DAILY 06/15/23 06/15/23 Unknown History clonazepam 1 mg tablet 1 mg PO BEDTIME 06/15/23 06/15/23 Unknown History fluoxetine 20 mg capsule 20 mg PO QAM 06/15/23 06/15/23 Unknown History fluoxetine 40 mg capsule 40 mg PO DAILY 06/15/23 06/15/23 Unknown History liothyronine 5 mcg tablet 5 mcg PO BID 06/15/23 06/15/23 Unknown History simvastatin 10 mg tablet 10 mg PO BEDTIME 06/15/23 06/15/23 Unknown History tamsulosin 0.4 mg capsule 0.4 mg PO DAILY 06/15/23 06/15/23 Unknown History Exam Height,Weight and Vital Signs: Height 5 ft 10 in Weight 79.379 kg Last Vital Signs Temp 97.7 F 06/28/23 06:32 Pulse 65 06/28/23 06:32 Resp 16 06/28/23 06:32 BP 139/72 06/28/23 06:32 Pulse Ox 97 06/28/23 06:32 O2 Del Method Room Air 06/28/23 06:32 O2 Flow Rate 2 06/26/23 08:15 Pertinent Lab Results Pertinent Lab Results: Laboratory Tests 06/16/23 07:04 Sodium 144 Potassium 4.5 Chloride 109 H Carbon Dioxide 26 Anion Gap 14 BUN 22 H Creatinine 1.06 Estim Creat Clear Calc 63.6 Estimated GFR > 60 Fasting Glucose 94 Estimat Average Glucose 111 Hemoglobin A1c % 5.5 Calcium 9.5 Total Bilirubin 0.5 AST 18 ALT 21 Alkaline Phosphatase 73 Total Protein 6.5 Albumin 3.8 Triglycerides 89 Cholesterol 188 LDL Cholesterol, Calc 120 H HDL Cholesterol 51 Vitamin B12 300 Folate 6.4 TSH 1.44 Airway Mallampati Class: II TM Dist: >3cm Neck ROM: Full Heart: rrr Lungs: cta Assessment and Plan Assessment Anesthesia Assessment: Anesthesia Plan Discussed and Chart Reviewed Final Anesthetic Review Family History of Problems with Anesthesia: No History of Problems with Anesthesia: No NPO: Yes ASA Class: III Final Preanesthetic Review: No Changes in Pt Med Stat, Meds/Allgs Chart Reviewed and Consent Obtained/Reviewed Patient Risk: Intermediate Procedure Risk: Intermediate Anesthetic Plan Anesthetic Plan: GA Disposition: Standard PACU
--- NOTE | 2023-06-28 07:11 | MHC.SHP ---
Pre-Procedural Eval Section A - 24 Hr Update-Section A only Date of Service: 06/28/23 The patient is an INPATIENT: Yes Changes since office visit: No Cold of Flu in the past 2 weeks, No New Medical Problems, No Changes in Medication and No Patient answered all questions The patient has been examined within 24 hours of the surgical procedure. The History & Physical has been completed within 30 days and I have reviewed it.: Yes Section B - Complete if H&P > 30 days Chief Complaint: Unspecified anxiety, unspecified depression Allergies: Allergies Allergy/AdvReac Type Severity Reaction Status Date / Time No Known Allergies Allergy Verified 12/21/20 13:27 Review of Systems Sugical H&P ROS: Negative: Cardiovascular, Respiratory and Neurological Exam Surgical H&P Exam: Normal: Heart and Normal: Lungs Plan Diagnosis/Plan: Unchanged I have reviewed the history and physical and performed a pertinent physical examination on my patient. No changes have occurred unless specified. Time Spent With Patient Time: Total time managing care of this patient today ____ minutes.
--- NOTE | 2023-06-28 07:15 | HO.ECTPROC ---
Documented by User: Martín Ramirez MD 06/28/23 07:18 ECT Procedure Note Diagnosis/Treatment Date of Service: 06/28/23 Diagnosis: Major Depressive Disorder Previous ECT Date: 06/26/23 Current Treatment Number: 5 Time: Total time managing care of this patient today ____ minutes. ECT Settings Device: THYMATRON DGx Documented by User: Cricket Cardenas MD 07/07/23 14:11 ECT Procedure Note Diagnosis/Treatment Date of Service: 07/07/23 Treatment: Series Interval Clinical Notes: pt with ? some improvement no significant s/e except immediate post op rtlf completed 2 mg iv ativan 2 mg haldol inc 5 mg next tx ECT Settings Electrode Placement: Rt temporal/ Lt frontal Program/Pulse Width: 0.25 Energy Percent: 55 Seizure Duration By EEG (in seconds): 65 Medications Administration General Anesthetic: Methohexital (120) Muscle Relaxant: Succinylcholine (140) Ancillary Medications Analgesics: Torodol - Pre ECT Anti-emetics: Zofran - Pre ECT Miscillaneous Medications: Haldol and Other (lorazepam 2 mg iv) Airway Management Airway Management: Bag Mask Ventilation Treatment Recommendations Notes: could decrease stim next tx ? 45
[2023-06-28] MEDS: LORazepam 2 MG/ML VIAL 1 MG IVPUSH (08:14)
[2023-06-28] MEDS: FLUoxetine HCl 20 MG CAPSULE 40 MG PO (09:30)
[2023-06-28] MEDS: FLUoxetine HCl 20 MG CAPSULE PO (09:30)
[2023-06-28] MEDS: ARIPiprazole 5 MG TABLET PO (09:31)
[2023-06-28] MEDS: Aspirin Enteric Coated 81 MG TABLET.DR PO (09:31)
[2023-06-28] MEDS: Multivitamin TABLET 1 TAB PO (09:31)
[2023-06-28] MEDS: Thiamine HCL 100 MG TABLET PO (09:31)
--- NOTE | 2023-06-28 17:05 | P.PNPSI_ITS ---
Subjective Subjective Date of Service: 06/28/23 Reason For Visit: Unspecified anxiety, unspecified depression Interim History: calm, cooperative, resting after ECT #5. no complaints or requests. per staff, experiencing some anxiety. taking meds. attending groups. flat, withdrawn. slept about 7 hours. ECT completed this morning. Mental Status Exam Mental Status Exam Narrative: Patient Appearance:?adequately dressed and groomed Patient Orientation:?Person, Place, Time and Situation Level of Consciousness:?Alert Patient Behavior:?Appropriate, Cooperative, Good Eye Contact Mood Description:?less depressed Affect Description:?constricted, hypo-intense, non-labile Patient Cognition Impaired:?No Ability to Follow Directions:?Good Speech Pattern: Spontaneous Speech Memory Description:?Intact Hallucinations:?None Delusions:?Not Present Thought Process:?linear, logical, goal oriented Thought Content: no delusions or paranoia expressed Abnormal Motor Activity Signs and Symptoms:? None Judgement:?Fair Diagnostics Vital Signs (24Hr): Vital Signs - 24 hr 06/27/23 19:45 06/28/23 06:32 06/28/23 08:06 Temperature 97.0 F 97.7 F 98.3 F Pulse Rate 61 65 95 Respiratory Rate 16 16 16 Blood Pressure 125/73 139/72 183/99 H Pulse Oximetry 98 97 93 Oxygen Delivery Method Room Air Room Air Room Air 06/28/23 08:11 06/28/23 08:16 06/28/23 08:21 Temperature Pulse Rate 100 94 90 Respiratory Rate 16 16 16 Blood Pressure 130/82 128/70 127/82 Pulse Oximetry 100 100 100 Oxygen Delivery Method Room Air Room Air Room Air 06/28/23 08:35 06/28/23 09:00 Temperature 98.3 F 96.6 F L Pulse Rate 82 62 Respiratory Rate 16 Blood Pressure 137/64 135/63 Pulse Oximetry 100 96 Oxygen Delivery Method Room Air Room Air BMI result Body Mass Index 25.1 Labs 06/16/23 07:04 Medications Medications Current Medications Acetaminophen (Acetaminophen 325 Mg Tablet) 650 mg PO Q6H PRN PRN Reason: Headache/Pain Mild Scale (1-3) Al Hydroxide/Mg Hydroxide (Magnesium Hydrox/Alum Hydrox 30 Ml Oral.Susp) 30 ml PO Q6H PRN PRN Reason: Heartburn/Nausea Aripiprazole (Aripiprazole 5 Mg Tablet) 5 mg PO DAILY [facility] Last Admin: 06/28/23 09:31 Dose: 5 mg Aspirin (Aspirin Enteric Coated 81 Mg Tablet.) 81 mg PO DAILY [facility] Last Admin: 06/28/23 09:31 Dose: 81 mg Atorvastatin Calcium (Atorvastatin Calcium 10 Mg Tablet) 10 mg PO BEDTIME [facility] Last Admin: 06/27/23 22:08 Dose: 10 mg Fluoxetine HCl (Fluoxetine Hcl 20 Mg Capsule) 20 mg PO DAILY [facility] Last Admin: 06/28/23 09:30 Dose: 20 mg Fluoxetine HCl (Fluoxetine Hcl 20 Mg Capsule) 40 mg PO DAILY [facility] Last Admin: 06/28/23 09:30 Dose: 40 mg Haloperidol Lactate (Haloperidol Lactate 5 Mg/Ml Vial) 2 mg IVPUSH ONCE PRN PRN Reason: post op agitation Hydrocortisone (Hydrocortisone 1 % Cream 28.35 Gm Tube) 1 appl TOPICAL BID PRN; Protocol PRN Reason: facial psoriasis Last Admin: 06/23/23 22:13 Dose: 1 appl Hydroxyzine HCl (Hydroxyzine Hcl 25 Mg Tablet) 25 mg PO Q6H PRN PRN Reason: Anxiety Last Admin: 06/16/23 13:34 Dose: 25 mg Lorazepam (Lorazepam 1 Mg Tablet) 1 mg PO DAILY PRN PRN Reason: panic attack Magnesium Hydroxide (Milk Of Magnesia 30 Ml Oral.Susp) 30 ml PO DAILY PRN PRN Reason: Constipation Mirtazapine (Mirtazapine 30 Mg Tablet) 30 mg PO BEDTIME [facility] Last Admin: 06/27/23 22:08 Dose: 30 mg Multivitamins/Vitamin C (Multivitamin Tablet) 1 tab PO DAILY [facility] Last Admin: 06/28/23 09:31 Dose: 1 tab Olanzapine (Olanzapine 5 Mg Tablet) 5 mg PO MoWeFr [facility] Last Admin: 06/28/23 05:35 Dose: 5 mg Psyllium Hydrophilic Mucilloid (Psyllium Seed 3.7 Gm Packet) 3.7 gm PO BEDTIME [facility] Last Admin: 06/27/23 22:08 Dose: 3.7 gm Tamsulosin HCl (Tamsulosin Hcl 0.4 Mg Capsule) 0.4 mg PO BEDTIME [facility] Last Admin: 06/27/23 22:08 Dose: 0.4 mg Thiamine HCl (Thiamine Hcl 100 Mg Tablet) 100 mg PO DAILY [facility] Last Admin: 06/28/23 09:31 Dose: 100 mg Trazodone HCl (Trazodone Hcl 50 Mg Tablet) 50 mg PO BEDTIME MRX1 PRN PRN Reason: Insomnia Triamcinolone Acetonide (Triamcinolone Acet 0.5 % Oint 15 Gm Tube) 1 appl TOPICAL BID [facility] Last Admin: 06/28/23 09:31 Dose: Not Given Allergies Allergies Allergy/AdvReac Type Severity Reaction Status Date / Time No Known Allergies Allergy Verified 12/21/20 13:27 Assessment & Plan Assessment & Plan (1) Major depressive disorder, recurrent episode, severe with anxious distress: Status: Acute Code(s): F33.2 - Major depressive disorder, recurrent severe without psychotic features Assessment and Plan: Patient with long history very difficult to treat recurrent depression and anxiety. He has had past trials mirtazapine Wellbutrin olanzapine Currently on fluoxetine Abilify clonazepam at bedtime. Patient is requesting ECT said it had been helpful for him last year encourage to see if he could figure out how to hopefully do maintenance treatment as an outpatient. 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 Risks benefits alternatives reviewed with patient declined literature or video (2) Panic disorder without agoraphobia: Status: Acute Code(s): F41.0 - Panic disorder [episodic paroxysmal anxiety] (3) SHAI (generalized anxiety disorder): Status: Acute Code(s): F41.1 - Generalized anxiety disorder Plan - Admit to inpatient psychiatry - CV - Collateral information from family and providers. - Milieu treatment and group therapy. - Medications:continue same. Consider an ECT series. - Social work evaluation. - Disposition planning. 06/15: Consider an ECT series. Otherwise continue current management and treatment plan. 06/16: hospitalist consult for ECT risk stratification, EKG, ian consult for ECT. continue current mgmt otherwise, pt to abdiaziz over increasing prozac to 80 and/or increasing remeron to 45. case discussed with ian. 06/17: seen by ian. anxious, panic attack at time of interview, got ativan PRN. planning to start ECT tomorrow. medically cleared. 06/18: ECT #1 completed without complication. continue current mgmt. 06/19: anxiety has resolved since first ECT Tx. Tx #2 tomorrow. no complications at present. 06/20: ECT #2 today. no complications. depression persists, anxiety has dissipated. ECT #3 for saturday. 06/21 continue same treatment. 06/22 continue same treatment, tomorrow ECT 06/24/23 Cont plan of care ect 06/25/23 cont plan of care no gross confusion some confusion post ect that clears 06/26/23 Pt improved tolerated todays ect and improved mood 06/26: ECT #5 for tomorrow. slow but steady improvement. reinstate ativan 1 mg daily PRN panic. 06/27: ECT #5 completed. still flat, depressed appearing, reporting he is improved. case discussed with outpt provider ron, who endorses switch from abilify to vraylar. in addition, he has correlated severe anxiety in pt with returning to live alone and has suggested assisted living, encouraging inpatient team to engage pt on that issue to improve long-term prognosis. Reason for continued inpatient stay Substantial Risk for: inability to function and rapid decompensation Time Spent With Patient Time: Total time managing care of this patient today __35__ minutes.
[2023-06-28] MEDS: Mirtazapine 30 MG TABLET PO (21:53)
[2023-06-28] MEDS: Tamsulosin HCL 0.4 MG CAPSULE PO (21:53)
[2023-06-28] MEDS: Psyllium seed 3.7 GM PACKET PO (21:53)
[2023-06-28] MEDS: Atorvastatin Calcium 10 MG TABLET PO (21:53)
[2023-06-28] MEDS: Hydrocortisone 1 % Cream 28.35 GM TUBE 1 APPL TOPICAL (21:56)
[2023-06-28] MEDS: Triamcinolone Acet 0.5 % Oint 15 GM TUBE 1 APPL TOPICAL (21:57)
[2023-06-29 07:48] VITALS: BP 143/65; PULSE 69; RESP 16; TEMP 37; O2SAT 97
[2023-06-29] MEDS: FLUoxetine HCl 20 MG CAPSULE PO (08:59)
[2023-06-29] MEDS: Thiamine HCL 100 MG TABLET PO (09:00)
[2023-06-29] MEDS: FLUoxetine HCl 20 MG CAPSULE 40 MG PO (09:00)
[2023-06-29] MEDS: Multivitamin TABLET 1 TAB PO (09:00)
[2023-06-29] MEDS: Aspirin Enteric Coated 81 MG TABLET.DR PO (09:00)
[2023-06-29] MEDS: ARIPiprazole 5 MG TABLET PO (09:00)
--- NOTE | 2023-06-29 10:48 | P.PNPSI_ITS ---
Subjective Subjective Date of Service: 06/29/23 Reason For Visit: Unspecified anxiety, unspecified depression Subjective Notes: Conditional Voluntary Interim History: Reviewed with Dr. Cardenas. Pt reports feeling down this morning; he is unclear why. Pt reports some anxiety; states he is sleeping well. denies SI/HI/VH/AH. Medication Compliance: Yes Attending Groups: Yes Review of Systems Constitutional: Reports as per HPI Eyes: Reports as per HPI Reports as per HPI Cardiovascular: Reports as per HPI Respiratory: Reports as per HPI Gastrointestinal: Reports as per HPI Genitourinary: Reports as per HPI Musculoskeletal: Reports as per HPI Skin/Breast: Reports as per HPI Reports as per HPI Psychiatric: Reports as per HPI Endocrine: Reports as per HPI Hematologic/Lymphatic: Reports as per HPI Allergic/Immunologic: Reports as per HPI Mental Status Exam Mental Status Exam Narrative: Pt is alert and oriented; behavior is cooperative and calm; dressed in casual attire; mood is described as down ; eye contact appropriate; Speech is normal rate, volume and prosody and not pressured; thought process is organized; Thought content is on tx; denies SI/HI/VH/AH. Diagnostics Vital Signs (24Hr): Vital Signs - 24 hr 06/28/23 20:02 06/29/23 07:48 Temperature 97.5 F 98.6 F Pulse Rate 55 69 Respiratory Rate 18 16 Blood Pressure 128/71 143/65 H Pulse Oximetry 96 97 Oxygen Delivery Method Room Air Room Air BMI result Body Mass Index 25.1 Labs 06/16/23 07:04 Medications Medications Current Medications Acetaminophen (Acetaminophen 325 Mg Tablet) 650 mg PO Q6H PRN PRN Reason: Headache/Pain Mild Scale (1-3) Al Hydroxide/Mg Hydroxide (Magnesium Hydrox/Alum Hydrox 30 Ml Oral.Susp) 30 ml PO Q6H PRN PRN Reason: Heartburn/Nausea Aripiprazole (Aripiprazole 5 Mg Tablet) 5 mg PO DAILY [facility] Last Admin: 06/29/23 09:00 Dose: 5 mg Aspirin (Aspirin Enteric Coated 81 Mg Tablet.) 81 mg PO DAILY [facility] Last Admin: 06/29/23 09:00 Dose: 81 mg Atorvastatin Calcium (Atorvastatin Calcium 10 Mg Tablet) 10 mg PO BEDTIME [facility] Last Admin: 06/28/23 21:53 Dose: 10 mg Fluoxetine HCl (Fluoxetine Hcl 20 Mg Capsule) 20 mg PO DAILY [facility] Last Admin: 06/29/23 08:59 Dose: 20 mg Fluoxetine HCl (Fluoxetine Hcl 20 Mg Capsule) 40 mg PO DAILY [facility] Last Admin: 06/29/23 09:00 Dose: 40 mg Haloperidol Lactate (Haloperidol Lactate 5 Mg/Ml Vial) 2 mg IVPUSH ONCE PRN PRN Reason: post op agitation Hydrocortisone (Hydrocortisone 1 % Cream 28.35 Gm Tube) 1 appl TOPICAL BID PRN; Protocol PRN Reason: facial psoriasis Last Admin: 06/28/23 21:56 Dose: 1 appl Hydroxyzine HCl (Hydroxyzine Hcl 25 Mg Tablet) 25 mg PO Q6H PRN PRN Reason: Anxiety Last Admin: 06/16/23 13:34 Dose: 25 mg Lorazepam (Lorazepam 1 Mg Tablet) 1 mg PO DAILY PRN PRN Reason: panic attack Magnesium Hydroxide (Milk Of Magnesia 30 Ml Oral.Susp) 30 ml PO DAILY PRN PRN Reason: Constipation Mirtazapine (Mirtazapine 30 Mg Tablet) 30 mg PO BEDTIME [facility] Last Admin: 06/28/23 21:53 Dose: 30 mg Multivitamins/Vitamin C (Multivitamin Tablet) 1 tab PO DAILY [facility] Last Admin: 06/29/23 09:00 Dose: 1 tab Olanzapine (Olanzapine 5 Mg Tablet) 5 mg PO MoWeFr [facility] Last Admin: 06/28/23 05:35 Dose: 5 mg Psyllium Hydrophilic Mucilloid (Psyllium Seed 3.7 Gm Packet) 3.7 gm PO BEDTIME [facility] Last Admin: 06/28/23 21:53 Dose: 3.7 gm Tamsulosin HCl (Tamsulosin Hcl 0.4 Mg Capsule) 0.4 mg PO BEDTIME [facility] Last Admin: 06/28/23 21:53 Dose: 0.4 mg Thiamine HCl (Thiamine Hcl 100 Mg Tablet) 100 mg PO DAILY [facility] Last Admin: 06/29/23 09:00 Dose: 100 mg Trazodone HCl (Trazodone Hcl 50 Mg Tablet) 50 mg PO BEDTIME MRX1 PRN PRN Reason: Insomnia Triamcinolone Acetonide (Triamcinolone Acet 0.5 % Oint 15 Gm Tube) 1 appl TOPICAL BID [facility] Last Admin: 06/29/23 09:01 Dose: Not Given Allergies Allergies Allergy/AdvReac Type Severity Reaction Status Date / Time No Known Allergies Allergy Verified 12/21/20 13:27 Assessment & Plan Assessment & Plan (1) Major depressive disorder, recurrent episode, severe with anxious distress: Status: Acute Code(s): F33.2 - Major depressive disorder, recurrent severe without psychotic features Assessment and Plan: Patient with long history very difficult to treat recurrent depression and anxiety. He has had past trials mirtazapine Wellbutrin olanzapine Currently on fluoxetine Abilify clonazepam at bedtime. Patient is requesting ECT said it had been helpful for him last year encourage to see if he could figure out how to hopefully do maintenance treatment as an outpatient. 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 Risks benefits alternatives reviewed with patient declined literature or video (2) Panic disorder without agoraphobia: Status: Acute Code(s): F41.0 - Panic disorder [episodic paroxysmal anxiety] (3) SHAI (generalized anxiety disorder): Status: Acute Code(s): F41.1 - Generalized anxiety disorder Plan - Admit to inpatient psychiatry - CV - Collateral information from family and providers. - Milieu treatment and group therapy. - Medications:continue same. Consider an ECT series. - Social work evaluation. - Disposition planning. 06/15: Consider an ECT series. Otherwise continue current management and treatment plan. 06/16: hospitalist consult for ECT risk stratification, EKG, ian consult for ECT. continue current mgmt otherwise, pt to abdiaziz over increasing prozac to 80 and/or increasing remeron to 45. case discussed with ian. 06/17: seen by ian. anxious, panic attack at time of interview, got ativan PRN. planning to start ECT tomorrow. medically cleared. 06/18: ECT #1 completed without complication. continue current mgmt. 06/19: anxiety has resolved since first ECT Tx. Tx #2 tomorrow. no complications at present. 06/20: ECT #2 today. no complications. depression persists, anxiety has dissipated. ECT #3 for saturday. 06/21 continue same treatment. 06/22 continue same treatment, tomorrow ECT 06/24/23 Cont plan of care ect 06/25/23 cont plan of care no gross confusion some confusion post ect that clears 06/26/23 Pt improved tolerated todays ect and improved mood 06/26: ECT #5 for tomorrow. slow but steady improvement. reinstate ativan 1 mg daily PRN panic. 06/27: ECT #5 completed. still flat, depressed appearing, reporting he is improved. case discussed with outpt provider ron, who endorses switch from abilify to vraylar. in addition, he has correlated severe anxiety in pt with returning to live alone and has suggested assisted living, encouraging inpatient team to engage pt on that issue to improve long-term prognosis. 06/28: continue current tx plan. Patient educated on: diagnosis, medication risk/benefits and therapeutic strategies Informed Consent: understands Reason for continued inpatient stay Substantial Risk for: med/psych decompensation Time Spent With Patient Time: Total time managing care of this patient today _20___ minutes.
[2023-06-29 19:13] VITALS: BP 133/69; PULSE 56; RESP 16; TEMP 36.4; O2SAT 99
[2023-06-29] MEDS: clonazePAM 1 MG TABLET PO (21:25)
[2023-06-29] MEDS: Mirtazapine 30 MG TABLET PO (21:25)
[2023-06-29] MEDS: Tamsulosin HCL 0.4 MG CAPSULE PO (21:25)
[2023-06-29] MEDS: Atorvastatin Calcium 10 MG TABLET PO (21:25)
[2023-06-29] MEDS: Psyllium seed 3.7 GM PACKET PO (21:25)
[2023-06-29] MEDS: Triamcinolone Acet 0.5 % Oint 15 GM TUBE 1 APPL TOPICAL (21:30)
[2023-06-29] MEDS: Hydrocortisone 1 % Cream 28.35 GM TUBE 1 APPL TOPICAL (21:30)
--- NOTE | 2023-06-30 08:34 | P.PNPSI_ITS ---
Subjective Subjective Date of Service: 06/30/23 Reason For Visit: Unspecified anxiety, unspecified depression Subjective Notes: Conditional Voluntary Interim History: Reviewed with Dr. Cardenas. Pt reports feeling depressed this morning; pt stated, I'm depressed about being in the hospital and having to get ECT in the morning. I don't know if it's helping me . denies SI/HI/VH/AH. Medication Compliance: Yes Side effects from medications: No Attending Groups: Yes Review of Systems Constitutional: Reports as per HPI Eyes: Reports as per HPI Reports as per HPI Cardiovascular: Reports as per HPI Respiratory: Reports as per HPI Gastrointestinal: Reports as per HPI Genitourinary: Reports as per HPI Musculoskeletal: Reports as per HPI Skin/Breast: Reports as per HPI Reports as per HPI Psychiatric: Reports as per HPI Endocrine: Reports as per HPI Hematologic/Lymphatic: Reports as per HPI Allergic/Immunologic: Reports as per HPI Mental Status Exam Mental Status Exam Narrative: Pt is alert and oriented; behavior is cooperative and calm; dressed in casual attire; mood is described as depressed ; eye contact appropriate; Speech is normal rate, volume and prosody and not pressured; thought process is organized; Thought content is on tx; denies SI/HI/VH/AH. Diagnostics Vital Signs (24Hr): Vital Signs - 24 hr 06/29/23 19:13 Temperature 97.6 F Pulse Rate 56 Respiratory Rate 16 Blood Pressure 133/69 Pulse Oximetry 99 Oxygen Delivery Method Room Air BMI result Body Mass Index 25.1 Labs 06/16/23 07:04 Medications Medications Current Medications Acetaminophen (Acetaminophen 325 Mg Tablet) 650 mg PO Q6H PRN PRN Reason: Headache/Pain Mild Scale (1-3) Al Hydroxide/Mg Hydroxide (Magnesium Hydrox/Alum Hydrox 30 Ml Oral.Susp) 30 ml PO Q6H PRN PRN Reason: Heartburn/Nausea Aripiprazole (Aripiprazole 5 Mg Tablet) 5 mg PO DAILY [facility] Last Admin: 06/29/23 09:00 Dose: 5 mg Aspirin (Aspirin Enteric Coated 81 Mg Tablet.) 81 mg PO DAILY [facility] Last Admin: 06/29/23 09:00 Dose: 81 mg Atorvastatin Calcium (Atorvastatin Calcium 10 Mg Tablet) 10 mg PO BEDTIME [facility] Last Admin: 06/29/23 21:25 Dose: 10 mg Clonazepam (Clonazepam 1 Mg Tablet) 1 mg PO BEDTIME [facility] Last Admin: 06/29/23 21:25 Dose: 1 mg Fluoxetine HCl (Fluoxetine Hcl 20 Mg Capsule) 20 mg PO DAILY [facility] Last Admin: 06/29/23 08:59 Dose: 20 mg Fluoxetine HCl (Fluoxetine Hcl 20 Mg Capsule) 40 mg PO DAILY [facility] Last Admin: 06/29/23 09:00 Dose: 40 mg Haloperidol Lactate (Haloperidol Lactate 5 Mg/Ml Vial) 2 mg IVPUSH ONCE PRN PRN Reason: post op agitation Hydrocortisone (Hydrocortisone 1 % Cream 28.35 Gm Tube) 1 appl TOPICAL BID PRN; Protocol PRN Reason: facial psoriasis Last Admin: 06/29/23 21:30 Dose: 1 appl Hydroxyzine HCl (Hydroxyzine Hcl 25 Mg Tablet) 25 mg PO Q6H PRN PRN Reason: Anxiety Last Admin: 06/16/23 13:34 Dose: 25 mg Lorazepam (Lorazepam 1 Mg Tablet) 1 mg PO DAILY PRN PRN Reason: panic attack Magnesium Hydroxide (Milk Of Magnesia 30 Ml Oral.Susp) 30 ml PO DAILY PRN PRN Reason: Constipation Mirtazapine (Mirtazapine 30 Mg Tablet) 30 mg PO BEDTIME [facility] Last Admin: 06/29/23 21:25 Dose: 30 mg Multivitamins/Vitamin C (Multivitamin Tablet) 1 tab PO DAILY [facility] Last Admin: 06/29/23 09:00 Dose: 1 tab Olanzapine (Olanzapine 5 Mg Tablet) 5 mg PO MoWeFr [facility] Last Admin: 06/28/23 05:35 Dose: 5 mg Psyllium Hydrophilic Mucilloid (Psyllium Seed 3.7 Gm Packet) 3.7 gm PO BEDTIME [facility] Last Admin: 06/29/23 21:25 Dose: 3.7 gm Tamsulosin HCl (Tamsulosin Hcl 0.4 Mg Capsule) 0.4 mg PO BEDTIME [facility] Last Admin: 06/29/23 21:25 Dose: 0.4 mg Thiamine HCl (Thiamine Hcl 100 Mg Tablet) 100 mg PO DAILY [facility] Last Admin: 06/29/23 09:00 Dose: 100 mg Trazodone HCl (Trazodone Hcl 50 Mg Tablet) 50 mg PO BEDTIME MRX1 PRN PRN Reason: Insomnia Triamcinolone Acetonide (Triamcinolone Acet 0.5 % Oint 15 Gm Tube) 1 appl TOPICAL BID [facility] Last Admin: 06/29/23 21:30 Dose: 1 appl Allergies Allergies Allergy/AdvReac Type Severity Reaction Status Date / Time No Known Allergies Allergy Verified 12/21/20 13:27 Assessment & Plan Assessment & Plan (1) Major depressive disorder, recurrent episode, severe with anxious distress: Status: Acute Code(s): F33.2 - Major depressive disorder, recurrent severe without psychotic features Assessment and Plan: Patient with long history very difficult to treat recurrent depression and anxiety. He has had past trials mirtazapine Wellbutrin olanzapine Currently on fluoxetine Abilify clonazepam at bedtime. Patient is requesting ECT said it had been helpful for him last year encourage to see if he could figure out how to hopefully do maintenance treatment as an outpatient. There are no medical contraindications EKG shows left anterior fascicular block which appears to be a chronic finding history of BPH ECT reportedly well tolerated last year at [facility] his pulse appears to Chronically run somewhat low might benefit from glycopyrrolate pretreatment. Risks benefits alternatives reviewed with patient declined literature or video (2) Panic disorder without agoraphobia: Status: Acute Code(s): F41.0 - Panic disorder [episodic paroxysmal anxiety] (3) SHAI (generalized anxiety disorder): Status: Acute Code(s): F41.1 - Generalized anxiety disorder Plan - Admit to inpatient psychiatry - CV - Collateral information from family and providers. - Milieu treatment and group therapy. - Medications:continue same. Consider an ECT series. - Social work evaluation. - Disposition planning. 06/15: Consider an ECT series. Otherwise continue current management and treatment plan. 06/16: hospitalist consult for ECT risk stratification, EKG, ian consult for ECT. continue current mgmt otherwise, pt to abdiaziz over increasing prozac to 80 and/or increasing remeron to 45. case discussed with ian. 06/17: seen by ian. anxious, panic attack at time of interview, got ativan PRN. planning to start ECT tomorrow. medically cleared. 06/18: ECT #1 completed without complication. continue current mgmt. 06/19: anxiety has resolved since first ECT Tx. Tx #2 tomorrow. no complications at present. 06/20: ECT #2 today. no complications. depression persists, anxiety has dissipated. ECT #3 for saturday. 06/21 continue same treatment. 06/22 continue same treatment, tomorrow ECT 06/24/23 Cont plan of care ect 06/25/23 cont plan of care no gross confusion some confusion post ect that clears 06/26/23 Pt improved tolerated todays ect and improved mood 06/26: ECT #5 for tomorrow. slow but steady improvement. reinstate ativan 1 mg daily PRN panic. 06/27: ECT #5 completed. still flat, depressed appearing, reporting he is improved. case discussed with outpt provider ron, who endorses switch from abilify to vraylar. in addition, he has correlated severe anxiety in pt with returning to live alone and has suggested assisted living, encouraging inpatient team to engage pt on that issue to improve long-term prognosis. 06/28: continue current tx plan. 06/29: continue tx plan. Patient educated on: diagnosis, medication risk/benefits and therapeutic strategies Informed Consent: understands Reason for continued inpatient stay Substantial Risk for: med/psych decompensation Time Spent With Patient Time: Total time managing care of this patient today _20___ minutes.
[2023-06-30 08:50] VITALS: BP 157/74; PULSE 59; RESP 18; TEMP 36.8; O2SAT 98
[2023-06-30] MEDS: FLUoxetine HCl 20 MG CAPSULE 40 MG PO (09:24)
[2023-06-30] MEDS: Multivitamin TABLET 1 TAB PO (09:24)
[2023-06-30] MEDS: Thiamine HCL 100 MG TABLET PO (09:24)
[2023-06-30] MEDS: ARIPiprazole 5 MG TABLET PO (09:24)
[2023-06-30] MEDS: Aspirin Enteric Coated 81 MG TABLET.DR PO (09:24)
[2023-06-30] MEDS: FLUoxetine HCl 20 MG CAPSULE PO (09:24)
[2023-06-30 21:30] VITALS: BP 130/70; PULSE 57; RESP 16; TEMP 35.8; O2SAT 96
[2023-06-30] MEDS: Atorvastatin Calcium 10 MG TABLET PO (21:36)
[2023-06-30] MEDS: Psyllium seed 3.7 GM PACKET PO (21:36)
[2023-06-30] MEDS: Mirtazapine 30 MG TABLET PO (21:36)
[2023-06-30] MEDS: Tamsulosin HCL 0.4 MG CAPSULE PO (21:37)
[2023-06-30] MEDS: hydrOXYzine HCL 25 MG TABLET PO (21:37)
[2023-06-30] MEDS: Triamcinolone Acet 0.5 % Oint 15 GM TUBE 1 APPL TOPICAL (22:03)
[2023-07-01] MEDS: OLANZapine 5 MG TABLET PO (05:45)
[2023-07-01 05:52] VITALS: BP 160/59; PULSE 60; RESP 14; TEMP 36.7; O2SAT 98
--- NOTE | 2023-07-01 06:22 | PC.NURSE ---
Pt very anxious upon arrival to PACU. Pt wanted to use bathroom walked in and placed self on the floor while moaning. Pt helped back to wheelchair and brought back up to M3.
[2023-07-01] MEDS: LORazepam 1 MG TABLET PO (06:27)
--- NOTE | 2023-07-01 06:34 | PC.NURSE ---
At 0610, this nurse was escorting Robert to the PACU for his ECT. When we arrived on the second floor and began walking down the hallway towards the PACU, patient reported that he was having a panic attack. As we went into the PACU, patient asked to use the bathroom. When in the doorway to the bathroom, patient reported feeling dizzy and then sat down on the floor. Nurse assisted patient from the sitting position on the floor back into the wheelchair. Patient told PACU nurse that he did not want to have ECT today. Patient was brought back to M3 and medicated with Ativan 1 mg PO prn for the panic attack.
[2023-07-01 08:00] VITALS: BP 140/63; PULSE 73; RESP 16; TEMP 36.1; O2SAT 99
[2023-07-01] MEDS: Aspirin Enteric Coated 81 MG TABLET.DR PO (09:02)
[2023-07-01] MEDS: ARIPiprazole 5 MG TABLET PO (09:02)
[2023-07-01] MEDS: Multivitamin TABLET 1 TAB PO (09:02)
[2023-07-01] MEDS: FLUoxetine HCl 20 MG CAPSULE PO (09:03)
[2023-07-01] MEDS: FLUoxetine HCl 20 MG CAPSULE 40 MG PO (09:03)
[2023-07-01] MEDS: Thiamine HCL 100 MG TABLET PO (09:03)
--- NOTE | 2023-07-01 15:19 | P.PNPSI_ITS ---
Subjective Subjective Date of Service: 07/01/23 Reason For Visit: Unspecified anxiety, unspecified depression Interim History: calm, cooperative. had a panic attack in prep for ECT this morning and so declined and returned to unit without treatment. discussed DC of abilify and start of vraylar, which pt agreed to. will d/w ian any need for change in prep regimen. per staff, declined ECT this morning 2/2 panic attack. slept 7 hours. Mental Status Exam Mental Status Exam Narrative: Pt is alert and oriented; behavior is cooperative and calm; dressed in casual attire; eye contact appropriate; Speech is normal rate, volume and prosody and not pressured; thought process is organized; Thought content is on tx; no SI/HI/VH/AH expressed. Diagnostics Vital Signs (24Hr): Vital Signs - 24 hr 06/30/23 21:30 07/01/23 05:52 07/01/23 08:00 Temperature 96.4 F L 98.1 F 96.9 F Pulse Rate 57 60 73 Respiratory Rate 16 14 16 Blood Pressure 130/70 160/59 H 140/63 H Pulse Oximetry 96 98 99 Oxygen Delivery Method Room Air Room Air Room Air BMI result Body Mass Index 25.1 Labs 06/16/23 07:04 Medications Medications Current Medications Acetaminophen (Acetaminophen 325 Mg Tablet) 650 mg PO Q6H PRN PRN Reason: Headache/Pain Mild Scale (1-3) Al Hydroxide/Mg Hydroxide (Magnesium Hydrox/Alum Hydrox 30 Ml Oral.Susp) 30 ml PO Q6H PRN PRN Reason: Heartburn/Nausea Aripiprazole (Aripiprazole 5 Mg Tablet) 5 mg PO DAILY [facility] Last Admin: 07/01/23 09:02 Dose: 5 mg Aspirin (Aspirin Enteric Coated 81 Mg Tablet.) 81 mg PO DAILY [facility] Last Admin: 07/01/23 09:02 Dose: 81 mg Atorvastatin Calcium (Atorvastatin Calcium 10 Mg Tablet) 10 mg PO BEDTIME [facility] Last Admin: 06/30/23 21:36 Dose: 10 mg Clonazepam (Clonazepam 1 Mg Tablet) 1 mg PO BEDTIME [facility] Last Admin: 06/30/23 21:44 Dose: Not Given Fluoxetine HCl (Fluoxetine Hcl 20 Mg Capsule) 20 mg PO DAILY [facility] Last Admin: 07/01/23 09:03 Dose: 20 mg Fluoxetine HCl (Fluoxetine Hcl 20 Mg Capsule) 40 mg PO DAILY [facility] Last Admin: 07/01/23 09:03 Dose: 40 mg Haloperidol Lactate (Haloperidol Lactate 5 Mg/Ml Vial) 2 mg IVPUSH ONCE PRN PRN Reason: post op agitation Hydrocortisone (Hydrocortisone 1 % Cream 28.35 Gm Tube) 1 appl TOPICAL BID PRN; Protocol PRN Reason: facial psoriasis Last Admin: 06/29/23 21:30 Dose: 1 appl Hydroxyzine HCl (Hydroxyzine Hcl 25 Mg Tablet) 25 mg PO Q6H PRN PRN Reason: Anxiety Last Admin: 06/30/23 21:37 Dose: 25 mg Lorazepam (Lorazepam 1 Mg Tablet) 1 mg PO DAILY PRN PRN Reason: panic attack Last Admin: 07/01/23 06:27 Dose: 1 mg Magnesium Hydroxide (Milk Of Magnesia 30 Ml Oral.Susp) 30 ml PO DAILY PRN PRN Reason: Constipation Mirtazapine (Mirtazapine 30 Mg Tablet) 30 mg PO BEDTIME [facility] Last Admin: 06/30/23 21:36 Dose: 30 mg Multivitamins/Vitamin C (Multivitamin Tablet) 1 tab PO DAILY [facility] Last Admin: 07/01/23 09:02 Dose: 1 tab Olanzapine (Olanzapine 5 Mg Tablet) 5 mg PO MoWeFr [facility] Last Admin: 07/01/23 05:45 Dose: 5 mg Psyllium Hydrophilic Mucilloid (Psyllium Seed 3.7 Gm Packet) 3.7 gm PO BEDTIME [facility] Last Admin: 06/30/23 21:36 Dose: 3.7 gm Tamsulosin HCl (Tamsulosin Hcl 0.4 Mg Capsule) 0.4 mg PO BEDTIME [facility] Last Admin: 06/30/23 21:37 Dose: 0.4 mg Thiamine HCl (Thiamine Hcl 100 Mg Tablet) 100 mg PO DAILY [facility] Last Admin: 07/01/23 09:03 Dose: 100 mg Trazodone HCl (Trazodone Hcl 50 Mg Tablet) 50 mg PO BEDTIME MRX1 PRN PRN Reason: Insomnia Triamcinolone Acetonide (Triamcinolone Acet 0.5 % Oint 15 Gm Tube) 1 appl TOPICAL BID [facility] Last Admin: 07/01/23 09:03 Dose: Not Given Allergies Allergies Allergy/AdvReac Type Severity Reaction Status Date / Time No Known Allergies Allergy Verified 12/21/20 13:27 Assessment & Plan Assessment & Plan (1) Major depressive disorder, recurrent episode, severe with anxious distress: Status: Acute Code(s): F33.2 - Major depressive disorder, recurrent severe without psychotic features Assessment and Plan: Patient with long history very difficult to treat recurrent depression and anxiety. He has had past trials mirtazapine Wellbutrin olanzapine Currently on fluoxetine Abilify clonazepam at bedtime. Patient is requesting ECT said it had been helpful for him last year encourage to see if he could figure out how to hopefully do maintenance treatment as an outpatient. There are no medical contraindications EKG shows left anterior fascicular block which appears to be a chronic finding history of BPH ECT reportedly well tolerated last year at [facility] his pulse appears to Chronically run somewhat low might benefit from glycopyrrolate pretreatment. Risks benefits alternatives reviewed with patient declined literature or video (2) Panic disorder without agoraphobia: Status: Acute Code(s): F41.0 - Panic disorder [episodic paroxysmal anxiety] (3) SHAI (generalized anxiety disorder): Status: Acute Code(s): F41.1 - Generalized anxiety disorder Plan - Admit to inpatient psychiatry - CV - Collateral information from family and providers. - Milieu treatment and group therapy. - Medications:continue same. Consider an ECT series. - Social work evaluation. - Disposition planning. 06/15: Consider an ECT series. Otherwise continue current management and treatment plan. 06/16: hospitalist consult for ECT risk stratification, EKG, ian consult for ECT. continue current mgmt otherwise, pt to abdiaziz over increasing prozac to 80 and/or increasing remeron to 45. case discussed with ian. 06/17: seen by ian. anxious, panic attack at time of interview, got ativan PRN. planning to start ECT tomorrow. medically cleared. 06/18: ECT #1 completed without complication. continue current mgmt. 06/19: anxiety has resolved since first ECT Tx. Tx #2 tomorrow. no complications at present. 06/20: ECT #2 today. no complications. depression persists, anxiety has dissipated. ECT #3 for saturday. 06/21 continue same treatment. 06/22 continue same treatment, tomorrow ECT 06/24/23 Cont plan of care ect 06/25/23 cont plan of care no gross confusion some confusion post ect that clears 5/8/24 Pt improved tolerated todays ect and improved mood 06/26: ECT #5 for tomorrow. slow but steady improvement. reinstate ativan 1 mg daily PRN panic. 06/27: ECT #5 completed. still flat, depressed appearing, reporting he is improved. case discussed with outpt provider ron, who endorses switch from abilify to vraylar. in addition, he has correlated severe anxiety in pt with returning to live alone and has suggested assisted living, encouraging inpatient team to engage pt on that issue to improve long-term prognosis. 06/28: continue current tx plan. 06/29: continue tx plan. 06/30: DC abilify. start vraylar. declined ECT this morning after panic attack, will try again weds. Reason for continued inpatient stay Substantial Risk for: harm to self, inability to function and rapid decompensation Time Spent With Patient Time: Total time managing care of this patient today __35__ minutes.
[2023-07-01 19:45] VITALS: BP 115/62; PULSE 82; RESP 16; TEMP 36.1; O2SAT 96
[2023-07-01] MEDS: Tamsulosin HCL 0.4 MG CAPSULE PO (22:11)
[2023-07-01] MEDS: clonazePAM 1 MG TABLET PO (22:11)
[2023-07-01] MEDS: Atorvastatin Calcium 10 MG TABLET PO (22:12)
[2023-07-01] MEDS: Mirtazapine 30 MG TABLET PO (22:13)
[2023-07-01] MEDS: Psyllium seed 3.7 GM PACKET PO (22:13)
[2023-07-02 08:00] VITALS: BP 145/82; PULSE 63; RESP 18; TEMP 36.9; O2SAT 99
[2023-07-02] MEDS: FLUoxetine HCl 20 MG CAPSULE PO (08:16)
[2023-07-02] MEDS: FLUoxetine HCl 20 MG CAPSULE 40 MG PO (08:17)
[2023-07-02] MEDS: Multivitamin TABLET 1 TAB PO (08:18)
[2023-07-02] MEDS: Cariprazine HCl 1.5 MG CAPSULE PO (08:18)
[2023-07-02] MEDS: Thiamine HCL 100 MG TABLET PO (08:18)
[2023-07-02] MEDS: Aspirin Enteric Coated 81 MG TABLET.DR PO (08:18)
[2023-07-02] MEDS: LORazepam 1 MG TABLET PO (08:30)
--- NOTE | 2023-07-02 16:10 | P.PNPSI_ITS ---
Subjective Subjective Date of Service: 07/02/23 Reason For Visit: Unspecified anxiety, unspecified depression Interim History: calm, cooperative. anxious about ECT tomorrow. plan for ativan 1 mg at 0530 on ECT days discussed, pt felt somewhat reassured. per staff, constricted, difficult to engage. + anx/dep. + meds. slept 8 hours. Mental Status Exam Mental Status Exam Narrative: Pt is alert and oriented; behavior is cooperative and calm; dressed in casual attire; eye contact appropriate; Speech is normal rate, volume and prosody and not pressured; thought process is organized; Thought content is on tx; no SI/HI/VH/AH expressed. Diagnostics Vital Signs (24Hr): Vital Signs - 24 hr 07/01/23 19:45 07/02/23 08:00 Temperature 97.0 F 98.4 F Pulse Rate 82 63 Respiratory Rate 16 18 Blood Pressure 115/62 145/82 H Pulse Oximetry 96 99 Oxygen Delivery Method Room Air Room Air BMI result Body Mass Index 25.1 Labs 06/16/23 07:04 Medications Medications Current Medications Acetaminophen (Acetaminophen 325 Mg Tablet) 650 mg PO Q6H PRN PRN Reason: Headache/Pain Mild Scale (1-3) Al Hydroxide/Mg Hydroxide (Magnesium Hydrox/Alum Hydrox 30 Ml Oral.Susp) 30 ml PO Q6H PRN PRN Reason: Heartburn/Nausea Aspirin (Aspirin Enteric Coated 81 Mg Tablet.) 81 mg PO DAILY [facility] Last Admin: 07/02/23 08:18 Dose: 81 mg Atorvastatin Calcium (Atorvastatin Calcium 10 Mg Tablet) 10 mg PO BEDTIME [facility] Last Admin: 07/01/23 22:12 Dose: 10 mg Cariprazine (Cariprazine Hcl 1.5 Mg Capsule) 1.5 mg PO DAILY [facility] Last Admin: 07/02/23 08:18 Dose: 1.5 mg Clonazepam (Clonazepam 1 Mg Tablet) 1 mg PO BEDTIME [facility] Last Admin: 07/01/23 22:11 Dose: 1 mg Fluoxetine HCl (Fluoxetine Hcl 20 Mg Capsule) 20 mg PO DAILY [facility] Last Admin: 07/02/23 08:16 Dose: 20 mg Fluoxetine HCl (Fluoxetine Hcl 20 Mg Capsule) 40 mg PO DAILY [facility] Last Admin: 07/02/23 08:17 Dose: 40 mg Haloperidol Lactate (Haloperidol Lactate 5 Mg/Ml Vial) 2 mg IVPUSH ONCE PRN PRN Reason: post op agitation Hydrocortisone (Hydrocortisone 1 % Cream 28.35 Gm Tube) 1 appl TOPICAL BID PRN; Protocol PRN Reason: facial psoriasis Last Admin: 06/29/23 21:30 Dose: 1 appl Hydroxyzine HCl (Hydroxyzine Hcl 25 Mg Tablet) 25 mg PO Q6H PRN PRN Reason: Anxiety Last Admin: 06/30/23 21:37 Dose: 25 mg Lorazepam (Lorazepam 1 Mg Tablet) 1 mg PO DAILY PRN PRN Reason: panic attack Last Admin: 07/02/23 08:30 Dose: 1 mg Lorazepam (Lorazepam 1 Mg Tablet) 1 mg PO MoWeFr@0530 [facility] Magnesium Hydroxide (Milk Of Magnesia 30 Ml Oral.Susp) 30 ml PO DAILY PRN PRN Reason: Constipation Mirtazapine (Mirtazapine 30 Mg Tablet) 30 mg PO BEDTIME [facility] Last Admin: 07/01/23 22:13 Dose: 30 mg Multivitamins/Vitamin C (Multivitamin Tablet) 1 tab PO DAILY [facility] Last Admin: 07/02/23 08:18 Dose: 1 tab Olanzapine (Olanzapine 5 Mg Tablet) 5 mg PO MoWeFr [facility] Last Admin: 07/01/23 05:45 Dose: 5 mg Psyllium Hydrophilic Mucilloid (Psyllium Seed 3.7 Gm Packet) 3.7 gm PO BEDTIME [facility] Last Admin: 07/01/23 22:13 Dose: 3.7 gm Tamsulosin HCl (Tamsulosin Hcl 0.4 Mg Capsule) 0.4 mg PO BEDTIME [facility] Last Admin: 07/01/23 22:11 Dose: 0.4 mg Thiamine HCl (Thiamine Hcl 100 Mg Tablet) 100 mg PO DAILY [facility] Last Admin: 07/02/23 08:18 Dose: 100 mg Trazodone HCl (Trazodone Hcl 50 Mg Tablet) 50 mg PO BEDTIME MRX1 PRN PRN Reason: Insomnia Triamcinolone Acetonide (Triamcinolone Acet 0.5 % Oint 15 Gm Tube) 1 appl TOPICAL BID [facility] Last Admin: 07/02/23 08:34 Dose: Not Given Allergies Allergies Allergy/AdvReac Type Severity Reaction Status Date / Time No Known Allergies Allergy Verified 12/21/20 13:27 Assessment & Plan Assessment & Plan (1) Major depressive disorder, recurrent episode, severe with anxious distress: Status: Acute Code(s): F33.2 - Major depressive disorder, recurrent severe without psychotic features Assessment and Plan: Patient with long history very difficult to treat recurrent depression and anxiety. He has had past trials mirtazapine Wellbutrin olanzapine Currently on fluoxetine Abilify clonazepam at bedtime. Patient is requesting ECT said it had been helpful for him last year encourage to see if he could figure out how to hopefully do maintenance treatment as an outpatient. There are no medical contraindications EKG shows left anterior fascicular block which appears to be a chronic finding history of BPH ECT reportedly well tolerated last year at [facility] his pulse appears to Chronically run somewhat low might benefit from glycopyrrolate pretreatment. Risks benefits alternatives reviewed with patient declined literature or video (2) Panic disorder without agoraphobia: Status: Acute Code(s): F41.0 - Panic disorder [episodic paroxysmal anxiety] (3) SHAI (generalized anxiety disorder): Status: Acute Code(s): F41.1 - Generalized anxiety disorder Plan - Admit to inpatient psychiatry - CV - Collateral information from family and providers. - Milieu treatment and group therapy. - Medications:continue same. Consider an ECT series. - Social work evaluation. - Disposition planning. 06/15: Consider an ECT series. Otherwise continue current management and treatment plan. 06/16: hospitalist consult for ECT risk stratification, EKG, ian consult for ECT. continue current mgmt otherwise, pt to abdiaziz over increasing prozac to 80 and/or increasing remeron to 45. case discussed with ian. 06/17: seen by ian. anxious, panic attack at time of interview, got ativan PRN. planning to start ECT tomorrow. medically cleared. 06/18: ECT #1 completed without complication. continue current mgmt. 06/19: anxiety has resolved since first ECT Tx. Tx #2 tomorrow. no complications at present. 06/20: ECT #2 today. no complications. depression persists, anxiety has dissipated. ECT #3 for saturday. 06/21 continue same treatment. 06/22 continue same treatment, tomorrow ECT 06/24/23 Cont plan of care ect 06/25/23 cont plan of care no gross confusion some confusion post ect that clears 06/26/23 Pt improved tolerated todays ect and improved mood 06/26: ECT #5 for tomorrow. slow but steady improvement. reinstate ativan 1 mg daily PRN panic. 06/27: ECT #5 completed. still flat, depressed appearing, reporting he is improved. case discussed with outpt provider ron, who endorses switch from abilify to vraylar. in addition, he has correlated severe anxiety in pt with returning to live alone and has suggested assisted living, encouraging inpatient team to engage pt on that issue to improve long-term prognosis. 06/28: continue current tx plan. 06/29: continue tx plan. 06/30: DC abilify. start vraylar. declined ECT this morning after panic attack, will try again weds. 07/01: no s/e from vraylar switch. anxious re ECT. informed of ativan in the morning prior to ECT plan. will try again tomorrow. Reason for continued inpatient stay Substantial Risk for: harm to self, inability to function and rapid decompensation Time Spent With Patient Time: Total time managing care of this patient today __25__ minutes.
[2023-07-02 20:00] VITALS: BP 133/62; PULSE 70; RESP 16; TEMP 36; O2SAT 96
[2023-07-02] MEDS: Psyllium seed 3.7 GM PACKET PO (21:15)
[2023-07-02] MEDS: Atorvastatin Calcium 10 MG TABLET PO (21:16)
[2023-07-02] MEDS: Mirtazapine 30 MG TABLET PO (21:16)
[2023-07-02] MEDS: Tamsulosin HCL 0.4 MG CAPSULE PO (21:16)
[2023-07-03] VITALS (9 sets, daily range): BP systolic 133–191; BP diastolic 68–98; PULSE 60–95; RESP 16–23; TEMP 36.2–36.8; O2SAT 96–98
[2023-07-03] MEDS: OLANZapine 5 MG TABLET PO (05:24)
[2023-07-03] MEDS: LORazepam 1 MG TABLET PO (05:24)
--- NOTE | 2023-07-03 06:17 | PC.NURSE ---
Robert went down to PACU for scheduled ECT treatment #6 escorted by staff via W/C. Meds given per order, he is calm and receptive to have treatment.
--- NOTE | 2023-07-03 06:42 | P.CONAN_ITS ---
FORMERLY [facility], [facility] Active Problems Active Problems: All Active Problems Major depressive disorder, recurrent episode, severe with anxious distress (Acute) Routine medical exam (Acute) Panic disorder without agoraphobia (Acute) SHAI (generalized anxiety disorder) (Acute) Major depressive disorder, recurrent severe without psychotic features (Acute) Past Medical History Medical History IBS (irritable bowel syndrome) Hypertension Chronic low back pain BPH w urinary obs/LUTS Obstructive sleep apnea Cervical stenosis of spine Hyperlipidemia History of prediabetes Psoriatic arthritis Psoriasis Family History Family history of problems with anesthesia: No Surgical History Surgical History H/O cervical discectomy H/O inguinal hernia repair History of Problems with Anesthesia: No Social History Social History Household Members: None Housing: Apartment Do you presently have visiting nurse or other home services: Yes (they come once a month) Patient Tobacco Use Status: Never used Tobacco Second Hand Smoke Exposure: Yes Use of substances other than those prescribed or required for medical reasons: No Currently Displaying Signs/Symptoms of Drug Intoxication Withdrawal: No Have you been hit, kicked, punched, or otherwise hurt by someone within the past year? If so, by whom?: No Do you feel safe in your current relationship?: Yes Is there a partner from a previous relationship who is making you feel unsafe now?: No Are you made to feel afraid or neglected: No Advance Directives: No Advance Directives Information Provided: Yes Do you have thoughts of harming others: None Do you have a plan to hurt others: No Plan Recently lost weight without trying: No Nutrition Risks: No Nutritional Risk Poor oral hygiene: No service: No Sexual orientation: Straight/Heterosexual Meds Allergies Allergy/AdvReac Type Severity Reaction Status Date / Time No Known Allergies Allergy Verified 12/21/20 13:27 Active Medications: Current Medications Acetaminophen (Acetaminophen 325 Mg Tablet) 650 mg PO Q6H PRN PRN Reason: Headache/Pain Mild Scale (1-3) Al Hydroxide/Mg Hydroxide (Magnesium Hydrox/Alum Hydrox 30 Ml Oral.Susp) 30 ml PO Q6H PRN PRN Reason: Heartburn/Nausea Aspirin (Aspirin Enteric Coated 81 Mg Tablet.Dr) 81 mg PO DAILY [facility] Last Admin: 07/02/23 08:18 Dose: 81 mg Atorvastatin Calcium (Atorvastatin Calcium 10 Mg Tablet) 10 mg PO BEDTIME [facility] Last Admin: 07/02/23 21:16 Dose: 10 mg Cariprazine (Cariprazine Hcl 1.5 Mg Capsule) 1.5 mg PO DAILY [facility] Last Admin: 07/02/23 08:18 Dose: 1.5 mg Clonazepam (Clonazepam 1 Mg Tablet) 1 mg PO BEDTIME [facility] Last Admin: 07/02/23 19:38 Dose: Not Given Fluoxetine HCl (Fluoxetine Hcl 20 Mg Capsule) 20 mg PO DAILY [facility] Last Admin: 07/02/23 08:16 Dose: 20 mg Fluoxetine HCl (Fluoxetine Hcl 20 Mg Capsule) 40 mg PO DAILY [facility] Last Admin: 07/02/23 08:17 Dose: 40 mg Haloperidol Lactate (Haloperidol Lactate 5 Mg/Ml Vial) 2 mg IVPUSH ONCE PRN PRN Reason: post op agitation Hydrocortisone (Hydrocortisone 1 % Cream 28.35 Gm Tube) 1 appl TOPICAL BID PRN; Protocol PRN Reason: facial psoriasis Last Admin: 06/29/23 21:30 Dose: 1 appl Hydroxyzine HCl (Hydroxyzine Hcl 25 Mg Tablet) 25 mg PO Q6H PRN PRN Reason: Anxiety Last Admin: 06/30/23 21:37 Dose: 25 mg Lorazepam (Lorazepam 1 Mg Tablet) 1 mg PO DAILY PRN PRN Reason: panic attack Last Admin: 07/02/23 08:30 Dose: 1 mg Lorazepam (Lorazepam 1 Mg Tablet) 1 mg PO MoWeFr@0530 [facility] Last Admin: 07/03/23 05:24 Dose: 1 mg Magnesium Hydroxide (Milk Of Magnesia 30 Ml Oral.Susp) 30 ml PO DAILY PRN PRN Reason: Constipation Mirtazapine (Mirtazapine 30 Mg Tablet) 30 mg PO BEDTIME [facility] Last Admin: 07/02/23 21:16 Dose: 30 mg Multivitamins/Vitamin C (Multivitamin Tablet) 1 tab PO DAILY [facility] Last Admin: 07/02/23 08:18 Dose: 1 tab Olanzapine (Olanzapine 5 Mg Tablet) 5 mg PO MoWeFr [facility] Last Admin: 07/03/23 05:24 Dose: 5 mg Psyllium Hydrophilic Mucilloid (Psyllium Seed 3.7 Gm Packet) 3.7 gm PO BEDTIME [facility] Last Admin: 07/02/23 21:15 Dose: 3.7 gm Tamsulosin HCl (Tamsulosin Hcl 0.4 Mg Capsule) 0.4 mg PO BEDTIME [facility] Last Admin: 07/02/23 21:16 Dose: 0.4 mg Thiamine HCl (Thiamine Hcl 100 Mg Tablet) 100 mg PO DAILY [facility] Last Admin: 07/02/23 08:18 Dose: 100 mg Trazodone HCl (Trazodone Hcl 50 Mg Tablet) 50 mg PO BEDTIME MRX1 PRN PRN Reason: Insomnia Triamcinolone Acetonide (Triamcinolone Acet 0.5 % Oint 15 Gm Tube) 1 appl TOPICAL BID [facility] Last Admin: 07/02/23 21:19 Dose: Not Given Home Medications ?Medication ?Instructions ?Recorded ?Confirmed ?Last Taken ?Type aspirin 81 mg capsule 81 mg PO DAILY 12/21/20 06/15/23 01/19/21 08:00 History vitamin B complex 1 cap PO DAILY 01/17/21 06/15/23 01/19/21 08:00 History aripiprazole 5 mg tablet 5 mg PO DAILY 06/15/23 06/15/23 Unknown History clonazepam 1 mg tablet 1 mg PO BEDTIME 06/15/23 06/15/23 Unknown History fluoxetine 20 mg capsule 20 mg PO QAM 06/15/23 06/15/23 Unknown History fluoxetine 40 mg capsule 40 mg PO DAILY 06/15/23 06/15/23 Unknown History liothyronine 5 mcg tablet 5 mcg PO BID 06/15/23 06/15/23 Unknown History simvastatin 10 mg tablet 10 mg PO BEDTIME 06/15/23 06/15/23 Unknown History tamsulosin 0.4 mg capsule 0.4 mg PO DAILY 06/15/23 06/15/23 Unknown History Exam Height,Weight and Vital Signs: Height 5 ft 10 in Weight 79.379 kg Last Vital Signs Temp 97.3 F 07/03/23 06:13 Pulse 76 07/03/23 06:13 Resp 20 07/03/23 06:13 BP 155/74 H 07/03/23 06:13 Pulse Ox 97 07/03/23 06:13 O2 Del Method Room Air 07/03/23 06:13 O2 Flow Rate 2 06/26/23 08:15 Pertinent Lab Results Pertinent Lab Results: Laboratory Tests 06/16/23 07:04 Sodium 144 Potassium 4.5 Chloride 109 H Carbon Dioxide 26 Anion Gap 14 BUN 22 H Creatinine 1.06 Estim Creat Clear Calc 63.6 Estimated GFR > 60 Fasting Glucose 94 Estimat Average Glucose 111 Hemoglobin A1c % 5.5 Calcium 9.5 Total Bilirubin 0.5 AST 18 ALT 21 Alkaline Phosphatase 73 Total Protein 6.5 Albumin 3.8 Triglycerides 89 Cholesterol 188 LDL Cholesterol, Calc 120 H HDL Cholesterol 51 Vitamin B12 300 Folate 6.4 TSH 1.44 Airway Mallampati Class: II (caps through out) TM Dist: >3cm Neck ROM: Full Heart: rrr Lungs: cta Assessment and Plan Assessment Anesthesia Assessment: Anesthesia Plan Discussed and Chart Reviewed Final Anesthetic Review Family History of Problems with Anesthesia: No History of Problems with Anesthesia: No NPO: Yes ASA Class: III Final Preanesthetic Review: No Changes in Pt Med Stat, Meds/Allgs Chart Reviewed and Consent Obtained/Reviewed Patient Risk: Intermediate Procedure Risk: Intermediate Anesthetic Plan Anesthetic Plan: GA Disposition: Standard PACU
--- NOTE | 2023-07-03 06:58 | MHC.SHP ---
Pre-Procedural Eval Section A - 24 Hr Update-Section A only Date of Service: 07/03/23 The patient is an INPATIENT: Yes Changes since office visit: No Cold of Flu in the past 2 weeks, No New Medical Problems, No Changes in Medication and No Patient answered all questions The patient has been examined within 24 hours of the surgical procedure. The History & Physical has been completed within 30 days and I have reviewed it.: Yes Section B - Complete if H&P > 30 days Chief Complaint: Unspecified anxiety, unspecified depression Allergies: Allergies Allergy/AdvReac Type Severity Reaction Status Date / Time No Known Allergies Allergy Verified 12/21/20 13:27 Plan I have reviewed the history and physical and performed a pertinent physical examination on my patient. No changes have occurred unless specified. Time Spent With Patient Time: Total time managing care of this patient today ____ minutes.
--- NOTE | 2023-07-03 07:13 | HO.ECTPROC ---
ECT Procedure Note Diagnosis/Treatment Date of Service: 07/03/23 Diagnosis: Major Depressive Disorder Previous ECT Date: 06/28/23 Current Treatment Number: 6 Treatment: Series Interval Clinical Notes: The patient missed her ECT last Saturday since he had a panic attack. He reports anxiety and feels scared of the proceduere. Denies side effects on previous ECT, Ativan 2 and Haldol 5 was suggested post ECT to avoid agitation post ECT. Procedure done as usual, no complications. He woke up less agitated with Ativan 2 and Haldol 5, still mildly restless. Time: Total time managing care of this patient today __30__ minutes. ECT Settings Device: THYMATRON DGx Electrode Placement: Rt temporal/ Lt frontal Program/Pulse Width: 0.25 Energy Percent: 55 Seizure Duration By EEG (in seconds): 70 (but seizure activity was clear before 61) By Motor Observation (in seconds): 35 Medications Administration General Anesthetic: Methohexital (120) Muscle Relaxant: Succinylcholine (140) Ancillary Medications Miscillaneous Medications: Haldol (5 mg) and Other (Ativan 2 mg post ECT) Airway Management Airway Management: Bag Mask Ventilation Treatment Recommendations No Changes Recommended: No change Pt Tolerated Procedure w/o Issue: Yes
[2023-07-03] MEDS: Haloperidol Lactate 5 MG/ML VIAL IVPUSH (07:21)
[2023-07-03] MEDS: LORazepam 2 MG/ML VIAL IVPUSH (07:21)
[2023-07-03] MEDS: FLUoxetine HCl 20 MG CAPSULE 40 MG PO (08:18)
[2023-07-03] MEDS: Aspirin Enteric Coated 81 MG TABLET.DR PO (08:18)
[2023-07-03] MEDS: FLUoxetine HCl 20 MG CAPSULE PO (08:18)
[2023-07-03] MEDS: Cariprazine HCl 1.5 MG CAPSULE PO (08:19)
[2023-07-03] MEDS: Multivitamin TABLET 1 TAB PO (08:19)
[2023-07-03] MEDS: Thiamine HCL 100 MG TABLET PO (08:19)
--- NOTE | 2023-07-03 15:45 | P.PNPSI_ITS ---
Subjective Subjective Date of Service: 07/03/23 Reason For Visit: Unspecified anxiety, unspecified depression Interim History: calm, cooperative. ECT went fine this morning. no questions or complaints. per staff, guarded, taking meds. +grps. not social. no panic. slept 8 hours. Mental Status Exam Mental Status Exam Narrative: Pt is alert and oriented; behavior is cooperative and calm; dressed in casual attire; eye contact appropriate; Speech is normal rate, volume and prosody and not pressured; thought process is organized; Thought content is on tx; no SI/HI/VH/AH expressed. Diagnostics Vital Signs (24Hr): Vital Signs - 24 hr 07/02/23 20:00 07/03/23 05:30 07/03/23 06:13 Temperature 96.8 F 97.2 F 97.3 F Pulse Rate 70 62 76 Respiratory Rate 16 16 20 Blood Pressure 133/62 160/88 H 155/74 H Pulse Oximetry 96 98 97 Oxygen Delivery Method Room Air Room Air Room Air Oxygen Flow Rate 07/03/23 07:18 07/03/23 07:23 07/03/23 07:28 Temperature 97.9 F Pulse Rate 92 95 92 Respiratory Rate 23 H 23 H 20 Blood Pressure 191/98 H 133/84 151/79 H Pulse Oximetry 98 98 98 Oxygen Delivery Method Nasal Cannula with ETCO2 Nasal Cannula with ETCO2 Nasal Cannula with ETCO2 Oxygen Flow Rate 2 2 2 07/03/23 07:33 07/03/23 07:48 07/03/23 08:22 Temperature 97.8 F 97.7 F Pulse Rate 87 72 62 Respiratory Rate 20 18 16 Blood Pressure 147/73 H 149/82 H 147/70 H Pulse Oximetry 97 98 98 Oxygen Delivery Method Room Air Room Air Room Air Oxygen Flow Rate BMI result Body Mass Index 25.1 Labs 06/16/23 07:04 Medications Medications Current Medications Acetaminophen (Acetaminophen 325 Mg Tablet) 650 mg PO Q6H PRN PRN Reason: Headache/Pain Mild Scale (1-3) Al Hydroxide/Mg Hydroxide (Magnesium Hydrox/Alum Hydrox 30 Ml Oral.Susp) 30 ml PO Q6H PRN PRN Reason: Heartburn/Nausea Aspirin (Aspirin Enteric Coated 81 Mg Tablet.) 81 mg PO DAILY [facility] Last Admin: 07/03/23 08:18 Dose: 81 mg Atorvastatin Calcium (Atorvastatin Calcium 10 Mg Tablet) 10 mg PO BEDTIME [facility] Last Admin: 07/02/23 21:16 Dose: 10 mg Cariprazine (Cariprazine Hcl 1.5 Mg Capsule) 1.5 mg PO DAILY [facility] Last Admin: 07/03/23 08:19 Dose: 1.5 mg Clonazepam (Clonazepam 1 Mg Tablet) 1 mg PO BEDTIME [facility] Last Admin: 07/02/23 19:38 Dose: Not Given Fluoxetine HCl (Fluoxetine Hcl 20 Mg Capsule) 20 mg PO DAILY [facility] Last Admin: 07/03/23 08:18 Dose: 20 mg Fluoxetine HCl (Fluoxetine Hcl 20 Mg Capsule) 40 mg PO DAILY [facility] Last Admin: 07/03/23 08:18 Dose: 40 mg Haloperidol Lactate (Haloperidol Lactate 5 Mg/Ml Vial) 2 mg IVPUSH ONCE PRN PRN Reason: post op agitation Hydrocortisone (Hydrocortisone 1 % Cream 28.35 Gm Tube) 1 appl TOPICAL BID PRN; Protocol PRN Reason: facial psoriasis Last Admin: 06/29/23 21:30 Dose: 1 appl Hydroxyzine HCl (Hydroxyzine Hcl 25 Mg Tablet) 25 mg PO Q6H PRN PRN Reason: Anxiety Last Admin: 06/30/23 21:37 Dose: 25 mg Lorazepam (Lorazepam 1 Mg Tablet) 1 mg PO DAILY PRN PRN Reason: panic attack Last Admin: 07/02/23 08:30 Dose: 1 mg Lorazepam (Lorazepam 1 Mg Tablet) 1 mg PO MoWeFr@0530 [facility] Last Admin: 07/03/23 05:24 Dose: 1 mg Magnesium Hydroxide (Milk Of Magnesia 30 Ml Oral.Susp) 30 ml PO DAILY PRN PRN Reason: Constipation Mirtazapine (Mirtazapine 30 Mg Tablet) 30 mg PO BEDTIME [facility] Last Admin: 07/02/23 21:16 Dose: 30 mg Multivitamins/Vitamin C (Multivitamin Tablet) 1 tab PO DAILY [facility] Last Admin: 07/03/23 08:19 Dose: 1 tab Olanzapine (Olanzapine 5 Mg Tablet) 5 mg PO MoWeFr [facility] Last Admin: 07/03/23 05:24 Dose: 5 mg Psyllium Hydrophilic Mucilloid (Psyllium Seed 3.7 Gm Packet) 3.7 gm PO BEDTIME [facility] Last Admin: 07/02/23 21:15 Dose: 3.7 gm Tamsulosin HCl (Tamsulosin Hcl 0.4 Mg Capsule) 0.4 mg PO BEDTIME [facility] Last Admin: 07/02/23 21:16 Dose: 0.4 mg Thiamine HCl (Thiamine Hcl 100 Mg Tablet) 100 mg PO DAILY [facility] Last Admin: 07/03/23 08:19 Dose: 100 mg Trazodone HCl (Trazodone Hcl 50 Mg Tablet) 50 mg PO BEDTIME MRX1 PRN PRN Reason: Insomnia Triamcinolone Acetonide (Triamcinolone Acet 0.5 % Oint 15 Gm Tube) 1 appl TOPICAL BID [facility] Last Admin: 07/03/23 08:19 Dose: Not Given Allergies Allergies Allergy/AdvReac Type Severity Reaction Status Date / Time No Known Allergies Allergy Verified 12/21/20 13:27 Assessment & Plan Assessment & Plan (1) Major depressive disorder, recurrent episode, severe with anxious distress: Status: Acute Code(s): F33.2 - Major depressive disorder, recurrent severe without psychotic features Assessment and Plan: Patient with long history very difficult to treat recurrent depression and anxiety. He has had past trials mirtazapine Wellbutrin olanzapine Currently on fluoxetine Abilify clonazepam at bedtime. Patient is requesting ECT said it had been helpful for him last year encourage to see if he could figure out how to hopefully do maintenance treatment as an outpatient. 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 Risks benefits alternatives reviewed with patient declined literature or video (2) Panic disorder without agoraphobia: Status: Acute Code(s): F41.0 - Panic disorder [episodic paroxysmal anxiety] (3) SHAI (generalized anxiety disorder): Status: Acute Code(s): F41.1 - Generalized anxiety disorder Plan - Admit to inpatient psychiatry - CV - Collateral information from family and providers. - Milieu treatment and group therapy. - Medications:continue same. Consider an ECT series. - Social work evaluation. - Disposition planning. 06/15: Consider an ECT series. Otherwise continue current management and treatment plan. 06/16: hospitalist consult for ECT risk stratification, EKG, ian consult for ECT. continue current mgmt otherwise, pt to abdiaziz over increasing prozac to 80 and/or increasing remeron to 45. case discussed with ian. 06/17: seen by ian. anxious, panic attack at time of interview, got ativan PRN. planning to start ECT tomorrow. medically cleared. 06/18: ECT #1 completed without complication. continue current mgmt. 06/19: anxiety has resolved since first ECT Tx. Tx #2 tomorrow. no complications at present. 06/20: ECT #2 today. no complications. depression persists, anxiety has dissipated. ECT #3 for saturday. 06/21 continue same treatment. 06/22 continue same treatment, tomorrow ECT 06/24/23 Cont plan of care ect 06/25/23 cont plan of care no gross confusion some confusion post ect that clears 06/26/23 Pt improved tolerated todays ect and improved mood 06/26: ECT #5 for tomorrow. slow but steady improvement. reinstate ativan 1 mg daily PRN panic. 06/27: ECT #5 completed. still flat, depressed appearing, reporting he is improved. case discussed with outpt provider ron, who endorses switch from abilify to vraylar. in addition, he has correlated severe anxiety in pt with returning to live alone and has suggested assisted living, encouraging inpatient team to engage pt on that issue to improve long-term prognosis. 06/28: continue current tx plan. 06/29: continue tx plan. 06/30: DC abilify. start vraylar. declined ECT this morning after panic attack, will try again . 07/01: no s/e from vraylar switch. anxious re ECT. informed of ativan in the morning prior to ECT plan. will try again tomorrow. 07/02: ECT #6 completed today without incident. moderately improved from admission. continue current mgmt. Reason for continued inpatient stay Substantial Risk for: inability to function and rapid decompensation Time Spent With Patient Time: Total time managing care of this patient today ____ minutes.
[2023-07-03] MEDS: Psyllium seed 3.7 GM PACKET PO (21:06)
[2023-07-03] MEDS: Tamsulosin HCL 0.4 MG CAPSULE PO (21:07)
[2023-07-03] MEDS: clonazePAM 1 MG TABLET PO (21:07)
[2023-07-03] MEDS: Mirtazapine 30 MG TABLET PO (21:07)
[2023-07-03] MEDS: Atorvastatin Calcium 10 MG TABLET PO (21:07)
[2023-07-04 07:00] VITALS: BMI 24.6
[2023-07-04 07:39] VITALS: BP 183/81; PULSE 62; RESP 16; TEMP 35.9; O2SAT 98
[2023-07-04] MEDS: Multivitamin TABLET 1 TAB PO (08:44)
[2023-07-04] MEDS: FLUoxetine HCl 20 MG CAPSULE 40 MG PO (08:45)
[2023-07-04] MEDS: FLUoxetine HCl 20 MG CAPSULE PO (08:45)
[2023-07-04] MEDS: Aspirin Enteric Coated 81 MG TABLET.DR PO (08:45)
[2023-07-04] MEDS: Thiamine HCL 100 MG TABLET PO (08:45)
[2023-07-04] MEDS: Cariprazine HCl 1.5 MG CAPSULE PO (08:45)
[2023-07-04 09:52] VITALS: BP 135/70; PULSE 70; RESP 16; O2SAT 99
--- NOTE | 2023-07-04 13:37 | P.PNPSI_ITS ---
Subjective Subjective Date of Service: 07/04/23 Reason For Visit: Unspecified anxiety, unspecified depression Interim History: calm, cooperative. no questions or complaints. mood a little down today, not much of a surprise. next ECT tomorrow. per staff, some anxiety, constricted, flat. w/drawn, guarded. slept well. Mental Status Exam Mental Status Exam Narrative: Pt is alert and oriented; behavior is cooperative and calm; dressed in casual attire; eye contact appropriate; Speech is normal rate, volume and prosody and not pressured; thought process is organized; affect flat. Thought content is on tx; no SI/HI/VH/AH expressed. Diagnostics Vital Signs (24Hr): Vital Signs - 24 hr 07/03/23 19:54 07/04/23 07:39 07/04/23 09:52 Temperature 98.3 F 96.6 F L Pulse Rate 60 62 70 Respiratory Rate 16 16 16 Blood Pressure 139/68 183/81 H 135/70 Pulse Oximetry 96 98 99 Oxygen Delivery Method Room Air Room Air Room Air BMI result Body Mass Index 25.1 Labs 06/16/23 07:04 Medications Medications Current Medications Acetaminophen (Acetaminophen 325 Mg Tablet) 650 mg PO Q6H PRN PRN Reason: Headache/Pain Mild Scale (1-3) Al Hydroxide/Mg Hydroxide (Magnesium Hydrox/Alum Hydrox 30 Ml Oral.Susp) 30 ml PO Q6H PRN PRN Reason: Heartburn/Nausea Aspirin (Aspirin Enteric Coated 81 Mg Tablet.) 81 mg PO DAILY [facility] Last Admin: 07/04/23 08:45 Dose: 81 mg Atorvastatin Calcium (Atorvastatin Calcium 10 Mg Tablet) 10 mg PO BEDTIME [facility] Last Admin: 07/03/23 21:07 Dose: 10 mg Cariprazine (Cariprazine Hcl 1.5 Mg Capsule) 1.5 mg PO DAILY [facility] Last Admin: 07/04/23 08:45 Dose: 1.5 mg Clonazepam (Clonazepam 1 Mg Tablet) 1 mg PO BEDTIME [facility] Last Admin: 07/03/23 21:07 Dose: 1 mg Fluoxetine HCl (Fluoxetine Hcl 20 Mg Capsule) 20 mg PO DAILY [facility] Last Admin: 07/04/23 08:45 Dose: 20 mg Fluoxetine HCl (Fluoxetine Hcl 20 Mg Capsule) 40 mg PO DAILY [facility] Last Admin: 07/04/23 08:45 Dose: 40 mg Haloperidol Lactate (Haloperidol Lactate 5 Mg/Ml Vial) 2 mg IVPUSH ONCE PRN PRN Reason: post op agitation Hydrocortisone (Hydrocortisone 1 % Cream 28.35 Gm Tube) 1 appl TOPICAL BID PRN; Protocol PRN Reason: facial psoriasis Last Admin: 06/29/23 21:30 Dose: 1 appl Hydroxyzine HCl (Hydroxyzine Hcl 25 Mg Tablet) 25 mg PO Q6H PRN PRN Reason: Anxiety Last Admin: 06/30/23 21:37 Dose: 25 mg Lorazepam (Lorazepam 1 Mg Tablet) 1 mg PO DAILY PRN PRN Reason: panic attack Last Admin: 07/02/23 08:30 Dose: 1 mg Lorazepam (Lorazepam 1 Mg Tablet) 1 mg PO MoWeFr@0530 [facility] Last Admin: 07/03/23 05:24 Dose: 1 mg Magnesium Hydroxide (Milk Of Magnesia 30 Ml Oral.Susp) 30 ml PO DAILY PRN PRN Reason: Constipation Mirtazapine (Mirtazapine 30 Mg Tablet) 30 mg PO BEDTIME [facility] Last Admin: 07/03/23 21:07 Dose: 30 mg Multivitamins/Vitamin C (Multivitamin Tablet) 1 tab PO DAILY [facility] Last Admin: 07/04/23 08:44 Dose: 1 tab Olanzapine (Olanzapine 5 Mg Tablet) 5 mg PO MoWeFr DC Last Admin: 07/03/23 05:24 Dose: 5 mg Psyllium Hydrophilic Mucilloid (Psyllium Seed 3.7 Gm Packet) 3.7 gm PO BEDTIME [facility] Last Admin: 07/03/23 21:06 Dose: 3.7 gm Tamsulosin HCl (Tamsulosin Hcl 0.4 Mg Capsule) 0.4 mg PO BEDTIME [facility] Last Admin: 07/03/23 21:07 Dose: 0.4 mg Thiamine HCl (Thiamine Hcl 100 Mg Tablet) 100 mg PO DAILY [facility] Last Admin: 07/04/23 08:45 Dose: 100 mg Trazodone HCl (Trazodone Hcl 50 Mg Tablet) 50 mg PO BEDTIME MRX1 PRN PRN Reason: Insomnia Triamcinolone Acetonide (Triamcinolone Acet 0.5 % Oint 15 Gm Tube) 1 appl TOPICAL BID [facility] Last Admin: 07/04/23 09:17 Dose: Not Given Allergies Allergies Allergy/AdvReac Type Severity Reaction Status Date / Time No Known Allergies Allergy Verified 12/21/20 13:27 Assessment & Plan Assessment & Plan (1) Major depressive disorder, recurrent episode, severe with anxious distress: Status: Acute Code(s): F33.2 - Major depressive disorder, recurrent severe without psychotic features Assessment and Plan: Patient with long history very difficult to treat recurrent depression and anxiety. He has had past trials mirtazapine Wellbutrin olanzapine Currently on fluoxetine Abilify clonazepam at bedtime. Patient is requesting ECT said it had been helpful for him last year encourage to see if he could figure out how to hopefully do maintenance treatment as an outpatient. 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 Risks benefits alternatives reviewed with patient declined literature or video (2) Panic disorder without agoraphobia: Status: Acute Code(s): F41.0 - Panic disorder [episodic paroxysmal anxiety] (3) SHAI (generalized anxiety disorder): Status: Acute Code(s): F41.1 - Generalized anxiety disorder Plan - Admit to inpatient psychiatry - CV - Collateral information from family and providers. - Milieu treatment and group therapy. - Medications:continue same. Consider an ECT series. - Social work evaluation. - Disposition planning. 06/15: Consider an ECT series. Otherwise continue current management and treatment plan. 06/16: hospitalist consult for ECT risk stratification, EKG, ian consult for ECT. continue current mgmt otherwise, pt to abdiaziz over increasing prozac to 80 and/or increasing remeron to 45. case discussed with ian. 06/17: seen by ian. anxious, panic attack at time of interview, got ativan PRN. planning to start ECT tomorrow. medically cleared. 06/18: ECT #1 completed without complication. continue current mgmt. 06/19: anxiety has resolved since first ECT Tx. Tx #2 tomorrow. no complications at present. 06/20: ECT #2 today. no complications. depression persists, anxiety has dissipated. ECT #3 for saturday. 06/21 continue same treatment. 06/22 continue same treatment, tomorrow ECT 06/24/23 Cont plan of care ect 06/25/23 cont plan of care no gross confusion some confusion post ect that clears 06/26/23 Pt improved tolerated todays ect and improved mood 06/26: ECT #5 for tomorrow. slow but steady improvement. reinstate ativan 1 mg daily PRN panic. 06/27: ECT #5 completed. still flat, depressed appearing, reporting he is improved. case discussed with outpt provider ron, who endorses switch from abilify to vraylar. in addition, he has correlated severe anxiety in pt with returning to live alone and has suggested assisted living, encouraging inpatient team to engage pt on that issue to improve long-term prognosis. 06/28: continue current tx plan. 06/29: continue tx plan. 06/30: DC abilify. start vraylar. declined ECT this morning after panic attack, will try again weds. 07/01: no s/e from vraylar switch. anxious re ECT. informed of ativan in the morning prior to ECT plan. will try again tomorrow. 07/02: ECT #6 completed today without incident. moderately improved from admission. continue current mgmt. 07/03: stable, slight downturn in mood today, not unexpected. ECT #7 tomorrow. per ian, plan for 8 ECT and then reassess need. T/C TMS after if pt is unable to get transportation for maintenance ECT. continue current mgmt. Reason for continued inpatient stay Substantial Risk for: inability to function and rapid decompensation Time Spent With Patient Time: Total time managing care of this patient today __25__ minutes.
[2023-07-04 19:50] VITALS: BP 146/77; PULSE 65; RESP 16; TEMP 36.6; O2SAT 97
[2023-07-04] MEDS: Psyllium seed 3.7 GM PACKET PO (21:18)
[2023-07-04] MEDS: Tamsulosin HCL 0.4 MG CAPSULE PO (21:18)
[2023-07-04] MEDS: Mirtazapine 30 MG TABLET PO (21:18)
[2023-07-04] MEDS: Atorvastatin Calcium 10 MG TABLET PO (21:18)
[2023-07-04] MEDS: Hydrocortisone 1 % Cream 28.35 GM TUBE 1 APPL TOPICAL (21:21)
[2023-07-05] VITALS (10 sets, daily range): BP systolic 102–164; BP diastolic 59–83; PULSE 65–92; RESP 14–20; TEMP 36.7–37.9; O2SAT 95–100
[2023-07-05] MEDS: OLANZapine 5 MG TABLET PO (06:39)
[2023-07-05] MEDS: LORazepam 1 MG TABLET PO (06:40)
--- NOTE | 2023-07-05 08:35 | HO.ANESPROP2 ---
[facility] Active Problems Active Problems: All Active Problems Major depressive disorder, recurrent episode, severe with anxious distress (Acute) Routine medical exam (Acute) Panic disorder without agoraphobia (Acute) SHAI (generalized anxiety disorder) (Acute) Major depressive disorder, recurrent severe without psychotic features (Acute) Past Medical History Medical History IBS (irritable bowel syndrome) Hypertension Chronic low back pain BPH w urinary obs/LUTS Obstructive sleep apnea Cervical stenosis of spine Hyperlipidemia History of prediabetes Psoriatic arthritis Psoriasis Family History Family history of problems with anesthesia: No Surgical History Surgical History H/O cervical discectomy H/O inguinal hernia repair History of Problems with Anesthesia: No Social History Social History Household Members: None Housing: Apartment Do you presently have visiting nurse or other home services: Yes (they come once a month) Patient Tobacco Use Status: Never used Tobacco Second Hand Smoke Exposure: Yes Use of substances other than those prescribed or required for medical reasons: No Currently Displaying Signs/Symptoms of Drug Intoxication Withdrawal: No Have you been hit, kicked, punched, or otherwise hurt by someone within the past year? If so, by whom?: No Do you feel safe in your current relationship?: Yes Is there a partner from a previous relationship who is making you feel unsafe now?: No Are you made to feel afraid or neglected: No Advance Directives: No Advance Directives Information Provided: Yes Do you have thoughts of harming others: None Do you have a plan to hurt others: No Plan Recently lost weight without trying: No Nutrition Risks: No Nutritional Risk Poor oral hygiene: No service: No Sexual orientation: Straight/Heterosexual Meds Allergies Allergy/AdvReac Type Severity Reaction Status Date / Time Penicillins AdvReac Diarrhea Verified 07/05/23 08:37 Active Medications: Current Medications Acetaminophen (Acetaminophen 325 Mg Tablet) 650 mg PO Q6H PRN PRN Reason: Headache/Pain Mild Scale (1-3) Al Hydroxide/Mg Hydroxide (Magnesium Hydrox/Alum Hydrox 30 Ml Oral.Susp) 30 ml PO Q6H PRN PRN Reason: Heartburn/Nausea Aspirin (Aspirin Enteric Coated 81 Mg Tablet.Dr) 81 mg PO DAILY [facility] Last Admin: 07/04/23 08:45 Dose: 81 mg Atorvastatin Calcium (Atorvastatin Calcium 10 Mg Tablet) 10 mg PO BEDTIME [facility] Last Admin: 07/04/23 21:18 Dose: 10 mg Cariprazine (Cariprazine Hcl 1.5 Mg Capsule) 1.5 mg PO DAILY [facility] Last Admin: 07/04/23 08:45 Dose: 1.5 mg Clonazepam (Clonazepam 1 Mg Tablet) 1 mg PO BEDTIME [facility] Last Admin: 07/04/23 20:32 Dose: Not Given Fluoxetine HCl (Fluoxetine Hcl 20 Mg Capsule) 20 mg PO DAILY [facility] Last Admin: 07/04/23 08:45 Dose: 20 mg Fluoxetine HCl (Fluoxetine Hcl 20 Mg Capsule) 40 mg PO DAILY [facility] Last Admin: 07/04/23 08:45 Dose: 40 mg Haloperidol Lactate (Haloperidol Lactate 5 Mg/Ml Vial) 2 mg IVPUSH ONCE PRN PRN Reason: post op agitation Hydrocortisone (Hydrocortisone 1 % Cream 28.35 Gm Tube) 1 appl TOPICAL BID PRN; Protocol PRN Reason: facial psoriasis Last Admin: 07/04/23 21:21 Dose: 1 appl Hydroxyzine HCl (Hydroxyzine Hcl 25 Mg Tablet) 25 mg PO Q6H PRN PRN Reason: Anxiety Last Admin: 06/30/23 21:37 Dose: 25 mg Lorazepam (Lorazepam 1 Mg Tablet) 1 mg PO DAILY PRN PRN Reason: panic attack Last Admin: 07/02/23 08:30 Dose: 1 mg Lorazepam (Lorazepam 1 Mg Tablet) 1 mg PO MoWeFr@0630 [facility] Last Admin: 07/05/23 06:40 Dose: 1 mg Magnesium Hydroxide (Milk Of Magnesia 30 Ml Oral.Susp) 30 ml PO DAILY PRN PRN Reason: Constipation Mirtazapine (Mirtazapine 30 Mg Tablet) 30 mg PO BEDTIME [facility] Last Admin: 07/04/23 21:18 Dose: 30 mg Multivitamins/Vitamin C (Multivitamin Tablet) 1 tab PO DAILY [facility] Last Admin: 07/04/23 08:44 Dose: 1 tab Olanzapine (Olanzapine 5 Mg Tablet) 5 mg PO MoWeFr [facility] Last Admin: 07/05/23 06:39 Dose: 5 mg Psyllium Hydrophilic Mucilloid (Psyllium Seed 3.7 Gm Packet) 3.7 gm PO BEDTIME [facility] Last Admin: 07/04/23 21:18 Dose: 3.7 gm Tamsulosin HCl (Tamsulosin Hcl 0.4 Mg Capsule) 0.4 mg PO BEDTIME [facility] Last Admin: 07/04/23 21:18 Dose: 0.4 mg Thiamine HCl (Thiamine Hcl 100 Mg Tablet) 100 mg PO DAILY [facility] Last Admin: 07/04/23 08:45 Dose: 100 mg Trazodone HCl (Trazodone Hcl 50 Mg Tablet) 50 mg PO BEDTIME MRX1 PRN PRN Reason: Insomnia Triamcinolone Acetonide (Triamcinolone Acet 0.5 % Oint 15 Gm Tube) 1 appl TOPICAL BID [facility] Last Admin: 07/04/23 21:21 Dose: Not Given Home Medications ?Medication ?Instructions ?Recorded ?Confirmed ?Last Taken ?Type aspirin 81 mg capsule 81 mg PO DAILY 12/21/20 06/15/23 01/19/21 08:00 History vitamin B complex 1 cap PO DAILY 01/17/21 06/15/23 01/19/21 08:00 History aripiprazole 5 mg tablet 5 mg PO DAILY 06/15/23 06/15/23 Unknown History clonazepam 1 mg tablet 1 mg PO BEDTIME 06/15/23 06/15/23 Unknown History fluoxetine 20 mg capsule 20 mg PO QAM 06/15/23 06/15/23 Unknown History fluoxetine 40 mg capsule 40 mg PO DAILY 06/15/23 06/15/23 Unknown History liothyronine 5 mcg tablet 5 mcg PO BID 06/15/23 06/15/23 Unknown History simvastatin 10 mg tablet 10 mg PO BEDTIME 06/15/23 06/15/23 Unknown History tamsulosin 0.4 mg capsule 0.4 mg PO DAILY 06/15/23 06/15/23 Unknown History Exam Height,Weight and Vital Signs: Height 5 ft 10 in Weight 77.734 kg Last Vital Signs Temp 98.5 F 07/05/23 08:06 Pulse 80 07/05/23 08:06 Resp 16 07/05/23 08:06 BP 164/83 H 07/05/23 08:06 Pulse Ox 98 07/05/23 08:06 O2 Del Method Room Air 07/05/23 07:40 O2 Flow Rate 2 07/03/23 07:28 Pertinent Lab Results Pertinent Lab Results: Laboratory Tests 06/16/23 07:04 Sodium 144 Potassium 4.5 Chloride 109 H Carbon Dioxide 26 Anion Gap 14 BUN 22 H Creatinine 1.06 Estim Creat Clear Calc 63.6 Estimated GFR > 60 Fasting Glucose 94 Estimat Average Glucose 111 Hemoglobin A1c % 5.5 Calcium 9.5 Total Bilirubin 0.5 AST 18 ALT 21 Alkaline Phosphatase 73 Total Protein 6.5 Albumin 3.8 Triglycerides 89 Cholesterol 188 LDL Cholesterol, Calc 120 H HDL Cholesterol 51 Vitamin B12 300 Folate 6.4 TSH 1.44 Airway Mallampati Class: II (multiple caps) TM Dist: >3cm Neck ROM: Full Heart: rrr Lungs: cta Assessment and Plan Assessment Anesthesia Assessment: Anesthesia Plan Discussed and Chart Reviewed Final Anesthetic Review Family History of Problems with Anesthesia: No History of Problems with Anesthesia: No NPO: Yes ASA Class: III Final Preanesthetic Review: No Changes in Pt Med Stat, Meds/Allgs Chart Reviewed and Consent Obtained/Reviewed Patient Risk: Intermediate Procedure Risk: Intermediate Anesthetic Plan Anesthetic Plan: GA Disposition: Standard PACU
--- NOTE | 2023-07-05 08:50 | MHC.SHP ---
Pre-Procedural Eval Section A - 24 Hr Update-Section A only Date of Service: 07/05/23 The patient is an INPATIENT: Yes Changes since office visit: Yes Changes in Medication and Yes Patient answered all questions; No Cold of Flu in the past 2 weeks and No New Medical Problems The patient has been examined within 24 hours of the surgical procedure. The History & Physical has been completed within 30 days and I have reviewed it.: Yes Section B - Complete if H&P > 30 days Chief Complaint: Unspecified anxiety, unspecified depression Allergies: Allergies Allergy/AdvReac Type Severity Reaction Status Date / Time Penicillins AdvReac Diarrhea Verified 07/05/23 08:37 Plan I have reviewed the history and physical and performed a pertinent physical examination on my patient. No changes have occurred unless specified. Time Spent With Patient Time: Total time managing care of this patient today ____ minutes.
[2023-07-05] MEDS: LORazepam 2 MG/ML VIAL IVPUSH (10:22)
[2023-07-05] MEDS: Haloperidol Lactate 5 MG/ML VIAL IVPUSH (10:22)
[2023-07-05] MEDS: FLUoxetine HCl 20 MG CAPSULE 40 MG PO (11:18)
[2023-07-05] MEDS: FLUoxetine HCl 20 MG CAPSULE PO (11:18)
[2023-07-05] MEDS: Multivitamin TABLET 1 TAB PO (11:19)
[2023-07-05] MEDS: Aspirin Enteric Coated 81 MG TABLET.DR PO (11:19)
[2023-07-05] MEDS: Thiamine HCL 100 MG TABLET PO (11:19)
[2023-07-05] MEDS: Cariprazine HCl 1.5 MG CAPSULE PO (11:19)
--- NOTE | 2023-07-05 13:22 | HO.PSYCHPN ---
Subjective Subjective Date of Service: 07/05/23 Reason For Visit: Unspecified anxiety, unspecified depression Interim History: calm, cooperative, snoozing after ECT. reports it went well, no complaints or requests. planning for another on saturday. per staff, dep/anx 5. attending groups. no SI/HI/AVH. taking meds. anxious on eves. feeling down. bored. slept about 8 hours. Mental Status Exam Mental Status Exam Narrative: Pt is alert and oriented; behavior is cooperative and calm; dressed in casual attire; eye contact appropriate; Speech is normal rate, volume and prosody and not pressured; thought process is organized; affect flat. Thought content is on tx; no SI/HI/VH/AH expressed. Diagnostics Vital Signs (24Hr): Vital Signs - 24 hr 07/04/23 19:50 07/05/23 07:40 07/05/23 08:06 Temperature 97.9 F 100.2 F 98.5 F Pulse Rate 65 76 80 Respiratory Rate 16 14 16 Blood Pressure 146/77 H 147/66 H 164/83 H Pulse Oximetry 97 97 98 Oxygen Delivery Method Room Air Room Air Oxygen Flow Rate 07/05/23 10:13 07/05/23 10:18 07/05/23 10:23 Temperature 98.0 F Pulse Rate 88 92 84 Respiratory Rate 15 20 17 Blood Pressure 136/71 138/59 L Pulse Oximetry 98 98 100 Oxygen Delivery Method Nasal Cannula with ETCO2 Nasal Cannula with ETCO2 Nasal Cannula with ETCO2 Oxygen Flow Rate 2 2 2 07/05/23 10:28 07/05/23 10:43 07/05/23 10:56 Temperature 98.2 F Pulse Rate 73 66 65 Respiratory Rate 17 17 18 Blood Pressure 102/83 131/67 Pulse Oximetry 100 100 100 Oxygen Delivery Method Nasal Cannula with ETCO2 Nasal Cannula with ETCO2 Room Air Oxygen Flow Rate 2 2 07/05/23 11:05 Temperature 98.5 F Pulse Rate 65 Respiratory Rate 16 Blood Pressure 117/59 L Pulse Oximetry 95 Oxygen Delivery Method Oxygen Flow Rate BMI result Body Mass Index 24.6 Labs 06/16/23 07:04 Medications Medications Current Medications Acetaminophen (Acetaminophen 325 Mg Tablet) 650 mg PO Q6H PRN PRN Reason: Headache/Pain Mild Scale (1-3) Al Hydroxide/Mg Hydroxide (Magnesium Hydrox/Alum Hydrox 30 Ml Oral.Susp) 30 ml PO Q6H PRN PRN Reason: Heartburn/Nausea Aspirin (Aspirin Enteric Coated 81 Mg Tablet.Dr) 81 mg PO DAILY [facility] Last Admin: 07/05/23 11:19 Dose: 81 mg Atorvastatin Calcium (Atorvastatin Calcium 10 Mg Tablet) 10 mg PO BEDTIME [facility] Last Admin: 07/04/23 21:18 Dose: 10 mg Cariprazine (Cariprazine Hcl 1.5 Mg Capsule) 1.5 mg PO DAILY [facility] Last Admin: 07/05/23 11:19 Dose: 1.5 mg Clonazepam (Clonazepam 1 Mg Tablet) 1 mg PO BEDTIME [facility] Last Admin: 07/04/23 20:32 Dose: Not Given Fluoxetine HCl (Fluoxetine Hcl 20 Mg Capsule) 20 mg PO DAILY [facility] Last Admin: 07/05/23 11:18 Dose: 20 mg Fluoxetine HCl (Fluoxetine Hcl 20 Mg Capsule) 40 mg PO DAILY [facility] Last Admin: 07/05/23 11:18 Dose: 40 mg Hydrocortisone (Hydrocortisone 1 % Cream 28.35 Gm Tube) 1 appl TOPICAL BID PRN; Protocol PRN Reason: facial psoriasis Last Admin: 07/04/23 21:21 Dose: 1 appl Hydroxyzine HCl (Hydroxyzine Hcl 25 Mg Tablet) 25 mg PO Q6H PRN PRN Reason: Anxiety Last Admin: 06/30/23 21:37 Dose: 25 mg Lorazepam (Lorazepam 1 Mg Tablet) 1 mg PO DAILY PRN PRN Reason: panic attack Last Admin: 07/02/23 08:30 Dose: 1 mg Lorazepam (Lorazepam 1 Mg Tablet) 1 mg PO MoWeFr@0630 [facility] Last Admin: 07/05/23 06:40 Dose: 1 mg Magnesium Hydroxide (Milk Of Magnesia 30 Ml Oral.Susp) 30 ml PO DAILY PRN PRN Reason: Constipation Mirtazapine (Mirtazapine 30 Mg Tablet) 30 mg PO BEDTIME [facility] Last Admin: 07/04/23 21:18 Dose: 30 mg Multivitamins/Vitamin C (Multivitamin Tablet) 1 tab PO DAILY [facility] Last Admin: 07/05/23 11:19 Dose: 1 tab Olanzapine (Olanzapine 5 Mg Tablet) 5 mg PO MoWeFr [facility] Last Admin: 07/05/23 06:39 Dose: 5 mg Psyllium Hydrophilic Mucilloid (Psyllium Seed 3.7 Gm Packet) 3.7 gm PO BEDTIME [facility] Last Admin: 07/04/23 21:18 Dose: 3.7 gm Tamsulosin HCl (Tamsulosin Hcl 0.4 Mg Capsule) 0.4 mg PO BEDTIME [facility] Last Admin: 07/04/23 21:18 Dose: 0.4 mg Thiamine HCl (Thiamine Hcl 100 Mg Tablet) 100 mg PO DAILY [facility] Last Admin: 07/05/23 11:19 Dose: 100 mg Trazodone HCl (Trazodone Hcl 50 Mg Tablet) 50 mg PO BEDTIME MRX1 PRN PRN Reason: Insomnia Triamcinolone Acetonide (Triamcinolone Acet 0.5 % Oint 15 Gm Tube) 1 appl TOPICAL BID [facility] Last Admin: 07/05/23 11:25 Dose: Not Given Allergies Allergies Allergy/AdvReac Type Severity Reaction Status Date / Time Penicillins AdvReac Diarrhea Verified 07/05/23 08:37 Assessment & Plan Assessment & Plan (1) Major depressive disorder, recurrent episode, severe with anxious distress: Status: Acute Code(s): F33.2 - Major depressive disorder, recurrent severe without psychotic features Assessment and Plan: Patient with long history very difficult to treat recurrent depression and anxiety. He has had past trials mirtazapine Wellbutrin olanzapine Currently on fluoxetine Abilify clonazepam at bedtime. Patient is requesting ECT said it had been helpful for him last year encourage to see if he could figure out how to hopefully do maintenance treatment as an outpatient. 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 Risks benefits alternatives reviewed with patient declined literature or video (2) Panic disorder without agoraphobia: Status: Acute Code(s): F41.0 - Panic disorder [episodic paroxysmal anxiety] (3) SHAI (generalized anxiety disorder): Status: Acute Code(s): F41.1 - Generalized anxiety disorder Plan - Admit to inpatient psychiatry - CV - Collateral information from family and providers. - Milieu treatment and group therapy. - Medications:continue same. Consider an ECT series. - Social work evaluation. - Disposition planning. 06/15: Consider an ECT series. Otherwise continue current management and treatment plan. 06/16: hospitalist consult for ECT risk stratification, EKG, ian consult for ECT. continue current mgmt otherwise, pt to abdiaziz over increasing prozac to 80 and/or increasing remeron to 45. case discussed with ian. 06/17: seen by ian. anxious, panic attack at time of interview, got ativan PRN. planning to start ECT tomorrow. medically cleared. 06/18: ECT #1 completed without complication. continue current mgmt. 06/19: anxiety has resolved since first ECT Tx. Tx #2 tomorrow. no complications at present. 06/20: ECT #2 today. no complications. depression persists, anxiety has dissipated. ECT #3 for saturday. 06/21 continue same treatment. 06/22 continue same treatment, tomorrow ECT 06/24/23 Cont plan of care ect 06/25/23 cont plan of care no gross confusion some confusion post ect that clears 06/26/23 Pt improved tolerated todays ect and improved mood 06/26: ECT #5 for tomorrow. slow but steady improvement. reinstate ativan 1 mg daily PRN panic. 06/27: ECT #5 completed. still flat, depressed appearing, reporting he is improved. case discussed with outpt provider ron, who endorses switch from abilify to vraylar. in addition, he has correlated severe anxiety in pt with returning to live alone and has suggested assisted living, encouraging inpatient team to engage pt on that issue to improve long-term prognosis. 06/28: continue current tx plan. 06/29: continue tx plan. 06/30: DC abilify. start vraylar. declined ECT this morning after panic attack, will try again . 07/01: no s/e from vraylar switch. anxious re ECT. informed of ativan in the morning prior to ECT plan. will try again tomorrow. 07/02: ECT #6 completed today without incident. moderately improved from admission. continue current mgmt. 07/03: stable, slight downturn in mood today, not unexpected. ECT #7 tomorrow. per ian, plan for 8 ECT and then reassess need. T/C TMS after if pt is unable to get transportation for maintenance ECT. continue current mgmt. 07/04: ECT #7 completed without incident #8 scheduled for saturday. stable, no issues. continue current mgmt. Reason for continued inpatient stay Substantial Risk for: inability to function and rapid decompensation Time Spent With Patient Time: Total time managing care of this patient today __25__ minutes.
[2023-07-05] MEDS: Psyllium seed 3.7 GM PACKET PO (21:29)
[2023-07-05] MEDS: Tamsulosin HCL 0.4 MG CAPSULE PO (21:29)
[2023-07-05] MEDS: Mirtazapine 30 MG TABLET PO (21:30)
[2023-07-05] MEDS: Atorvastatin Calcium 10 MG TABLET PO (21:30)
[2023-07-05] MEDS: clonazePAM 1 MG TABLET PO (21:30)
[2023-07-05] MEDS: Triamcinolone Acet 0.5 % Oint 15 GM TUBE 1 APPL TOPICAL (21:32)
[2023-07-06 07:55] VITALS: BP 155/75; PULSE 65; RESP 14; TEMP 36.9; O2SAT 98
[2023-07-06] MEDS: Cariprazine HCl 1.5 MG CAPSULE PO (08:44)
[2023-07-06] MEDS: Thiamine HCL 100 MG TABLET PO (08:44)
[2023-07-06] MEDS: Aspirin Enteric Coated 81 MG TABLET.DR PO (08:44)
[2023-07-06] MEDS: Multivitamin TABLET 1 TAB PO (08:44)
[2023-07-06] MEDS: FLUoxetine HCl 20 MG CAPSULE 40 MG PO (08:44)
[2023-07-06] MEDS: FLUoxetine HCl 20 MG CAPSULE PO (08:44)
[2023-07-06] MEDS: Triamcinolone Acet 0.5 % Oint 15 GM TUBE 1 APPL TOPICAL ×2 (08:45→21:22)
--- NOTE | 2023-07-06 12:05 | HO.PSYCHPN ---
Subjective Subjective Date of Service: 07/06/23 Reason For Visit: Unspecified anxiety, unspecified depression Subjective Notes: Conditional Voluntary Interim History: Patient was seen and discussed in rounds today. Records and plans were reviewed. Eating and sleeping adequately. He continues to be somewhat flat. He has received 7 ECT but is not sure whether it has been helpful. Some tiredness reported. No SI/AVH. No changes were made today Review of Systems Review of Systems Yes all other systems are reviewed and are negative Mental Status Exam Mental Status Exam Narrative: In today's visit he is alert, oriented and pleasant. Normal speech. Moderate eye contact. Affect is subdued and flat. No signs of psychosis. No SI upon inquiry. Cognitively has slow thought processes. Judgment is intact Diagnostics Vital Signs (24Hr): Vital Signs - 24 hr 07/05/23 20:00 07/06/23 07:55 Temperature 98.5 F 98.5 F Pulse Rate 66 65 Respiratory Rate 16 14 Blood Pressure 134/61 155/75 H Pulse Oximetry 97 98 Oxygen Delivery Method Room Air Room Air BMI result Body Mass Index 24.6 Labs 06/16/23 07:04 Medications Medications Current Medications Acetaminophen (Acetaminophen 325 Mg Tablet) 650 mg PO Q6H PRN PRN Reason: Headache/Pain Mild Scale (1-3) Al Hydroxide/Mg Hydroxide (Magnesium Hydrox/Alum Hydrox 30 Ml Oral.Susp) 30 ml PO Q6H PRN PRN Reason: Heartburn/Nausea Aspirin (Aspirin Enteric Coated 81 Mg Tablet.) 81 mg PO DAILY [facility] Last Admin: 07/06/23 08:44 Dose: 81 mg Atorvastatin Calcium (Atorvastatin Calcium 10 Mg Tablet) 10 mg PO BEDTIME [facility] Last Admin: 07/05/23 21:30 Dose: 10 mg Cariprazine (Cariprazine Hcl 1.5 Mg Capsule) 1.5 mg PO DAILY [facility] Last Admin: 07/06/23 08:44 Dose: 1.5 mg Clonazepam (Clonazepam 1 Mg Tablet) 1 mg PO BEDTIME [facility] Last Admin: 07/05/23 21:30 Dose: 1 mg Fluoxetine HCl (Fluoxetine Hcl 20 Mg Capsule) 20 mg PO DAILY [facility] Last Admin: 07/06/23 08:44 Dose: 20 mg Fluoxetine HCl (Fluoxetine Hcl 20 Mg Capsule) 40 mg PO DAILY [facility] Last Admin: 07/06/23 08:44 Dose: 40 mg Hydrocortisone (Hydrocortisone 1 % Cream 28.35 Gm Tube) 1 appl TOPICAL BID PRN; Protocol PRN Reason: facial psoriasis Last Admin: 07/04/23 21:21 Dose: 1 appl Hydroxyzine HCl (Hydroxyzine Hcl 25 Mg Tablet) 25 mg PO Q6H PRN PRN Reason: Anxiety Last Admin: 06/30/23 21:37 Dose: 25 mg Lorazepam (Lorazepam 1 Mg Tablet) 1 mg PO DAILY PRN PRN Reason: panic attack Last Admin: 07/02/23 08:30 Dose: 1 mg Lorazepam (Lorazepam 1 Mg Tablet) 1 mg PO MoWeFr@0630 [facility] Last Admin: 07/05/23 06:40 Dose: 1 mg Magnesium Hydroxide (Milk Of Magnesia 30 Ml Oral.Susp) 30 ml PO DAILY PRN PRN Reason: Constipation Mirtazapine (Mirtazapine 30 Mg Tablet) 30 mg PO BEDTIME [facility] Last Admin: 07/05/23 21:30 Dose: 30 mg Multivitamins/Vitamin C (Multivitamin Tablet) 1 tab PO DAILY [facility] Last Admin: 07/06/23 08:44 Dose: 1 tab Olanzapine (Olanzapine 5 Mg Tablet) 5 mg PO MoWeFr [facility] Last Admin: 07/05/23 06:39 Dose: 5 mg Psyllium Hydrophilic Mucilloid (Psyllium Seed 3.7 Gm Packet) 3.7 gm PO BEDTIME [facility] Last Admin: 07/05/23 21:29 Dose: 3.7 gm Tamsulosin HCl (Tamsulosin Hcl 0.4 Mg Capsule) 0.4 mg PO BEDTIME [facility] Last Admin: 07/05/23 21:29 Dose: 0.4 mg Thiamine HCl (Thiamine Hcl 100 Mg Tablet) 100 mg PO DAILY [facility] Last Admin: 07/06/23 08:44 Dose: 100 mg Trazodone HCl (Trazodone Hcl 50 Mg Tablet) 50 mg PO BEDTIME MRX1 PRN PRN Reason: Insomnia Triamcinolone Acetonide (Triamcinolone Acet 0.5 % Oint 15 Gm Tube) 1 appl TOPICAL BID [facility] Last Admin: 07/06/23 08:45 Dose: 1 appl Allergies Allergies Allergy/AdvReac Type Severity Reaction Status Date / Time Penicillins AdvReac Diarrhea Verified 07/05/23 08:37 Assessment & Plan Assessment & Plan (1) Major depressive disorder, recurrent episode, severe with anxious distress: Status: Acute Code(s): F33.2 - Major depressive disorder, recurrent severe without psychotic features Assessment and Plan: Patient with long history very difficult to treat recurrent depression and anxiety. He has had past trials mirtazapine Wellbutrin olanzapine Currently on fluoxetine Abilify clonazepam at bedtime. Patient is requesting ECT said it had been helpful for him last year encourage to see if he could figure out how to hopefully do maintenance treatment as an outpatient. 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 Risks benefits alternatives reviewed with patient declined literature or video 07/05: Continue current treatment and plan (2) Panic disorder without agoraphobia: Status: Acute Code(s): F41.0 - Panic disorder [episodic paroxysmal anxiety] (3) SHAI (generalized anxiety disorder): Status: Acute Code(s): F41.1 - Generalized anxiety disorder Plan - Admit to inpatient psychiatry - CV - Collateral information from family and providers. - Milieu treatment and group therapy. - Medications:continue same. Consider an ECT series. - Social work evaluation. - Disposition planning. 06/15: Consider an ECT series. Otherwise continue current management and treatment plan. 06/16: hospitalist consult for ECT risk stratification, EKG, ian consult for ECT. continue current mgmt otherwise, pt to abdiaziz over increasing prozac to 80 and/or increasing remeron to 45. case discussed with ian. 06/17: seen by ian. anxious, panic attack at time of interview, got ativan PRN. planning to start ECT tomorrow. medically cleared. 06/18: ECT #1 completed without complication. continue current mgmt. 06/19: anxiety has resolved since first ECT Tx. Tx #2 tomorrow. no complications at present. 06/20: ECT #2 today. no complications. depression persists, anxiety has dissipated. ECT #3 for saturday. 06/21 continue same treatment. 06/22 continue same treatment, tomorrow ECT 06/24/23 Cont plan of care ect 06/25/23 cont plan of care no gross confusion some confusion post ect that clears 06/26/23 Pt improved tolerated todays ect and improved mood 06/26: ECT #5 for tomorrow. slow but steady improvement. reinstate ativan 1 mg daily PRN panic. 06/27: ECT #5 completed. still flat, depressed appearing, reporting he is improved. case discussed with outpt provider ron, who endorses switch from abilify to vraylar. in addition, he has correlated severe anxiety in pt with returning to live alone and has suggested assisted living, encouraging inpatient team to engage pt on that issue to improve long-term prognosis. 06/28: continue current tx plan. 06/29: continue tx plan. 06/30: DC abilify. start vraylar. declined ECT this morning after panic attack, will try again wed. 07/01: no s/e from vraylar switch. anxious re ECT. informed of ativan in the morning prior to ECT plan. will try again tomorrow. 07/02: ECT #6 completed today without incident. moderately improved from admission. continue current mgmt. 07/03: stable, slight downturn in mood today, not unexpected. ECT #7 tomorrow. per ian, plan for 8 ECT and then reassess need. T/C TMS after if pt is unable to get transportation for maintenance ECT. continue current mgmt. 07/04: ECT #7 completed without incident #8 scheduled for saturday. stable, no issues. continue current mgmt. Reason for continued inpatient stay Substantial Risk for: harm to self and med/psych decompensation Time Spent With Patient Time: Total time managing care of this patient today ____ minutes.
[2023-07-06 20:05] VITALS: BP 122/68; PULSE 60; RESP 16; TEMP 36.7; O2SAT 97
[2023-07-06] MEDS: Atorvastatin Calcium 10 MG TABLET PO (21:18)
[2023-07-06] MEDS: Psyllium seed 3.7 GM PACKET PO (21:18)
[2023-07-06] MEDS: Tamsulosin HCL 0.4 MG CAPSULE PO (21:19)
[2023-07-06] MEDS: Mirtazapine 30 MG TABLET PO (21:19)
[2023-07-06] MEDS: clonazePAM 1 MG TABLET PO (21:19)
[2023-07-06] MEDS: Hydrocortisone 1 % Cream 28.35 GM TUBE 1 APPL TOPICAL (21:22)
[2023-07-07 07:39] VITALS: BP 145/68; PULSE 66; RESP 14; TEMP 35.8; O2SAT 99
[2023-07-07] MEDS: FLUoxetine HCl 20 MG CAPSULE 40 MG PO (08:21)
[2023-07-07] MEDS: Cariprazine HCl 1.5 MG CAPSULE PO (08:21)
[2023-07-07] MEDS: FLUoxetine HCl 20 MG CAPSULE PO (08:21)
[2023-07-07] MEDS: Multivitamin TABLET 1 TAB PO (08:21)
[2023-07-07] MEDS: Aspirin Enteric Coated 81 MG TABLET.DR PO (08:21)
[2023-07-07] MEDS: Thiamine HCL 100 MG TABLET PO (08:21)
[2023-07-07] MEDS: Triamcinolone Acet 0.5 % Oint 15 GM TUBE 1 APPL TOPICAL ×2 (08:23→22:16)
--- NOTE | 2023-07-07 08:41 | P.PNPSI_ITS ---
Subjective Subjective Date of Service: 07/07/23 Reason For Visit: Unspecified anxiety, unspecified depression Subjective Notes: Conditional Voluntary Interim History: Patient was seen and discussed in rounds today. Records and plans were reviewed. He has been stable but continues to feel depressed. When questions and appears that he has been doing better since the ECT treatments. He is more verbal and active but still feels that he has not back to his baseline. He does have a treatment scheduled tomorrow. No other complaints. No changes were made today. Slept 7 hours. Review of Systems Review of Systems Yes all other systems are reviewed and are negative Mental Status Exam Mental Status Exam Narrative: In today's visit he is alert, oriented and pleasant. Normal speech. Moderate eye contact. Affect is subdued and flat. No signs of psychosis. No SI upon inquiry. Cognitively has slow thought processes. Judgment is intact Diagnostics Vital Signs (24Hr): Vital Signs - 24 hr 07/06/23 20:05 07/07/23 07:39 Temperature 98.1 F 96.4 F L Pulse Rate 60 66 Respiratory Rate 16 14 Blood Pressure 122/68 145/68 H Pulse Oximetry 97 99 Oxygen Delivery Method Room Air Room Air BMI result Body Mass Index 24.6 Labs 06/16/23 07:04 Medications Medications Current Medications Acetaminophen (Acetaminophen 325 Mg Tablet) 650 mg PO Q6H PRN PRN Reason: Headache/Pain Mild Scale (1-3) Al Hydroxide/Mg Hydroxide (Magnesium Hydrox/Alum Hydrox 30 Ml Oral.Susp) 30 ml PO Q6H PRN PRN Reason: Heartburn/Nausea Aspirin (Aspirin Enteric Coated 81 Mg Tablet.) 81 mg PO DAILY [facility] Last Admin: 07/07/23 08:21 Dose: 81 mg Atorvastatin Calcium (Atorvastatin Calcium 10 Mg Tablet) 10 mg PO BEDTIME [facility] Last Admin: 07/06/23 21:18 Dose: 10 mg Cariprazine (Cariprazine Hcl 1.5 Mg Capsule) 1.5 mg PO DAILY [facility] Last Admin: 07/07/23 08:21 Dose: 1.5 mg Clonazepam (Clonazepam 1 Mg Tablet) 1 mg PO BEDTIME [facility] Last Admin: 07/06/23 21:19 Dose: 1 mg Fluoxetine HCl (Fluoxetine Hcl 20 Mg Capsule) 20 mg PO DAILY [facility] Last Admin: 07/07/23 08:21 Dose: 20 mg Fluoxetine HCl (Fluoxetine Hcl 20 Mg Capsule) 40 mg PO DAILY [facility] Last Admin: 07/07/23 08:21 Dose: 40 mg Hydrocortisone (Hydrocortisone 1 % Cream 28.35 Gm Tube) 1 appl TOPICAL BID PRN; Protocol PRN Reason: facial psoriasis Last Admin: 07/06/23 21:22 Dose: 1 appl Hydroxyzine HCl (Hydroxyzine Hcl 25 Mg Tablet) 25 mg PO Q6H PRN PRN Reason: Anxiety Last Admin: 06/30/23 21:37 Dose: 25 mg Lorazepam (Lorazepam 1 Mg Tablet) 1 mg PO DAILY PRN PRN Reason: panic attack Last Admin: 07/02/23 08:30 Dose: 1 mg Lorazepam (Lorazepam 1 Mg Tablet) 1 mg PO MoWeFr@0630 [facility] Last Admin: 07/05/23 06:40 Dose: 1 mg Magnesium Hydroxide (Milk Of Magnesia 30 Ml Oral.Susp) 30 ml PO DAILY PRN PRN Reason: Constipation Mirtazapine (Mirtazapine 30 Mg Tablet) 30 mg PO BEDTIME [facility] Last Admin: 07/06/23 21:19 Dose: 30 mg Multivitamins/Vitamin C (Multivitamin Tablet) 1 tab PO DAILY [facility] Last Admin: 07/07/23 08:21 Dose: 1 tab Olanzapine (Olanzapine 5 Mg Tablet) 5 mg PO MoWeFr [facility] Last Admin: 07/05/23 06:39 Dose: 5 mg Psyllium Hydrophilic Mucilloid (Psyllium Seed 3.7 Gm Packet) 3.7 gm PO BEDTIME [facility] Last Admin: 07/06/23 21:18 Dose: 3.7 gm Tamsulosin HCl (Tamsulosin Hcl 0.4 Mg Capsule) 0.4 mg PO BEDTIME [facility] Last Admin: 07/06/23 21:19 Dose: 0.4 mg Thiamine HCl (Thiamine Hcl 100 Mg Tablet) 100 mg PO DAILY [facility] Last Admin: 07/07/23 08:21 Dose: 100 mg Trazodone HCl (Trazodone Hcl 50 Mg Tablet) 50 mg PO BEDTIME MRX1 PRN PRN Reason: Insomnia Triamcinolone Acetonide (Triamcinolone Acet 0.5 % Oint 15 Gm Tube) 1 appl TOPICAL BID [facility] Last Admin: 07/07/23 08:23 Dose: 1 appl Allergies Allergies Allergy/AdvReac Type Severity Reaction Status Date / Time Penicillins AdvReac Diarrhea Verified 07/05/23 08:37 Assessment & Plan Assessment & Plan (1) Major depressive disorder, recurrent episode, severe with anxious distress: Status: Acute Code(s): F33.2 - Major depressive disorder, recurrent severe without psychotic features Assessment and Plan: Patient with long history very difficult to treat recurrent depression and anxiety. He has had past trials mirtazapine Wellbutrin olanzapine Currently on fluoxetine Abilify clonazepam at bedtime. Patient is requesting ECT said it had been helpful for him last year encourage to see if he could figure out how to hopefully do maintenance treatment as an outpatient. There are no medical contraindications EKG shows left anterior fascicular block which appears to be a chronic finding history of BPH ECT reportedly well tolerated last year at [facility] his pulse appears to Chronically run somewhat low might benefit from glycopyrrolate pretreatment. Risks benefits alternatives reviewed with patient declined literature or video 07/05: Continue current treatment and plan 07/06: Continue current regimen and plans (2) Panic disorder without agoraphobia: Status: Acute Code(s): F41.0 - Panic disorder [episodic paroxysmal anxiety] (3) SHAI (generalized anxiety disorder): Status: Acute Code(s): F41.1 - Generalized anxiety disorder Plan - Admit to inpatient psychiatry - CV - Collateral information from family and providers. - Milieu treatment and group therapy. - Medications:continue same. Consider an ECT series. - Social work evaluation. - Disposition planning. 06/15: Consider an ECT series. Otherwise continue current management and treatment plan. 06/16: hospitalist consult for ECT risk stratification, EKG, ian consult for ECT. continue current mgmt otherwise, pt to abdiaziz over increasing prozac to 80 and/or increasing remeron to 45. case discussed with ian. 06/17: seen by ian. anxious, panic attack at time of interview, got ativan PRN. planning to start ECT tomorrow. medically cleared. 06/18: ECT #1 completed without complication. continue current mgmt. 06/19: anxiety has resolved since first ECT Tx. Tx #2 tomorrow. no complications at present. 06/20: ECT #2 today. no complications. depression persists, anxiety has dissipated. ECT #3 for saturday. 06/21 continue same treatment. 06/22 continue same treatment, tomorrow ECT 06/24/23 Cont plan of care ect 06/25/23 cont plan of care no gross confusion some confusion post ect that clears 06/26/23 Pt improved tolerated todays ect and improved mood 06/26: ECT #5 for tomorrow. slow but steady improvement. reinstate ativan 1 mg daily PRN panic. 06/27: ECT #5 completed. still flat, depressed appearing, reporting he is improved. case discussed with outpt provider ron, who endorses switch from abilify to vraylar. in addition, he has correlated severe anxiety in pt with returning to live alone and has suggested assisted living, encouraging inpatient team to engage pt on that issue to improve long-term prognosis. 06/28: continue current tx plan. 06/29: continue tx plan. 06/30: DC abilify. start vraylar. declined ECT this morning after panic attack, will try again . 07/01: no s/e from vraylar switch. anxious re ECT. informed of ativan in the morning prior to ECT plan. will try again tomorrow. 07/02: ECT #6 completed today without incident. moderately improved from admission. continue current mgmt. 07/03: stable, slight downturn in mood today, not unexpected. ECT #7 tomorrow. per ian, plan for 8 ECT and then reassess need. T/C TMS after if pt is unable to get transportation for maintenance ECT. continue current mgmt. 07/04: ECT #7 completed without incident #8 scheduled for saturday. stable, no issues. continue current mgmt. Reason for continued inpatient stay Substantial Risk for: rapid decompensation Time Spent With Patient Time: Total time managing care of this patient today ____ minutes.
--- NOTE | 2023-07-07 14:11 | HO.ECTPROC ---
ECT Procedure Note Diagnosis/Treatment Date of Service: 07/05/23 Diagnosis: Major Depressive Disorder Previous ECT Date: 07/01/23 Current Treatment Number: 7 Treatment: Series Interval Clinical Notes: Pt at present seems improved but severe anxiety prior to procedure gets lorazeapm 1mg prior to procedure on the floor Time: Total time managing care of this patient today ____ minutes. ECT Settings Device: THYMATRON DGx Electrode Placement: Rt temporal/ Lt frontal Program/Pulse Width: 0.25 Energy Percent: 55 Seizure Duration By EEG (in seconds): 55 (but seizure activity was clear before 61) Medications Administration General Anesthetic: Methohexital (140 plus 20) Muscle Relaxant: Succinylcholine (140) Ancillary Medications Miscillaneous Medications: Haldol (5 mg) and Other (Ativan 2 mg post ECT) Airway Management Airway Management: Bag Mask Ventilation Treatment Recommendations No Changes Recommended: No change Notes: haldol 5 ativan 2 mg post tx Pt Tolerated Procedure w/o Issue: Yes
[2023-07-07 19:50] VITALS: BP 128/68; PULSE 56; RESP 16; TEMP 35.6; O2SAT 98
[2023-07-07] MEDS: Psyllium seed 3.7 GM PACKET PO (22:13)
[2023-07-07] MEDS: Mirtazapine 30 MG TABLET PO (22:14)
[2023-07-07] MEDS: Atorvastatin Calcium 10 MG TABLET PO (22:14)
[2023-07-07] MEDS: Tamsulosin HCL 0.4 MG CAPSULE PO (22:14)
[2023-07-07] MEDS: Hydrocortisone 1 % Cream 28.35 GM TUBE 1 APPL TOPICAL (22:18)
[2023-07-08] VITALS (9 sets, daily range): BP systolic 116–150; BP diastolic 56–97; PULSE 58–103; RESP 14–20; TEMP 36.1–36.8; O2SAT 93–100
[2023-07-08] MEDS: OLANZapine 5 MG TABLET PO (06:15)
[2023-07-08] MEDS: LORazepam 1 MG TABLET PO (06:15)
--- NOTE | 2023-07-08 06:52 | P.CONAN_ITS ---
[facility] Active Problems Active Problems: All Active Problems Major depressive disorder, recurrent episode, severe with anxious distress (Acute) Routine medical exam (Acute) Panic disorder without agoraphobia (Acute) SHAI (generalized anxiety disorder) (Acute) Major depressive disorder, recurrent severe without psychotic features (Acute) Past Medical History Medical History IBS (irritable bowel syndrome) Hypertension Chronic low back pain BPH w urinary obs/LUTS Obstructive sleep apnea Cervical stenosis of spine Hyperlipidemia History of prediabetes Psoriatic arthritis Psoriasis Family History Family history of problems with anesthesia: No Surgical History Surgical History H/O cervical discectomy H/O inguinal hernia repair History of Problems with Anesthesia: No Social History Social History Household Members: None Housing: Apartment Do you presently have visiting nurse or other home services: Yes (they come once a month) Patient Tobacco Use Status: Never used Tobacco Second Hand Smoke Exposure: Yes Use of substances other than those prescribed or required for medical reasons: No Currently Displaying Signs/Symptoms of Drug Intoxication Withdrawal: No Have you been hit, kicked, punched, or otherwise hurt by someone within the past year? If so, by whom?: No Do you feel safe in your current relationship?: Yes Is there a partner from a previous relationship who is making you feel unsafe now?: No Are you made to feel afraid or neglected: No Advance Directives: No Advance Directives Information Provided: Yes Do you have thoughts of harming others: None Do you have a plan to hurt others: No Plan Recently lost weight without trying: No Nutrition Risks: No Nutritional Risk Poor oral hygiene: No service: No Sexual orientation: Straight/Heterosexual Meds Allergies Allergy/AdvReac Type Severity Reaction Status Date / Time Penicillins AdvReac Diarrhea Verified 07/05/23 08:37 Active Medications: Current Medications Acetaminophen (Acetaminophen 325 Mg Tablet) 650 mg PO Q6H PRN PRN Reason: Headache/Pain Mild Scale (1-3) Al Hydroxide/Mg Hydroxide (Magnesium Hydrox/Alum Hydrox 30 Ml Oral.Susp) 30 ml PO Q6H PRN PRN Reason: Heartburn/Nausea Aspirin (Aspirin Enteric Coated 81 Mg Tablet.Dr) 81 mg PO DAILY [facility] Last Admin: 07/07/23 08:21 Dose: 81 mg Atorvastatin Calcium (Atorvastatin Calcium 10 Mg Tablet) 10 mg PO BEDTIME [facility] Last Admin: 07/07/23 22:14 Dose: 10 mg Cariprazine (Cariprazine Hcl 1.5 Mg Capsule) 1.5 mg PO DAILY [facility] Last Admin: 07/07/23 08:21 Dose: 1.5 mg Clonazepam (Clonazepam 1 Mg Tablet) 1 mg PO BEDTIME [facility] Last Admin: 07/07/23 20:03 Dose: Not Given Fluoxetine HCl (Fluoxetine Hcl 20 Mg Capsule) 20 mg PO DAILY [facility] Last Admin: 07/07/23 08:21 Dose: 20 mg Fluoxetine HCl (Fluoxetine Hcl 20 Mg Capsule) 40 mg PO DAILY [facility] Last Admin: 07/07/23 08:21 Dose: 40 mg Hydrocortisone (Hydrocortisone 1 % Cream 28.35 Gm Tube) 1 appl TOPICAL BID PRN; Protocol PRN Reason: facial psoriasis Last Admin: 07/07/23 22:18 Dose: 1 appl Hydroxyzine HCl (Hydroxyzine Hcl 25 Mg Tablet) 25 mg PO Q6H PRN PRN Reason: Anxiety Last Admin: 06/30/23 21:37 Dose: 25 mg Lorazepam (Lorazepam 1 Mg Tablet) 1 mg PO DAILY PRN PRN Reason: panic attack Last Admin: 07/02/23 08:30 Dose: 1 mg Lorazepam (Lorazepam 1 Mg Tablet) 1 mg PO MoWeFr@0630 [facility] Last Admin: 07/08/23 06:15 Dose: 1 mg Magnesium Hydroxide (Milk Of Magnesia 30 Ml Oral.Susp) 30 ml PO DAILY PRN PRN Reason: Constipation Mirtazapine (Mirtazapine 30 Mg Tablet) 30 mg PO BEDTIME [facility] Last Admin: 07/07/23 22:14 Dose: 30 mg Multivitamins/Vitamin C (Multivitamin Tablet) 1 tab PO DAILY [facility] Last Admin: 07/07/23 08:21 Dose: 1 tab Olanzapine (Olanzapine 5 Mg Tablet) 5 mg PO MoWeFr [facility] Last Admin: 07/08/23 06:15 Dose: 5 mg Psyllium Hydrophilic Mucilloid (Psyllium Seed 3.7 Gm Packet) 3.7 gm PO BEDTIME [facility] Last Admin: 07/07/23 22:13 Dose: 3.7 gm Tamsulosin HCl (Tamsulosin Hcl 0.4 Mg Capsule) 0.4 mg PO BEDTIME [facility] Last Admin: 07/07/23 22:14 Dose: 0.4 mg Thiamine HCl (Thiamine Hcl 100 Mg Tablet) 100 mg PO DAILY [facility] Last Admin: 07/07/23 08:21 Dose: 100 mg Trazodone HCl (Trazodone Hcl 50 Mg Tablet) 50 mg PO BEDTIME MRX1 PRN PRN Reason: Insomnia Triamcinolone Acetonide (Triamcinolone Acet 0.5 % Oint 15 Gm Tube) 1 appl TOPICAL BID [facility] Last Admin: 07/07/23 22:16 Dose: 1 appl Home Medications ?Medication ?Instructions ?Recorded ?Confirmed ?Last Taken ?Type aspirin 81 mg capsule 81 mg PO DAILY 12/21/20 06/15/23 01/19/21 08:00 History vitamin B complex 1 cap PO DAILY 01/17/21 06/15/23 01/19/21 08:00 History aripiprazole 5 mg tablet 5 mg PO DAILY 06/15/23 06/15/23 Unknown History clonazepam 1 mg tablet 1 mg PO BEDTIME 06/15/23 06/15/23 Unknown History fluoxetine 20 mg capsule 20 mg PO QAM 06/15/23 06/15/23 Unknown History fluoxetine 40 mg capsule 40 mg PO DAILY 06/15/23 06/15/23 Unknown History liothyronine 5 mcg tablet 5 mcg PO BID 06/15/23 06/15/23 Unknown History simvastatin 10 mg tablet 10 mg PO BEDTIME 06/15/23 06/15/23 Unknown History tamsulosin 0.4 mg capsule 0.4 mg PO DAILY 06/15/23 06/15/23 Unknown History Exam Height,Weight and Vital Signs: Height 5 ft 10 in Weight 77.734 kg Last Vital Signs Temp 97.1 F 07/08/23 06:43 Pulse 86 07/08/23 06:43 Resp 18 07/08/23 06:43 BP 140/74 H 07/08/23 06:43 Pulse Ox 98 07/08/23 06:43 O2 Del Method Room Air 07/07/23 19:50 O2 Flow Rate 2 07/05/23 10:43 Pertinent Lab Results Pertinent Lab Results: Laboratory Tests 06/16/23 07:04 Sodium 144 Potassium 4.5 Chloride 109 H Carbon Dioxide 26 Anion Gap 14 BUN 22 H Creatinine 1.06 Estim Creat Clear Calc 63.6 Estimated GFR > 60 Fasting Glucose 94 Estimat Average Glucose 111 Hemoglobin A1c % 5.5 Calcium 9.5 Total Bilirubin 0.5 AST 18 ALT 21 Alkaline Phosphatase 73 Total Protein 6.5 Albumin 3.8 Triglycerides 89 Cholesterol 188 LDL Cholesterol, Calc 120 H HDL Cholesterol 51 Vitamin B12 300 Folate 6.4 TSH 1.44 Airway Mallampati Class: II (caps throughout) TM Dist: >3cm Neck ROM: Full Heart: rrr Lungs: cta Assessment and Plan Assessment Anesthesia Assessment: Anesthesia Plan Discussed and Chart Reviewed Final Anesthetic Review Family History of Problems with Anesthesia: No History of Problems with Anesthesia: No NPO: Yes ASA Class: III Final Preanesthetic Review: No Changes in Pt Med Stat, Meds/Allgs Chart Reviewed and Consent Obtained/Reviewed Patient Risk: Intermediate Procedure Risk: Intermediate Anesthetic Plan Anesthetic Plan: GA Disposition: Standard PACU
--- NOTE | 2023-07-08 06:57 | PC.NURSE ---
anxiety-patient placed himself on the floor in the dayroom reporting that ''I am anxious, I am nauseous'' reports using cold floor to help with anxiety. assisted with deep breathing exercise, grounding with counting and was re assured that he would be having ECT treatment when he felt ready. pt adjusted position for comfort, putting his legs up on chair with his back on the floor. when ready, he was able to get up off the floor without assistance. ambulated to bathroom with t/w at side. gait steady. reported a decrease in anxiety as well as c/o nausea. when in w/c during transport to PACU patient stated ''I'm such a nervous man'' report given to PACU nurse about panic.
--- NOTE | 2023-07-08 07:00 | MHC.SHP ---
Pre-Procedural Eval Section A - 24 Hr Update-Section A only Date of Service: 07/08/23 The patient is an INPATIENT: No Changes since office visit: Yes Cold of Flu in the past 2 weeks, Yes New Medical Problems, Yes Changes in Medication and Yes Patient answered all questions The patient has been examined within 24 hours of the surgical procedure. The History & Physical has been completed within 30 days and I have reviewed it.: Yes Section B - Complete if H&P > 30 days Chief Complaint: Unspecified anxiety, unspecified depression Allergies: Allergies Allergy/AdvReac Type Severity Reaction Status Date / Time Penicillins AdvReac Diarrhea Verified 07/05/23 08:37 Plan I have reviewed the history and physical and performed a pertinent physical examination on my patient. No changes have occurred unless specified. Time Spent With Patient Time: Total time managing care of this patient today ____ minutes.
--- NOTE | 2023-07-08 07:53 | HO.ECTPROC ---
ECT Procedure Note Diagnosis/Treatment Date of Service: 07/08/23 Diagnosis: Major Depressive Disorder Previous ECT Date: 07/03/23 Current Treatment Number: 8 Treatment: Series Interval Clinical Notes: The patient nemains extremely anxious, he had Ativan and other meds before coming. He reports dysphoria but no active suicidal thoughts. Denies side effects with previous ECT. Staff reported that he awaken a little restless but controlled with Haldol 5 and Ativan [address] E[address] done with the same technique, no complications, we medicated as usual, he was restless but no need to increase medications at this moment. Time: Total time managing care of this patient today __30__ minutes. ECT Settings Device: THYMATRON DGx Electrode Placement: Rt temporal/ Lt frontal Program/Pulse Width: 0.25 Energy Percent: 55 Seizure Duration By EEG (in seconds): 42 By Motor Observation (in seconds): 30 Medications Administration General Anesthetic: Methohexital (140) Muscle Relaxant: Succinylcholine (140) Ancillary Medications Analgesics: Torodol - Pre ECT Anti-emetics: Zofran - Pre ECT Miscillaneous Medications: Haldol (5 mg post ECT IVP) and Other (Ativan 2 mg post ECT IVP) Airway Management Airway Management: Bag Mask Ventilation Treatment Recommendations No Changes Recommended: No change Pt Tolerated Procedure w/o Issue: Yes
[2023-07-08] MEDS: LORazepam 2 MG/ML VIAL IVPUSH (08:06)
[2023-07-08] MEDS: Haloperidol Lactate 5 MG/ML VIAL IVPUSH (08:06)
[2023-07-08] MEDS: FLUoxetine HCl 20 MG CAPSULE 40 MG PO (09:34)
[2023-07-08] MEDS: FLUoxetine HCl 20 MG CAPSULE PO (09:34)
[2023-07-08] MEDS: Cariprazine HCl 1.5 MG CAPSULE PO (09:35)
[2023-07-08] MEDS: Thiamine HCL 100 MG TABLET PO (09:35)
[2023-07-08] MEDS: Aspirin Enteric Coated 81 MG TABLET.DR PO (09:35)
[2023-07-08] MEDS: Multivitamin TABLET 1 TAB PO (09:35)
--- NOTE | 2023-07-08 15:40 | HO.PSYCHPN ---
Subjective Subjective Date of Service: 07/08/23 Reason For Visit: Unspecified anxiety, unspecified depression Interim History: discuss pt feelings about ECT, TMS, PHP. pt feels he has been flat in response to the last several ECTs and prefers to stop them now. he has done several PHPs in the past and never TMS, so is thinking he would prefer to try that now. anxiety not too bad, depression hard to tell. per staff, ambivalent re ECT. another panic attack prior to ECT this morning. got haldol and ativan after ECT as well due to second panic attack. eating, sleeping, groups. 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 Mental Status Exam Mental Status Exam Narrative: Pt is alert and oriented; behavior is cooperative and calm; dressed in casual attire; eye contact appropriate; Speech is normal rate, volume and prosody and not pressured; thought process is organized; affect flat. Thought content is on tx; no SI/HI/VH/AH expressed. Diagnostics Vital Signs (24Hr): Vital Signs - 24 hr 07/07/23 19:50 07/08/23 06:43 07/08/23 06:52 Temperature 96.1 F L 97.1 F 97 F Pulse Rate 56 86 79 Respiratory Rate 16 18 14 Blood Pressure 128/68 140/74 H 141/59 H Pulse Oximetry 98 98 100 Oxygen Delivery Method Room Air Room Air Oxygen Flow Rate 07/08/23 08:00 07/08/23 08:05 07/08/23 08:10 Temperature 98.2 F Pulse Rate 96 103 H 101 H Respiratory Rate 16 20 20 Blood Pressure 150/97 H 148/88 H 141/79 H Pulse Oximetry 99 100 98 Oxygen Delivery Method Nasal Cannula with ETCO2 Nasal Cannula with ETCO2 Room Air Oxygen Flow Rate 2 2 07/08/23 08:15 07/08/23 08:30 07/08/23 09:15 Temperature 98.2 F 98.1 F Pulse Rate 93 69 68 Respiratory Rate 20 20 16 Blood Pressure 136/89 131/69 122/58 L Pulse Oximetry 100 96 93 Oxygen Delivery Method Room Air Room Air Oxygen Flow Rate BMI result Body Mass Index 24.6 Labs 06/16/23 07:04 Medications Medications Current Medications Acetaminophen (Acetaminophen 325 Mg Tablet) 650 mg PO Q6H PRN PRN Reason: Headache/Pain Mild Scale (1-3) Al Hydroxide/Mg Hydroxide (Magnesium Hydrox/Alum Hydrox 30 Ml Oral.Susp) 30 ml PO Q6H PRN PRN Reason: Heartburn/Nausea Aspirin (Aspirin Enteric Coated 81 Mg Tablet.Dr) 81 mg PO DAILY [facility] Last Admin: 07/08/23 09:35 Dose: 81 mg Atorvastatin Calcium (Atorvastatin Calcium 10 Mg Tablet) 10 mg PO BEDTIME [facility] Last Admin: 07/07/23 22:14 Dose: 10 mg Cariprazine (Cariprazine Hcl 1.5 Mg Capsule) 1.5 mg PO DAILY [facility] Last Admin: 07/08/23 09:35 Dose: 1.5 mg Clonazepam (Clonazepam 1 Mg Tablet) 1 mg PO BEDTIME [facility] Last Admin: 07/07/23 20:03 Dose: Not Given Fluoxetine HCl (Fluoxetine Hcl 20 Mg Capsule) 20 mg PO DAILY [facility] Last Admin: 07/08/23 09:34 Dose: 20 mg Fluoxetine HCl (Fluoxetine Hcl 20 Mg Capsule) 40 mg PO DAILY [facility] Last Admin: 07/08/23 09:34 Dose: 40 mg Hydrocortisone (Hydrocortisone 1 % Cream 28.35 Gm Tube) 1 appl TOPICAL BID PRN; Protocol PRN Reason: facial psoriasis Last Admin: 07/07/23 22:18 Dose: 1 appl Hydroxyzine HCl (Hydroxyzine Hcl 25 Mg Tablet) 25 mg PO Q6H PRN PRN Reason: Anxiety Last Admin: 06/30/23 21:37 Dose: 25 mg Lorazepam (Lorazepam 1 Mg Tablet) 1 mg PO DAILY PRN PRN Reason: panic attack Last Admin: 07/02/23 08:30 Dose: 1 mg Lorazepam (Lorazepam 1 Mg Tablet) 1 mg PO [id number] [facility] Last Admin: 07/08/23 06:15 Dose: 1 mg Magnesium Hydroxide (Milk Of Magnesia 30 Ml Oral.Susp) 30 ml PO DAILY PRN PRN Reason: Constipation Mirtazapine (Mirtazapine 30 Mg Tablet) 30 mg PO BEDTIME [facility] Last Admin: 07/07/23 22:14 Dose: 30 mg Multivitamins/Vitamin C (Multivitamin Tablet) 1 tab PO DAILY [facility] Last Admin: 07/08/23 09:35 Dose: 1 tab Olanzapine (Olanzapine 5 Mg Tablet) 5 mg PO MoWeFr [facility] Last Admin: 07/08/23 06:15 Dose: 5 mg Psyllium Hydrophilic Mucilloid (Psyllium Seed 3.7 Gm Packet) 3.7 gm PO BEDTIME [facility] Last Admin: 07/07/23 22:13 Dose: 3.7 gm Tamsulosin HCl (Tamsulosin Hcl 0.4 Mg Capsule) 0.4 mg PO BEDTIME [facility] Last Admin: 07/07/23 22:14 Dose: 0.4 mg Thiamine HCl (Thiamine Hcl 100 Mg Tablet) 100 mg PO DAILY [facility] Last Admin: 07/08/23 09:35 Dose: 100 mg Trazodone HCl (Trazodone Hcl 50 Mg Tablet) 50 mg PO BEDTIME MRX1 PRN PRN Reason: Insomnia Triamcinolone Acetonide (Triamcinolone Acet 0.5 % Oint 15 Gm Tube) 1 appl TOPICAL BID [facility] Last Admin: 07/08/23 09:36 Dose: Not Given Allergies Allergies Allergy/AdvReac Type Severity Reaction Status Date / Time Penicillins AdvReac Diarrhea Verified 07/05/23 08:37 Assessment & Plan Assessment & Plan (1) Major depressive disorder, recurrent episode, severe with anxious distress: Status: Acute Code(s): F33.2 - Major depressive disorder, recurrent severe without psychotic features Assessment and Plan: Patient with long history very difficult to treat recurrent depression and anxiety. He has had past trials mirtazapine Wellbutrin olanzapine (2) Panic disorder without agoraphobia: Status: Acute Code(s): F41.0 - Panic disorder [episodic paroxysmal anxiety] (3) SHAI (generalized anxiety disorder): Status: Acute Code(s): F41.1 - Generalized anxiety disorder Plan - Admit to inpatient psychiatry - CV - Collateral information from family and providers. - Milieu treatment and group therapy. - Medications:continue same. Consider an ECT series. - Social work evaluation. - Disposition planning. 06/15: Consider an ECT series. Otherwise continue current management and treatment plan. 06/16: hospitalist consult for ECT risk stratification, EKG, ian consult for ECT. continue current mgmt otherwise, pt to abdiaziz over increasing prozac to 80 and/or increasing remeron to 45. case discussed with ian. 06/17: seen by ian. anxious, panic attack at time of interview, got ativan PRN. planning to start ECT tomorrow. medically cleared. 06/18: ECT #1 completed without complication. continue current mgmt. 06/19: anxiety has resolved since first ECT Tx. Tx #2 tomorrow. no complications at present. 06/20: ECT #2 today. no complications. depression persists, anxiety has dissipated. ECT #3 for saturday. 06/21 continue same treatment. 06/22 continue same treatment, tomorrow ECT 06/24/23 Cont plan of care ect 06/25/23 cont plan of care no gross confusion some confusion post ect that clears 06/26/23 Pt improved tolerated todays ect and improved mood 06/26: ECT #5 for tomorrow. slow but steady improvement. reinstate ativan 1 mg daily PRN panic. 06/27: ECT #5 completed. still flat, depressed appearing, reporting he is improved. case discussed with outpt provider ron, who endorses switch from abilify to vraylar. in addition, he has correlated severe anxiety in pt with returning to live alone and has suggested assisted living, encouraging inpatient team to engage pt on that issue to improve long-term prognosis. 06/28: continue current tx plan. 06/29: continue tx plan. 06/30: DC abilify. start vraylar. declined ECT this morning after panic attack, will try again . 07/01: no s/e from vraylar switch. anxious re ECT. informed of ativan in the morning prior to ECT plan. will try again tomorrow. 07/02: ECT #6 completed today without incident. moderately improved from admission. continue current mgmt. 07/03: stable, slight downturn in mood today, not unexpected. ECT #7 tomorrow. per ian, plan for 8 ECT and then reassess need. T/C TMS after if pt is unable to get transportation for maintenance ECT. continue current mgmt. 07/04: ECT #7 completed without incident #8 scheduled for saturday. stable, no issues. continue current mgmt. 07/05: Continue current treatment and plan 07/06: Continue current regimen and plans 07/07: continue current mgmt. had final ECT today, #8, planning to NOT be referred to PHP but rather to start trial of rTMS. feels has not improved any with last several ECTs. Reason for continued inpatient stay Substantial Risk for: inability to function and rapid decompensation Time Spent With Patient Time: Total time managing care of this patient today __25__ minutes.
[2023-07-08] MEDS: Psyllium seed 3.7 GM PACKET PO (21:51)
[2023-07-08] MEDS: Tamsulosin HCL 0.4 MG CAPSULE PO (21:53)
[2023-07-08] MEDS: Atorvastatin Calcium 10 MG TABLET PO (21:53)
[2023-07-08] MEDS: Mirtazapine 30 MG TABLET PO (21:53)
[2023-07-08] MEDS: clonazePAM 1 MG TABLET PO (21:53)
[2023-07-09 07:45] VITALS: BP 163/72; PULSE 63; RESP 16; TEMP 35.8; O2SAT 99
[2023-07-09] MEDS: FLUoxetine HCl 20 MG CAPSULE 40 MG PO (08:47)
[2023-07-09] MEDS: FLUoxetine HCl 20 MG CAPSULE PO (08:48)
[2023-07-09] MEDS: Multivitamin TABLET 1 TAB PO (08:48)
[2023-07-09] MEDS: Aspirin Enteric Coated 81 MG TABLET.DR PO (08:48)
[2023-07-09] MEDS: Cariprazine HCl 1.5 MG CAPSULE PO ×2 (08:48→11:03)
[2023-07-09] MEDS: Thiamine HCL 100 MG TABLET PO (08:49)
--- NOTE | 2023-07-09 11:52 | HO.PSYCHPN ---
Subjective Subjective Date of Service: 07/09/23 Reason For Visit: Unspecified anxiety, unspecified depression Interim History: flat, cooperative. confirms he does not wish to continue ECT but would rather like to discharge and pursue rTMS from home. endorses his ability to take care of his ADLs and IADLs outside the hospital. reports his mood is so-so and a little depressed. agrees to have vraylar increased to 3 mg daily as of today. will plan for D/C. per staff, no issues. withdrawn. dep 4-5, constricted affect. in bed most of the time. slept 8-9 hours. Mental Status Exam Mental Status Exam Narrative: Pt is alert and oriented; behavior is cooperative and calm; dressed in [facility]; eye contact appropriate; Speech is normal rate, volume and prosody and not pressured; thought process is organized; affect flat. Thought content is on tx; no SI/HI/VH/AH expressed. Diagnostics Vital Signs (24Hr): Vital Signs - 24 hr 07/08/23 20:15 07/09/23 07:45 Temperature 98.0 F 96.5 F L Pulse Rate 58 63 Respiratory Rate 16 16 Blood Pressure 116/56 L 163/72 H Pulse Oximetry 98 99 Oxygen Delivery Method Room Air Room Air BMI result Body Mass Index 24.6 Labs 06/16/23 07:04 Medications Medications Current Medications Acetaminophen (Acetaminophen 325 Mg Tablet) 650 mg PO Q6H PRN PRN Reason: Headache/Pain Mild Scale (1-3) Al Hydroxide/Mg Hydroxide (Magnesium Hydrox/Alum Hydrox 30 Ml Oral.Susp) 30 ml PO Q6H PRN PRN Reason: Heartburn/Nausea Aspirin (Aspirin Enteric Coated 81 Mg Tablet.) 81 mg PO DAILY [facility] Last Admin: 07/09/23 08:48 Dose: 81 mg Atorvastatin Calcium (Atorvastatin Calcium 10 Mg Tablet) 10 mg PO BEDTIME [facility] Last Admin: 07/08/23 21:53 Dose: 10 mg Cariprazine (Cariprazine Hcl 3 Mg Capsule) 3 mg PO DAILY [facility] Clonazepam (Clonazepam 1 Mg Tablet) 1 mg PO BEDTIME [facility] Last Admin: 07/08/23 21:53 Dose: 1 mg Fluoxetine HCl (Fluoxetine Hcl 20 Mg Capsule) 20 mg PO DAILY [facility] Last Admin: 07/09/23 08:48 Dose: 20 mg Fluoxetine HCl (Fluoxetine Hcl 20 Mg Capsule) 40 mg PO DAILY [facility] Last Admin: 07/09/23 08:47 Dose: 40 mg Hydrocortisone (Hydrocortisone 1 % Cream 28.35 Gm Tube) 1 appl TOPICAL BID PRN; Protocol PRN Reason: facial psoriasis Last Admin: 07/07/23 22:18 Dose: 1 appl Hydroxyzine HCl (Hydroxyzine Hcl 25 Mg Tablet) 25 mg PO Q6H PRN PRN Reason: Anxiety Last Admin: 06/30/23 21:37 Dose: 25 mg Lorazepam (Lorazepam 1 Mg Tablet) 1 mg PO DAILY PRN PRN Reason: panic attack Last Admin: 07/02/23 08:30 Dose: 1 mg Magnesium Hydroxide (Milk Of Magnesia 30 Ml Oral.Susp) 30 ml PO DAILY PRN PRN Reason: Constipation Mirtazapine (Mirtazapine 30 Mg Tablet) 30 mg PO BEDTIME [facility] Last Admin: 07/08/23 21:53 Dose: 30 mg Multivitamins/Vitamin C (Multivitamin Tablet) 1 tab PO DAILY [facility] Last Admin: 07/09/23 08:48 Dose: 1 tab Psyllium Hydrophilic Mucilloid (Psyllium Seed 3.7 Gm Packet) 3.7 gm PO BEDTIME [facility] Last Admin: 07/08/23 21:51 Dose: 3.7 gm Tamsulosin HCl (Tamsulosin Hcl 0.4 Mg Capsule) 0.4 mg PO BEDTIME [facility] Last Admin: 07/08/23 21:53 Dose: 0.4 mg Thiamine HCl (Thiamine Hcl 100 Mg Tablet) 100 mg PO DAILY [facility] Last Admin: 07/09/23 08:49 Dose: 100 mg Trazodone HCl (Trazodone Hcl 50 Mg Tablet) 50 mg PO BEDTIME MRX1 PRN PRN Reason: Insomnia Triamcinolone Acetonide (Triamcinolone Acet 0.5 % Oint 15 Gm Tube) 1 appl TOPICAL BID [facility] Last Admin: 07/09/23 09:09 Dose: Not Given Allergies Allergies Allergy/AdvReac Type Severity Reaction Status Date / Time Penicillins AdvReac Diarrhea Verified 07/05/23 08:37 Assessment & Plan Assessment & Plan (1) Major depressive disorder, recurrent episode, severe with anxious distress: Status: Acute Code(s): F33.2 - Major depressive disorder, recurrent severe without psychotic features Assessment and Plan: Patient with long history very difficult to treat recurrent depression and anxiety. He has had past trials mirtazapine Wellbutrin olanzapine (2) Panic disorder without agoraphobia: Status: Acute Code(s): F41.0 - Panic disorder [episodic paroxysmal anxiety] (3) SHAI (generalized anxiety disorder): Status: Acute Code(s): F41.1 - Generalized anxiety disorder Plan - Admit to inpatient psychiatry - CV - Collateral information from family and providers. - Milieu treatment and group therapy. - Medications:continue same. Consider an ECT series. - Social work evaluation. - Disposition planning. 06/15: Consider an ECT series. Otherwise continue current management and treatment plan. 06/16: hospitalist consult for ECT risk stratification, EKG, ian consult for ECT. continue current mgmt otherwise, pt to abdiaziz over increasing prozac to 80 and/or increasing remeron to 45. case discussed with ian. 06/17: seen by ian. anxious, panic attack at time of interview, got ativan PRN. planning to start ECT tomorrow. medically cleared. 06/18: ECT #1 completed without complication. continue current mgmt. 06/19: anxiety has resolved since first ECT Tx. Tx #2 tomorrow. no complications at present. 06/20: ECT #2 today. no complications. depression persists, anxiety has dissipated. ECT #3 for saturday. 06/21 continue same treatment. 06/22 continue same treatment, tomorrow ECT 06/24/23 Cont plan of care ect 06/25/23 cont plan of care no gross confusion some confusion post ect that clears 06/26/23 Pt improved tolerated todays ect and improved mood 06/26: ECT #5 for tomorrow. slow but steady improvement. reinstate ativan 1 mg daily PRN panic. 06/27: ECT #5 completed. still flat, depressed appearing, reporting he is improved. case discussed with outpt provider ron, who endorses switch from abilify to vraylar. in addition, he has correlated severe anxiety in pt with returning to live alone and has suggested assisted living, encouraging inpatient team to engage pt on that issue to improve long-term prognosis. 06/28: continue current tx plan. 06/29: continue tx plan. 06/30: DC abidilcia. start vraylar. declined ECT this morning after panic attack, will try again wed. 07/01: no s/e from vraylar switch. anxious re ECT. informed of ativan in the morning prior to ECT plan. will try again tomorrow. 07/02: ECT #6 completed today without incident. moderately improved from admission. continue current mgmt. 07/03: stable, slight downturn in mood today, not unexpected. ECT #7 tomorrow. per ian, plan for 8 ECT and then reassess need. T/C TMS after if pt is unable to get transportation for maintenance ECT. continue current mgmt. 07/04: ECT #7 completed without incident #8 scheduled for saturday. stable, no issues. continue current mgmt. 07/05: Continue current treatment and plan 07/06: Continue current regimen and plans 07/07: continue current mgmt. had final ECT today, #8, planning to NOT be referred to PHP but rather to start trial of rTMS. feels has not improved any with last several ECTs. 07/08: increased vraylar to 3 mg as of today. planning for discharge and referral to rTMS. appears flat, depressed. acknowledges continuing to feel depressed. Reason for continued inpatient stay Substantial Risk for: inability to function and rapid decompensation Time Spent With Patient Time: Total time managing care of this patient today __25__ minutes.
--- NOTE | 2023-07-09 14:54 | HO.POSTANES ---
Post Anesthesia Evaluation Post Anesthesia Evaluation Date of Service: 07/08/23 Vital Signs: Vital Signs Temp Pulse Resp BP Pulse Ox O2 Del Method 07/09/23 07:45 96.5 F L 63 16 163/72 H 99 Room Air Anesthesia: General Mental Status: Awake Pain Control: Satisfactory Nausea/Vomiting: None Hydration: Adequate Anesthesia-Related Issues: No Anes. Related Issues
[2023-07-09 20:00] VITALS: BP 126/66; PULSE 63; RESP 16; TEMP 36.6; O2SAT 97
[2023-07-09] MEDS: Psyllium seed 3.7 GM PACKET PO (21:50)
[2023-07-09] MEDS: clonazePAM 1 MG TABLET PO (21:50)
[2023-07-09] MEDS: Atorvastatin Calcium 10 MG TABLET PO (21:50)
[2023-07-09] MEDS: Tamsulosin HCL 0.4 MG CAPSULE PO (21:50)
[2023-07-09] MEDS: Mirtazapine 30 MG TABLET PO (21:50)
[2023-07-09] MEDS: Triamcinolone Acet 0.5 % Oint 15 GM TUBE 1 APPL TOPICAL (21:51)
[2023-07-10 08:00] VITALS: BP 156/85; PULSE 65; RESP 16; TEMP 37.1; O2SAT 98
[2023-07-10] MEDS: FLUoxetine HCl 20 MG CAPSULE 40 MG PO (08:24)
[2023-07-10] MEDS: FLUoxetine HCl 20 MG CAPSULE PO (08:24)
[2023-07-10] MEDS: Multivitamin TABLET 1 TAB PO (08:25)
[2023-07-10] MEDS: Thiamine HCL 100 MG TABLET PO (08:25)
[2023-07-10] MEDS: Aspirin Enteric Coated 81 MG TABLET.DR PO (08:25)
[2023-07-10] MEDS: Cariprazine HCl 3 MG CAPSULE PO (08:25)
--- NOTE | 2023-07-10 13:18 | P.PNPSI_ITS ---
Subjective Subjective Date of Service: 07/10/23 Reason For Visit: Unspecified anxiety, unspecified depression Interim History: no change in presentation. discuss possibly increasing prozac for dep/anx. agree to hold off as we only just increased vraylar yesterday and pt will see his prescriber in 2 weeks. per staff, some anx/dep. slept 7 hours. Mental Status Exam Mental Status Exam Narrative: Pt is alert and oriented; behavior is cooperative and calm; dressed in [facility]; eye contact appropriate; Speech is normal rate, volume and prosody and not pressured; thought process is organized; affect flat. Thought content is on tx; no SI/HI/VH/AH expressed. Diagnostics Vital Signs (24Hr): Vital Signs - 24 hr 07/09/23 20:00 07/10/23 08:00 Temperature 97.9 F 98.7 F Pulse Rate 63 65 Respiratory Rate 16 16 Blood Pressure 126/66 156/85 H Pulse Oximetry 97 98 Oxygen Delivery Method Room Air Room Air BMI result Body Mass Index 24.6 Labs 06/16/23 07:04 Medications Medications Current Medications Acetaminophen (Acetaminophen 325 Mg Tablet) 650 mg PO Q6H PRN PRN Reason: Headache/Pain Mild Scale (1-3) Al Hydroxide/Mg Hydroxide (Magnesium Hydrox/Alum Hydrox 30 Ml Oral.Susp) 30 ml PO Q6H PRN PRN Reason: Heartburn/Nausea Aspirin (Aspirin Enteric Coated 81 Mg Tablet.Dr) 81 mg PO DAILY [facility] Last Admin: 07/10/23 08:25 Dose: 81 mg Atorvastatin Calcium (Atorvastatin Calcium 10 Mg Tablet) 10 mg PO BEDTIME [facility] Last Admin: 07/09/23 21:50 Dose: 10 mg Cariprazine (Cariprazine Hcl 3 Mg Capsule) 3 mg PO DAILY [facility] Last Admin: 07/10/23 08:25 Dose: 3 mg Clonazepam (Clonazepam 1 Mg Tablet) 1 mg PO BEDTIME [facility] Last Admin: 07/09/23 21:50 Dose: 1 mg Fluoxetine HCl (Fluoxetine Hcl 20 Mg Capsule) 20 mg PO DAILY [facility] Last Admin: 07/10/23 08:24 Dose: 20 mg Fluoxetine HCl (Fluoxetine Hcl 20 Mg Capsule) 40 mg PO DAILY [facility] Last Admin: 07/10/23 08:24 Dose: 40 mg Hydrocortisone (Hydrocortisone 1 % Cream 28.35 Gm Tube) 1 appl TOPICAL BID PRN; Protocol PRN Reason: facial psoriasis Last Admin: 07/07/23 22:18 Dose: 1 appl Hydroxyzine HCl (Hydroxyzine Hcl 25 Mg Tablet) 25 mg PO Q6H PRN PRN Reason: Anxiety Last Admin: 06/30/23 21:37 Dose: 25 mg Lorazepam (Lorazepam 1 Mg Tablet) 1 mg PO DAILY PRN PRN Reason: panic attack Last Admin: 07/02/23 08:30 Dose: 1 mg Magnesium Hydroxide (Milk Of Magnesia 30 Ml Oral.Susp) 30 ml PO DAILY PRN PRN Reason: Constipation Mirtazapine (Mirtazapine 30 Mg Tablet) 30 mg PO BEDTIME [facility] Last Admin: 07/09/23 21:50 Dose: 30 mg Multivitamins/Vitamin C (Multivitamin Tablet) 1 tab PO DAILY [facility] Last Admin: 07/10/23 08:25 Dose: 1 tab Psyllium Hydrophilic Mucilloid (Psyllium Seed 3.7 Gm Packet) 3.7 gm PO BEDTIME [facility] Last Admin: 07/09/23 21:50 Dose: 3.7 gm Tamsulosin HCl (Tamsulosin Hcl 0.4 Mg Capsule) 0.4 mg PO BEDTIME [facility] Last Admin: 07/09/23 21:50 Dose: 0.4 mg Thiamine HCl (Thiamine Hcl 100 Mg Tablet) 100 mg PO DAILY [facility] Last Admin: 07/10/23 08:25 Dose: 100 mg Trazodone HCl (Trazodone Hcl 50 Mg Tablet) 50 mg PO BEDTIME MRX1 PRN PRN Reason: Insomnia Triamcinolone Acetonide (Triamcinolone Acet 0.5 % Oint 15 Gm Tube) 1 appl TOPICAL BID [facility] Last Admin: 07/10/23 08:25 Dose: Not Given Allergies Allergies Allergy/AdvReac Type Severity Reaction Status Date / Time Penicillins AdvReac Diarrhea Verified 07/05/23 08:37 Assessment & Plan Assessment & Plan (1) Major depressive disorder, recurrent episode, severe with anxious distress: Status: Acute Code(s): F33.2 - Major depressive disorder, recurrent severe without psychotic features Assessment and Plan: Patient with long history very difficult to treat recurrent depression and anxiety. He has had past trials mirtazapine Wellbutrin olanzapine (2) Panic disorder without agoraphobia: Status: Acute Code(s): F41.0 - Panic disorder [episodic paroxysmal anxiety] (3) SHAI (generalized anxiety disorder): Status: Acute Code(s): F41.1 - Generalized anxiety disorder Plan - Admit to inpatient psychiatry - CV - Collateral information from family and providers. - Milieu treatment and group therapy. - Medications:continue same. Consider an ECT series. - Social work evaluation. - Disposition planning. 06/15: Consider an ECT series. Otherwise continue current management and treatment plan. 06/16: hospitalist consult for ECT risk stratification, EKG, ian consult for ECT. continue current mgmt otherwise, pt to abdiaziz over increasing prozac to 80 and/or increasing remeron to 45. case discussed with ian. 06/17: seen by ian. anxious, panic attack at time of interview, got ativan PRN. planning to start ECT tomorrow. medically cleared. 06/18: ECT #1 completed without complication. continue current mgmt. 06/19: anxiety has resolved since first ECT Tx. Tx #2 tomorrow. no complications at present. 06/20: ECT #2 today. no complications. depression persists, anxiety has dissipated. ECT #3 for saturday. 06/21 continue same treatment. 06/22 continue same treatment, tomorrow ECT 06/24/23 Cont plan of care ect 06/25/23 cont plan of care no gross confusion some confusion post ect that clears 06/26/23 Pt improved tolerated todays ect and improved mood 06/26: ECT #5 for tomorrow. slow but steady improvement. reinstate ativan 1 mg daily PRN panic. 06/27: ECT #5 completed. still flat, depressed appearing, reporting he is improved. case discussed with outpt provider ron, who endorses switch from abilify to vraylar. in addition, he has correlated severe anxiety in pt with returning to live alone and has suggested assisted living, encouraging inpatient team to engage pt on that issue to improve long-term prognosis. 06/28: continue current tx plan. 06/29: continue tx plan. 06/30: DC abilify. start vraylar. declined ECT this morning after panic attack, will try again weds. 07/01: no s/e from vraylar switch. anxious re ECT. informed of ativan in the morning prior to ECT plan. will try again tomorrow. 07/02: ECT #6 completed today without incident. moderately improved from admission. continue current mgmt. 07/03: stable, slight downturn in mood today, not unexpected. ECT #7 tomorrow. per ian, plan for 8 ECT and then reassess need. T/C TMS after if pt is unable to get transportation for maintenance ECT. continue current mgmt. 07/04: ECT #7 completed without incident #8 scheduled for saturday. stable, no issues. continue current mgmt. 07/05: Continue current treatment and plan 07/06: Continue current regimen and plans 07/07: continue current mgmt. had final ECT today, #8, planning to NOT be referred to PHP but rather to start trial of rTMS. feels has not improved any with last several ECTs. 07/08: increased vraylar to 3 mg as of today. planning for discharge and referral to rTMS. appears flat, depressed. acknowledges continuing to feel depressed. 07/09: no change in presentation. continue current mgmt. day #2 of increased vraylar dosing. planning for saturday discharge. Reason for continued inpatient stay Substantial Risk for: inability to function and rapid decompensation Time Spent With Patient Time: Total time managing care of this patient today __25__ minutes.
[2023-07-10 20:25] VITALS: BP 138/65; PULSE 62; RESP 16; TEMP 36.6; O2SAT 98
[2023-07-10] MEDS: Tamsulosin HCL 0.4 MG CAPSULE PO (20:42)
[2023-07-10] MEDS: Mirtazapine 30 MG TABLET PO (20:42)
[2023-07-10] MEDS: Psyllium seed 3.7 GM PACKET PO (20:43)
[2023-07-10] MEDS: clonazePAM 1 MG TABLET PO (20:43)
[2023-07-10] MEDS: Atorvastatin Calcium 10 MG TABLET PO (20:43)
[2023-07-11 07:44] VITALS: BP 157/87; PULSE 62; RESP 16; TEMP 36.8; O2SAT 98
[2023-07-11] MEDS: Multivitamin TABLET 1 TAB PO (08:20)
[2023-07-11] MEDS: FLUoxetine HCl 20 MG CAPSULE PO (08:21)
[2023-07-11] MEDS: Cariprazine HCl 3 MG CAPSULE PO (08:21)
[2023-07-11] MEDS: FLUoxetine HCl 20 MG CAPSULE 40 MG PO (08:21)
[2023-07-11] MEDS: Thiamine HCL 100 MG TABLET PO (08:22)
[2023-07-11] MEDS: Aspirin Enteric Coated 81 MG TABLET.DR PO (08:22)
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
[2023-07-11 20:00] VITALS: BP 125/70; PULSE 62; RESP 16; TEMP 36.7; O2SAT 98
[2023-07-11] MEDS: Psyllium seed 3.7 GM PACKET PO (21:27)
[2023-07-11] MEDS: Atorvastatin Calcium 10 MG TABLET PO (21:27)
[2023-07-11] MEDS: clonazePAM 1 MG TABLET PO (21:28)
[2023-07-11] MEDS: Mirtazapine 30 MG TABLET PO (21:28)
[2023-07-11] MEDS: Tamsulosin HCL 0.4 MG CAPSULE PO (21:29)
[2023-07-12 07:58] VITALS: BP 159/74; PULSE 60; RESP 16; TEMP 36.6; O2SAT 98
[2023-07-12] MEDS: FLUoxetine HCl 20 MG CAPSULE PO (09:13)
[2023-07-12] MEDS: Aspirin Enteric Coated 81 MG TABLET.DR PO (09:13)
[2023-07-12] MEDS: Cariprazine HCl 3 MG CAPSULE PO (09:14)
[2023-07-12] MEDS: Thiamine HCL 100 MG TABLET PO (09:14)
[2023-07-12] MEDS: Multivitamin TABLET 1 TAB PO (09:14)
[2023-07-12] MEDS: FLUoxetine HCl 20 MG CAPSULE 40 MG PO (09:14)
== END 2023-07-12 10:27 | disposition home or self-care (01) | DRG 885 ==
PROVIDERS: Psychiatry & Neurology Psychiatry; Social Worker; Admitting Provider Psychiatry & Neurology Psychiatry; Visit Provider Psychiatry & Neurology Psychiatry
PROC: GZB4ZZZ Other Electroconvulsive Therapy (ICD-10-PCS; CPT 90870; principal; 2023-06-19 07:30)
PROC: (CPT 90870; principal; 2023-07-03 07:30)
DX: F33.2 Major depressive disorder, recurrent severe without psychotic features (principal); R45.851 Suicidal ideations; F41.1 Generalized anxiety disorder; E78.5 Hyperlipidemia, unspecified; F41.0 Panic disorder [episodic paroxysmal anxiety]; R73.03 Prediabetes; N40.1 Benign prostatic hyperplasia with lower urinary tract symptoms; G47.33 Obstructive sleep apnea (adult) (pediatric); L40.50 Arthropathic psoriasis, unspecified; Z91.199 Patient's noncompliance with other medical treatment and regimen due to unspecified reason; M54.59 Other low back pain; K58.9 Irritable bowel syndrome, unspecified; G89.29 Other chronic pain; Z79.82 Long term (current) use of aspirin; Z79.899 Other long term (current) drug therapy
CPT/HCPCS: 36415; 80053; 80061; 82607; 82746; 83036; 84443; 90870; 93005; J0330; J1596; J1630; J1805; J1885; J2060; J2250; J2405; J2704; J7120

== ENCOUNTER → 2023-06-15 00:18 | Outpatient (BNV) | payer MEDICARE, SELFPAY | PROVIDERS: Admitting Provider Psychiatry & Neurology Psychiatry; Visit Provider Psychiatry & Neurology Psychiatry | DX: F33.2 Major depressive disorder, recurrent severe without psychotic features (principal); F41.0 Panic disorder [episodic paroxysmal anxiety]; F41.1 Generalized anxiety disorder | CPT/HCPCS: 90792; 90870; 99231; 99232; 99239 ==

== ENCOUNTER → 2023-06-15 00:18 | Outpatient (BNV) | payer MEDICARE, SELFPAY | PROVIDERS: Admitting Provider Psychiatry & Neurology Psychiatry; Visit Provider Physician Assistant | DX: L40.50 Arthropathic psoriasis, unspecified (principal); K58.9 Irritable bowel syndrome, unspecified; I10 Essential (primary) hypertension; G47.33 Obstructive sleep apnea (adult) (pediatric) | CPT/HCPCS: 99222; 99499 ==

== ENCOUNTER → 2023-06-15 00:18 | Outpatient (BNV) | payer MEDICARE, SELFPAY | PROVIDERS: Admitting Provider Psychiatry & Neurology Psychiatry; Responsible Provider Registered Nurse; Visit Provider Psychiatry & Neurology Psychiatry | DX: F33.2 Major depressive disorder, recurrent severe without psychotic features (principal) | CPT/HCPCS: 90870; 99231; 99499 ==